=== PATIENT | male | born 1955 | race Caucasian/White ===

== ENCOUNTER 2019-05-07 07:48 | Outpatient (CLI) | payer MEDICARE, BC, SELFPAY ==
--- NOTE | 2019-05-07 | CT_ITS ---
WS: [id number] CT CHEST WITH INTRAVENOUS CONTRAST HISTORY: COPD TECHNIQUE: Contiguous 5 mm axial imaging performed on the thorax. Coronal and sagittal reformats are submitted. All CT scans at [facility] use at least one of these dose optimization techniq ues: automated exposure control; mA and/or kV adjustment per patient size (includes targeted exams wh ere dose is matched to clinical indication); or iterative reconstruction. CONTRAST: Omnipaque 300; 95 mL IV. DLP: 706.97 mGy-cm. COMPARISON: Chest radiograph 03/04/2019 Lungs and central airway: Severe pulmonary hyperinflation with advanced emphysema. Large bulla and bl eb formations and biapical pleural thickening and scarring. Mild interstitial thickening and fibrosis at the lung bases. No bronchiectasis at this time. No suspicious mass or nodule. Pleura: Normal. No pleural effusion. Heart and pericardium: Mild increased pericardial fat deposition. Normal-sized heart chamber. Mediastinum and harjit: No mediastinal or hilar adenopathy. Vessels: Mild atherosclerosis aorta with normal size. Pulmonary artery size remains normal also. Ther e is extensive coronary artery calcification. Chest wall and lower neck: No soft tissue masses. Upper abdomen: Atherosclerosis continues into the upper abdominal aorta. The visualized liver and gal lbladder and upper abdominal structures are negative. Osseous structures: Mild anterior wedging of L1 and L2. Mild anterior wedging of T5. Thoracic spondyl osis. CT/CT chest w con* [id number] IMPRESSION: 1. Severe emphysema with biapical pleural thickening and scarring. 2. Advanced coronary artery atherosclerosis. 3. No adenopathy or pulmonary mass.
--- NOTE | 2019-05-07 | CT_ITS ---
WS: [id number] CT HEAD WITH AND WITHOUT CONTRAST HISTORY: WEAKNESS, HYPO OSMOLALITY TECHNIQUE: Noncontrast 2.5 mm axial images obtained from the vertex to the skull base. Additional lauryn ging performed at 2.5 mm axial images status post IV contrast. Bone and soft tissue windows are revie wed. All CT scans at [facility] use at least one of these dose optimization techniques: a utomated exposure control; mA and/or kV adjustment per patient size (includes targeted exams where do se is matched to clinical indication); or iterative reconstruction. CONTRAST: Omnipaque 300; 95 mL IV. DLP: 2116.36 mGy-cm. COMPARISON: 03/04/2019 No acute intracranial hemorrhage, edema or midline shift. Prior infarct in the posterior RIGHT fronta l lobe is similar to the prior study. No mass effect or midline shift. Mild bilateral symmetric atrop hy. Mild chronic microvascular ischemic disease in the white matter. No edema noted within the chapito o r brainstem on this exam. No enhancing mass or vascular malformations identified. Dural venous sinuses are normally enhancing. Moderate calcification noted within the intracranial carotid arteries and also scattered throughout t he vertebral arteries. Paranasal sinuses as visualized: Small amount of mucoperiosteal thickening in the LEFT frontal ethmoi d recess. Air-fluid level in the LEFT sphenoid sinus. Mastoid air cells: Clear. Calvarium and scalp: Intact. CT/CT head wo/w con [id number] IMPRESSION: 1. Remote posterior RIGHT frontal lobe infarct. 2. No acute hemorrhage or edema. 3. Stable mild atrophy and chronic microvascular ischemic disease. 4. No mass.
[2019-05-07 09:37] LABS: Blood Urea Nitrogen 7 mg/dL (8-23)
[2019-05-07] MEDS: iohexol 300 mg/mL 100 mL Btl IV ×2 (09:40→09:41)
== END 2019-05-07 07:49 | disposition home or self-care (01) ==
LOC: RADWPI 07:56
PROVIDERS: Family Provider Family Medicine; PCP Family Medicine; Visit Provider Family Medicine
DX: J44.9 Chronic obstructive pulmonary disease, unspecified (principal); R53.1 Weakness; E87.1 Hypo-osmolality and hyponatremia; I25.10 Atherosclerotic heart disease of native coronary artery without angina pectoris
CPT/HCPCS: 70470; 71260; 82565; 84520; Q9967

== ENCOUNTER 2019-05-15 10:02 | Outpatient (CLI) | payer MEDICARE, BC, SELFPAY ==
--- NOTE | 2019-05-15 10:15 | USCV_ITS ---
Chris Madera Age: 64 Gender: M : 1955 Exam Date: 05/15/2019 10:30 Ordering Phys: Bri Fernandez MD Technologist: Denise Wood [place]am Location[place] [facility] [place]: Carotid Bruit Risk Factors: Previous Vascular Surgery: None Right Brachial BP: / Left Brachial BP: / Right Left Velocity (cm/s) Spectral Plaque Velocity (cm/s) Spectral Plaque Syst/Diast Broadening Syst/Diast Broadening 62.40/ 7.70 Prox CCA 76.10 / 16.40 44.40/ 6.00 Mid CCA 87.70 / 23.90 19.90/ 4.70 Distal CCA 50.70 / 17.60 / Homo Prox ICA 43.60 / 8.70 / Mid ICA 81.60 / 25.70 / Distal ICA 76.00 / 25.70 166.20 ECA 106.50 ICA/CCA 0.93 Antegrade Vertebral Antegrade 47.10/ 15.70 cm/s 59.30/ 22.40 cm/s Tri Subclavian Bi 110.3 97.90 0 FINDINGS Comparison: none available. Complete occlusion of the right ICA with soft , noncalcified plaque. Small amount of chronic calcified plaque at the bifurcation. Left common and ICA mixed plaque without stenosis. Near circumferential intimal thickening measuring 4 mm at the bifurcation. CONCLUSIONS COMPLETE OCCLUSION RIGHT ICA WITH SOFT PLAQUE. No left ICA stenosis but mixed plaque throughout the common and ICA. Report called at time of exam by deputy sheriff generalist. Dr. Nubia Aponte DO (Electronically Signed) Final Date: 15 May 2019 11:52 S
== END 2019-05-15 10:03 | disposition home or self-care (01) ==
PROVIDERS: Family Provider Family Medicine; PCP Family Medicine; Visit Provider Family Medicine
DX: I65.21 Occlusion and stenosis of right carotid artery (principal); R09.89 Other specified symptoms and signs involving the circulatory and respiratory systems
CPT/HCPCS: 93880

== ENCOUNTER 2019-06-04 09:06 | Outpatient (CLI) | payer MEDICARE, BC, SELFPAY ==
--- NOTE | 2019-06-04 09:00 | CT_ITS ---
WS: [id number] CTA NECK TECHNIQUE: Contrast enhanced CTA of the neck with coronal and sagittal reformatted images and maximum intensity projection (MIP) images. NASCET criteria utilized. CLINICAL INFORMATION: carotid stenosis COMPARISON: None. DLP: 929.[address] scans at [facility] use at least one of these dose optimization techniques: automat ed exposure control; mA and/or kV adjustment per patient size (includes targeted exams where dose is matched to clinical indication); or iterative reconstruction. FINDINGS: RIGHT: Right common carotid artery is patent. Right ICA is occluded at the origin and remains occlude d to the skull base. Right ECA is patent. LEFT: Left common carotid artery is patent. Mild calcified atheromatous disease left carotid bulb ext ending into the ICA. Left ICA stenosis measures approximately 40%. Moderate calcified atheromatous di sease at ECA origin. ECA origin is patent. Left ICA remains patent to the skull base. Both vertebral arteries are patent. Proximal basilar artery is patent. Left cavernous carotid calcification. Proximal [place] pears patent. Mastoid air cells are well aerated. Fluid within the sphenoid sinus. Advanced emphysematous changes i n the lung apices with fibrosis. CT/CT angio neck [id number] IMPRESSION: 1. Right ICA is occluded at the origin and remains occluded to the skull base. 2. Left proximal ICA stenosis measures approximately 40%. 3. Both vertebral arteries are patent. 4. Mild sphenoid sinusitis.
[2019-06-04] MEDS: iohexol 350 mg/mL 100 mL Btl IV (09:43)
== END 2019-06-04 09:07 | disposition home or self-care (01) ==
LOC: RADWPI 09:13
PROVIDERS: Family Provider Family Medicine; PCP Family Medicine; Visit Provider Thoracic Surgery (Cardiothoracic Vascular Surgery)
DX: I65.23 Occlusion and stenosis of bilateral carotid arteries (principal); J32.3 Chronic sphenoidal sinusitis
CPT/HCPCS: 70498; Q9967

== ENCOUNTER 2019-06-04 10:38 | Outpatient (CLI) | payer MEDICARE, BC, SELFPAY ==
--- NOTE | 2019-06-04 14:17 | PFTS_ITS ---
Date of Study:06/04/2019 Date of Dictation: MECHANICS: Forced vital capacity (FVC) is normal. Forced expiratory volume in one second (FEV1) is reduced. FEV1/FVC is . FLOW VOLUME LOOP: Reduced flow at all lung volumes with significant scooping. LUNG VOLUMES: Total lung capacity (TLC) is normal. Residual volume (RV) is normal. DIFFUSING CAPACITY FOR CARBON MONOXIDE: Moderately reduced. INTERPRETATION: The pulmonary function tests are consistent with moderate airflow obstruction. There is no significant postbronchodilator response. There is no hyperinflation or air trapping. Gas exchange (DLCO) is moderately reduced. MTDD
== END 2019-06-04 10:39 | disposition home or self-care (01) ==
LOC: RT 10:40
PROVIDERS: Family Provider Family Medicine; PCP Family Medicine; Visit Provider Family Medicine
DX: J44.9 Chronic obstructive pulmonary disease, unspecified (principal)
CPT/HCPCS: 94060; 94726; 94729; J7611

== ENCOUNTER 2019-10-31 08:52 | Outpatient (CLI) | payer MEDICARE, BC, SELFPAY ==
--- NOTE | 2019-10-31 08:56 | US_ITS ---
WS: [id number] ULTRASOUND ABDOMEN LIMITED CLINICAL INFORMATION: ABNORMAL LEVELS OF OTHER SERUM ENZYMES COMPARISON: None. FINDINGS: Liver Size: Enlarged Craniocaudal length: 16.3 cm. Echogenicity: Dense Surface nodularity: None. Mass (size and location): None. Bile ducts Intrahepatic ducts: Normal. Common bile duct diameter: 0.5 cm. Gallbladder Normal. Gallstones: None. Gallbladder sludge: None. Gallbladder wall thickening: None. Pericholecystic fluid: None. Sonographic Mercer sign: Absent. Pancreas Not well visualized Right kidney: Normal. Hydronephrosis: None. Size: 9.7 cm x 4.1 cm x 5.1 cm. Abdominal aorta and IVC Visualized portions are normal. Moderate aortic atheromatous disease Ascites: None. US/US abdomen limited [id number] IMPRESSION: 1. Hepatomegaly with diffuse fatty infiltration. 2. Gallbladder is normal. 3. No hydronephrosis in either kidney. 4. Moderate atheromatous of these abdominal aorta
== END 2019-10-31 08:53 | disposition home or self-care (01) ==
LOC: US 08:53
PROVIDERS: PCP Family Medicine; Visit Provider Family Medicine
DX: R94.5 Abnormal results of liver function studies (principal); R63.4 Abnormal weight loss; R16.0 Hepatomegaly, not elsewhere classified; K76.0 Fatty (change of) liver, not elsewhere classified; I70.0 Atherosclerosis of aorta
CPT/HCPCS: 76705

== ENCOUNTER → 2019-11-12 12:56 | Outpatient (BNVA) | payer MEDICARE, BC, SELFPAY | PROVIDERS: PCP Family Medicine; Referring Provider Family Medicine; Visit Provider Specialist | DX: G40.309 Generalized idiopathic epilepsy and epileptic syndromes, not intractable, without status epilepticus (principal) | CPT/HCPCS: 95816 ==

== ENCOUNTER → 2019-11-25 13:52 | Outpatient (BNVA) | payer MEDICARE, BC, SELFPAY | PROVIDERS: PCP Family Medicine; Referring Provider Family Medicine; Visit Provider Specialist | DX: G40.309 Generalized idiopathic epilepsy and epileptic syndromes, not intractable, without status epilepticus (principal); I95.1 Orthostatic hypotension; F17.210 Nicotine dependence, cigarettes, uncomplicated | CPT/HCPCS: 99204 ==

== ENCOUNTER 2020-01-09 14:03 | Outpatient (CLI) | payer MEDICARE, BC, SELFPAY ==
--- NOTE | 2020-01-09 14:15 | USCV_ITS ---
Chris Madera Age: 64 Gender: M : 1955 Exam Date: 01/09/2020 14:45 Ordering Phys: Gustavo Negro MD ([email or web address] [place] [facility] Technologist: Caitlin Gusman Exam Location: [facility] [place] Indication: RECHECK CCA STENOSIS Risk Factors: Unknown Previous Vascular Surgery: Unknown Right Brachial BP: / Left Brachial BP: / Right Left Velocity (cm/s) Spectral Plaque Velocity (cm/s) Spectral Plaque Syst/Diast Broadening Syst/Diast Broadening 129.00/16.50 Prox CCA 109.70/ 25.70 83.10/ 11.20 Mid CCA 90.70 / 23.00 100.60/6.70 Distal CCA 78.60 / 17.60 / Prox ICA 48.40 / 20.10 Homo / Mid ICA 50.70 / 23.10 / Distal ICA 57.40 / 28.30 164.20 ECA 94.80 Hetro ICA/CCA 0.63 Antegrade Vertebral Antegrade 48.10/ 11.20 cm/s 55.10/ 18.60 cm/s Tri Subclavian Tri 126.9 150.5 0 0 FINDINGS Moderate heterogeneous plaques at the left bifurcation and proximal renal carotid artery. No flow was detected in the right internal carotid artery. Echogenic material in the lumen of the artery suggestive of a soft plaque Mild diffuse plaques in the common carotid arteries bilaterally. Antegrade flow in the vertebral arteries bilaterally. CONCLUSIONS Features of total occlusion of the right internal carotid artery with soft plaque. Moderate heterogeneous plaques at the left bifurcation and proximal carotid artery Mild diffuse plaques in the common carotid arteries bilaterally. Compared to the study from 05/15/2019, there may not be a significant change Dr Narinder Sweeney MD [facility] (Electronically Signed) Final Date: 12 January 2020 09:01 S
== END 2020-01-09 14:04 | disposition home or self-care (01) ==
LOC: RAD 14:16
PROVIDERS: PCP Family Medicine; Visit Provider Thoracic Surgery (Cardiothoracic Vascular Surgery)
DX: I65.23 Occlusion and stenosis of bilateral carotid arteries (principal)
CPT/HCPCS: 93880

== ENCOUNTER 2020-05-24 15:55 | Outpatient (CLI) | payer MEDICARE, BC, SELFPAY | END 2020-05-24 15:56 | disposition home or self-care (01) | PROVIDERS: PCP Family Medicine; Visit Provider Nurse Practitioner Family | DX: K70.9 Alcoholic liver disease, unspecified (principal); A04.8 Other specified bacterial intestinal infections; R63.4 Abnormal weight loss; Z72.89 Other problems related to lifestyle; K74.00 Hepatic fibrosis, unspecified | CPT/HCPCS: 87338 ==

== ENCOUNTER 2020-08-03 23:50 | Inpatient (IN) | payer MEDICARE, BC, SELFPAY ==
--- NOTE | 2020-08-03 23:55 | CTR_ITS ---
PROCEDURE INFORMATION: Exam: CT Head Without Contrast Exam date and time: 08/03/2020 11:58 PM Age: 65 years old Clinical indication: Injury or trauma; Blunt trauma (contusions or hematomas); Patient HX: Fall out of wheelchair. Sustained blow to head. TECHNIQUE: Imaging protocol: Computed tomography of the head without contrast. Radiation optimization: All CT scans at this facility use at least one of these dose optimization techniques: automated exposure control; mA and/or kV adjustment per patient size (includes targeted exams where dose is matched to clinical indication); or iterative reconstruction. COMPARISON: CT head wo/w con [id number] 05/07/2019 9:24 AM RADIATION DOSE METRICS: Total DLP (mGy-cm): 942.9 FINDINGS: Brain: There is moderate cerebral atrophy. No intracranial hemorrhage.There is moderate diffuse heterogeneity of the white matter attenuation, consistent with chronic white matter ischemic changes. No midline shift of brain. Focal area of encephalomalacia and gliosis in the superior right frontal lobe which is stable from comparison imaging. No acute cerebral sulcal effacement. Cerebral ventricles: No ventriculomegaly. Bones/joints: Unremarkable. No acute fracture. Paranasal sinuses: Visualized sinuses are unremarkable. No fluid levels. Mastoid air cells: Visualized mastoid air cells are well aerated. Orbital cavity: Orbits are symmetric. Bilateral lens replacements. Vasculature: Scattered intracranial atherosclerosis. Soft tissues: Unremarkable. CT/CT head wo con* [id number] IMPRESSION: Negative for acute intracranial abnormality. Radiation Dose CTDIVOL = (mGy): DLP = 942.9 (mGy-cm)
--- NOTE | 2020-08-03 23:55 | CTR_ITS ---
PROCEDURE INFORMATION: Exam: CT Cervical Spine Without Contrast Exam date and time: 08/03/2020 11:58 PM Age: 65 years old Clinical indication: Injury or trauma; Blunt trauma; Patient HX: Fall out of wheelchair. Sustained blow to head. TECHNIQUE: Imaging protocol: Computed tomography images of the cervical spine without contrast. Radiation optimization: All CT scans at this facility use at least one of these dose optimization techniques: automated exposure control; mA and/or kV adjustment per patient size (includes targeted exams where dose is matched to clinical indication); or iterative reconstruction. COMPARISON: CT angio neck [id number] 06/04/2019 9:36 AM RADIATION DOSE METRICS: Total DLP (mGy-cm): 471.41 FINDINGS: Vertebrae: No acute fracture. Normal alignment. The cervical spine demonstrates moderate degenerative changes at multiple levels. Bones are diffusely demineralized. Soft tissues: Unremarkable. Vasculature: Large volume of atherosclerotic plaque bilateral carotid artery bulb regions. Lungs: Severe emphysema and apical lung scarring. CT/CT cervical spin wo con* [id number] IMPRESSION: Negative for cervical spine fracture. Radiation Dose CTDIVOL = (mGy): DLP = 471.41 (mGy-cm)
--- NOTE | 2020-08-03 23:55 | XRR_ITS ---
PROCEDURE INFORMATION: Exam: XR Chest Exam date and time: 08/03/2020 11:58 PM Age: 65 years old Clinical indication: Chest pressure; Patient HX: Chest pain; Additional info: Cp TECHNIQUE: Imaging protocol: XR of the chest. Views: 1 view. COMPARISON: CT chest w con* [id number] 05/07/2019 9:20 AM FINDINGS: Lungs: Stable pulmonary fibrosis. Pleural spaces: Unremarkable. No pleural effusion. No pneumothorax. Heart/Mediastinum: Unremarkable. No cardiomegaly. Bones/joints: Unremarkable. XR/XR chest 1V portable [id number] IMPRESSION: 1. Stable pulmonary fibrosis. 2. No acute disease.
[2020-08-03 23:56] VITALS: BP 88/54; PULSE 78; RESP 16; TEMP 36.4; O2SAT 98; BMI 25.8
--- NOTE | 2020-08-03 23:56 | ECG_ITS ---
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 Measurements Intervals [place] Rate: 72 P: 79 MI: 179 QRS: -64 QRSD: 112 T: 65 QT: 418 QTc: 458 Interpretive Statements SINUS RHYTHM LEFT ANTERIOR FASCICULAR BLOCK [QRS AXIS <= -45, QR IN I, RS IN II] NONSPECIFIC T-WAVE ABNORMALITY Compared to ECG 03/04/2019 13:44:43 Left anterior fascicular block now present T-wave abnormality now present Left-axis deviation no longer present Incomplete right bundle-branch block no longer present Electronically Signed On 08-05-2020 10:06:28 CDT by Narinder Sweeney M.D. [email or web address]
[2020-08-04] VITALS (22 sets, daily range): BP systolic 92–167; BP diastolic 66–110; PULSE 71–117; RESP 8–27; TEMP 36.1–37; O2SAT 91–100
--- NOTE | 2020-08-04 00:05 | W.ED.AMS ---
HPI - Altered Mental Status General: Chief Complaint: ER Hold Stated Complaint: FALL/CP Time Seen by Provider: 08/03/20 23:54 Source: patient and EMS Mode of arrival: EMS Limitations: no limitations History of Present Illness: HPI narrative: 65-year-old male is here by EMS for altered mental status and a fall out of his wheelchair. Spoke to his daughter and she states that he drinks nightly and had a couple drinks tonight. She states he started to become incoherent and complained of some chest pain and she gave him 2 nitroglycerin. Patient here is mumbling and unable to get any history. States he did hit his head when he fell. Patient has a history of anemia and is on iron at all times for his anemia. Patient here is hypotensive she states he gets like this sometimes and his blood pressure is low here currently. he has had no recent illness or fever Review of Systems General: Reports: ROS unobtainable due to mental status [facility] PFSH: Medical History (Updated 08/04/20 @ 01:22 by Dennise Contreras MD) Carotid artery disease COPD (chronic obstructive pulmonary disease) Depression Hypertension Surgical History H/O hernia repair Family History Denies family history of CAD (coronary artery disease) Cancer Social History Smoking and tobacco status: current every day smoker cigarettes Packs smoked per day: 0.5 Years cigarettes smoked: 40 Physical Exam Const: COMMON NORMALS: negative for patient oriented x3 GENERAL APPEARANCE: lethargic and ill appearing ORIENTATION/CONSCIOUSNESS: Yes lethargic HENMT: COMMON NORMALS: normocephalic and atraumatic HEAD & SCALP: normocephalic and atraumatic Eye: COMMON NORMALS: Equal, round and reactive pupils present and EOMs intact bilaterally PUPIL: Yes Equal, round and reactive pupils present Neck/C-Spine: COMMON NORMALS: full ROM and supple Chest: COMMONS NORMALS: normal inspection of the chest and normal palpation of entire chest wall Resp: COMMON NORMALS: normal respiratory effort, No retractions, No use of accessory muscles and clear to auscultation bilaterally AUSCULTATION: clear to auscultation bilaterally Cardio: COMMON NORMALS: regular rate, regular rhythm and No murmurs present (Cardio) RATE: regular rate RHYTHM: regular rhythm GI: COMMON NORMALS: Normal to inspection, nondistended, normoactive bowel sounds present, Soft to palpation, non-tender and no masses PALPATION: Yes Soft to palpation RECTAL EXAM: Yes heme negative stool Extremity: COMMON NORMALS: normal to inspection and full ROM Neuro: COMMON NORMALS: moves all extremities and no focal motor deficits; negative for patient oriented x3 SENSORIUM/ORIENTATION: Yes lethargic Psych: COMMON NORMALS: cooperative; negative for mental status grossly normal Skin: COMMON NORMALS: no rashes or lesions noted and no wounds NARRATIVE SKIN EXAM: pale GENERAL SKIN EXAM: no rashes or lesions noted Course Vital Signs: Vital signs: Vital Signs Temperature 97.6 F 08/03/20 23:56 Pulse Rate 71 08/04/20 01:06 Respiratory Rate 19 H 08/04/20 01:06 Blood Pressure 105/66 08/04/20 01:06 Pulse Oximetry 96 08/04/20 01:06 MDM - Altered Mental Status MDM Narrative: Medical decision making narrative: Patient presents here with altered mental status likely due to his alcohol use. Patient also appears dehydrated. He is initially hypotensive likely due to his dehydration along with taking two nitro pills. He does have an elevated lactate I also believe is due more to dehydration. His white count is minimally elevated and he has no signs of infection at this point. Did treat him with IV antibiotics to follow sepsis protocol and will get blood cultures. Patient's blood pressure here is improved greatly with IV fluids and is now 114/72. Spoke to hospitalist and will admit to the ICU at this time. His head CT here is normal. He has no signs of an acute stroke. Lab Data: Labs: Lab Results 08/04/20 08/04/20 08/04/20 Range/Units 00:06 00:06 00:06 WBC 11.8 H (4.0-10.0) 10^3/ uL RBC 3.00 L (4.1-5.3) 10^6/u L Hgb 10.2 L (11.7-16.6) g/dL Hct 29.7 L (42.0-52.0) % MCV 99.0 H (80-94) fL MCH 34.0 (28.0-34.0) pg MCHC 34.3 (30.0-36.0) g/dL RDW 13.1 (12.1-15.1) % Plt Count 349 (130-400) 10^3/c mm MPV 9.6 (7.4-10.4) fL Neut % (Auto) 61.3 % Lymph % (Auto) 29.1 % [place] % (Auto) 5.8 % Eos % (Auto) 2.5 % Baso % (Auto) 0.5 % Neut # (Auto) 7.21 (1.8-7.7) 10^3/u L Lymph # (Auto) 3.4 (0.8-4.8) 10^3/u L [place] # (Auto) 0.7 (0.2-0.9) 10^3/u L Eos # (Auto) 0.3 (0.0-0.8) 10^3/u L Baso # (Auto) 0.1 (0.0-0.1) 10^3/u L Nucleated RBC % (a uto) 0 % Nucleated RBCs # 0.0 /100WBC PT 13.20 (12.1-14.9) SECO NDS INR 0.97 (0.8-1.2) Sodium 128 L (136-145) mmol/L Potassium 3.2 L (3.5-5.1) mmol/L Chloride 95 L (98-107) mmol/L Carbon Dioxide 17 L (22-29) mmol/L Anion Gap 19.2 H (5-19) BUN 3 L (8-23) mg/dL Creatinine 0.5 L (0.7-1.2) mg/dL GFR Calculation 167.4 H (90-130) mL/min Glucose 78 (65-115) mg/dL Calculated Osmolal ity 261 L (285-295) mOsm/k g Lactate (0.5-2.2) mmol/L Calcium 7.5 L (8.5-10.5) mg/dL Total Bilirubin 0.2 (0.15-1.2) mg/dL AST 48 H (0-40) U/L ALT 27 (0-41) U/L Alkaline Phosphata se 314 H (40-130) IU/L Troponin T Baselin e (0-15) ng/L Total Protein 5.2 L (6.6-8.7) g/dL Albumin 2.3 L (3.5-5.2) g/dL Globulin 2.9 (1.3-4.6) g/dL Urine Color (Yellow) Urine Appearance (CLEAR) Urine pH (5-7) Ur Specific Gravit y (1.005-1.030) Urine Protein (Negative) Urine Glucose (UA) (Normal) Urine Ketones (Negative) Urine Blood (Negative) Urine Nitrate (Negative) Urine Bilirubin (Negative) Urine Urobilinogen (Negative) mg/dL Ur Leukocyte Patty ase (Negative) Urine RBC (0-2) /hpf Urine WBC (0-5) /hpf Ur Squamous Epith Cells (0-5) /hpf Amorphous Sediment Urine Bacteria (NONE) /hpf Ethyl Alcohol 146 H (0-10) mg/dL 08/04/20 08/04/20 08/04/20 Range/Units 00:06 00:06 01:15 WBC (4.0-10.0) 10^3/ uL RBC (4.1-5.3) 10^6/u L Hgb (11.7-16.6) g/dL Hct (42.0-52.0) % MCV (80-94) fL MCH (28.0-34.0) pg MCHC (30.0-36.0) g/dL RDW (12.1-15.1) % Plt Count (130-400) 10^3/c mm MPV (7.4-10.4) fL Neut % (Auto) % Lymph % (Auto) % [place] % (Auto) % Eos % (Auto) % Baso % (Auto) % Neut # (Auto) (1.8-7.7) 10^3/u L Lymph # (Auto) (0.8-4.8) 10^3/u L [place] # (Auto) (0.2-0.9) 10^3/u L Eos # (Auto) (0.0-0.8) 10^3/u L Baso # (Auto) (0.0-0.1) 10^3/u L Nucleated RBC % (a uto) % Nucleated RBCs # /100WBC PT (12.1-14.9) SECO NDS INR (0.8-1.2) Sodium (136-145) mmol/L Potassium (3.5-5.1) mmol/L Chloride (98-107) mmol/L Carbon Dioxide (22-29) mmol/L Anion Gap (5-19) BUN (8-23) mg/dL Creatinine (0.7-1.2) mg/dL GFR Calculation (90-130) mL/min Glucose (65-115) mg/dL Calculated Osmolal ity (285-295) mOsm/k g Lactate 6.1 H* (0.5-2.2) mmol/L Calcium (8.5-10.5) mg/dL Total Bilirubin (0.15-1.2) mg/dL AST (0-40) U/L ALT (0-41) U/L Alkaline Phosphata se (40-130) IU/L Troponin T Baselin e 11 (0-15) ng/L Total Protein (6.6-8.7) g/dL Albumin (3.5-5.2) g/dL Globulin (1.3-4.6) g/dL Urine Color Yellow (Yellow) Urine Appearance Clear (CLEAR) Urine pH 5 (5-7) Ur Specific Gravit y 1.010 (1.005-1.030) Urine Protein Neg (Negative) Urine Glucose (UA) Norm (Normal) Urine Ketones Negative (Negative) Urine Blood Neg (Negative) Urine Nitrate Negative (Negative) Urine Bilirubin Neg (Negative) Urine Urobilinogen Norm (Negative) mg/dL Ur Leukocyte Patty ase Negative (Negative) Urine RBC None (0-2) /hpf Urine WBC None (0-5) /hpf Ur Squamous Epith Cells 0-4 H (0-5) /hpf Amorphous Sediment Not Reportable Urine Bacteria None (NONE) /hpf Ethyl Alcohol (0-10) mg/dL Imaging Data^: Other Xray: Radiologist's impression: [facility] [address] XRay Report Signed Patient: Chris Madera Unit #: [id number] : 1955 Age/Sex: 65 / M ADM Date: 08/03/20 Loc: ER Room/Bed: Attending Dr: Ordering Provider/Ordering MD: Dennise Contreras MD Date of Service: 08/04/20 Procedure(s): XR pelvis 1-2V* [id number] Accession Number(s): [id number] Report Number: [id number] PROCEDURE INFORMATION: Exam: XR Pelvis Exam date and time: 08/04/2020 12:17 AM Age: 65 years old Clinical indication: Injury or trauma; Blunt trauma (contusions or hematomas); Bilateral; Pelvic region; Prior surgery; Surgery type: Hernia repair; Patient HX: Fall out of wheelchair TECHNIQUE: Imaging protocol: XR pelvis. Views: 1 or 2 view. COMPARISON: No relevant prior studies available. FINDINGS: Bones/joints: No acute fracture or dislocation. Soft tissues: Unremarkable. XR/XR pelvis 1-2V* [id number] IMPRESSION: No acute fracture or dislocation. CXR: Attestation: I personally reviewed and interpreted this imaging study as follows: Radiologist's impression: [facility] [address] XRay Report Signed Patient: Chris Madera Unit #: [id number] : 1955 Age/Sex: 65 / M ADM Date: 08/03/20 Loc: ER Room/Bed: Attending Dr: Ordering Provider/Ordering MD: Dennise Contreras MD Date of Service: 08/03/20 Procedure(s): XR chest 1V portable [id number] Accession Number(s): [id number] Report Number: [id number] PROCEDURE INFORMATION: Exam: XR Chest Exam date and time: 08/03/2020 11:58 PM Age: 65 years old Clinical indication: Chest pressure; Patient HX: Chest pain; Additional info: Cp TECHNIQUE: Imaging protocol: XR of the chest. Views: 1 view. COMPARISON: CT chest w con* [id number] 05/07/2019 9:20 AM FINDINGS: Lungs: Stable pulmonary fibrosis. Pleural spaces: Unremarkable. No pleural effusion. No pneumothorax. Heart/Mediastinum: Unremarkable. No cardiomegaly. Bones/joints: Unremarkable. XR/XR chest 1V portable [id number] IMPRESSION: 1. Stable pulmonary fibrosis. 2. No acute disease. CT Head: Radiologist's impression: [facility] [address] [place] [address] CT Scan Report Signed Patient: Chris Madera Unit #: [id number] : 1955 Age/Sex: 65 / M ADM Date: 08/03/20 Loc: ER Room/Bed: Attending Dr: Ordering Provider/Ordering MD: Dennise Contreras MD Date of Service: 08/03/20 Procedure(s): CT head wo con* [id number] Accession Number(s): [id number] Report Number: [id number] PROCEDURE INFORMATION: Exam: CT Head Without Contrast Exam date and time: 08/03/2020 11:58 PM Age: 65 years old Clinical indication: Injury or trauma; Blunt trauma (contusions or hematomas); Patient HX: Fall out of wheelchair. Sustained blow to head. TECHNIQUE: Imaging protocol: Computed tomography of the head without contrast. Radiation optimization: All CT scans at this facility use at least one of these dose optimization techniques: automated exposure control; mA and/or kV adjustment per patient size (includes targeted exams where dose is matched to clinical indication); or iterative reconstruction. COMPARISON: CT head wo/w con [id number] 05/07/2019 9:24 AM RADIATION DOSE METRICS: Total DLP (mGy-cm): 942.9 FINDINGS: Brain: There is moderate cerebral atrophy. No intracranial hemorrhage.There is moderate diffuse heterogeneity of the white matter attenuation, consistent with chronic white matter ischemic changes. No midline shift of brain. Focal area of encephalomalacia and gliosis in the superior right frontal lobe which is stable from comparison imaging. No acute cerebral sulcal effacement. Cerebral ventricles: No ventriculomegaly. Bones/joints: Unremarkable. No acute fracture. Paranasal sinuses: Visualized sinuses are unremarkable. No fluid levels. Mastoid air cells: Visualized mastoid air cells are well aerated. Orbital cavity: Orbits are symmetric. Bilateral lens replacements. Vasculature: Scattered intracranial atherosclerosis. Soft tissues: Unremarkable. CT/CT head wo con* [id number] IMPRESSION: Negative for acute intracranial abnormality. Radiation Dose CTDIVOL = (mGy): DLP = 942.9 ( Other CT: Attestation: I personally reviewed and interpreted this imaging study as follows: Radiologist's impression: [facility] [address] [place] [address] CT Scan Report Signed Patient: Chris Madera Unit #: [id number] : 1955 Age/Sex: 65 / M ADM Date: 08/03/20 Loc: ER Room/Bed: Attending Dr: Ordering Provider/Ordering MD: Dennise Contreras MD Date of Service: 08/03/20 Procedure(s): CT cervical spin wo con* [id number] Accession Number(s): [id number] Report Number: [id number] PROCEDURE INFORMATION: Exam: CT Cervical Spine Without Contrast Exam date and time: 08/03/2020 11:58 PM Age: 65 years old Clinical indication: Injury or trauma; Blunt trauma; Patient HX: Fall out of wheelchair. Sustained blow to head. TECHNIQUE: Imaging protocol: Computed tomography images of the cervical spine without contrast. Radiation optimization: All CT scans at this facility use at least one of these dose optimization techniques: automated exposure control; mA and/or kV adjustment per patient size (includes targeted exams where dose is matched to clinical indication); or iterative reconstruction. COMPARISON: CT angio neck [id number] 06/04/2019 9:36 AM RADIATION DOSE METRICS: Total DLP (mGy-cm): 471.41 FINDINGS: Vertebrae: No acute fracture. Normal alignment. The cervical spine demonstrates moderate degenerative changes at multiple levels. Bones are diffusely demineralized. Soft tissues: Unremarkable. Vasculature: Large volume of atherosclerotic plaque bilateral carotid artery bulb regions. Lungs: Severe emphysema and apical lung scarring. CT/CT cervical spin wo con* [id number] IMPRESSION: Negative for cervical spine fracture. EKG Data^: EKG 1: Attestation: I personally reviewed and interpreted this EKG as follows: EKG interpretation date: 08/04/20 EKG interpretation time: 00:55 Interpretation: nsr hr [address] or t wave abnormalities qrs 112 qtc 442 Discharge Plan Discharge Patient Disposition: Admitted As Inpatient Clinical Impression: Altered mental status, Acute hypotension, Fall, Acidosis, lactic Condition: Stable Coding Level of Care Code ED Associate Professor Of Education for Chg Fwd Exam Comprehensive
[2020-08-04 00:15] LABS: Basophils # 0.1 10^3/uL (0.0-0.1); Basophils % 0.5 %; Eosinophils # 0.3 10^3/uL (0.0-0.8); Eosinophils % 2.5 %; Hematocrit 29.7 % (42.0-52.0); Hemoglobin 10.2 g/dL (11.7-16.6); Lymphocytes # 3.4 10^3/uL (0.8-4.8); Lymphocytes % 29.1 %; Mean Corpuscular HGB Conc 34.3 g/dL (30.0-36.0); Mean Platelet Volume 9.6 fL (7.4-10.4); Monocytes # 0.7 10^3/uL (0.2-0.9); Monocytes % 5.8 %; Neutrophils # 7.21 10^3/uL (1.8-7.7); Neutrophils % 61.3 %; Nucleated Red Blood Cells % 0 %; Platelet Count 349 10^3/cmm (130-400); Red Cell Distribution Width 13.1 % (12.1-15.1); White Blood Count 11.8 10^3/uL (4.0-10.0)
--- NOTE | 2020-08-04 00:16 | XRR_ITS ---
PROCEDURE INFORMATION: Exam: XR Pelvis Exam date and time: 08/04/2020 12:17 AM Age: 65 years old Clinical indication: Injury or trauma; Blunt trauma (contusions or hematomas); Bilateral; Pelvic region; Prior surgery; Surgery type: Hernia repair; Patient HX: Fall out of wheelchair TECHNIQUE: Imaging protocol: XR pelvis. Views: 1 or 2 view. COMPARISON: No relevant prior studies available. FINDINGS: Bones/joints: No acute fracture or dislocation. Soft tissues: Unremarkable. XR/XR pelvis 1-2V* [id number] IMPRESSION: No acute fracture or dislocation.
[2020-08-04 00:27] LABS: INR 0.97 (0.8-1.2)
[2020-08-04 00:34] LABS: Alanine Aminotransferase 27 U/L (0-41); Albumin Level 2.3 g/dL (3.5-5.2); Alcohol Level 146 mg/dL (0-10); Alkaline Phosphatase 314 IU/L (40-130); Anion Gap 19.2 (5-19); Aspartate Amino Transferase 48 U/L (0-40); Blood Urea Nitrogen 3 mg/dL (8-23); Calcium 7.5 mg/dL (8.5-10.5); Carbon Dioxide 17 mmol/L (22-29); Chloride 95 mmol/L (98-107); Globulin 2.9 g/dL (1.3-4.6); Glomerular Filtration Rate 167.4 mL/min (90-130); Glucose 78 mg/dL (65-115); Osmolality Calculated 261 mOsm/kg (285-295); Potassium 3.2 mmol/L (3.5-5.1); Sodium 128 mmol/L (136-145); Total Bilirubin 0.2 mg/dL (0.15-1.2); Total Protein 5.2 g/dL (6.6-8.7)
[2020-08-04 00:37] LABS: Troponin(5th) Baseline 11 ng/L (0-15)
[2020-08-04 00:38] LABS: Lactate (Lactic Acid level) 6.1 mmol/L (0.5-2.2)
[2020-08-04] MEDS: sodium chloride 0.9% 1,000 ML 999 ML IV (00:47)
[2020-08-04] MEDS: piperacillin-tazobactam 3.375 GM in sodium chloride 0.9% (plus) 50 ML IV ×3 (00:48→17:38)
[2020-08-04] MEDS: vancomycin 1,000 MG in sodium chloride 0.9% 250 ML 250 MG IV (01:25)
[2020-08-04] MEDS: sodium chloride 0.9% 500 ML 999 ML IV (01:27)
[2020-08-04 01:33] LABS: Add Urine Culture? No; Bilirubin Urine Neg (Negative); Blood Urine Neg (Negative); Glucose Urine UA Norm (Normal); Ketones Urine Negative (Negative); Leukocyte Esterase Urine Negative (Negative); Nitrate Urine Negative (Negative); Protein Urine Neg (Negative); Squamous Epithelial Cell Urine 0-4 /hpf (0-5); Urine Appearance Clear (CLEAR); Urine Color Yellow (Yellow); Urobilinogen Urine Norm (Negative); pH Urine 5 (5-7)
--- NOTE | 2020-08-04 01:38 | PC.NURSE ---
Pt cosmetic manager Herminia asked this nurse to make a note that patient is hard of hearing and that staff will need to speak loudly to him
--- NOTE | 2020-08-04 02:46 | P.HP_ITS ---
Providers/Chief Complaint Admitting Physician: Johnson Friedman Primary Care Provider: Bri Fernandez MD Chief Complaint: FALL/CP History of Present Illness Chris Madera is a 65 year old male with past medical history of hypertension, COPD and pulmonary fibrosis, depression, hypertension, alcohol abuse and possible cirrhosis who was brought by his daughter to emergency room due to confusion and altered mental status. The patient had several drinks today. While intoxicated he reported chest pain. He was given 2 tablets of nitroglycerin after which he developed hypotension. In the emergency room his blood pressure was in 80s. He is still confused and unable to provide entire history. However he follows instructions appropriately. Denies any active complaints at this time. He reports that the chest pain has resolved. His daughter reports that this presentation is very common for him when he is intoxicated. He is EKG showed no acute ischemic changes and troponin was negative. He denies having any shortness of breath or palpitations. Reports some nausea but no vomiting. No diarrhea. No rectal blood. He drinks about a bottle of enzo in 1 week. He also occasionally falls from his wheelchair when he is intoxicated. Review of Systems General: Reports: 10 or more systems reviewed and unremarkable except in HPI and below Medications/Allergies Home Medications Medication Instructions Recorded Confirmed Last Taken Type aspirin 81 mg tablet,delayed 81 mg PO DAILY 05/21/19 01/15/20 Unknown History release escitalopram oxalate 10 mg tablet 10 mg PO DAILY 05/21/19 01/15/20 Unknown History lisinopril 20 mg tablet 20 mg PO DAILY 05/21/19 01/15/20 Unknown History nitroglycerin 0.4 mg sublingual 0.4 mg SUBLINGUAL Q5M PRN 05/21/19 01/15/20 Unknown History tablet famotidine 20 mg tablet 20 mg PO DAILY 11/25/19 01/15/20 Unknown History ferrous sulfate 325 mg (65 mg 325 mg PO DAILY 11/25/19 01/15/20 Unknown History iron) tablet levetiracetam 750 mg tablet 750 mg PO BID 11/25/19 01/15/20 Unknown History mirtazapine 15 mg tablet 15 mg PO DAILY 11/25/19 01/15/20 Unknown History multivitamin 1 tab PO DAILY 11/25/19 01/15/20 Unknown History Allergies Allergy/AdvReac Type Severity Reaction Status Date / Time No Known Allergies Allergy Verified 11/25/19 14:16 PFSH Acute PFSH: Medical History (Updated 08/04/20 @ 01:22 by Dennise Contreras MD) Carotid artery disease COPD (chronic obstructive pulmonary disease) Depression Hypertension Surgical History H/O hernia repair Family History Denies family history of CAD (coronary artery disease) Cancer Social History Smoking and tobacco status: current every day smoker cigarettes Packs smoked per day: 0.5 Years cigarettes smoked: 40 Vitals/I&O/Wt Last Vital Signs Temp 97.6 F 08/03/20 23:56 Pulse 87 08/04/20 02:25 Resp 20 H 08/04/20 02:25 BP 127/77 08/04/20 02:25 Pulse Ox 91 08/04/20 02:25 08/03/20 08/03/20 08/04/20 14:59 22:59 06:59 Intake Total 1550 / 1550 Balance 1550 / 1550 Weight last 48 hrs Weight 81.647 kg Physical Exam Narrative: EXAM NARRATIVE: The patient is sleepy and confused. Follows instructions but cannot stay awake for too long. No acute distress. Responses are adequate. Skin is warm and dry Moist mucous membrane Extraocular muscles are intact. Right pupil is dilated and nonreactive. According to his daughter this is the result of unsuccessful cataract surgery. Neck is supple nontender. No JVD Lungs clear bilaterally. No respiratory distress Heart S1, S2, regular Abdomen soft, nontender, bowel sounds are present Extremities trace edema, no cyanosis, no calf tenderness bilaterally Moves all extremities Urinary Catheter Management^: Jackson: Cath Placed During This Visit: yes Urinary Catheter Date of Insertion: 08/04/20 Urinary Catheter Time of Insertion: 01:10 Data : 08/04/20 00:06 08/04/20 00:06 Other Labs: Laboratory Results WBC 11.8 10^3/uL (4.0-10.0) H 08/04/20 00:06 RBC 3.00 10^6/uL (4.1-5.3) L 08/04/20 00:06 Hgb 10.2 g/dL (11.7-16.6) L 08/04/20 00:06 Hct 29.7 % (42.0-52.0) L 08/04/20 00:06 MCV 99.0 fL (80-94) H 08/04/20 00:06 MCH 34.0 pg (28.0-34.0) 08/04/20 00:06 MCHC 34.3 g/dL (30.0-36.0) 08/04/20 00:06 RDW 13.1 % (12.1-15.1) 08/04/20 00:06 Plt Count 349 10^3/cmm (130-400) 08/04/20 00:06 MPV 9.6 fL (7.4-10.4) 08/04/20 00:06 Neut % (Auto) 61.3 % 08/04/20 00:06 Lymph % (Auto) 29.1 % 08/04/20 00:06 [place] % (Auto) 5.8 % 08/04/20 00:06 Eos % (Auto) 2.5 % 08/04/20 00:06 Baso % (Auto) 0.5 % 08/04/20 00:06 Neut # (Auto) 7.21 10^3/uL (1.8-7.7) 08/04/20 00:06 Lymph # (Auto) 3.4 10^3/uL (0.8-4.8) 08/04/20 00:06 [place] # (Auto) 0.7 10^3/uL (0.2-0.9) 08/04/20 00:06 Eos # (Auto) 0.3 10^3/uL (0.0-0.8) 08/04/20 00:06 Baso # (Auto) 0.1 10^3/uL (0.0-0.1) 08/04/20 00:06 Nucleated RBC % (auto) 0 % 08/04/20 00:06 Nucleated RBCs # 0.0 /100WBC 08/04/20 00:06 PT 13.20 SECONDS (12.1-14.9) 08/04/20 00:06 INR 0.97 (0.8-1.2) 08/04/20 00:06 Sodium 128 mmol/L (136-145) L 08/04/20 00:06 Potassium 3.2 mmol/L (3.5-5.1) L 08/04/20 00:06 Chloride 95 mmol/L (98-107) L 08/04/20 00:06 Carbon Dioxide 17 mmol/L (22-29) L 08/04/20 00:06 Anion Gap 19.2 (5-19) H 08/04/20 00:06 BUN 3 mg/dL (8-23) L 08/04/20 00:06 Creatinine 0.5 mg/dL (0.7-1.2) L 08/04/20 00:06 GFR Calculation 167.4 mL/min (90-130) H 08/04/20 00:06 Glucose 78 mg/dL (65-115) 08/04/20 00:06 Calculated Osmolality 261 mOsm/kg (285-295) L 08/04/20 00:06 Lactate 6.1 mmol/L (0.5-2.2) H* 08/04/20 00:06 Calcium 7.5 mg/dL (8.5-10.5) L 08/04/20 00:06 Total Bilirubin 0.2 mg/dL (0.15-1.2) 08/04/20 00:06 AST 48 U/L (0-40) H 08/04/20 00:06 ALT 27 U/L (0-41) 08/04/20 00:06 Alkaline Phosphatase 314 IU/L (40-130) H 08/04/20 00:06 Troponin T Baseline 11 ng/L (0-15) 08/04/20 00:06 Total Protein 5.2 g/dL (6.6-8.7) L 08/04/20 00:06 Albumin 2.3 g/dL (3.5-5.2) L 08/04/20 00:06 Globulin 2.9 g/dL (1.3-4.6) 08/04/20 00:06 Urine Color Yellow (Yellow) 08/04/20 01:15 Urine Appearance Clear (CLEAR) 08/04/20 01:15 Urine pH 5 (5-7) 08/04/20 01:15 Ur Specific [place] 1.010 (1.005-1.030) 08/04/20 01:15 Urine Protein Neg (Negative) 08/04/20 01:15 Urine Glucose (UA) Norm (Normal) 08/04/20 01:15 Urine Ketones Negative (Negative) 08/04/20 01:15 Urine Blood Neg (Negative) 08/04/20 01:15 Urine Nitrate Negative (Negative) 08/04/20 01:15 Urine Bilirubin Neg (Negative) 08/04/20 01:15 Urine Urobilinogen Norm mg/dL (Negative) 08/04/20 01:15 Ur Leukocyte Esterase Negative (Negative) 08/04/20 01:15 Urine RBC None /hpf (0-2) 08/04/20 01:15 Urine WBC None /hpf (0-5) 08/04/20 01:15 Ur Squamous Epith Cells 0-4 /hpf (0-5) H 08/04/20 01:15 Amorphous Sediment Not Reportable 08/04/20 01:15 Urine Bacteria None /hpf (NONE) 08/04/20 01:15 Ethyl Alcohol 146 mg/dL (0-10) H 08/04/20 00:[address] 08/03/20 23:55 IMPRESSION: Negative for cervical spine fracture. Radiation Dose CTDIVOL = (mGy): DLP = 471.41 (mGy-cm) Chest X-Ray 08/03/20 23:55 IMPRESSION: 1. Stable pulmonary fibrosis. 2. No acute disease. Head CT 08/03/20 23:55 IMPRESSION: Negative for acute intracranial abnormality. Radiation Dose CTDIVOL = (mGy): DLP = 942.9 (mGy-cm) Pelvis X-Ray 08/04/20 00:16 IMPRESSION: No acute fracture or dislocation. A&P Additional A&P Information 65-year-old male with past medical history of daily alcohol use, hypertension, possible cirrhosis, peripheral vascular disease, depression, chronic hyponatremia, hypertension who is being admitted due to hypotension, dehydration, electrolyte abnormalities, metabolic acidosis and elevated lactic acid. No evidence of infection at this time. The patient received vancomycin and Zosyn in the emergency room. Acute metabolic encephalopathy secondary to alcohol intoxication. The patient will receive hydration. Will receive replacement of electrolytes. Will monitor for any signs of withdrawal. We will start him on CIWA protocol. Vitamin replacement. Severe dehydration with lactic acidosis. I do not see any evidence of infection at this time. I will not continue antibiotics. We will order procalcitonin level. Cultures are ordered by ER as well. We will hydrate and monitor. Hypokalemia and possible hypomagnesemia. We will replace and monitor. Hyponatremia which is chronic. Probably related to dehydration and possible baseline cirrhosis. We will hydrate and monitor. Chest pain. We will continue monitoring troponin and EKG. We will continue home aspirin. Anemia. Probably chronic. We will continue monitoring. Hypotension probably secondary to dehydration. Currently normalized. We will hold home medications. We will continue hydration and close monitoring. The plan of care was discussed with the family member. They verbalized understanding and agreement. Attestations Medical Necessity Statement*: Observation Coding Level of Care Code Acute Spinning And Winding Supervisor for Aylin Bañuelos
[2020-08-04] MEDS: potassium chloride premix 100 ML 50 MEQ IV (03:24)
[2020-08-04] MEDS: lactated ringers 1,000 ML 100 ML IV ×3 (03:25→23:59)
[2020-08-04 05:15] LABS: Lactic Sepsis W/Reflex 3.5 mmol/L (0.5-2.2)
[2020-08-04 05:16] LABS: Procalcitonin 0.09 ng/mL (0-0.5)
[2020-08-04 05:17] LABS: Troponin 5 2HR 7.88 ng/L (0-15)
[2020-08-04 05:20] LABS: Troponin 5 2HR Delta -3.12 ABS# (0-10)
[2020-08-04 05:23] LABS: Anion Gap 13.5 (5-19); Blood Urea Nitrogen 3 mg/dL (8-23); Calcium 6.8 mg/dL (8.5-10.5); Carbon Dioxide 20 mmol/L (22-29); Chloride 101 mmol/L (98-107); Glomerular Filtration Rate 216.6 mL/min (90-130); Glucose 106 mg/dL (65-115); Magnesium 1.8 mg/dL (1.7-2.3); Osmolality Calculated 269 mOsm/kg (285-295); Phosphorus 2.8 mg/dL (2.5-4.5); Potassium 3.5 mmol/L (3.5-5.1); Sodium 131 mmol/L (136-145); Thyroid Stimulating Hormone 1.98 uIU/mL (0.27-4.20)
--- NOTE | 2020-08-04 05:28 | PC.NURSE ---
Shift Summary Patient arrived from the ED at 0240, alert and oriented, having no signs of ETOH withdrawl at this time, he has been pleasant and cooperative, on IVF, having good urine output out of his julian, has no complaints. We are replacing his electrolytes and monitoring his labs and vitals signs.
[2020-08-04 06:31] LABS: Reflex Lactate Order REFLEX LACTIC ORDERD
[2020-08-04 06:50] LABS: Troponin 5 6HR 9.63 ng/L (0-15)
[2020-08-04 06:52] LABS: Troponin 5 6HR Delta -1.37 ng/L (0-12)
--- NOTE | 2020-08-04 07:51 | CT_ITS ---
WS: [id number] CT CHEST, ABDOMEN, AND PELVIS TECHNIQUE: Noncontrast CT of the chest, abdomen, and pelvis with coronal and sagittal reformatted lauryn ges. CLINICAL INFORMATION: lactic acidosis, sepsis, alcoholic, sbp? COMPARISON: None. DLP: 1120.[address] scans at [facility] use at least one of these dose optimization techniques: automat ed exposure control; mA and/or kV adjustment per patient size (includes targeted exams where dose is matched to clinical indication); or iterative reconstruction. CT CHEST: Advanced chronic emphysematous changes. Bullous formation in the lung apices. Scattered areas of fibr osis. Fibrosis in the lung apices. Vascular calcification including coronary. Trace bilateral pleural fluid with slight bibasilar atelectasis. No axillary lymphadenopathy. Aortic calcification. No media stinal or hilar lymphadenopathy. Tiny pericardial effusion. Chronic anterior wedging at the thoracolu mbar junction and upper lumbar spine. CT ABDOMEN AND PELVIS: Noncontrast liver is unremarkable. Normal gallbladder. Normal GE junction. Noncontrast spleen is norm al. Fatty atrophy of the pancreas. Adrenal glands are normal. No hydronephrosis in either kidney. Nor mal caliber abdominal aorta. Aortic calcification. Jackson catheter. No evidence of small or large bowel obstruction. Surgical clips right lower quadrant. CT/CT chest abd pel wo con IMPRESSION: 1. Advanced chronic emphysematous changes with bulla formation in the lung api casper. Scattered areas of fibrosis with pleural thickening. 2. Tiny bilateral pleural effusions with subsegmental atelectasis lung bases. 3. No mediastinal or hilar lymphadenopathy. 4. No acute findings in the abdomen or pelvis. 5. No free fluid or ascites in the abdomen or pelvis.
[2020-08-04 08:29] LABS: C Reactive Protein 10.2 mg/L (0.0-4.9); Gamma Glutamyl Transferase 329 U/L (8-61)
[2020-08-04 09:21] LABS: HIV 1 & 2 Antibody Non-Reactive (Non-Reactiv); HIV 1 & 2 Antigen Non-Reactive (Non-Reactiv)
[2020-08-04 09:29] LABS: Erythrocyte Sedimentation Rate 13 mm/hr (0-10)
[2020-08-04] MEDS: famotidine 20 mg Tablet PO (09:35)
[2020-08-04] MEDS: levETIRAcetam 500 mg Tablet 750 MG PO ×2 (09:35→17:37)
[2020-08-04] MEDS: aspirin 81 mg EC Tablet PO (09:35)
[2020-08-04] MEDS: thiamine 100 mg Tablet PO (09:35)
[2020-08-04] MEDS: multivitamin therapeutic Tablet 1 TAB PO (09:35)
[2020-08-04] MEDS: folic acid 1 mg Tablet PO (09:36)
--- NOTE | 2020-08-04 10:27 | PC.CHAP ---
Pastoral Care Encounter/Spiritual Assessment Type of Contact [] Declined tuna purse seiner visit [] Patient/Family/Request visit [] Outpatient visit [] Follow-up visit [] Physician referral [] Code/Alert [x] Routine visit [] Staff referral [] Actively dying [] Patient sleeping [] Family support [] [] Out of room [] Palliative care [] [] Receiving care in room [] Pre-surgical visit [] Trauma [] Long length of stay [x] ICU visit [] Other: Relational/Emotional Strength [] Patient feels connected with others/family/visitors/staff [] Distress [] Loneliness/isolation [] Abandonment Spirituality of Patient [] Person of Keke [] Attends Orthodoxy of their Keke [] Believes in Prayer [] Reads Bible or Moravian materials [] There are Spiritual issues to be addressed Quarry Plug And Feather Driller Interventions [x] Prayer [] Active listening [] Non-anxious presence [] Spiritual/emotional support [] Crisis/trauma care [] Spiritual counseling [] Bereavement support [] Provided bereavement packet [] Provided Bible/devotional materials [] Provided toy/stuffed animal, coloring book to patient or family member [] Provided Communion [] Anointing/[place] [] Salvation [x] Completed spiritual assessment [] Other: Impact on Illness or Injury [] Angry [] Fearful [] Anxious [] Often cries [] Exhaustion [] Unable to work [] Unable to attend rastafarian [] Unable to walk/stand [] Unable to read [] Unable to drive [] Unable to eat/drink [] Unable to sleep [] Unable to be with family [] Patient intubated [] Other: Summary Time spent with patient
--- NOTE | 2020-08-04 11:10 | US_ITS ---
WS: [id number] ULTRASOUND ABDOMEN LIMITED CLINICAL INFORMATION: liver and gallbladder COMPARISON: None. FINDINGS: Technically difficult study. Liver Size: Normal. Craniocaudal length: 15.5 cm. Echogenicity: Normal. Surface nodularity: None. Mass (size and location): None. Bile ducts Intrahepatic ducts: Normal. Common bile duct diameter: 0.5 cm. Gallbladder Not well seen Gallstones: None. Gallbladder sludge: None. Gallbladder wall thickening: None. Pericholecystic fluid: None. Sonographic Mecrer sign: Absent. Pancreas Not well visualized Right kidney: Normal. Hydronephrosis: None. Size: 10.4 cm x 3.9 cm x 5.0 cm. Abdominal aorta and IVC Visualized portions are normal. Ascites: None. US/US abdomen limited [id number] IMPRESSION: 1. Technically difficult examination. 2. Normal liver. 3. Gallbladder appears normal. Normal common bile duct. 4. No hydronephrosis in right kidney.
--- NOTE | 2020-08-04 11:11 | P.PN_ITS ---
Subjective Subjective: Interval history: Patient was examined this morning, he is alert to person, place, time, follows all commands, denies seeing or hearing things are not there, has minimal tremors, denies a history of alcohol withdrawal seizures, denies a history of delirium tremens, denies ever being intubated for alcohol intoxication withdrawal, he tells me that his last drink of alcohol was yesterday evening, he denies a history of SBP, he does tell me that he had pneumonia sometime ago, denies any choking, denies any vomiting, no abdominal pain, no diarrhea, but does have a cough, does report some subjective fevers, no lightheadedness, no dizziness, no chest pain, no palpitations, denies any new rashes, Vitals/I&O/Wt Last Vital Signs Temp 97.6 F 08/03/20 23:56 Pulse 97 08/04/20 06:21 Resp 21 H 08/04/20 04:15 BP 131/99 08/04/20 04:15 Pulse Ox 97 08/04/20 06:21 08/03/20 08/04/20 08/04/20 22:59 06:59 14:59 Intake Total 1951 Output Total 1300 / 1300 Balance 652 / 652 Weight last 48 hrs Weight 81.647 kg Physical Exam Const: COMMON NORMALS: no acute distress ORIENTATION/CONSCIOUSNESS: Yes awake, Yes oriented to person, Yes oriented to place and Yes oriented to time Neck/C-Spine: COMMON NORMALS: no JVD Resp: COMMON NORMALS: normal respiratory effort, No retractions, No use of accessory muscles and clear to auscultation bilaterally AUSCULTATION: clear to auscultation bilaterally Cardio: COMMON NORMALS: no JVD, regular rate, regular rhythm, S1 normal heart sound present and S2 normal heart sound present RATE: regular rate RHYTHM: regular rhythm HEART SOUNDS: S1 normal heart sound present and S2 normal heart sound present GI: COMMON NORMALS: Normal to inspection, nondistended, normoactive bowel sounds present, Soft to palpation, No hepatosplenomegaly present and no masses PALPATION: Yes Soft to palpation, Yes Tenderness to palpation present (GI) Details: RUQ and Yes No hepatosplenomegaly present Extremity: COMMON NORMALS: no calf tenderness and no pedal edema Neuro: SENSORIUM/ORIENTATION: Yes oriented to person, Yes oriented to place and Yes oriented to time Urinary Catheter Management^: Jackson: Cath Placed During This Visit: yes Reason for Continuing Indwelling Catheter: Accurate Measurement of Urinary Output in Critically Ill Patients Urinary Catheter Date of Insertion: 08/04/20 Urinary Catheter Time of Insertion: 01:10 Data : 08/04/20 00:06 08/04/20 03:55 Micro: Microbiology 08/04/20 08:54 Blood Culture - Preliminary Blood SPECIMEN COLLECTED A&P Assessment and plan (1) Aspiration pneumonia: -Patient likely had aspiration event, related to alcohol intoxication, complaining of a cough, subjective fevers, now requiring 3 L nasal cannula -With concern for sepsis, given elevated lactic acid -White blood cell count 11.8, pro-Martín unremarkable, CRP unremarkable, -CT of the chest does show advanced chronic emphysema, bulla formation, scattered areas of fibrosis with pleural thickening, tiny bilateral pleural effusions with subsegmental atelectasis lung bases Plan: -Continue oxygen therapy -Aspiration precautions -Zosyn for antibiotic coverage -Follow blood cultures, sputum cultures Status: Acute (2) Alcohol withdrawal: -Currently alert oriented x3, follows all commands, minimal tremors, denies seeing or hearing things are not there, does have tachycardia, no diaphoresis -ETOH level is 146 -Aspiration precautions, seizure precautions, CIWA protocol -Thiamine, folic acid, B12 -Currently on LR at 100 cc an hour Status: Acute (3) Lactic acidosis: -Likely secondary to dehydration, sepsis from aspiration pneumonia Status: Acute (4) Acute hypotension: Secondary to nitroglycerin, sepsis, dehydration Status: Acute (5) Sepsis: Secondary to aspiration pneumonia, aspiration event, right upper quadrant ultrasound pending Status: Acute (6) Hyponatremia: Secondary to chronic alcoholism Status: Acute Additional A&P Information 65-year-old male with past medical history of daily alcohol use, hypertension, possible cirrhosis, peripheral vascular disease, depression, chronic hyponatremia, hypertension who is being admitted due to hypotension, dehydration, electrolyte abnormalities, metabolic acidosis and elevated lactic acid. No evidence of infection at this time. The patient received vancomycin and Zosyn in the emergency room. Did have complaints of right upper quadrant pain, elevated GGT, elevated alk phos, elevated liver function, CT scan of the abdomen pelvis had no acute findings, will do a right upper quadrant ultrasound Severe dehydration with lactic acidosis. I do not see any evidence of infection at this time. I will not continue antibiotics. We will order procalcitonin level. Cultures are ordered by ER as well. We will hydrate and monitor. Hypokalemia and possible hypomagnesemia. We will replace and monitor. Hyponatremia which is chronic. Probably related to dehydration and possible baseline cirrhosis. We will hydrate and monitor. Chest pain. Monitor for chest pain Anemia. Probably chronic. We will continue monitoring. Hypotension probably secondary to dehydration. Currently normalized. We will hold home medications. We will continue hydration and close monitoring. The plan of care was discussed with the family member. They verbalized understanding and agreement. SCDs for DVT prophylaxis, Lovenox relatively contraindicated given chronic alcoholism, concerns for liver cirrhosis Full code Attestations Medical Necessity Statement*: Patient requires hospitalization, inpatient, ICU, for alcohol withdrawal, sepsis, lactic acidosis, aspiration pneumonia, critical care time spent over 45 minutes Coding Level of Care Code Acute Windows [employer] Deployment Lead for [facility] F[facility]caron Diagnoses Aspiration pneumonia J69.0 Alcohol withdrawal F10.239 Lactic acidosis E87.2 Acute hypotension I95.9 Sepsis A41.9 Hyponatremia E87.1
[2020-08-04] MEDS: cyanocobalamin 1,000 mcg Tablet 1000 MCG PO (13:10)
[2020-08-04 14:31] LABS: Hepatitis A Antibody IgM Non-Reactive (Nonreactive); Hepatitis B Core IgM Non-Reactive (Nonreactive); Hepatitis B Surface Antigen Non-Reactive (Nonreactive); Hepatitis C Virus Antibody Non-Reactive (Nonreactive)
--- NOTE | 2020-08-04 18:46 | PC.NURSE ---
Shift summary: Pt alert and oriented He is blind, barely can see light at times per pt. He is hard of hearing. Pt had CT of chest and abdomen for abdomen pain, no acute findings. yn started . No seizure activity this shift. Pt has score less than 5 throughout shift on CIWA. Pt has difficulty feeding self even using the clock arrangement for his plate, his aim for his mouth gets his left cheek. Pt has been OOB to hair twice today. PT worked with pt today, he ambulated a very short distance with walker. Urine output of 550ml note.
--- NOTE | 2020-08-04 19:30 | PC.NURSE ---
HOME MEDS Home meds were sent home with family member Herminia, with permission from the patient.
[2020-08-05] VITALS (18 sets, daily range): BP systolic 117–160; BP diastolic 75–110; PULSE 68–105; RESP 1–23; TEMP 36.2–37.4; O2SAT 77–100
[2020-08-05] MEDS: piperacillin-tazobactam 3.375 GM in sodium chloride 0.9% (plus) 50 ML IV ×3 (00:05→18:12)
[2020-08-05 05:07] LABS: Basophils # 0.1 10^3/uL (0.0-0.1); Basophils % 0.6 %; Eosinophils # 0.2 10^3/uL (0.0-0.8); Eosinophils % 1.9 %; Hematocrit 28.8 % (42.0-52.0); Hemoglobin 9.7 g/dL (11.7-16.6); Lymphocytes # 2.9 10^3/uL (0.8-4.8); Lymphocytes % 26.1 %; Mean Corpuscular HGB Conc 33.7 g/dL (30.0-36.0); Mean Corpuscular Hemoglobin 34.4 pg (28.0-34.0); Mean Corpuscular Volume 102.1 fL (80-94); Monocytes # 0.7 10^3/uL (0.2-0.9); Monocytes % 6.5 %; Neutrophils # 7.01 10^3/uL (1.8-7.7); Neutrophils % 64.3 %; Nucleated Red Blood Cells % 0 %; Platelet Count 341 10^3/cmm (130-400); Red Blood Count 2.82 10^6/uL (4.1-5.3); Red Cell Distribution Width 13.1 % (12.1-15.1); White Blood Count 10.9 10^3/uL (4.0-10.0)
[2020-08-05 05:19] LABS: Ammonia 20 umol/L (16-60)
[2020-08-05 05:20] LABS: Lactic Sepsis W/Reflex 2.2 mmol/L (0.5-2.2)
[2020-08-05 05:29] LABS: Procalcitonin 0.08 ng/mL (0-0.5)
[2020-08-05 05:31] LABS: Magnesium 1.6 mg/dL (1.7-2.3); Phosphorus 2.3 mg/dL (2.5-4.5); Thyroid Stimulating Hormone 2.68 uIU/mL (0.27-4.20)
[2020-08-05 05:32] LABS: Alanine Aminotransferase 27 U/L (0-41); Alkaline Phosphatase 301 IU/L (40-130); Aspartate Amino Transferase 49 U/L (0-40); Blood Urea Nitrogen 4 mg/dL (8-23); Calcium 7.2 mg/dL (8.5-10.5); Carbon Dioxide 22 mmol/L (22-29); Chloride 101 mmol/L (98-107); Glomerular Filtration Rate 216.6 mL/min (90-130); Glucose 84 mg/dL (65-115); Osmolality Calculated 270 mOsm/kg (285-295); Sodium 132 mmol/L (136-145); Total Bilirubin 0.4 mg/dL (0.15-1.2)
[2020-08-05 05:35] LABS: Anion Gap 12.6 (5-19); Potassium 3.6 mmol/L (3.5-5.1)
[2020-08-05 05:45] LABS: Creatine Phosphokinase 40 U/L (39-308)
--- NOTE | 2020-08-05 05:56 | PC.NURSE ---
SHIFT SUMMARY Patient had an uneventful night. Patient is alert and oriented and has a CIWA scale score of 2 this shift, no seizure activity noted. No complaints of pain and slept most of the night. Patient remained oriented and tranquil throughout the shift. Patient is hard of hearing and reports blindness. This nurse re-dressed both left and right IV sites with venaguard at the beginning of the shift.
[2020-08-05 06:44] LABS: Reflex Lactate Order REFLEX LACTIC ORDERD
--- NOTE | 2020-08-05 08:44 | PC.CHAP ---
Pastoral Care Encounter/Spiritual Assessment Type of Contact [] Declined complex commercial litigation paralegal visit [] Patient/Family/Request visit [] Outpatient visit [] Follow-up visit [] Physician referral [] Code/Alert [x] Routine visit [] Staff referral [] Actively dying [] Patient sleeping [] Family support [] [] Out of room [] Palliative care [] [] Receiving care in room [] Pre-surgical visit [] Trauma [] Long length of stay [x] ICU visit [] Other: Relational/Emotional Strength [] Patient feels connected with others/family/visitors/staff [] Distress [] Loneliness/isolation [] Abandonment Spirituality of Patient [] Person of Keke [] Attends Druze of their Keke [] Believes in Prayer [] Reads Bible or Hoahaoism materials [] There are Spiritual issues to be addressed Missile And Missile Checkout Technician Interventions [x] Prayer [x] Active listening [x] Non-anxious presence [x] Spiritual/emotional support [] Crisis/trauma care [] Spiritual counseling [] Bereavement support [] Provided bereavement packet [] Provided Bible/devotional materials [] Provided toy/stuffed animal, coloring book to patient or family member [] Provided Communion [] Anointing/[place] [] Salvation [x] Completed spiritual assessment [] Other: Impact on Illness or Injury [] Angry [] Fearful [] Anxious [] Often cries [] Exhaustion [] Unable to work [] Unable to attend anabaptism [] Unable to walk/stand [] Unable to read [] Unable to drive [] Unable to eat/drink [] Unable to sleep [] Unable to be with family [] Patient intubated [] Other: Summary patient setting up... having breakfast... issues with eye sight... feeling somewhat stronger Time spent with patient 10 min
[2020-08-05] MEDS: folic acid 1 mg Tablet PO (09:20)
[2020-08-05] MEDS: thiamine 100 mg Tablet PO (09:20)
[2020-08-05] MEDS: aspirin 81 mg EC Tablet PO (09:20)
[2020-08-05] MEDS: multivitamin therapeutic Tablet 1 TAB PO (09:20)
[2020-08-05] MEDS: magnesium oxide 400 mg tablet PO ×2 (09:20→18:09)
[2020-08-05] MEDS: famotidine 20 mg Tablet PO (09:20)
[2020-08-05] MEDS: cyanocobalamin 1,000 mcg Tablet 1000 MCG PO (09:20)
[2020-08-05] MEDS: levETIRAcetam 500 mg Tablet 750 MG PO ×2 (09:20→18:09)
--- NOTE | 2020-08-05 11:47 | PM.PN ---
Subjective Subjective: Interval history: Patient was seen this morning, he is alert oriented x3, sitting up in the chair, having breakfast, had minimal CIWA scores overnight, no chest pain, no palpitations, no diaphoresis, has a minimal tremor, denies seeing or hearing things are not there, Vitals/I&O/Wt Last Vital Signs Temp 98.2 F 08/05/20 07:00 Pulse 89 08/05/20 10:00 Resp 17 08/05/20 10:00 BP 142/103 08/05/20 10:00 Pulse Ox 95 08/05/20 10:00 08/04/20 08/05/20 08/05/20 22:59 06:59 14:59 Intake Total 50 / 1350 1150 / 2500 500 / 500 Output Total 550 / 550 700 / 1250 Balance -500 / 800 450 / 1250 500 / 500 Weight last 48 hrs Weight 81.647 kg Physical Exam Const: COMMON NORMALS: no acute distress, patient oriented x3 and alert ORIENTATION/CONSCIOUSNESS: Yes awake, Yes oriented to person, Yes oriented to place and Yes oriented to time OTHER: Minimal tremor bilateral upper extremity Resp: COMMON NORMALS: normal respiratory effort, No retractions, No use of accessory muscles and clear to auscultation bilaterally AUSCULTATION: clear to auscultation bilaterally Cardio: COMMON NORMALS: regular rate, regular rhythm, S1 normal heart sound present and S2 normal heart sound present RATE: regular rate RHYTHM: regular rhythm HEART SOUNDS: S1 normal heart sound present and S2 normal heart sound present GI: COMMON NORMALS: Normal to inspection, nondistended, normoactive bowel sounds present, Soft to palpation and non-tender PALPATION: Yes Soft to palpation Extremity: COMMON NORMALS: no pedal edema Neuro: COMMON NORMALS: patient oriented x3, CN's II-XII intact bilaterally and moves all extremities SENSORIUM/ORIENTATION: Yes alert, Yes oriented to person, Yes oriented to place and Yes oriented to time Urinary Catheter Management^: Jackson: Cath Placed During This Visit: yes Reason for Continuing Indwelling Catheter: Accurate Measurement of Urinary Output in Critically Ill Patients Urinary Catheter Date of Insertion: 08/04/20 Urinary Catheter Time of Insertion: 01:10 Data : 08/05/20 04:00 08/05/20 04:00 Micro: Microbiology 08/04/20 08:54 Blood Culture - Preliminary Blood NEGATIVE TO DATE 08/04/20 08:50 Blood Culture - Preliminary Blood SPECIMEN COLLECTED A&P Assessment and plan (1) Aspiration pneumonia: -Patient likely had aspiration event, related to alcohol intoxication, complaining of a cough, subjective fevers, now requiring 3 L nasal cannula -With concern for sepsis, given elevated lactic acid -White blood cell count 11.8, pro-Martín unremarkable, CRP unremarkable, -CT of the chest does show advanced chronic emphysema, bulla formation, scattered areas of fibrosis with pleural thickening, tiny bilateral pleural effusions with subsegmental atelectasis lung bases Plan: -Continue oxygen therapy as needed -Aspiration precautions -Zosyn for antibiotic coverage, de-escalate in the next 24 hours -Follow blood cultures, sputum cultures Plan continue CIWA scores, monitor mentation, stop fluids, continue antibiotics, moved to general medical floors Status: Acute (2) Alcohol withdrawal: -Currently alert oriented x3, follows all commands, minimal tremors, denies seeing or hearing things are not there, does have tachycardia, no diaphoresis -ETOH level is 146 -Aspiration precautions, seizure precautions, CIWA protocol -Thiamine, folic acid, B12 -Currently on LR at 100 cc an hour Status: Acute (3) Lactic acidosis: -Resolved, likely secondary to dehydration, sepsis from aspiration pneumonia Status: Acute (4) Acute hypotension: Resolved, secondary to nitroglycerin, sepsis, dehydration Status: Acute (5) Sepsis: Resolved, secondary to aspiration pneumonia, aspiration event, right upper quadrant ultrasound pending Status: Acute (6) Hyponatremia: Secondary to chronic alcoholism Status: Acute Additional A&P Information 65-year-old male with past medical history of daily alcohol use, hypertension, possible cirrhosis, peripheral vascular disease, depression, chronic hyponatremia, hypertension who is being admitted due to hypotension, dehydration, electrolyte abnormalities, metabolic acidosis and elevated lactic acid. No evidence of infection at this time. The patient received vancomycin and Zosyn in the emergency room. Did have complaints of right upper quadrant pain, elevated GGT, elevated alk phos, elevated liver function, CT scan of the abdomen pelvis had no acute findings, will do a right upper quadrant ultrasound Severe dehydration with lactic acidosis. I do not see any evidence of infection at this time. I will not continue antibiotics. We will order procalcitonin level. Cultures are ordered by ER as well. We will hydrate and monitor. Hypokalemia and possible hypomagnesemia. We will replace and monitor. Hyponatremia which is chronic. Probably related to dehydration and possible baseline cirrhosis. We will hydrate and monitor. Chest pain. Monitor for chest pain Anemia. Probably chronic. We will continue monitoring. Hypotension probably secondary to dehydration. Currently normalized. We will hold home medications. We will continue hydration and close monitoring. The plan of care was discussed with the family member. They verbalized understanding and agreement. SCDs for DVT prophylaxis, Lovenox relatively contraindicated given chronic alcoholism, concerns for liver cirrhosis Full code Attestations Medical Necessity Statement*: Patient requires hospitalization due to aspiration pneumonia, alcohol withdrawal, sepsis resolved, lactic acid resolved, hyponatremia, critical care time spent over 35 minutes Coding Level of Care Code Acute Real Estate Utilization Officer for [facility] Fwd Diagnoses Aspiration pneumonia J69.0 Alcohol withdrawal F10.239 Lactic acidosis E87.2 Acute hypotension I95.9 Sepsis A41.9 Hyponatremia E87.1
--- NOTE | 2020-08-05 12:46 | PC.NURSE ---
Report faxed to [facility] for room 631-5.
--- NOTE | 2020-08-05 12:56 | PC.NURSE ---
Niece, family member caretaker, May notified of impending move to [facility].
--- NOTE | 2020-08-05 13:37 | PC.NURSE ---
[facility] nurse, Petrona, called for report. Report harshal.
--- NOTE | 2020-08-05 14:17 | PC.NURSE ---
Pt transferred to room 259-1 with belongings. Further updates given to AARON Jay.
--- NOTE | 2020-08-05 16:38 | PC.RESP ---
SMOKING CESSATION AND PULMONARY REHAB INFORMATION SENT TO PATIENT.
--- NOTE | 2020-08-05 20:38 | PC.NURSE ---
PT COME UP TO THE FLOOR AROUND 1415 TODAY. PT DOES NOT HAVE ANY COMPLAINTS OF PAIN. PT IS SETTLED INTO BED, DOING WELL. PT IS BLIND AND HARD OF HEARING. THE CLOCK METHOD TO DESCRIBE WERE THINGS ARE WORK WELL FOR HIM. BOTH IV'S WERE REMOVED FROM PT AND A NEW ONE WAS STARTED IN HIS LEFT AC SPACE. PT TOLERATED THIS WELL. IT TOOK NURSE ONLY ONE STICK. PT ATE A FAIR AMOUNT OF DINNER. PT IS CURRENTLY RESTING IN BED. REPORT WAS GIVEN TO BULMARO JAUREGUI. PT DOES NOT HAVE ANY QUESTIONS OR WANTS/NEEDS AT HIS TIME. WILL CONTINUE TO MONITOR PT.
[2020-08-05] MEDS: mirtazapine 15 mg Tablet 30 MG PO (22:12)
[2020-08-06] MEDS: piperacillin-tazobactam 3.375 GM in sodium chloride 0.9% (plus) 50 ML IV ×2 (01:57→11:08)
[2020-08-06 04:00] VITALS: BP 155/95; PULSE 98; RESP 18; TEMP 37.1; O2SAT 91
[2020-08-06 05:22] LABS: Basophils # 0.1 10^3/uL (0.0-0.1); Basophils % 0.7 %; Eosinophils # 0.2 10^3/uL (0.0-0.8); Eosinophils % 2.2 %; Hematocrit 29.1 % (42.0-52.0); Hemoglobin 9.9 g/dL (11.7-16.6); Lymphocytes # 2.2 10^3/uL (0.8-4.8); Lymphocytes % 20.2 %; Mean Platelet Volume 9.7 fL (7.4-10.4); Monocytes # 0.6 10^3/uL (0.2-0.9); Monocytes % 5.4 %; Neutrophils # 7.65 10^3/uL (1.8-7.7); Nucleated Red Blood Cells % 0 %; Platelet Count 333 10^3/cmm (130-400); Red Blood Count 2.91 10^6/uL (4.1-5.3); Red Cell Distribution Width 12.9 % (12.1-15.1); White Blood Count 10.8 10^3/uL (4.0-10.0)
[2020-08-06 05:31] LABS: INR 0.93 (0.8-1.2)
[2020-08-06 05:42] LABS: Alanine Aminotransferase 29 U/L (0-41); Alkaline Phosphatase 297 IU/L (40-130); Blood Urea Nitrogen 4 mg/dL (8-23); Calcium 7.2 mg/dL (8.5-10.5); Carbon Dioxide 24 mmol/L (22-29); Chloride 100 mmol/L (98-107); Creatine Phosphokinase 46 U/L (39-308); Globulin 3.1 g/dL (1.3-4.6); Glomerular Filtration Rate 216.6 mL/min (90-130); Glucose 97 mg/dL (65-115); Magnesium 1.7 mg/dL (1.7-2.3); Osmolality Calculated 271 mOsm/kg (285-295); Phosphorus 2.5 mg/dL (2.5-4.5); Sodium 132 mmol/L (136-145); Total Bilirubin 0.4 mg/dL (0.15-1.2); Total Protein 5.1 g/dL (6.6-8.7)
[2020-08-06 05:44] LABS: Anion Gap 11.9 (5-19); Aspartate Amino Transferase 54 U/L (0-40); Potassium 3.9 mmol/L (3.5-5.1)
[2020-08-06 06:00] VITALS: PULSE 95
[2020-08-06 06:25] LABS: Ammonia 26 umol/L (16-60)
[2020-08-06 08:00] VITALS: BP 139/85; PULSE 89; RESP 14; TEMP 36.6; O2SAT 94
[2020-08-06] MEDS: cholecalciferol (vitamin D3) 1,000 unit Tablet 2000 UNIT PO (09:23)
[2020-08-06] MEDS: aspirin 81 mg EC Tablet PO (09:23)
[2020-08-06] MEDS: levETIRAcetam 500 mg Tablet 750 MG PO (09:23)
[2020-08-06] MEDS: ferrous sulfate EC 325 mg Tablet PO (09:23)
[2020-08-06] MEDS: cyanocobalamin 1,000 mcg Tablet 1000 MCG PO (09:23)
[2020-08-06] MEDS: famotidine 20 mg Tablet PO (09:23)
[2020-08-06] MEDS: folic acid 1 mg Tablet PO (09:23)
[2020-08-06] MEDS: multivitamin therapeutic Tablet 1 TAB PO (09:23)
[2020-08-06] MEDS: thiamine 100 mg Tablet PO (09:24)
[2020-08-06] MEDS: magnesium oxide 400 mg tablet PO (09:24)
[2020-08-06] MEDS: escitalopram 10 mg Tablet PO (09:24)
--- NOTE | 2020-08-06 10:51 | PM.DCS ---
Discharge Providers Date of Admission: 08/04/20 13:30 Date of Discharge: August 06, 2020 Attending Provider at Admission: Johnson Friedman Attending Provider at Discharge: Oziel Zavala MD Primary Care Provider: Bri Fernandez MD Diagnoses at Discharge Discharge Diagnosis (1) Aspiration pneumonia: Status: Acute (2) Alcohol withdrawal: Status: Acute (3) Lactic acidosis: Status: Acute (4) Acute hypotension: Status: Acute (5) Sepsis: Status: Acute (6) Hyponatremia: Status: Acute Reason for Visit Reason for Visit: FALL/CP Hospital Course Hospital Course This is a 65-year-old male with a past this is a 65-year-old male with a past medical history of hypertension, COPD, pulmonary fibrosis, depression, hypertension, alcohol abuse, who presents to [facility] due to concerns for confusion and altered mental status Patient was admitted to [facility] for altered mental status, confusion secondary to aspiration pneumonia, alcohol withdrawal Patient was monitored in the ICU, no acute withdrawal episodes, minimal CIWA scores, received IV fluids, moved to general medical floors, did well, minimal CIWA scores, alert oriented x3, following all commands, minimal tremor, no hallucinations, no suicidal or homicidal ideation, discharged home. Patient was advised to abstain from alcohol, discharged on thiamine, folic acid, B12, multivitamin For his aspiration pneumonia, likely related to alcohol intoxication, requiring up to 3 L, received antibiotic therapy, clinically improved, discharged on Augmentin, no home oxygen needs Patient did have severe dehydration with lactic acidosis, improved with IV hydration Patient did have acute on chronic hyponatremia, improved with IV hydration, likely secondary to alcoholism Physical Exam Const: COMMON NORMALS: no acute distress and patient oriented x3 HENMT: COMMON NORMALS: normocephalic HEAD & SCALP: normocephalic Eye: COMMON NORMALS: Equal, round and reactive pupils present GENERAL EYE: appearance normal, both eyes and all related structures PUPIL: Yes Equal, round and reactive pupils present Neck/C-Spine: COMMON NORMALS: full ROM and no JVD Lymph: LYMPHATIC: no lymphadenopathy noted Resp: COMMON NORMALS: normal respiratory effort, No retractions, No use of accessory muscles and clear to auscultation bilaterally AUSCULTATION: clear to auscultation bilaterally Cardio: COMMON NORMALS: no JVD, regular rate, regular rhythm, S1 normal heart sound present, S2 normal heart sound present, No gallops present (Cardio), No clicks present (Cardio) and No murmurs present (Cardio) RATE: regular rate RHYTHM: regular rhythm HEART SOUNDS: S1 normal heart sound present and S2 normal heart sound present GI: COMMON NORMALS: Normal to inspection, nondistended, normoactive bowel sounds present, Soft to palpation, non-tender and No hepatosplenomegaly present PALPATION: Yes Soft to palpation and Yes No hepatosplenomegaly present Extremity: COMMON NORMALS: normal to inspection and no pedal edema Neuro: COMMON NORMALS: patient oriented x3, CN's II-XII intact bilaterally, moves all extremities and no focal motor deficits Psych: COMMON NORMALS: mental status grossly normal Urinary Catheter Management^: Jackson: Cath Placed During This Visit: yes Reason for Continuing Indwelling Catheter: Other Urinary Catheter Date of Insertion: 08/04/20 Urinary Catheter Time of Insertion: 01:10 Discharge Data Data Completed and Pending: Completed Studies During Hospitalization Category Date Time Status CT cervical spin wo con* [id number] Urge nt Cat Scan 08/03/20 23:[address] chest abd pel wo con Stat Cat Scan 08/04/20 07:[address] head wo con* 7 0450 Urgent Cat Scan 08/03/20 23:55 Completed XR chest 1V nicola ble [id number] Urgent Exams 08/03/20 23:55 Completed XR pelvis 1-2V* 7 2170 Stat Exams 08/04/20 00:16 [place] d [id number] Routine Ultrasound 08/04/20 11:10 Completed Pending at discharge Category Date Time Status Ammonia AM LABS Lab 08/07/20 04:00 Ordered Blood Culture Sta t Lab 08/04/20 08:50 Results Complete Blood Co unt w/Auto AM LABS Lab 08/07/20 04:00 Ordered Comprehensive Met abolic Panel AM LA BS Lab 08/07/20 04:00 Ordered Creatine Phosphok inase AM LABS Lab 08/07/20 04:00 Ordered Magnesium AM LABS Lab 08/07/20 04:00 Ordered Magnesium AM LABS Lab 08/08/20 04:00 Ordered Phosphorus AM LAB S Lab 08/07/20 04:00 Ordered Phosphorus AM LAB S Lab 08/08/20 04:00 Ordered Prothrombin Time INR AM LABS Lab 08/07/20 04:00 Ordered Sputum Culture an d Gram Stain Stat Lab 08/04/20 07:54 Uncollected Urine Culture Sta t Lab 08/04/20 15:00 Results Labs from last 24 hours 08/06/20 08/06/20 08/06/20 05:09 05:09 05:09 WBC RBC Hgb Hct MCV MCH MCHC RDW Plt Count MPV Neut % (Auto) Lymph % (Auto) [place] % (Auto) Eos % (Auto) Baso % (Auto) Neut # (Auto) Lymph # (Auto) [place] # (Auto) Eos # (Auto) Baso # (Auto) Nucleated RBC % (a uto) Nucleated RBCs # PT 12.80 INR 0.93 Sodium 132 L Potassium 3.9 Chloride 100 Carbon Dioxide 24 Anion Gap 11.9 BUN 4 L Creatinine 0.4 L GFR Calculation 216.6 H Glucose 97 Calculated Osmolal ity 271 L Calcium 7.2 L Phosphorus 2.5 Magnesium 1.7 Total Bilirubin 0.4 AST 54 H ALT 29 Alkaline Phosphata se 297 H Ammonia 26 Creatine Kinase 46 Total Protein 5.1 L Albumin 2.0 L Globulin 3.1 08/06/20 05:09 WBC 10.8 H RBC 2.91 L Hgb 9.9 L Hct 29.1 L MCV 100.0 H MCH 34.0 MCHC 34.0 RDW 12.9 Plt Count 333 MPV 9.7 Neut % (Auto) 71.0 Lymph % (Auto) 20.2 [place] % (Auto) 5.4 Eos % (Auto) 2.2 Baso % (Auto) 0.7 Neut # (Auto) 7.65 Lymph # (Auto) 2.2 [place] # (Auto) 0.6 Eos # (Auto) 0.2 Baso # (Auto) 0.1 Nucleated RBC % (a uto) 0 Nucleated RBCs # 0.0 PT INR Sodium Potassium Chloride Carbon Dioxide Anion Gap BUN Creatinine GFR Calculation Glucose Calculated Osmolal ity Calcium Phosphorus Magnesium Total Bilirubin AST ALT Alkaline Phosphata se Ammonia Creatine Kinase Total Protein Albumin Globulin Vitals: Last Vital Signs Temp 97.9 F 08/06/20 08:00 Pulse 89 08/06/20 08:00 Resp 14 08/06/20 08:00 BP 139/85 08/06/20 08:00 Pulse Ox 94 08/06/20 08:00 Discharge Plan Discharge Patient Disposition: Home Condition: Stable Prescriptions: New multivitamin with folic acid [Thera] 400 mcg Tablet 1 tab PO DAILY 30 Days Qty: 30 RF: 0 cyanocobalamin (vitamin B-12) [Vitamin B-12] 1,000 mcg Tablet 1,000 mcg PO DAILY 30 Days Qty: 30 RF: 0 amoxicillin-pot clavulanate [Augmentin] 875-125 mg tablet 1 tab PO BID 7 Days Qty: 14 RF: 0 thiamine mononitrate (vit B1) [Vitamin B-1 (mononitrate)] 100 mg Tablet 100 mg PO DAILY 30 Days Qty: 30 RF: 0 Continued escitalopram oxalate [Lexapro] 10 mg tablet 10 mg PO DAILY RF: 0 aspirin 81 mg tablet,delayed release (DR/EC) 81 mg PO DAILY RF: 0 nitroglycerin 0.4 mg tablet, sublingual 0.4 mg SUBLINGUAL Q5M PRN (Reason: Chest Pain) RF: 0 famotidine [Acid Transport Engineer (famotidine)] 20 mg tablet 20 mg PO DAILY RF: 0 levetiracetam [Keppra] 750 mg tablet 750 mg PO BID RF: 0 multivitamin Tablet 1 tab PO DAILY RF: 0 ferrous sulfate [FeroSul] 325 mg (65 mg iron) tablet 325 mg PO DAILY RF: 0 mirtazapine 15 mg tablet 30 mg PO BEDTIME RF: 0 Benadryl 25 mg Capsule 25 mg PO DAILY PRN (Reason: Allergic Reaction) RF: 0 lisinopril 10 mg tablet 15 mg PO DAILY RF: 0 ibuprofen 200 mg Tablet 200 mg PO Q6H PRN (Reason: Pain) RF: 0 albuterol sulfate 90 mcg/actuation Hfa Aerosol Inhaler 1 inh INHALATION QID PRN (Reason: Shortness Of Breath) RF: 0 omeprazole 20 mg Tablet,Delayed Release (Dr/Ec) 20 mg PO BID RF: 0 melatonin 5 mg Tablet 5 mg PO BEDTIME RF: 0 Vitamin D3 50 mcg (2,000 unit) Tablet 50 mcg PO DAILY RF: 0 Discharge Orders: Discharge Order (Routine); Ordered 08/06/20 Ordered By: Oziel Zavala Referrals: Bri Fernandez MD [Primary Care Provider] - Elly Caputo MD [Physician] - 1 month (lung emphysema) Discharge Diet: Cardiac Discharge Activity: Resume usual activity Patient Instructions: Alcoholism, Alcohol Withdrawal, Abuse of Alcohol (DC), Alcohol Withdrawal (DC), Opioid Safety Activity Restrictions/Additional Instructions: -Please abstain from alcohol consumption Discharge Attestations Time Spent in Discharge Care*: other Quality Metrics Clinical Quality Measures During this hospital stay, did patient experience: None Coding Level of Care Code Acute Chg FW DC note Diagnoses Aspiration pneumonia J69.0 Alcohol withdrawal F10.239 Lactic acidosis E87.2 Acute hypotension I95.9 Sepsis A41.9 Hyponatremia E87.1
[2020-08-06 11:48] VITALS: BP 138/83; PULSE 97; RESP 16; TEMP 37.1; O2SAT 92
--- NOTE | 2020-08-06 11:48 | PC.NURSE ---
The patient had taken off his . room air 92%
[2020-08-06 13:45] VITALS: BP 138/83; PULSE 97; RESP 16; TEMP 37.1; O2SAT 92
== END 2020-08-06 13:30 | disposition home or self-care (01) | DRG 871 ==
LOC: ER 08-04 01:22 → ICU 08-04 05:29 → MEDSURG 08-05 15:04
PROVIDERS: Admitting Provider Internal Medicine; Emergency Provider Emergency Medicine; PCP Family Medicine; Visit Provider Family Medicine
DX: A41.9 Sepsis, unspecified organism (principal); G93.41 Metabolic encephalopathy; J69.0 Pneumonitis due to inhalation of food and vomit; F10.239 Alcohol dependence with withdrawal, unspecified; E87.1 Hypo-osmolality and hyponatremia; E87.2 Acidosis; I95.9 Hypotension, unspecified; I10 Essential (primary) hypertension; J44.9 Chronic obstructive pulmonary disease, unspecified; J84.10 Pulmonary fibrosis, unspecified; F32.9 Major depressive disorder, single episode, unspecified; F10.229 Alcohol dependence with intoxication, unspecified; Y90.6 Blood alcohol level of 120-199 mg/100 ml; K70.30 Alcoholic cirrhosis of liver without ascites; I25.10 Atherosclerotic heart disease of native coronary artery without angina pectoris; F17.210 Nicotine dependence, cigarettes, uncomplicated; I73.9 Peripheral vascular disease, unspecified; E86.0 Dehydration; E87.6 Hypokalemia; E83.42 Hypomagnesemia; D64.9 Anemia, unspecified
CPT/HCPCS: 36415; 51702; 70450; 71045; 71250; 72125; 72170; 74176; 76705; 80048; 80053; 80074; 80307; 81001; 82140; 82550; 82977; 83605; 83735; 84100; 84145; 84443; 84484; 85025; 85610; 85651; 86140; 86850; 86900; 87040; 87086; 87806; 90935; 93005; 96372; 97116; 97162; 97167; 97530; 99291; 99292; G0378; J2543; J3370; J3411; J3475; J3480; J7030; J7040; J7050; Q3014

== ENCOUNTER 2020-09-22 10:49 | Outpatient (CLI) | payer MEDICARE, BC, SELFPAY ==
--- NOTE | 2020-09-22 11:00 | USCV_ITS ---
Chris Madera Age: 65 Gender: M : 1955 Exam Date: 09/22/2020 11:10 Ordering Phys: Gustavo Negro MD (Andy) ([email or web address] [place]) Technologist: Cris Wood Exam Location: [facility] [place] Indication: BILATERAL CAROTID ARTERY STENOSIS Risk Factors: Previous Vascular Surgery: Right Brachial BP: / Left Brachial BP: / Right Left Velocity (cm/s) Spectral Plaque Velocity (cm/s) Spectral Plaque Syst/Diast Broadening Syst/Diast Broadening 77.20/ 8.80 Prox CCA 122.70/ 31.10 61.80/ 9.00 Mid CCA 125.80/ 32.60 49.80/ 8.80 Distal CCA 80.50 / 19.80 / Prox ICA 40.30 / 13.90 / Mid ICA 49.70 / 18.60 / Distal ICA 71.80 / 33.30 206.00 ECA 91.00 ICA/CCA 0.57 Antegrade Vertebral Antegrade 56.70/ 25.60 cm/s 53.60/ 20.90 cm/s Tri Subclavian Tri 88.60 121.7 0 FINDINGS Comparison:. 01/09/20. Known occlusion of the right ICA. Mild elevation of velocity right ECA. Antegrade vertebral arteries. No stenosis left carotid, mild diffuse mixed plaque. CONCLUSIONS No interval change in stenosis since prior exam. Known occluded right ICA. Left ICA stenosis < 50%. Diffuse mixed echogenic plaque left carotid artery. Dr. Nubia Aponte DO (Electronically Signed) Final Date: 22 September 2020 12:36 S
== END 2020-09-22 10:50 | disposition home or self-care (01) ==
LOC: RAD 10:55
PROVIDERS: PCP Family Medicine; Visit Provider Thoracic Surgery (Cardiothoracic Vascular Surgery)
DX: I65.23 Occlusion and stenosis of bilateral carotid arteries (principal)
CPT/HCPCS: 93880

== ENCOUNTER → 2020-09-23 10:30 | Outpatient (BNVA) | payer MEDICARE, BC, SELFPAY | PROVIDERS: PCP Family Medicine; Visit Provider Specialist | DX: R55 Syncope and collapse (principal); F17.210 Nicotine dependence, cigarettes, uncomplicated | CPT/HCPCS: 95816 ==

== ENCOUNTER → 2020-12-28 15:48 | Outpatient (BNVA) | payer MEDICARE, BC, SELFPAY | PROVIDERS: PCP Family Medicine; Visit Provider Specialist | DX: G40.309 Generalized idiopathic epilepsy and epileptic syndromes, not intractable, without status epilepticus (principal); Z71.85 Encounter for immunization safety counseling; Z72.89 Other problems related to lifestyle | CPT/HCPCS: 99214; 99215 ==

== ENCOUNTER → 2021-06-13 09:28 | Outpatient (BNVA) | payer MEDICARE, BC, SELFPAY | PROVIDERS: PCP Family Medicine; Visit Provider Internal Medicine Critical Care Medicine | DX: J44.9 Chronic obstructive pulmonary disease, unspecified (principal); I73.9 Peripheral vascular disease, unspecified; F17.200 Nicotine dependence, unspecified, uncomplicated; H54.7 Unspecified visual loss; I10 Essential (primary) hypertension; F32.A Depression, unspecified; I25.10 Atherosclerotic heart disease of native coronary artery without angina pectoris; R05.3 Chronic cough; G40.909 Epilepsy, unspecified, not intractable, without status epilepticus | CPT/HCPCS: 99214 ==

== ENCOUNTER 2021-06-20 20:26 | Inpatient (IN) | payer MEDICARE, BC, SELFPAY ==
[2021-06-20 20:28] VITALS: RESP 22; TEMP 36.4; BMI 18.6
[2021-06-20 20:35] VITALS: BP 88/59; PULSE 102; RESP 14; TEMP 36.7; O2SAT 91
--- NOTE | 2021-06-20 20:38 | XRR_ITS ---
PROCEDURE INFORMATION: Exam: XR Chest Exam date and time: 06/20/2021 8:47 PM Age: 66 years old Clinical indication: Pain; Angina pectoris; Additional info: Chest pain, dyspnea, smoker TECHNIQUE: Imaging protocol: XR of the chest. Views: 1 view. COMPARISON: CT chest abd pel wo con 08/04/2020 8:34 AM FINDINGS: Lungs: The lungs are emphysematous. Mild scarring is again seen in bilateral upper lobes. Left basilar opacity may be atelectasis or pneumonia. Pleural spaces: A small left pleural effusion is present. No pneumothorax is visualized. Heart/Mediastinum: Unremarkable. No cardiomegaly. Bones/joints: Unremarkable. Other findings: Mild gaseous distention of the colon is seen in the right subdiaphragmatic region XR/XR chest 1V portable [id number] IMPRESSION: Pulmonary emphysema. Left basilar opacity may be atelectasis or pneumonia. A small left pleural effusion is present.
--- NOTE | 2021-06-20 20:42 | W.ED.CHESTPA ---
HPI - Chest Pain General: Chief Complaint: Chest Pain Stated Complaint: CP/syncope Time Seen by Provider: 06/20/21 20:38 [facility] ED PFSH: Medical History Blind Carotid artery disease COPD (chronic obstructive pulmonary disease) Depression Hypertension Surgical History H/O hernia repair Family History Denies family history of CAD (coronary artery disease) Cancer Social History Smoking and tobacco status: current every day smoker (switched to vaping) cigarettes Years cigarettes smoked: 40 [ Other cigarette details: Hx of 1 PPD x 40 Years] Smoking risk assessment/counseling performed?: Yes Alcohol intake: current Alcohol intake frequency: 3 or more drinks per day Alcohol type: beer Counseling given: Yes Counseling given: No Caregiver/support person: Yes Lives independently: Yes Household members: family Marital status: / Current occupational status: disabled History of recent travel: No Current gender identity: Male Course Vital Signs: Vital signs: Vital Signs Temperature 98.0 F 06/20/21 20:35 Pulse Rate 102 H 06/20/21 20:35 Respiratory Rate 14 06/20/21 20:35 Blood Pressure 88/59 06/20/21 20:35 Pulse Oximetry 91 06/20/21 20:35 Discharge Plan Discharge Condition: Stable Prescriptions: No Action aspirin 81 mg tablet,delayed release (DR/EC) 81 mg PO DAILY 0RF nitroglycerin 0.4 mg tablet, sublingual 0.4 mg SUBLINGUAL Q5M PRN (Reason: Chest Pain) 0RF multivitamin Tablet 1 tab PO DAILY 0RF mirtazapine 15 mg tablet 30 mg PO BEDTIME 0RF epinephrine 0.3 mg/0.3 mL auto-injector 0.3 mg IM Q10M PRN0RF Rx Instructions: for 2 doses venlafaxine PO 0RF levetiracetam [Keppra] 1,000 mg tablet 1,000 mg PO BID Qty: 60 5RF Anoro Ellipta 62.5-25 mcg/actuation blister with device 1 inh inhalation DAILY 30 Days Qty: 60 4RF Benadryl 25 mg Capsule 25 mg PO DAILY PRN (Reason: Allergic Reaction) 0RF lisinopril 10 mg tablet 15 mg PO DAILY 0RF ibuprofen 200 mg Tablet 200 mg PO Q6H PRN (Reason: Pain) 0RF albuterol sulfate 90 mcg/actuation Hfa Aerosol Inhaler 1 inh INHALATION QID PRN (Reason: Shortness Of Breath) 0RF omeprazole 20 mg Tablet,Delayed Release (Dr/Ec) 20 mg PO BID 0RF melatonin 5 mg Tablet 5 mg PO BEDTIME 0RF Vitamin D3 50 mcg (2,000 unit) Tablet 50 mcg PO DAILY 0RF Referrals: Bri Fernandez MD [Primary Care Provider] - Coding Level of Care Code ED Pourer Crane Ladle for Aylin Bañuelos
[2021-06-20 20:49] LABS: Basophils # 0.1 10^3/uL (0.0-0.1); Basophils % 0.5 %; Eosinophils # 0.1 10^3/uL (0.0-0.8); Eosinophils % 1.3 %; Hematocrit 27.9 % (42.0-52.0); Hemoglobin 9.4 g/dL (11.7-16.6); Lymphocytes # 2.8 10^3/uL (0.8-4.8); Mean Corpuscular HGB Conc 33.7 g/dL (30.0-36.0); Mean Corpuscular Hemoglobin 31.4 pg (28.0-34.0); Mean Corpuscular Volume 93.3 fl (80-94); Mean Platelet Volume 9.9 fL (7.4-10.4); Monocytes # 0.7 10^3/uL (0.2-0.9); Monocytes % 6.7 %; Neutrophils # 7.05 10^3/uL (1.8-7.7); Nucleated Red Blood Cells % 0 %; Platelet Count 390 10^3/cmm (130-400); Red Blood Count 2.99 10^6/uL (4.1-5.3); Red Cell Distribution Width 14.6 % (12.1-15.1); White Blood Count 10.8 10^3/uL (4.0-10.0)
--- NOTE | 2021-06-20 20:54 | ED_ITS ---
Documented by User: Min Rossi MD 06/20/21 22:57 HPI - General Adult General: Chief complaint: Chest Pain Stated complaint: CP/syncope Time Seen by Provider: 06/20/21 20:38 History of Present Illness: Patient is 66-year-old male with history of smoking hypertension presents emergency room with substernal chest pain since 230 today. Patient describes intermittent chest pain is not relieved with nitroglycerin. Patient per patient's caregiver/ sister in law has had intermittent chest pain and when she gave him nitroglycerin, patient briefly became unresponsive. It is unclear whether patient passed out from receive any nitroglycerin however patient was not responsive. EMS was called patient was brought to the emergency room. On arrival, patient complains of moderate chest pain. Patient denies any shortness of breath, palpitation, abdominal com plaints, nausea/vomiting, diarrhea, back pain, pleuritic chest pain fever or chills. Patient has not had not had any prior cardiac work-up. Onset:2:30pm Duration:ongoing Location:home Severity:moderate Associated symptoms: Reports chest pain; Deny dyspnea, nausea, rash, palpitations or vomiting Review of Systems Const: Denies: fever(s) or chills Eyes: Denies: change in vision ENMT: Denies: mouth pain Card: Reports: chest pain; Denies: palpitations Resp: Denies: dyspnea or non-productive cough GI: Denies: abdominal pain, nausea, vomiting or diarrhea : Denies: dysuria Musc: Denies: extremity pain Skin/Breast: Denies: rash or new lesions Neuro: Denies: weakness in extremities Psych: Reports: other (Normal mood) Gt/Lymph: Denies: easy bruising PFSH ED PFSH: Medical History Blind Carotid artery disease COPD (chronic obstructive pulmonary disease) Depression Hypertension Surgical History H/O hernia repair Family History Denies family history of CAD (coronary artery disease) Cancer Social History Smoking and tobacco status: current every day smoker (switched to vaping) c igarettes Years cigarettes smoked: 40 [ Other cigarette details: Hx of 1 PPD x 40 Years] Smoking risk assessment/counseling performed?: Yes Alcohol intake: current Alcohol intake frequency: 3 or more drinks per day Alcohol type: beer Counseling given: Yes Counseling given: No Caregiver/support person: Yes Lives independently: Yes Household members: family Marital status: / Current occupational status: disabled History of recent travel: No Current gender identity: Male Physical Exam Const: COMMON NORMALS: alert HENMT: COMMON NORMALS: atraumatic HEAD & SCALP: atraumatic MOUTH: moist mucous membranes not abnormal Eye: COMMON NORMALS: EOMs intact bilaterally and conjunctivae normal CONJUNCTIVA: Yes conjunctivae normal Neck/C-Spine: COMMON NORMALS: full ROM and supple Resp: COMMON NORMALS: normal respiratory effort and clear to auscultation bilaterally AUSCULTATION: clear to auscultation bilaterally Cardio: RATE: tachycardic GI: COMMON NORMALS: Soft to palpation and non-tender PALPATION: Yes Soft to palpation Extremity: COMMON NORMALS: full ROM Neuro: SENSORIUM/ORIENTATION: Yes alert MOTOR EXAM: No Abnormal motor strength present and Other motor observations present (no focal motor deficits) Psych: COMMON NORMALS: speech normal SPEECH: Yes normal speech MOOD & AFFECT: Yes euthymic mood Course Vital Signs: Vital signs: Vital Signs Temperature 98.0 F 06/20/21 20:35 Pulse Rate 94 06/21/21 01:15 Respiratory Rate 14 06/21/21 01:15 Blood Pressure 123/94 06/21/21 01:15 Pulse Oximetry 96 06/21/21 01:15 MDM - General Adult Medical Decision Making 66-year-old male with history of smoking, hypertension presenting to the emergency room for evaluation of chest pain since 230 today. Currently 4 out of 10 chest pain. On exam, patient has 2+ radial pulses, rest of the exam within normal limit. EKG showed low voltage. Bedside ultrasound visualize moderate pericardial effusion without any tamponade physiology. Formal ultrasound has been ordered. I discussed case with Dr. Sweeney who will follow patient closely and review the ultrasound. Patient is noted to have elevated troponin of 39. Patient received aspirin in route. Patient received 4 mg of morphine with significant improvement in pain. D-dimer appears to be elevated, CTA ordered currently pending. Chest showed possible left basilar atelectasis versus pneumonia. Patient received ceftriaxone, and azithromycin. Disposition: admission Lab Data : 06/20/21 20:28 06/20/21 20:28 Radiology Impressions Chest X-Ray 06/20/21 20:38 IMPRESSION: Pulmonary emphysema. Left basilar opacity may be atelectasis or pneumonia. A small left pleural effusion is present. Head CT 06/20/21 20:59 IMPRESSION: 1. No acute intracranial abnormality. 2. Persistent left ocular hemorrhage Chest CTA 06/20/21 21:33 IMPRESSION: 1. Negative for pulmonary embolus. 2. Small to moderate bilateral pleural effusions. 3. Emphysematous changes. 4. Patchy bilateral dependent airspace infiltrates. 5. Several likely chronic vertebral body compression fractures in the lower thoracic/upper lumbar spine. 6. Left posterior 12th rib chronic appearing fracture. 7. Coronary artery atherosclerotic calcifications. 8. Small pericardial effusion measuring up to 16 mm in diameter. Laboratory Results WBC 10.8 10^3/uL (4.0-10.0) H 06/20/21 20: RBC 2.99 10^6/uL (4.1-5.3) L 06/20/21 20: Hgb 9.4 g/dL (11.7-16.6) L 06/20/21 20: Hct 27.9 % (42.0-52.0) L 06/20/21: MCV 93.3 fl (80-94) 06/20/21 20: MCH 31.4 pg (28.0-34.0) 06/20/21 20: MCHC 33.7 g/dL (30.0-36.0) 06/20/21: RDW 14.6 % (12.1-15.1) 06/20/21 20: Plt Count 390 10^3/cmm (130-400) 06/20/21 20: MPV 9.9 fL (7.4-10.4) 06/20/21: Neut % (Auto) 65.0 % 06/20/21 20: Lymph % (Auto) 26.0 % 06/20/21: [place] % (Auto) 6.7 % 06/20/21: Eos % (Auto) 1.3 % 06/20/21: Baso % (Auto) 0.5 % 06/20/21 20: Neut # (Auto) 7.05 10^3/uL (1.8-7.7) 06/20/21: Lymph # (Auto) 2.8 10^3/uL (0.8-4.8) 06/20/21: [place] # (Auto) 0.7 10^3/uL (0.2-0.9) 06/20/21: Eos # (Auto) 0.1 10^3/uL (0.0-0.8) 06/20/21: Baso # (Auto) 0.1 10^3/uL (0.0-0.1) 06/20/21: Nucleated RBC % (auto) 0 % 06/20/21: Nucleated RBCs # 0.0 /100WBC 06/20/21: D-Dimer 1.19 ug/mIFEU (0-0.59) H 06/20/21 20: Sodium 125 mmol/L (136-145) L 06/20/21: Potassium 3.7 mmol/L (3.5-5.1) 06/20/21 20: Chloride 95 mmol/L (98-107) L 06/20/21: Carbon Dioxide 22 mmol/L (22-29) 06/20/21: Anion Gap 11.7 (5-19) 06/20/21: BUN 5 mg/dL (8-23) L 06/20/21: Creatinine 0.4 mg/dL (0.7-1.2) L 06/20/21: GFR Calculation 215.9 mL/min (90-130) H 06/20/21: Glucose 78 mg/dL (65-115) 06/20/21: Calculated Osmolality 256 mOsm/kg (285-295) L 06/20/21: Calcium 7.5 mg/dL (8.5-10.5) L 06/20/21: Total Bilirubin 0.2 mg/dL (0.15-1.2) 06/20/21 20: AST 28 U/L (0-40) 06/20/21: ALT 17 U/L (0-41) 06/20/21 20:28 Alkaline Phosphatase 269 IU/L (40-130) H 06/20/21 20:28 Troponin T Baseline 38 ng/L (0-15) H 06/20/21 20:28 Troponin T 120 Minute 30.68 ng/L (0-15) H 06/20/21 22:28 Delta Troponin T -7.32 ABS# (0-10) L 06/20/21 22:28 NT-Pro-B Natriuret Pep 855 pg/mL (0-125) H 06/20/21 20:28 Total Protein 4.6 g/dL (6.6-8.7) L 06/20/21 20:28 Albumin 1.5 g/dL (3.5-5.2) L 06/20/21 20:28 Globulin 3.1 g/dL (1.3-4.6) 06/20/21 20:28 Lipase 22 U/L (13-60) 06/20/21 20:28 Imaging Data Other Imaging: Radiologist's impression: [address] [address] XRay Report Signed Patient: Chris Madera Unit #: [id number] : 1955 Age/Sex: 66 / M ADM Date: 06/20/21 Loc: ER Room/Bed: Attending Dr: Ordering Provider/Ordering MD: Min Rossi MD Date of Service: 06/20/21 Procedure(s): XR chest 1V portable [id number] Accession Number(s): [id number] Report Number: [id number] PROCEDURE INFORMATION: Exam: XR Chest Exam date and time: 06/20/2021 8:47 PM Age: 66 years old Clinical indication: Pain; Angina pectoris; Additional info: Chest pain, dyspnea, smoker TECHNIQUE: Imaging protocol: XR of the chest. Views: 1 view. COMPARISON: CT chest abd pel wo con 08/04/2020 8:34 AM FINDINGS: Lungs: The lungs are emphysematous. Mild scarring is again seen in bilateral upper lobes. Left basilar opacity may be atelectasis or pneumonia. Pleural spaces: A small left pleural effusion is present. No pneumothorax is visualized. Heart/Mediastinum: Unremarkable. No cardiomegaly. Bones/joints: Unremarkable. Other findings:? Mild gaseous distention of the colon is seen in the right subdiaphragmatic region XR/XR chest 1V portable [id number] IMPRESSION: Pulmonary emphysema. Left basilar opacity may be atelectasis or pneumonia. A small left pleural effusion is present. ? 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 Fwd Exam Comprehensive Documented by User: Dennise Contreras MD 06/21/21 01:33 HPI - General Adult General: Chief complaint: Chest Pain Stated complaint: CP/syncope Time Seen by Provider: 06/20/21 20:38 PFS ED PFSH: Medical History Blind Carotid artery disease COPD (chronic obstructive pulmonary disease) Depression Hypertension Surgical History H/O hernia repair Family History Denies family history of CAD (coronary artery disease) Cancer Social History Smoking and tobacco status: current every day smoker (switched to vaping) cigarettes Years cigarettes smoked: 40 [ Other cigarette details: Hx of 1 PPD x 40 Years] Smoking risk assessment/counseling performed?: Yes Alcohol intake: current Alcohol intake frequency: 3 or more drinks per day Alcohol type: beer Counseling given: Yes Counseling given: No Caregiver/support person: Yes Lives independently: Yes Household members: family Marital status: / Current occupational status: disabled History of recent travel: No Current gender identity: Male Course Vital Signs: Vital signs: Vital Signs Temperature 98.0 F 06/20/21 20:35 Pulse Rate 94 06/21/21 01:15 Respiratory Rate 14 06/21/21 01:15 Blood Pressure 123/94 06/21/21 01:15 Pulse Oximetry 96 06/21/21 01:15 [facility] - General Adult Medical Decision Making 66-year-old male with history of smoking, hypertension presenting to the emergency room for evaluation of chest pain since 230 today. Currently 4 out of 10 chest pain. On exam, patient has 2+ radial pulses, rest of the exam within normal limit. EKG showed low voltage. Bedside ultrasound visualize moderate pericardial effusion without any tamponade physiology. Formal ultrasound has been ordered. I discussed case with Dr. Sweeney who will follow patient closely and review the ultrasound. Patient is noted to have elevated troponin of 39. Patient received aspirin in route. Patient received 4 mg of morphine with significant improvement in pain. D-dimer appears to be elevated, CTA ordered currently pending. Chest showed possible left basilar atelectasis versus pneumonia. Patient received ceftriaxone, and azithromycin. Disposition: admission Lab Data : 06/20/21 20:28 06/20/21 20:28 Radiology Impressions Chest X-Ray 06/20/21 20:38 IMPRESSION: Pulmonary emphysema. Left basilar opacity may be atelectasis or pneumonia. A small left pleural effusion is present. Head CT 06/20/21 20:59 IMPRESSION: 1. No acute intracranial abnormality. 2. Persistent left ocular hemorrhage Chest CTA 06/20/21 21:33 IMPRESSION: 1. Negative for pulmonary embolus. 2. Small to moderate bilateral pleural effusions. 3. Emphysematous changes. 4. Patchy bilateral dependent airspace infiltrates. 5. Several likely chronic vertebral body compression fractures in the lower thoracic/upper lumbar spine. 6. Left posterior 12th rib chronic appearing fracture. 7. Coronary artery atherosclerotic calcifications. 8. Small pericardial effusion measuring up to 16 mm in diameter. Laboratory Results WBC 10.8 10^3/uL (4.0-10.0) H 06/20/21 20:28 RBC 2.99 10^6/uL (4.1-5.3) L 06/20/21 20:28 Hgb 9.4 g/dL (11.7-16.6) L 06/20/21: Hct 27.9 % (42.0-52.0) L 06/20/21: MCV 93.3 fl (80-94) 06/20/21: MCH 31.4 pg (28.0-34.0) 06/20/21 MCHC 33.7 g/dL (30.0-36.0) 06/20/21 RDW 14.6 % (12.1-15.1) 06/20/21 Plt Count 390 10^3/cmm (130-400) 06/20/21: MPV 9.9 fL (7.4-10.4) 06/20/21 Neut % (Auto) 65.0 % 06/20/21: Lymph % (Auto) 26.0 % 06/20/21 [place] % (Auto) 6.7 % 06/20/21 Eos % (Auto) 1.3 % 06/20/21 Baso % (Auto) 0.5 % 06/20/21 Neut # (Auto) 7.05 10^3/uL (1.8-7.7) 06/20/21 Lymph # (Auto) 2.8 10^3/uL (0.8-4.8) 06/20/21 [place] # (Auto) 0.7 10^3/uL (0.2-0.9) 06/20/21 Eos # (Auto) 0.1 10^3/uL (0.0-0.8) 06/20/21 Baso # (Auto) 0.1 10^3/uL (0.0-0.1) 06/20/21 Nucleated RBC % (auto) 0 % 06/20/21 Nucleated RBCs # 0.0 /100WBC 06/20/21 D-Dimer 1.19 ug/mIFEU (0-0.59) H 06/20/21: Sodium 125 mmol/L (136-145) L 06/20/21: Potassium 3.7 mmol/L (3.5-5.1) 06/20/21 Chloride 95 mmol/L (98-107) L 06/20/21 20: Carbon Dioxide 22 mmol/L (22-29) 06/20/21 20: Anion Gap 11.7 (5-19) 06/20/21 20: BUN 5 mg/dL (8-23) L 06/20/21 20: Creatinine 0.4 mg/dL (0.7-1.2) L 06/20/21 20: GFR Calculation 215.9 mL/min (90-130) H 06/20/21 20: Glucose 78 mg/dL (65-115) 06/20/21: Calculated Osmolality 256 mOsm/kg (285-295) L 06/20/21: Calcium 7.5 mg/dL (8.5-10.5) L 06/20/21 20: Total Bilirubin 0.2 mg/dL (0.15-1.2) 06/20/21: AST 28 U/L (0-40) 06/20/21: ALT 17 U/L (0-41) 06/20/21: Alkaline Phosphatase 269 IU/L (40-130) H 06/20/21 20: Troponin T Baseline 38 ng/L (0-15) H 06/20/21: Troponin T 120 Minute 30.68 ng/L (0-15) H 06/20/21:28 Delta Troponin T -7.32 ABS# (0-10) L 06/20/21 22:28 NT-Pro-B Natriuret Pep 855 pg/mL (0-125) H 06/20/21 20: Total Protein 4.6 g/dL (6.6-8.7) L 06/20/21 20: Albumin 1.5 g/dL (3.5-5.2) L 06/20/21 20: Globulin 3.1 g/dL (1.3-4.6) 06/20/21 20: Lipase 22 U/L (13-60) 06/20/21 20:28 Critical Care Time Critical Care Time: Critical Care Time: Yes Total Critical Care Time: 45 Attestation: The high probability of a clinically significant, sudden or life threatening deterioration of the patient's cv system(s) required my full and direct attention, intervention and personal management. The critical care time is as shown. 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
--- NOTE | 2021-06-20 20:59 | CTR_ITS ---
PROCEDURE INFORMATION: Exam: CT Head Without Contrast Exam date and time: 06/20/2021 11:08 PM Age: 66 years old Clinical indication: Syncope and collapse; Additional info: AMS TECHNIQUE: Imaging protocol: Computed tomography of the head without contrast. Radiation optimization: All CT scans at this facility use at least one of these dose optimization techniques: automated exposure control; mA and/or kV adjustment per patient size (includes targeted exams where dose is matched to clinical indication); or iterative reconstruction. 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 Mild atrophy and mild white matter chronic microvascular changes are noted. No hemorrhage or evidence of acute infarction. Cerebral ventricles: No ventriculomegaly. Paranasal sinuses: Mild left sphenoid sinusitis is appreciated. Mastoid air cells: Visualized mastoid air cells are well aerated. Orbits: Left ocular hemorrhage is again noted. The previously seen small right ocular hemorrhage has resolved. Bones/joints: Unremarkable. No acute fracture. Soft tissues: Unremarkable. CT/CT head wo con* [id number] IMPRESSION: 1. No acute intracranial abnormality. 2. Persistent left ocular hemorrhage
[2021-06-20 21:10] VITALS: BP 107/79; PULSE 120; RESP 15; RESP 16; O2SAT 91; O2SAT 94
[2021-06-20] MEDS: morphine 4 mg/mL SDV 1 mL IVP (21:10)
[2021-06-20] MEDS: sodium chloride 0.9% 500 ML IV (21:10)
[2021-06-20 21:14] LABS: Troponin(5th) Baseline 38 ng/L (0-15)
[2021-06-20 21:15] LABS: Alanine Aminotransferase 17 U/L (0-41); Albumin Level 1.5 g/dL (3.5-5.2); Alkaline Phosphatase 269 IU/L (40-130); Anion Gap 11.7 (5-19); Aspartate Amino Transferase 28 U/L (0-40); Blood Urea Nitrogen 5 mg/dL (8-23); Calcium 7.5 mg/dL (8.5-10.5); Carbon Dioxide 22 mmol/L (22-29); Chloride 95 mmol/L (98-107); Globulin 3.1 g/dL (1.3-4.6); Glomerular Filtration Rate 215.9 mL/min (90-130); Glucose 78 mg/dL (65-115); Lipase 22 U/L (13-60); Osmolality Calculated 256 mOsm/kg (285-295); Potassium 3.7 mmol/L (3.5-5.1); Sodium 125 mmol/L (136-145); Total Bilirubin 0.2 mg/dL (0.15-1.2); Total Protein 4.6 g/dL (6.6-8.7)
--- NOTE | 2021-06-20 21:17 | USCV_ITS ---
Transthoracic Echo Limited Chris Madera Age: 66 Gender: M : 1955 Exam Date: 06/20/2021 22:06 Ordering Phys: Min Rossi MD Technologist: COLLEEN [place] [facility] [place]: Suspected Pericardial Effusion BP: 107 / 79 HR: 89 Rhythm: Sinus Technical Quality: Adequate MEASUREMENTS (Male / Female) Normal Values 2D ECHO LV Diastolic Diameter PLAX 3.8 cm 4.2 - 5.9 / 3.9 - 5.3 cm LV Systolic Diameter PLAX 3.0 cm IVS Diastolic Thickness 1.2 cm 0.6 - 1.0 / 0.6 - 0.9 cm IVS Systolic Thickness 1.4 cm LVPW Diastolic Thickness 1.4 cm 0.6 - 1.0 / 0.6 - 0.9 cm LVPW Systolic Thickness 1.3 cm LVOT Diameter 2.0 cm LV Ejection Fraction 2D Teich 45.8 % LV Ejection Fraction MOD 2C 42.4 % LV Ejection Fraction 2C AL 42.1 % LA Diameter 3.7 cm LA Width 2.5 cm LA Height 4.2 cm RA Width 3.5 cm RA Height 3.6 cm Aorta at Sinotubular Diameter 2.0 cm M-MODE Aortic Annulus Diameter 2.8 cm LA Ao Ratio MM 1.8 MV E Point Septal Separation 1.7 cm FINDINGS Left Ventricle Normal LV size and ejection fraction of around 55%. Moderate to echo-free space anteriorly, suggestive of a loculated pericardial effusion. Minimal echo-free space posteriorly. Possible large pleural effusion. Right Ventricle Patient with a normal size ejection fraction. Right Atrium Possibly of normal size Left Atrium Possibly of normal size Mitral Valve No gross abnormalities noted Aortic Valve Aortic valve not well visualized. Tricuspid Valve Tricuspid valve not well visualized. Pulmonic Valve Pulmonic valve not well visualized. Pericardium Minimal echo-free space posteriorly. Moderate echo-free space anteriorly with some echogenic material in the visceral pericardium Aorta Normal aortic annulus size. CONCLUSIONS 1. Moderate loculated, possibly exudative pericardial effusion anteriorly. 2. Normal LV size ejection fraction of around 55%. 3. Possible large left-sided pleural effusion. Technically difficult study because of the poor apical window Dr Narinder Sweeney MD FAC (Electronically Signed) Final Date: 20 June 2021 23:06 S
[2021-06-20 21:18] LABS: D Dimer 1.19 ug/mIFEU (0-0.59)
[2021-06-20 21:31] LABS: NT Pro B Type Natriuretic Pept 855 pg/mL (0-125)
--- NOTE | 2021-06-20 21:33 | CTR_ITS ---
PROCEDURE INFORMATION: Exam: CTA Chest With Contrast Exam date and time: 06/20/2021 11:14 PM Age: 66 years old Clinical indication: Pain; Angina; Other: Unknown; Additional info: Eval for pe TECHNIQUE: Imaging protocol: Computed tomographic angiography of the chest with contrast. 3D rendering (Not supervised by radiologist): MIP and/or 3D reconstructed images were created by the technologist. Radiation optimization: All CT scans at this facility use at least one of these dose optimization techniques: automated exposure control; mA and/or kV adjustment per patient size (includes targeted exams where dose is matched to clinical indication); or iterative reconstruction. Contrast material: OMNI 350; Contrast volume: 95 ml; Contrast route: INTRAVENOUS (IV); COMPARISON: CT chest abd pel wo con 08/04/2020 8:34 AM RADIATION DOSE METRICS: Total DLP (mGy-cm): 520.77 FINDINGS: Pulmonary arteries: Normal. No pulmonary emboli. Aorta: Unremarkable. No aortic aneurysm. No aortic dissection. Lungs: Emphysematous changes. Patchy bilateral dependent airspace infiltrates. Pleural spaces: Small to moderate bilateral pleural effusions. Heart: Coronary artery atherosclerotic calcifications. Small pericardial effusion measuring up to 16 mm in diameter. Lymph nodes: Unremarkable. No enlarged lymph nodes. Bones/joints: Several likely chronic vertebral body compression fractures in the lower thoracic/upper lumbar spine. Left posterior 12th rib chronic appearing fracture. Soft tissues: Unremarkable. CT/CT angio chest PE protcl [id number] IMPRESSION: 1. Negative for pulmonary embolus. 2. Small to moderate bilateral pleural effusions. 3. Emphysematous changes. 4. Patchy bilateral dependent airspace infiltrates. 5. Several likely chronic vertebral body compression fractures in the lower thoracic/upper lumbar spine. 6. Left posterior 12th rib chronic appearing fracture. 7. Coronary artery atherosclerotic calcifications. 8. Small pericardial effusion measuring up to 16 mm in diameter.
[2021-06-20 22:00] VITALS: PULSE 109
--- NOTE | 2021-06-20 22:38 | ECG_ITS ---
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 Measurements Intervals [place] Rate: 91 P: 80 TN: 173 QRS: 269 QRSD: 100 T: 144 QT: 382 QTc: 470 Interpretive Statements SINUS RHYTHM RIGHT AXIS DEVIATION [QRS AXIS > 100] LOW QRS VOLTAGE [QRS DEFLECTION < 0.5/1.0 mV IN LIMB/CHEST LEADS] MODERATE ST DEPRESSION [0.05+ mV ST DEPRESSION] Compared to ECG 08/04/2020 00:55:31 Right-axis deviation now present Low QRS voltage now present ST (T wave) deviation now present Left anterior fascicular block no longer present T-wave abnormality no longer present Electronically Signed On 06-21-2021 9:25:48 CDT by Claude Santoyo M.D. [email or web address]
[2021-06-20 22:51] LABS: Troponin 5 2HR 30.68 ng/L (0-15)
[2021-06-20 22:55] LABS: Troponin 5 2HR Delta -7.32 ABS# (0-10)
[2021-06-20] MEDS: iohexol 350 mg/mL 100 mL Btl IV (23:29)
[2021-06-20] MEDS: cefTRIAXone 1,000 MG in sodium chloride 0.9% (plus) 50 ML 100 MG IV (23:50)
[2021-06-20 23:56] VITALS: BP 104/64; PULSE 100; RESP 12; O2SAT 92
--- NOTE | 2021-06-20 23:58 | PC.NURSE ---
Patient IV site redressed Skin tear noted upon removal of previous venaguard. Wound cleaned and guaze applied with new venagaurd and coban.
[2021-06-21] VITALS (15 sets, daily range): BP systolic 88–138; BP diastolic 58–94; PULSE 65–118; RESP 14–20; TEMP 36.5–36.7; O2SAT 91–100; BMI 17.9
[2021-06-21] MEDS: azithromycin 500 MG in sodium chloride 0.9% 250 ML 250 MG IV ×2 (00:32→23:33)
--- NOTE | 2021-06-21 02:19 | PM.HP ---
Providers/Chief Complaint Admitting Physician: Demario Hernandez DO Primary Care Provider: Bri Fernandez MD Chief Complaint: syncope History of Present Illness The patient is a 66-year-old male who presents chief [place] chest pain which started approximately 2 PM on June 20, 2021. If this recurred again at approximately 7 PM on June 20, 2021. At that time the patient's caregiver administering nitroglycerin which provide minor improvement. She administered a second dose and the patient became temporarily nonverbal and he was unable to open his eyes but he was batting away her hand. He states that the chest pain localized to the substernal area with radiation to his left chest described as pressure. The patient had a transient episode of dysphasia and dysphagia. He denies paresthesia/anesthesia/myasthenia of any part of his body. The patient is hard of hearing and difficult to obtain history of present illness from. He presents for further evaluation Review of Systems General: Reports: 10 or more systems reviewed and unremarkable except in HPI and below Medications/Allergies Home Medications Medication Instructions Recorded Confirmed Last Taken Type aspirin 81 mg tablet,delayed 81 mg PO DAILY 05/21/19 06/20/21 06/20/21 History release nitroglycerin 0.4 mg sublingual 0.4 mg SUBLINGUAL Q5M PRN 05/21/19 06/20/21 Unknown History tablet mirtazapine 15 mg tablet 30 mg PO BEDTIME 11/25/19 06/20/21 06/19/21 History multivitamin 1 tab PO DAILY 11/25/19 06/20/21 06/20/21 History albuterol sulfate 90 mcg/actuation 1 inh INHALATION QID PRN 08/04/20 06/20/21 Unknown History aerosol inhaler cholecalciferol (vitamin D3) 50 50 mcg PO DAILY 08/04/20 06/20/21 06/20/21 History mcg (2,000 unit) tablet (Vitamin D3) diphenhydramine HCl 25 mg capsule 25 mg PO DAILY PRN 08/04/20 06/20/21 Unknown History (Benadryl) ibuprofen 200 mg tablet 200 mg PO Q6H PRN 08/04/20 06/20/21 Unknown History lisinopril 10 mg tablet 15 mg PO DAILY 08/04/20 06/20/21 06/20/21 History melatonin 5 mg tablet 5 mg PO BEDTIME 08/04/20 06/20/21 06/19/21 History omeprazole 20 mg tablet,delayed 20 mg PO BID 08/04/20 06/20/21 06/20/21 History release epinephrine 0.3 mg/0.3 mL 0.3 mg IM Q10M PRN 11/17/20 06/20/21 Unknown History injection, auto-injector levetiracetam 1,000 mg tablet 1,000 mg PO BID #60 tab 12/28/20 06/20/21 06/20/21 Rx (Keppra) umeclidinium 62.5 mcg-vilanterol 1 inh INHALATION DAILY 30 Days #60 04/28/21 06/20/21 06/20/21 Rx 25 mcg/actuation powdr for ea inhalation (Anoro Ellipta) ferrous sulfate 27 mg iron tablet 27 mg PO DAILY 06/20/21 06/20/21 06/20/21 History tamsulosin 0.4 mg capsule 0.4 mg PO DAILY 06/20/21 06/20/21 06/20/21 History venlafaxine 37.5 mg 37.5 mg PO DAILY 06/20/21 06/20/21 06/20/21 History capsule,extended release 24 hr vitamin B complex 1 tab PO DAILY 06/20/21 06/20/21 06/20/21 History Allergies Allergy/AdvReac Type Severity Reaction Status Date / Time insect venom Allergy Severe ALGY-Anaphy Verified 06/13/21 09:38 laxis PFSH Acute PFSH: Medical History Blind Carotid artery disease COPD (chronic obstructive pulmonary disease) Depression Hypertension Surgical History H/O hernia repair Family History Denies family history of CAD (coronary artery disease) Cancer Social History Smoking and tobacco status: current every day smoker (switched to vaping) cigarettes Years cigarettes smoked: 40 [ Other cigarette details: Hx of 1 PPD x 40 Years] Smoking risk assessment/counseling performed?: Yes Alcohol intake: current Alcohol intake frequency: 3 or more drinks per day Alcohol type: beer Counseling given: Yes Counseling given: No Caregiver/support person: Yes Lives independently: Yes Household members: family Marital status: / Current occupational status: disabled History of recent travel: No Current gender identity: Male Vitals/I&O/Wt Last Vital Signs Temp 98.0 F 06/20/21 20:35 Pulse 94 06/21/21 01:15 Resp 14 06/21/21 01:15 BP 123/94 06/21/21 01:15 Pulse Ox 96 06/21/21 01:15 06/20/21 06/20/21 06/21/21 14:59 22:59 06:59 Intake Total 550 / 550 Balance 550 / 550 Weight last 48 hrs Weight 58.967 kg Physical Exam Const: COMMON NORMALS: no acute distress, average body habitus, patient oriented x3, no limitations, healthy appearing, alert and well nourished GENERAL APPEARANCE: cooperative NUTRITIONAL APPEARANCE: cachectic HENMT: COMMON NORMALS: normocephalic, atraumatic, hearing grossly normal bilaterally, external ears normal, EAC's normal, TM's normal bilaterally, Normal external nose present, Normal nasal mucous membranes and turbinates present, moist oral mucous membranes, oropharynx normal, dentition normal and gingiva normal HEAD & SCALP: normal to inspection FACE & SINUS: normal facial exam NOSE: Normal external nose present GENERAL EAR: hearing grossly impaired EXTERNAL EAR: Yes external ears normal EXTERNAL AUDITORY CANAL: EAC's normal TYMPANIC MEMBRANE: TM's normal bilaterally MOUTH: Normal oral and palatal mucosa present Eye: COMMON NORMALS: Equal, round and reactive pupils present, EOMs intact bilaterally, conjunctivae normal, no scleral icterus, no papilledema, normal visual wade by confrontation and fundi normal bilaterally GENERAL EYE: appearance normal, both eyes and all related structures ALIGNMENT: Yes alignment normal EYELID: eyelids normal CONJUNCTIVA: Yes conjunctivae normal SCLERA: sclerae normal CORNEA: Yes corneas normal PUPIL: Yes Equal, round and reactive pupils present Neck/C-Spine: COMMON NORMALS: full ROM, no lymphadenopathy, supple, no meningeal signs, no JVD, Thyroid normal and No carotid bruits THYROID: Thyroid normal CAROTIDS: Yes normal carotid upstroke CERVICAL SPINE: Yes cervical ROM normal Chest: COMMONS NORMALS: normal inspection of the chest, normal palpation of entire chest wall, normal inspection of the breasts and normal palpation of the breasts BREAST/AXILLA INSPECTION: Yes abnormal inspection of the axilla Resp: COMMON NORMALS: normal respiratory effort, No retractions, No use of accessory muscles, clear to auscultation bilaterally and percussion normal AUSCULTATION: clear to auscultation bilaterally Cardio: COMMON NORMALS: no JVD, regular rate, regular rhythm, S1 normal heart sound present, S2 normal heart sound present, No gallops present (Cardio), No clicks present (Cardio), No murmurs present (Cardio), No rub (Cardio) and Peripheral pulses 2+ throughout JUGULAR VENOUS DISTENTION: no JVD PALPATION: normal PMI RATE: regular rate RHYTHM: regular rhythm HEART SOUNDS: S1 normal heart sound present PERIPHERAL PULSES: Peripheral pulses 2+ throughout GI: COMMON NORMALS: Normal to inspection, nondistended, normoactive bowel sounds present, Soft to palpation, non-tender, No hepatosplenomegaly present, no masses and no bruits INSPECTION: Yes normal to inspection AUSCULTATION: Yes normoactive bowel sounds PALPATION: Yes Soft to palpation PERCUSSION: normal to percussion : COMMON NORMALS: Yes no CVA tenderness, Yes normal external exam, Yes Testes normal, Yes scrotum normal, Yes no scrotal swelling and Yes No hernias present Back/Pelvis: THORACIC SPINE/UPPER BACK: Yes normal to inspection LUMBAR SPINE/LOWER BACK: Yes normal to inspection Extremity: GENERAL: Yes normal exam except as noted Neuro: COMMON NORMALS: patient oriented x3, CN's II-XII intact bilaterally, moves all extremities, no focal motor deficits, no sensory deficits noted, deep tendon reflexes 2+ bilaterally and gait normal SENSORIUM/ORIENTATION: Yes alert CRANIAL NERVES: Yes CN normal except as noted SPEECH: speech normal MOTOR EXAM: 5/5 motor strength present throughout DEEP TENDON REFLEXES: Right triceps reflex intensity grade: 2+, Left triceps reflex intensity grade: 2+, Rt Biceps (C5, C6): 2+, Left biceps reflex intensity grade: 2+, Right brachioradialis reflex intensity grade: 2+, Left brachioradialis reflex intensity grade: 2+, Right patellar reflex intensity grade: 2+, Left patellar reflex intensity grade: 2+, Right ankle reflex intensity grade: 2+ and Left ankle reflex intensity grade: 2+ PUPIL EXAM: Normal pupillary reactivity/response: bilateral, Dilated: bilateral, Pinpoint: bilateral, Mid position: bilateral, Sluggish: bilateral and Fixed/non-reactive: bilateral Psych: COMMON NORMALS: mental status grossly normal, Normal thought process present, cooperative, normal affect, speech normal, activity/motor behavior normal, denies hallucinations, denies homicidal ideation and denies suicidal ideation ACTIVITY/MOTOR BEHAVIOR: Yes appropriate eye contact SPEECH: Yes normal speech THOUGHT PROCESS: Normal thought process present Skin: GENERAL SKIN EXAM: no rashes or lesions noted LESIONS: no lesions RASHES: no rashes TRAUMA: no lacerations or abrasions Data : 06/20/21 20:28 06/20/21 20:28 Micro: Microbiology 06/20/21 23:43 Blood Culture - Preliminary Blood SPECIMEN COLLECTED 06/20/21 23:39 Blood Culture - Preliminary Blood SPECIMEN COLLECTED A&P Assessment and plan (1) Chest pain: Status: Acute Plan Chest pain, rule out ACS. Patient has known history of coronary artery disease. Will monitor patient on telemetry and checks her cardiac enzymes. Check TSH, free T4, magnesium level. In the morning we will recheck EKG EKG and check fasting lipid panel. Aspirin 81 Mill grams by mouth daily plus Nitropaste 1/2 inch every 6 hours plus metoprolol 25 mg by mouth twice a day plus Lipitor 80 Mill grams by mouth daily at bedtime plus IV heparin drip per protocol. Echocardiogram pending. Lexiscan pending. Pneumonia. Blood culture ?2 drawn the emergency department pending. A cephamycin 500 Mill grams IV daily plus Rocephin 1 g IV daily plus DuoNeb every 6 hours TIA. Will monitor patient on telemetry and checks her cardiac enzymes. Check TSH, free T4, B12, folate, magnesium level. In the morning we will recheck EKG and check check fasting lipid panel. Neuro checks every 4 hours. Urinalysis pending. Physical therapy consult pending. MRI of the head without contrast pending. Echocardiogram pending. CTA of the head and neck pending. Aspirin 81 mg by mouth daily plus Lipitor 80 Mill grams by mouth daily at bedtime plus IV normal saline at 75 ML's per hour Left ocular hemorrhage, this appears chronic. Outpatient follow-up with ophthalmology upon discharge Peripheral vascular disease with right internal carotid artery occlusion, chronic. Aspirin 81 Mill grams by mouth daily plus Lipitor 80 mg by mouth daily at bedtime plus IV heparin drip per protocol. Vascular surgery consult pending Hyponatremia, chronic. We will monitor sodium level intermittently. IV normal saline 75 ML's per hour LMC. Seizure precautions. Keppra 1000 Mill grams by mouth twice a day Hepatic steatosis Depression. Effexor ER 37.5 Mill grams by mouth daily plus Remeron 15 mg by mouth daily at bedtime BPH Anemia, chronic. We will monitor her hemoglobin intermittently. Check serum ferritin, iron panel, fecal occult blood COPD/pulmonary fibrosis, not O2 dependent. Solu-Medrol 40 Mill grams IV every 8 hours plus DuoNeb every 6 hours GERD. Protonix 40 Mill grams by mouth daily Hypertension. Metoprolol 25 Mill grams by mouth twice a day plus Nitropaste 1/2 inch every 6 hours Tobacco abuse now via the pain with extensive history of smoking. The patient becomes regarding tobacco cessation History of CVA. Aspirin 81 mg by mouth daily plus Lipitor 80 mg by mouth daily at bedtime Alcohol abuse. Seizure precautions Cirrhosis. Will monitor LFTs periodically with CMP along with PT/INR DVT prophylaxis. 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
[2021-06-21 03:01] LABS: Troponin 5 6HR 24.43 ng/L (0-15)
--- NOTE | 2021-06-21 03:04 | MR_ITS ---
WS: [id number] MRI BRAIN WITHOUT CONTRAST HISTORY: cva COMPARISON: Prior head CT 08/04/2020 and 06/20/2021. TECHNIQUE: Diffusion imaging, multiplanar T1, T2 and FLAIR imaging obtained. Quality of this examination is significantly limited by motion. Patient was unable to remain still fo r this examination. No diffusion-weighted abnormality is identified. Small infarcts may not be visualized with this amoun t of motion. There is a remote posterior RIGHT frontal lobe infarct with encephalomalacia that has be en previously described. No large area of hemorrhage. No inferior displacement of cerebellar tonsils. Mild atrophy and numerous FLAIR and T2 signal abnormalities in the subcortical white matter from prio r small vessel ischemic disease. Mildly prominent ventricles and extra-axial spaces on the basis of atrophy. No inferior displacement of cerebellar tonsils. The sella turcica and pituitary gland are unremarkabl e. Flow voids are difficult to visualize with this amount of motion. This is a very limited evaluation o f the dural venous sinuses and arteries. Paranasal sinuses: Poorly visualized. Mastoid air cells: Poorly visualized. Calvarium and scalp: Poorly visualized. MR/MR head wo con* [id number] IMPRESSION: 1. Quality of this examination significantly degraded by motion artifact. 2. Remote RIGHT frontal lobe infarct with encephalomalacia. 3. No acute diffusion-weighted abnormalities identified. Small infarct would e asily be obscured. 4. Mild to moderate chronic small vessel ischemic disease and atrophy.
--- NOTE | 2021-06-21 03:04 | NMCV_ITS ---
NM margo perf SPECT r/s* [id number] Chris Madera Age: 66 Gender: M : 1955 Exam Date: 06/21/2021 07:10 Ordering Phys: Demario Hernandez DO Technologist: PROSPER Angulo Exam Location: [facility] Indications: CHEST PAIN STRESS TEST [facility] IMAGE PROTOCOL Rest/Stress 1 Lexiscan Day Radiopharmaceutical Dose (mCi) Administration Site Administered by Rest: Tc-99m 10.8 IV PROSPER Cuadra Sestamibi Stress:Tc-99m 32.5 IV PROSPER Pichardo Sestamibi Rest: 21-Jun-2021 60 Discovery 630 Stress: 21-Jun-2021 30 Discovery 630 0.4mg Lexiscan. Supine position only as patient was unable to lay prone. SPECT RESULTS Technical Quality: Excellent Raw Data Analysis: Normal Image Corrections: No attenuation or motion correction applied Summed Stress Score: 0 Summed Rest Score: 1 Summed Difference Score: 0 PERFUSION FINDINGS Small size perfusion abnormality of mild severity of basal and apical inferior wall on rest images with improved tracer uptake on stress images. This suggestive of attenuation artifact. FUNCTIONAL RESULTS (calculated via Gated SPECT) Stress Image LV EF (%): 89 Stress EDV (mL):44 TID: 0.75 Stress ESV (mL):5 FUNCTIONAL FINDINGS: The left ventricle is normal in size. Transient Ischemia Dilatation of 0.75. The left ventricular ejection fraction is normal with a value of 89%. There is hyperdynamic left ventricular wall thickening with no regional wall motion abnormality. IMPRESSIONS 1. Myocardial perfusion imaging is normal. Attenuation artifact noted in inferior wall. 2. Overall left ventricular systolic function is normal without regional wall motion abnormalities, LVEF=89%. 3. No EKG changes with Lexiscan infusion. Please refer to separate report for details. 4. Scan indicates low risk for cardiac events. Radha Farooq MD (Electronically Signed) Final Date: 21 June 2021 12:18 S
--- NOTE | 2021-06-21 03:04 | CTR_ITS ---
PROCEDURE INFORMATION: Exam: CT Angiography Head With Contrast, Arteriography Exam date and time: 06/21/2021 7:38 AM Age: 66 years old Clinical indication: Cognitive deficit; Altered mental status; Additional info: CVA TECHNIQUE: Imaging protocol: Computed tomography angiography of the head with contrast. Exam focused on the arteries. 3D rendering (Not supervised by radiologist): MIP and/or 3D reconstructed images were created by the technologist. Total images: 983 Radiation optimization: All CT scans at this facility use at least one of these dose optimization techniques: automated exposure control; mA and/or kV adjustment per patient size (includes targeted exams where dose is matched to clinical indication); or iterative reconstruction. Contrast material: OMNI 350; Contrast volume: 95 ml; Contrast route: INTRAVENOUS (IV); COMPARISON: 1. CT head wo con* [id number] 06/20/2021 11:[address] angio neck [id number] 06/04/2019 9:36 AM RADIATION DOSE METRICS: Total DLP (mGy-cm): 2613.52 FINDINGS: ANTERIOR CIRCULATION: Right internal carotid artery: Unremarkable. Intracranial segment is patent with no significant stenosis. No aneurysm. Right middle cerebral artery: Unremarkable. No occlusion or significant stenosis. No aneurysm. Right anterior cerebral artery: Unremarkable. No occlusion or significant stenosis. No aneurysm. Anterior communicating artery: Occluded right ICA with reconstitution of flow within the right AMINTA and MCA through patent anterior communicating artery and superficial cerebral arteries. Left internal carotid artery: Unremarkable. Intracranial segment is patent with no significant stenosis. No aneurysm. Left middle cerebral artery: Unremarkable. No occlusion or significant stenosis. No aneurysm. Left anterior cerebral artery: Unremarkable. No occlusion or significant stenosis. No aneurysm. POSTERIOR CIRCULATION: Right vertebral artery: Unremarkable. No occlusion or significant stenosis. No aneurysm. Left vertebral artery: Unremarkable. No occlusion or significant stenosis. No aneurysm. Basilar artery: Unremarkable. No occlusion or significant stenosis. No aneurysm. Right posterior cerebral artery: Unremarkable. No occlusion or significant stenosis. No aneurysm. Left posterior cerebral artery: Unremarkable. No occlusion or significant stenosis. No aneurysm. Brain: Global brain atrophy and chronic white matter ischemic changes are present. Senescent calcifications in the basal ganglia. Area of encephalomalacia in the right frontal lobe unchanged. Cerebral ventricles: Ventricles are appropriate in size for degree of atrophy. Orbital cavity: Prior bilateral lens replacements noted. Heterogeneous density posteriorly in the left globe felt to represent hemorrhage but unchanged from prior exam. Bones/joints: Unremarkable. No acute fracture. Soft tissues: Unremarkable. PROCEDURE INFORMATION: Exam: CT Angiography Neck With Contrast Exam date and time: 06/21/2021 7:38 AM Age: 66 years old Clinical indication: Cognitive deficit; Altered mental status; Additional info: CVA TECHNIQUE: Imaging protocol: Computed tomography angiography of the neck with contrast. 3D rendering (Not supervised by radiologist): MIP and/or 3D reconstructed images were created by the technologist. Radiation optimization: All CT scans at this facility use at least one of these dose optimization techniques: automated exposure control; mA and/or kV adjustment per patient size (includes targeted exams where dose is matched to clinical indication); or iterative reconstruction. Contrast material: OMNI 350; Contrast volume: 95 ml; Contrast route: INTRAVENOUS (IV); COMPARISON: 1. CT head wo con* [id number] 06/20/2021 11:[address] angio neck [id number] 06/04/2019 9:36 AM RADIATION DOSE METRICS: Total DLP (mGy-cm): 2613.52 FINDINGS: Right common carotid artery: Diffusely small caliber right CCA. Right internal carotid artery: Calcified atherosclerotic plaque is noted at the carotid bifurcations bilaterally. Occluded right ICA at its origin secondary to calcified atherosclerotic plaque. Right external carotid artery: Mild stenosis at origin of right ECA secondary to calcified atherosclerotic plaque. Left common carotid artery: Diffusely small caliber left CCA. Left internal carotid artery: Mild stenosis at proximal left ICA secondary to calcified atherosclerotic plaque. Left external carotid artery: Mild stenosis at origin of left ECA secondary to calcified atherosclerotic plaque. Right vertebral artery: No stenosis. No dissection or occlusion. Left vertebral artery: No stenosis. No dissection or occlusion. Aorta: Atherosclerosis is evident. Soft tissues: Normal. No significant soft tissue swelling. Bones/joints: No acute fracture. Lungs: Severe centrilobular emphysematous changes are present. There is biapical pleural thickening with calcifications, likely related to chronic pleural-parenchymal scarring. Compressive atelectasis of the lungs. Pleural spaces: Small bilateral pleural effusions are present. CT/CT angio headneck* [id number] IMPRESSION: 1. Occluded right ICA with reconstitution of flow within the right AMINTA and MCA through patent anterior communicating artery and superficial cerebral arteries. 2. Global brain atrophy and chronic white matter ischemic changes are present. Area of encephalomalacia in the right frontal lobe unchanged. IMPRESSION: 1. Diffusely small caliber bilateral CCA. 2. Occluded right ICA at its origin secondary to calcified atherosclerotic plaque. 3. Mild stenosis at proximal left ICA secondary to calcified atherosclerotic plaque. 4. Severe centrilobular emphysematous changes are present. 5. Small bilateral pleural effusions with compressive atelectasis. REFERENCES: NASCET CRITERIA. The degree of internal carotid artery stenosis is based on NASCET criteria. Normal is no stenosis. Mild is less than 50% stenosis. Moderate is 50-69% stenosis. Severe is 70% to 99% stenosis. Total occlusion is no detectable patent lumen.
[2021-06-21] MEDS: ipratropium-albuterol 3 mL Neb INHALATION ×2 (03:49→15:16)
[2021-06-21] MEDS: nitroglycerin 1 gm/inch oint Pkt 0.5 INCH TOPICAL (04:56)
[2021-06-21] MEDS: sodium chloride 0.9% 1,000 ML 75 ML IV ×2 (04:57→18:38)
[2021-06-21 05:05] LABS: Basophils % 0.4 %; Eosinophils # 0.1 10^3/uL (0.0-0.8); Eosinophils % 0.7 %; Hematocrit 34.4 % (42.0-52.0); Hemoglobin 11.3 g/dL (11.7-16.6); Lymphocytes # 1.6 10^3/uL (0.8-4.8); Lymphocytes % 18.6 %; Mean Corpuscular HGB Conc 32.8 g/dL (30.0-36.0); Mean Corpuscular Hemoglobin 31.4 pg (28.0-34.0); Mean Corpuscular Volume 95.6 fl (80-94); Mean Platelet Volume 9.6 fL (7.4-10.4); Monocytes # 0.4 10^3/uL (0.2-0.9); Monocytes % 4.4 %; Neutrophils # 6.26 10^3/uL (1.8-7.7); Neutrophils % 75.3 %; Nucleated Red Blood Cells % 0 %; Platelet Count 441 10^3/cmm (130-400); Red Cell Distribution Width 14.6 % (12.1-15.1); White Blood Count 8.3 10^3/uL (4.0-10.0)
[2021-06-21 05:19] LABS: INR 0.94 (0.8-1.2); Partial Thromboplastin Time 33.5 SECONDS (23.9-36.7)
[2021-06-21 05:35] LABS: Alanine Aminotransferase 22 U/L (0-41); Alkaline Phosphatase 366 IU/L (40-130); Anion Gap 13.6 (5-19); Aspartate Amino Transferase 30 U/L (0-40); Blood Urea Nitrogen 5 mg/dL (8-23); Calcium 7.9 mg/dL (8.5-10.5); Carbon Dioxide 22 mmol/L (22-29); Chloride 99 mmol/L (98-107); Chol HDL Ratio 2.41 mg/dL (1.0-5.00); Cholesterol 118 mg/dL (0-200); Free T4 Free Thyroxine 0.76 ng/dL (0.82-1.77); Globulin 3.8 g/dL (1.3-4.6); Glomerular Filtration Rate 215.9 mL/min (90-130); Glucose 136 mg/dL (65-115); HDL Cholesterol 49 mg/dL (60-100); LDL Cholesterol Calculated 51 mg/dL (50-129); LDL HDL Ratio 1.04 RATIO (0.00-3.22); Magnesium 1.7 mg/dL (1.7-2.3); Osmolality Calculated 271 mOsm/kg (285-295); Potassium 3.6 mmol/L (3.5-5.1); Sodium 131 mmol/L (136-145); Thyroid Stimulating Hormone 5.32 uIU/mL (0.27-4.20); Total Bilirubin 0.3 mg/dL (0.15-1.2); Total Protein 5.8 g/dL (6.6-8.7); Triglycerides 88 mg/dL (0-150)
[2021-06-21 05:55] LABS: Iron 47 ug/dL (59-158)
--- NOTE | 2021-06-21 06:00 | ECG_ITS ---
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 Measurements Intervals [place] Rate: 92 P: 88 MI: 185 QRS: -80 QRSD: 94 T: 88 QT: 374 QTc: 465 Interpretive Statements SINUS RHYTHM WITH SINUS ARRHYTHMIA LEFT AXIS DEVIATION [QRS AXIS < -30] LOW QRS VOLTAGE IN PRECORDIAL LEADS [QRS DEFLECTION < 1.0 mV IN CHEST LEADS] Compared to ECG 06/20/2021 22:49:05 Left-axis deviation now present Right-axis deviation no longer present ST (T wave) deviation no longer present Electronically Signed On 06-21-2021 9:26:09 CDT by Claude Santoyo M.D. [email or web address]
[2021-06-21 06:08] LABS: Ferritin 1248 ng/mL (30-400); Unsaturated Iron Binding < 17 ug/dL (112-347)
[2021-06-21 06:22] LABS: Vitamin B12 > 2000 pg/mL (232-1245)
[2021-06-21] MEDS: heparin 5,000 unit/mL INJ 1 mL IV (06:40)
[2021-06-21] MEDS: heparin drip 25,000 UNIT/500 ML PREMIX 16 UNIT IV (06:41)
[2021-06-21] MEDS: iohexol 350 mg/mL 100 mL Btl IV (07:45)
[2021-06-21] MEDS: regadenoson 0.4 Mg/5 ml Syringe IVP (08:20)
--- NOTE | 2021-06-21 09:14 | PM.CONSULT ---
Providers/Reason For Consult Consulting Physician/Specialty*: Dr PRESTON Sweeney/ Cardiology Reason for Consult*: Chest pain/elevated troponin /pericardial effusion Requesting Physician: Dr. Pretty Attending Physician: Rashad Pretty MD Primary Care Provider: Bri Fernanedz MD History of Present Illness History of Present Illness Chris Madera Sr is a 66 year old male, with multiple medical problems, is admitted to the hospital through the emergency room, where he presented with complaints of chest pain. He was found to have some pericardial effusion. Cardiology consult is requested for further cardiac evaluation recommendations. This patient extremely poor historian. He has hearing impairment and he is legally blind. Most of the information is from the caregiver, his [id number]. Apparently the patient's brother and family lives in the same house. Yesterday the patient was complaining of pain in the mid substernal area. He was given 1 sublingual nitro. Following this, he was not able to express himself. The [id number] called the ambulance. He was advised to give 1 more sublingual nitro. After this, he fell all better. Centimeter lasted for 10 to 15 minutes. For this reason, he was brought to the hospital. Patient currently has no chest pain. He did not have any associated nausea vomiting or sweating. No other specific complaints. Denies any other pain was mild to moderate. This patient has a history of chest pain off and on for last few years. He been taking sublingual nitro off and on. Apparently never had any cardiac work-up prior to this hospital admission. As per the patient, he takes the nitro soon after he gets the pain before he gets worse. Cervical pain, most of the times lasts only for few seconds. He mainly gets the pain once or twice a month. He has no document history for coronary artery disease, myocardial infarction or congestive heart failure. According to caregiver, he may have had multiple mini strokes. He is legally blind for the last 2 years. He has been feeling weak and has been falling frequently over the last 1 year. So he mostly ambulate around with a wheelchair or with some help. He also has been losing weight at least more than 50 pounds within the last 1 year. He has a very poor appetite. He had some GI work-up in [place] and was told everything is okay. Last a few weeks, he was found to be more confused. No seizure activity or syncopal episodes. Review of Systems Narrative: CONSTITUTIONAL: No fever or chills. Patient has been losing weight over the last 1 year, more than 50 pounds EYES: Legally blind for 2 years, happened after cataract surgery ENT: No hoarseness of voice, auditory disturbances or sore throat. CARDIOVASCULAR: As mentioned above. RESPIRATORY: History of COPD GASTROINTESTINAL:? No appetite GENITOURINARY: No dysuria or hematuria. INTEGUMENTARY: No skin rashes or history of skin cancer. NEURO: Seizure disorder? PSYCHIATRIC: No history of psychosis or major depression. HEMATOLOGIC: No bleeding disorders or significant anemia. ENDOCRINE: No history of polyuria or polydipsia. MUSCULOSKELETAL: Frequent falls/unstable gait ALLERGY/IMMUNOLOGY: As mentioned above. Medications/Allergies Home Medications Medication Instructions Recorded Confirmed Last Taken Type aspirin 81 mg tablet,delayed 81 mg PO DAILY 05/21/19 06/20/21 06/20/21 History release nitroglycerin 0.4 mg sublingual 0.4 mg SUBLINGUAL Q5M PRN 05/21/19 06/20/21 Unknown History tablet mirtazapine 15 mg tablet 30 mg PO BEDTIME 11/25/19 06/20/21 06/19/21 History multivitamin 1 tab PO DAILY 11/25/19 06/20/21 06/20/21 History albuterol sulfate 90 mcg/actuation 1 inh INHALATION QID PRN 08/04/20 06/20/21 Unknown History aerosol inhaler cholecalciferol (vitamin D3) 50 50 mcg PO DAILY 08/04/20 06/20/21 06/20/21 History mcg (2,000 unit) tablet (Vitamin D3) diphenhydramine HCl 25 mg capsule 25 mg PO DAILY PRN 08/04/20 06/20/21 Unknown History (Benadryl) ibuprofen 200 mg tablet 200 mg PO Q6H PRN 08/04/20 06/20/21 Unknown History lisinopril 10 mg tablet 15 mg PO DAILY 08/04/20 06/20/21 06/20/21 History melatonin 5 mg tablet 5 mg PO BEDTIME 08/04/20 06/20/21 06/19/21 History omeprazole 20 mg tablet,delayed 20 mg PO BID 08/04/20 06/20/21 06/20/21 History release epinephrine 0.3 mg/0.3 mL 0.3 mg IM Q10M PRN 11/17/20 06/20/21 Unknown History injection, auto-injector levetiracetam 1,000 mg tablet 1,000 mg PO BID #60 tab 12/28/20 06/20/21 06/20/21 Rx (Keppra) umeclidinium 62.5 mcg-vilanterol 1 inh INHALATION DAILY 30 Days #60 04/28/21 06/20/21 06/20/21 Rx 25 mcg/actuation powdr for ea inhalation (Anoro Ellipta) ferrous sulfate 27 mg iron tablet 27 mg PO DAILY 06/20/21 06/20/21 06/20/21 History tamsulosin 0.4 mg capsule 0.4 mg PO DAILY 06/20/21 06/20/21 06/20/21 History venlafaxine 37.5 mg 37.5 mg PO DAILY 06/20/21 06/20/21 06/20/21 History capsule,extended release 24 hr vitamin B complex 1 tab PO DAILY 06/20/21 06/20/21 06/20/21 History Allergies Allergy/AdvReac Type Severity Reaction Status Date / Time insect venom Allergy Severe ALGY-Anaphy Verified 06/13/21 09:38 laxis Current Medications Generic Name Dose Route Start Last Admin Trade Name Freq PRN Reason Stop Dose Admin Albuterol/Ipratropium 3 ml 06/21/21 03:04 06/21/21 08:17 Ipratropium-Albuterol 3 Ml Neb INHALATION Not Given Q6H.RESPIRATORY JANNIE Heparin Sodium (Porcine) 0 unit 06/21/21 03:04 06/21/21 06:40 Heparin 5,000 Unit/Ml Inj 1 Ml IV 2,900 unit PRN PRN Administration Heparin weight-base protocol Protocol Sodium Chloride 1,000 mls @ 75 mls/hr 06/21/21 03:04 06/21/21 04:57 Sodium Chloride 0.9% IV 75 mls/hr .[id number] JANNIE Administration Heparin Sodium/Sodium Chloride 25,000 unit in 500 mls @ 0 mls/hr 06/21/21 03:04 06/21/21 06:41 Heparin Drip IV 13.57 unit/kg/hr .Q0M JANNIE 16 mls/hr Administration Protocol Per Protocol Methylprednisolone Sodium Succinate 40 mg 04/05/22 03:30 06/21/21 04:56 Methylprednisolone Sod Succ 40 Mg/Ml Inj IVP 40 mg Q8H JANNIE Administration Nitroglycerin 0.5 inch 06/21/21 03:04 06/21/21 04:56 Nitroglycerin 1 Gm/Inch Oint Pkt TOPICAL 0.5 inch Q6H JANNIE Administration PFSH Acute PFSH: Medical History Blind Carotid artery disease COPD (chronic obstructive pulmonary disease) Depression Hypertension Surgical History H/O hernia repair Family History Denies family history of CAD (coronary artery disease) Cancer Social History Smoking and tobacco status: current every day smoker (switched to vaping) cigarettes Years cigarettes smoked: 40 [ Other cigarette details: Hx of 1 PPD x 40 Years] Smoking risk assessment/counseling performed?: Yes Alcohol intake: current Alcohol intake frequency: 3 or more drinks per day Alcohol type: beer Counseling given: Yes Counseling given: No Caregiver/support person: Yes Lives independently: Yes Household members: family Marital status: / Current occupational status: disabled History of recent travel: No Current gender identity: Male Vitals/I&O/Wt Last Vital Signs Temp 98.0 F 06/21/21 07:54 Pulse 118 H 06/21/21 08:29 Resp 18 06/21/21 07:54 BP 107/58 06/21/21 08:29 Pulse Ox 94 06/21/21 07:54 06/20/21 06/21/21 06/21/21 22:59 06:59 14:59 Intake Total 800 / 800 480 / 480 Balance 800 / 800 480 / 480 Weight last 48 hrs Weight 124 lb 9 oz Weight 130 lb Physical Exam Narrative: GENERAL: The patient is alert, hard of hearing; oriented to place and person. Has episodes of confusion. Patient is lying in a position in the bed HEENT: Minimal pallor. No icterus or lymphadenopathy . Fundus: Not visualized NECK: Trachea appears to be central. No masses noted. No JVD or thyromegaly appreciated. No carotid bruit. RESPIRATORY: Chest is symmetrical. Emphysematous chest no intercostals muscle retraction or any accessory muscle activation. There is no chest wall tenderness. Breath sounds are heard bilaterally. No rales or rhonchi heard. No evidence of any consolidation. BREASTS: Deferred. HEART: The PMI is in the 5th left intercostals space just inside the midclavicular line. No palpable precordial events. S1 and S2 are normal. No S3 or S4 heard. No pericardial rub or any click heard. ABDOMEN: No vessel pulsations or distention. No tenderness. No organomegaly appreciated. No abdominal bruit. Bowel sounds are normally heard. : Deferred. RECTAL: Deferred. LYMPHATIC: No lymphadenopathy noted in the neck . EXTREMITIES: No significant edema or cyanosis. Peripheral pulses are palpable but weak bilaterally. MUSCULOSKELETAL: No acute joint deformities or swelling SKIN: There are no significant scars or skin rash noted. NEUROPSYCHIATRIC: The patient is alert, oriented to place and person. Hard of hearing and legally blind. Data : 06/21/21 04:53 06/21/21 04:53 Other Labs: Laboratory Last Values WBC 8.3 10^3/uL (4.0-10.0) 06/21/21 04:53 RBC 3.60 10^6/uL (4.1-5.3) L 06/21/21 04:53 Hgb 11.3 g/dL (11.7-16.6) L 06/21/21 04:53 Hct 34.4 % (42.0-52.0) L 06/21/21 04:53 MCV 95.6 fl (80-94) H 06/21/21 04:53 MCH 31.4 pg (28.0-34.0) 06/21/21 04:53 MCHC 32.8 g/dL (30.0-36.0) 06/21/21 04:53 RDW 14.6 % (12.1-15.1) 06/21/21 04:53 Plt Count 441 10^3/cmm (130-400) H 06/21/21 04:53 MPV 9.6 fL (7.4-10.4) 06/21/21 04:53 Neut % (Auto) 75.3 % 06/21/21 04:53 Lymph % (Auto) 18.6 % 06/21/21 04:53 [place] % (Auto) 4.4 % 06/21/21 04:53 Eos % (Auto) 0.7 % 06/21/21 04:53 Baso % (Auto) 0.4 % 06/21/21 04:53 Neut # (Auto) 6.26 10^3/uL (1.8-7.7) 06/21/21 04:53 Lymph # (Auto) 1.6 10^3/uL (0.8-4.8) 06/21/21 04:53 [place] # (Auto) 0.4 10^3/uL (0.2-0.9) 06/21/21 04:53 Eos # (Auto) 0.1 10^3/uL (0.0-0.8) 06/21/21 04:53 Baso # (Auto) 0.0 10^3/uL (0.0-0.1) 06/21/21 04:53 Nucleated RBC % (auto) 0 % 06/21/21 04:53 Nucleated RBCs # 0.0 /100WBC 06/21/21 04:53 PT 12.90 SECONDS (12.1-14.9) 06/21/21 04:53 INR 0.94 (0.8-1.2) 06/21/21 04:53 APTT 33.5 SECONDS (23.9-36.7) 06/21/21 04:53 D-Dimer 1.19 ug/mIFEU (0-0.59) H 06/20/21 20:28 Sodium 131 mmol/L (136-145) L 06/21/21 04:53 Potassium 3.6 mmol/L (3.5-5.1) 06/21/21 04:53 Chloride 99 mmol/L (98-107) 06/21/21 04:53 Carbon Dioxide 22 mmol/L (22-29) 06/21/21 04:53 Anion Gap 13.6 (5-19) 06/21/21 04:53 BUN 5 mg/dL (8-23) L 06/21/21 04:53 Creatinine 0.4 mg/dL (0.7-1.2) L 06/21/21 04:53 GFR Calculation 215.9 mL/min (90-130) H 06/21/21 04:53 Glucose 136 mg/dL (65-115) H 06/21/21 04:53 Calculated Osmolality 271 mOsm/kg (285-295) L 06/21/21 04:53 Calcium 7.9 mg/dL (8.5-10.5) L 06/21/21 04:53 Magnesium 1.7 mg/dL (1.7-2.3) 06/21/21 04:53 Iron 47 ug/dL (59-158) L 06/21/21 04:53 TIBC 63.48991 mcg/dl 06/21/21 04:53 % Saturation 73.0 % (20-50) H 06/21/21 04:53 Unsat Iron Binding < 17 ug/dL (112-347) L 06/21/21 04:53 Ferritin 1248 ng/mL (30-400) H 06/21/21 04:53 Total Bilirubin 0.3 mg/dL (0.15-1.2) 06/21/21 04:53 AST 30 U/L (0-40) 06/21/21 04:53 ALT 22 U/L (0-41) 06/21/21 04:53 Alkaline Phosphatase 366 IU/L (40-130) H 06/21/21 04:53 Troponin T Baseline 38 ng/L (0-15) H 06/20/21 20:28 Troponin T 120 Minute 30.68 ng/L (0-15) H 06/20/21 22:28 Delta Troponin T -7.32 ABS# (0-10) L 06/20/21 22:28 Troponin T Hi Sens 6Hr 24.43 ng/L (0-15) H 06/21/21 02:33 Troponin T Hi Sens 6Hr Delta -13.57 ng/L (0-12) L 06/21/21 02:33 NT-Pro-B Natriuret Pep 855 pg/mL (0-125) H 06/20/21 20:28 Total Protein 5.8 g/dL (6.6-8.7) L D 06/21/21 04:53 Albumin 2.0 g/dL (3.5-5.2) L 06/21/21 04:53 Globulin 3.8 g/dL (1.3-4.6) 04/05/22 04:53 Triglycerides 88 mg/dL (0-150) 06/21/21 04:53 Cholesterol 118 mg/dL (0-200) 06/21/21 04:53 LDL Cholesterol, Calc 51 mg/dL (50-129) 06/21/21 04:53 HDL Cholesterol 49 mg/dL (60-100) L 06/21/21 04:53 LDL/HDL Ratio 1.04 RATIO (0.00-3.22) 06/21/21 04:53 Cholesterol/HDL Ratio 2.41 mg/dL (1.0-5.00) 06/21/21 04:53 Lipase 22 U/L (13-60) 06/20/21 20:28 Vitamin B12 > 2000 pg/mL (232-1245) H 06/21/21 04:53 Folate 19.0 ng/mL (4.5-32.2) 06/21/21 04:53 TSH 5.32 uIU/mL (0.27-4.20) H 06/21/21 04:53 Free T4 0.76 ng/dL (0.82-1.77) L 06/21/21 04:53 Micro: Microbiology 06/20/21 23:43 Blood Culture - Preliminary Blood SPECIMEN COLLECTED 06/20/21 23:39 Blood Culture - Preliminary Blood SPECIMEN COLLECTED EKG 1: My Interpretation: Normal sinus rhythm with a poor R wave progression. Diffuse nonspecific T wave changes. Left axis deviation. Low voltage complexes in the precordial leads. EKG computer-generated impression: Myocardial perfusion imaging from 06/20/2021 1. Myocardial perfusion imaging is normal.? Attenuation artifact noted in ?inferior wall. ?2. Overall left ventricular systolic function is normal without regional wall ?motion abnormalities, LVEF=89%. ?3. No EKG changes with Lexiscan infusion.? Please refer to separate report for ?details. ?4. Scan indicates low risk for cardiac events. Chest X-Ray 06/20/21 20:38 IMPRESSION: Pulmonary emphysema. Left basilar opacity may be atelectasis or pneumonia. A small left pleural effusion is present. Head CT 06/20/21 20:59 IMPRESSION: 1. No acute intracranial abnormality. 2. Persistent left ocular hemorrhage Chest CTA 06/20/21 21:33 IMPRESSION: 1. Negative for pulmonary embolus. 2. Small to moderate bilateral pleural effusions. 3. Emphysematous changes. 4. Patchy bilateral dependent airspace infiltrates. 5. Several likely chronic vertebral body compression fractures in the lower thoracic/upper lumbar spine. 6. Left posterior 12th rib chronic appearing fracture. 7. Coronary artery atherosclerotic calcifications. 8. Small pericardial effusion measuring up to 16 mm in diameter. Head MRI 06/21/21 03:04 IMPRESSION: 1. Quality of this examination significantly degraded by motion artifact. 2. Remote RIGHT frontal lobe infarct with encephalomalacia. 3. No acute diffusion-weighted abnormalities identified. Small infarct would easily be obscured. 4. Mild to moderate chronic small vessel ischemic disease and atrophy. Head/Neck CTA 06/21/21 03:04 IMPRESSION: 1. Occluded right ICA with reconstitution of flow within the right AMINTA and MCA through patent anterior communicating artery and superficial cerebral arteries. 2. Global brain atrophy and chronic white matter ischemic changes are present. Area of encephalomalacia in the right frontal lobe unchanged. IMPRESSION: 1. Diffusely small caliber bilateral CCA. 2. Occluded right ICA at its origin secondary to calcified atherosclerotic plaque. 3. Mild stenosis at proximal left ICA secondary to calcified atherosclerotic plaque. 4. Severe centrilobular emphysematous changes are present. 5. Small bilateral pleural effusions with compressive atelectasis. REFERENCES: NASCET CRITERIA. The degree of internal carotid artery stenosis is based on NASCET criteria. Normal is no stenosis. Mild is less than 50% stenosis. Moderate is 50-69% stenosis. Severe is 70% to 99% stenosis. Total occlusion is no detectable patent lumen. A&P Assessment and plan (1) Chest pain: Chest pain is very atypical. There is no acute ST-T changes. Troponin T is negative for myocardial injury. He had a myocardial perfusion imaging today which is essentially unremarkable with no evidence of ischemia. Most likely symptoms are nonischemic. Patient appears to have coronary artery disease since the patient have coronary calcification based on the CTA. Since he has no recurrence of chest pain, it may be appropriate to hold off for any further evaluation at this point. Status: Acute (2) Pericardial effusion: The pericardial effusion appears to be small. He may have a small area of loculated effusion anteriorly. Etiology is not clear. Most likely he may have underlying pneumonia causing pleural effusion. He also has some evidence of diastolic heart failure. Status: Acute (3) COPD (chronic obstructive pulmonary disease): Clinically seems to be stable. Status: Acute (4) Carotid artery occlusion without infarction: This appears to be chronic. May continue on the current treatment measures. Status: Acute (5) Pneumonia: Status: Acute (6) Acute on chronic diastolic (congestive) heart failure: Patient may be carefully treated with IV diuretics. May be started on IV Lasix 20 mg every 12 hours with a potassium 80 mg p.o. twice daily Status: Acute Consult Attestations Medical Necessity Statement: Other problems are 1. Hypothyroidism-May restart on thyroid supplement 2. Anemia 3. Hyponatremia 4.? Seizure disorder Based on the clinical progress, further recommendations will be made. Coding Level of Care Code Acute Physician Primary Care Sports Medicine for Chg Fwd History Detailed Exam Detailed Medical Decision Making High Complexity Diagnoses Chest pain R07.9 Pericardial effusion I31.3 COPD (chronic obstructive pulmonary disease) J44.9 Carotid artery occlusion without infarction I65.29 Pneumonia J18.9 Acute on chronic diastolic (congestive) heart failure I50.33
[2021-06-21] MEDS: levETIRAcetam 500 mg Tablet 1000 MG PO ×2 (09:42→18:37)
[2021-06-21] MEDS: pantoprazole DR 40 mg Tablet PO (09:43)
[2021-06-21] MEDS: venlafaxine ER (24HR) 37.5 mg Capsule PO (09:43)
[2021-06-21] MEDS: metoprolol tartrate 25 mg Tablet PO ×2 (09:43→20:53)
[2021-06-21] MEDS: aspirin 81 mg EC Tablet PO (09:43)
--- NOTE | 2021-06-21 10:31 | PC.NURSE ---
Patient not currently having chest pain and blood pressure is on the lower side, I made the nursing decision to hold nitro for now.
--- NOTE | 2021-06-21 19:33 | PC.NURSE ---
Patient went for head CT, stress test, and MRI today (see test results). Patient has been oriented throughout the day but pulling at lines and would say things that did not make sense. Patient had othrostatics done today, they were positive, MD made aware (see under order). Fluids going. Patient childcare teacher came to bedside for a little bit today. Patient did not have much of an appetite which is patients baseline according to childcare teacher. Report give to night nurse Marayna.
[2021-06-21 20:07] LABS: Add Urine Culture? No; Bilirubin Urine Neg (Negative); Blood Urine Neg (Negative); Calcium Oxalate Crystals Urine >100 /hpf; Glucose Urine UA Norm (Normal); Ketones Urine Negative (Negative); Leukocyte Esterase Urine Negative (Negative); Nitrate Urine Negative (Negative); Protein Urine Trace (Negative); Urine Appearance Clear (CLEAR); Urine Color Yellow (Yellow); Urobilinogen Urine Neg (Negative); pH Urine 5 (5-7)
[2021-06-21] MEDS: atorvastatin 40 mg Tablet 80 MG PO (20:52)
[2021-06-21] MEDS: mirtazapine 15 mg Tablet 30 MG PO (20:53)
[2021-06-21] MEDS: potassium chloride ER 10 mEq Tablet PO (23:33)
[2021-06-21] MEDS: FUROsemide 10 mg/mL SDV 2mL 20 MG IVP (23:33)
[2021-06-22] VITALS (17 sets, daily range): BP systolic 85–191; BP diastolic 58–86; PULSE 47–115; RESP 8–20; TEMP 36.4–36.7; O2SAT 89–98
[2021-06-22] MEDS: cefTRIAXone 1,000 MG in sodium chloride 0.9% (plus) 50 ML 100 MG IV (00:48)
[2021-06-22] MEDS: ipratropium-albuterol 3 mL Neb INHALATION ×4 (03:27→21:36)
--- NOTE | 2021-06-22 04:03 | XRR_ITS ---
PROCEDURE INFORMATION: Exam: XR Chest Exam date and time: 06/22/2021 4:12 AM Age: 66 years old Clinical indication: Shortness of breath; Patient HX: SOB. Decline in saturation. ; Additional info: Desaturation TECHNIQUE: Imaging protocol: XR of the chest. Views: 1 view. COMPARISON: CR (CHEST, ) 06/20/2021 8:47 PM FINDINGS: Lungs: Bilateral pulmonary opacities which may be seen with pulmonary edema or pneumonia. There are changes of COPD/emphysema. Pleural spaces: There are bilateral pleural effusions. Heart/Mediastinum: No cardiomegaly. Bones/joints: No acute fracture. XR/XR chest 1V portable [id number] IMPRESSION: Bilateral pulmonary opacities which may be seen with pulmonary edema or pneumonia. There are bilateral pleural effusions.
[2021-06-22 04:27] LABS: ABG PCO2 33.6 mmHg (35-45); ABG PH Result 7.43 (7.35-7.45); Alveolar-Arterial Oxygen Gradi 5.8 mmHg (5-10); Arterial Blood Gas Hematocrit 35.5 % (42-52); Base Excess ABG -1.3 mmol/L (-2.0-2.0); Blood Gas Allen Test Pos; Blood Gas Sample Site Radial, right; Blood Gas Sample Type Arterial; Carboxyhemoglobin 1.1 %THgb (0.4-20.1); HCO3 ABG 22.5 mmol/L (22-26); HGB O2 Sat 88.9 % (95-100); Ionized Calcium Level - ABG 1.2 mmol/L (1.1-1.4); Methemoglobin 0.8 % (0.4-1.5); Oxygen Device OXY MASK; Oxygen Saturation ABG 90.7; PO2 ABG 61.2 mmHg (80.0-100.0); Potassium Level - ABG 3.7 mmol/L (3.5-5.0); Total Hemoglobin 11.6 g/dL (14-18)
--- NOTE | 2021-06-22 04:55 | ECG_ITS ---
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 Measurements Intervals Mora Rate: 94 P: 85 WV: 179 QRS: -81 QRSD: 79 T: 32 QT: 357 QTc: 448 Interpretive Statements SINUS RHYTHM WITH OCCASIONAL SUPRAVENTRICULAR PREMATURE COMPLEXES LOW QRS VOLTAGE [QRS DEFLECTION < 0.5/1.0 mV IN LIMB/CHEST LEADS] POSSIBLE ANTERIOR MYOCARDIAL INFARCTION , PROBABLY OLD [30 ms Q WAVE IN V3/V4, OR R < 0.2 mV IN V4] INFERIOR MYOCARDIAL INFARCTION , PROBABLY OLD [40+ ms Q WAVE AND/OR ST/T ABNORMALITY IN II/aVF] Compared to ECG 06/21/2021 02:32:10 Myocardial infarct finding now present Sinus arrhythmia no longer present Left-axis deviation no longer present Electronically Signed On 06-23-2021 7:12:20 CDT by Radha Farooq M.D. [id number]
--- NOTE | 2021-06-22 06:00 | ECG_ITS ---
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 Interpretive Statements NAME OF STUDY: LEXISCAN SESTAMIBI STRESS TEST INDICATION: Chest Pain PROCEDURE: At the baseline, the blood pressure was 121/78 mmHg, oxygen saturation 96% with a heart rate of 114 beats per minute. The electrocardiogram showed sinus tachycardia, right axis deviation. Low QRS voltage. Nonspecific ST depression. Poor anterior R wave progression. The Lexiscan was infused over a period of 20 seconds. A total of 0.4 milligrams of Lexiscan was infused. The stress phase was continued for a total of 5 minutes. Heart rate at the end of the stress phase was 117 bpm with a blood pressure of 92/55 mmHg and oxygen saturation 96%. The EKG at the peak infusion revealed sinus tachycardia with no significant ST-T wave changes. The study was terminated due to protocol completion. Sestamibi was injected 20 seconds after the Lexiscan infusion. Blood pressure at the end of the recovery phase was 97/56 mmHg, oxygen saturation 96% with a heart rate of 117 beats per minute. CONCLUSION: 1. No significant EKG changes with the LexiScan infusion. 2. No LexiScan induced chest pain or cardiac arrhythmia. 3. Normal blood pressure and heart rate response. 4. Sestamibi/sestamibi perfusion scan pending; see separate report. RESULTS TO MYRNA HUERTAS Electronically Signed On 06-21-2021 12:13:34 CDT by Radha Farooq M.D. [id number]
[2021-06-22] MEDS: FUROsemide 10 mg/mL SDV 4mL 40 MG IVP (06:04)
[2021-06-22 07:45] LABS: ABG PCO2 31.9 mmHg (35-45); ABG PH Result 7.45 (7.35-7.45); Alveolar-Arterial Oxygen Gradi 63.3 mmHg (5-10); Arterial Blood Gas Hematocrit 32.4 % (42-52); Blood Gas Allen Test Pos; Blood Gas Operator Identificat MONRO; Blood Gas Sample Site Radial, right; Blood Gas Sample Type Arterial; Carboxyhemoglobin 0.6 %THgb (0.4-20.1); HCO3 ABG 22.4 mmol/L (22-26); HGB O2 Sat 99.3 % (95-100); Ionized Calcium Level - ABG 1.2 mmol/L (1.1-1.4); Methemoglobin 0.3 % (0.4-1.5); Oxygen Device BIPAP; Oxygen Saturation ABG > 100.0; Potassium Level - ABG 3.7 mmol/L (3.5-5.0); Total Hemoglobin 10.6 g/dL (14-18)
[2021-06-22] MEDS: aspirin 81 mg EC Tablet PO (09:25)
[2021-06-22] MEDS: pantoprazole DR 40 mg Tablet PO (09:25)
[2021-06-22] MEDS: potassium chloride ER 10 mEq Tablet PO ×2 (09:25→18:18)
[2021-06-22] MEDS: venlafaxine ER (24HR) 37.5 mg Capsule PO (09:25)
[2021-06-22] MEDS: levETIRAcetam 500 mg Tablet 1000 MG PO ×2 (09:25→18:18)
[2021-06-22] MEDS: FUROsemide 10 mg/mL SDV 2mL 20 MG IVP ×2 (09:25→22:21)
[2021-06-22 09:41] LABS: Basophils % 0.1 %; Hematocrit 31.8 % (42.0-52.0); Hemoglobin 10.9 g/dL (11.7-16.6); Lymphocytes # 1.7 10^3/uL (0.8-4.8); Mean Corpuscular HGB Conc 34.3 g/dL (30.0-36.0); Mean Corpuscular Hemoglobin 31.4 pg (28.0-34.0); Mean Corpuscular Volume 91.6 fl (80-94); Mean Platelet Volume 9.9 fL (7.4-10.4); Monocytes # 0.6 10^3/uL (0.2-0.9); Monocytes % 4.1 %; Neutrophils % 82.9 %; Nucleated Red Blood Cells % 0 %; Platelet Count 433 10^3/cmm (130-400); Red Blood Count 3.47 10^6/uL (4.1-5.3); Red Cell Distribution Width 14.8 % (12.1-15.1); White Blood Count 14.2 10^3/uL (4.0-10.0)
--- NOTE | 2021-06-22 10:08 | PC.CHAP ---
Pastoral Care Encounter/Spiritual Assessment Type of Contact [] Declined tax compliance officer visit [] Patient/Family/Request visit [] Outpatient visit [] Follow-up visit [] Physician referral [] Code/Alert [x] Routine visit [] Staff referral [] Actively dying [x] Patient sleeping [] Family support [] [] Out of room [] Palliative care [] [] Receiving care in room [] Pre-surgical visit [] Trauma [] Long length of stay [] ICU visit [] Other: Relational/Emotional Strength [] Patient feels connected with others/family/visitors/staff [] Distress [] Loneliness/isolation [] Abandonment Spirituality of Patient [] Person of Keke [] Attends Jehovah'S Witness of their Keke [] Believes in Prayer [] Reads Bible or Cheondoism materials [] There are Spiritual issues to be addressed Parking Assistant Interventions [] Prayer [] Active listening [] Non-anxious presence [] Spiritual/emotional support [] Crisis/trauma care [] Spiritual counseling [] Bereavement support [] Provided bereavement packet [] Provided Bible/devotional materials [] Provided toy/stuffed animal, coloring book to patient or family member [] Provided Communion [] Anointing/[place] [] Salvation [] Completed spiritual assessment [] Other: Impact on Illness or Injury [] Angry [] Fearful [] Anxious [] Often cries [] Exhaustion [] Unable to work [] Unable to attend buddhism [] Unable to walk/stand [] Unable to read [] Unable to drive [] Unable to eat/drink [] Unable to sleep [] Unable to be with family [] Patient intubated [] Other: Summary Time spent with patient
[2021-06-22] MEDS: midodrine 5 mg TABLET 10 MG PO ×3 (10:12→20:06)
[2021-06-22 10:17] LABS: Blood Urea Nitrogen 8 mg/dL (8-23); Calcium 8.1 mg/dL (8.5-10.5); Carbon Dioxide 19 mmol/L (22-29); Chloride 101 mmol/L (98-107); Glomerular Filtration Rate 166.9 mL/min (90-130); Glucose 130 mg/dL (65-115); Osmolality Calculated 276 mOsm/kg (285-295); Sodium 133 mmol/L (136-145)
[2021-06-22 10:18] LABS: Anion Gap 17.2 (5-19); Potassium 4.2 mmol/L (3.5-5.1)
--- NOTE | 2021-06-22 12:45 | P.PN_ITS ---
Subjective Subjective: Patient was seen and examined this morning, patient was hypotensive, orthostatic vital signs have been positive, Last night patient had to be placed on BiPAP, IV fluids were stopped, ABG done this morning: Shows pH of 7.45 PCO2 31 PO2 174. X-ray chest : Has bilateral pulmonary opacities: Likely pneumonia, possible pulmonary edema. Currently patient is saturating well on 5 to 6 L oxygen through nasal cannula. Metoprolol and Nitropaste has been discontinued. Medications: Medication Review Details: Generic Name Dose Route Start Last Admin Trade Name Yovannyq PRN Reason Stop Dose Admin Albuterol/Ipratrop ium 3 ml 06/21/21 03:04 06/22/21 08:28 Ipratropium-Albu terol 3 Ml Neb INHALATION 3 ml Q6H.RESPIRATORY S CH Administration Aspirin 81 mg 06/21/21 09:00 06/22/21 09:25 Aspirin 81 Mg Ec Tablet PO 81 mg DAILY JANNIE Administration Atorvastatin Calci um 80 mg 06/21/21 21:00 06/21/21 20:52 Atorvastatin 40 Mg Tablet PO 80 mg BEDTIME JANNIE Administration Furosemide 20 mg 06/21/21 22:00 06/22/21 09:25 Furosemide 10 Mg /Ml Sdv 2ml IVP 20 mg Q12H JANNIE Administration Azithromycin 500 m g/ Sodium 250 mls @ 250 mls /hr 06/22/21 00:00 06/22/21 00:42 Chloride IV Infused Q24H JANNIE Infusion Protocol Ceftriaxone Sodium 1,000 mg/ 50 mls @ 100 mls/ hr 06/22/21 00:30 06/22/21 01:43 Sodium Chloride IV Infused Q24H JANNIE Infusion Protocol Levetiracetam 1,000 mg 06/21/21 09:00 06/22/21 09:25 Levetiracetam 50 0 Mg Tablet PO 1,000 mg BID JANNIE Administration Methylprednisolone Sodium Succinate 40 mg 06/21/21 03:30 06/22/21 12:15 Methylprednisolo ne Sod Succ 40 Mg/ Ml Inj IVP 40 mg Q8H JANNIE Administration Metoprolol Tartrat e 25 mg 06/21/21 09:00 06/22/21 09:26 Metoprolol Tartr ate 25 Mg Tablet PO Not Given BID@0900,2100 JANNIE Midodrine 10 mg 06/22/21 09:23 06/22/21 10:12 Midodrine 5 Mg T ablet PO 10 mg TID JANNIE Administration Mirtazapine 30 mg 06/21/21 21:00 06/21/21 20:53 Mirtazapine 15 M g Tablet PO 30 mg BEDTIME JANNIE Administration Pantoprazole Sodiu m 40 mg 06/21/21 09:00 06/22/21 09:[address] 40 Mg Tablet PO 40 mg DAILY JANNIE Administration Potassium Chloride 10 meq 06/21/21 23:00 06/22/21 09:25 Potassium Chlori de Er 10 Meq Table t PO 10 meq BID JANNIE Administration Venlafaxine HCl 37.5 mg 06/21/21 09:00 06/22/21 09:25 Venlafaxine Er ( 24hr) 37.5 Mg Caps ule PO 37.5 mg DAILY JANNIE Administration Vitals/I&O/Wt Last Vital Signs Temp 98.0 F 06/22/21 11:26 Pulse 98 06/22/21 11:26 Resp 18 06/22/21 11:26 BP 118/73 06/22/21 11:26 Pulse Ox 92 06/22/21 11:26 06/21/21 06/22/21 06/22/21 22:59 06:59 14:59 Intake Total 999 300 / 2280 1240 / 1240 Output Total 250 / 250 Balance 999 50 / 2029 1240 / 1240 Weight last 48 hrs Weight 56.501 kg Weight 58.967 kg Physical Exam Const: COMMON NORMALS: patient oriented x3 HENMT: COMMON NORMALS: normocephalic and atraumatic HEAD & SCALP: n ormocephalic and atraumatic Eye: GENERAL EYE: appearance normal, both eyes and all related structures Chest: CHEST: Yes Symmetrical chest wall rise Resp: EFFORT & INSPECTION: Yes symmetric chest movement OTHER: Diminished air entry bilaterally Cardio: COMMON NORMALS: regular rate, regular rhythm, S1 normal heart sound present, S2 normal heart sound present, No gallops present (Cardio), No murmurs present (Cardio), No rub (Cardio) and Peripheral pulses 2+ throughout RATE: regular rate RHYTHM: regular rhythm HEART SOUNDS: S1 normal heart sound present and S2 normal heart sound present PERIPHERAL PULSES: Peripheral pulses 2+ throughout GI: COMMON NORMALS: Normal to inspection, nondistended, normoactive bowel sounds present, Soft to palpation, non-tender, No hepatosplenomegaly present and no masses AUSCULTATION: Yes normoactive bowel sounds PALPATION: Yes Soft to palpation and Yes No hepatosplenomegaly present RECTAL EXAM: Yes deferred Extremity: COMMON NORMALS: no clubbing, cyanosis or edema and no pedal edema Neuro: COMMON NORMALS: patient oriented x3 Data : 06/22/21 09:25 06/22/21 09:25 Micro: Microbiology 06/20/21 23:43 Blood Culture - Preliminary Blood NEGATIVE TO DATE 06/20/21 23:39 Blood Culture - Preliminary Blood NEGATIVE TO DATE A&P Assessment and plan (1) Chest pain: Status: Acute Plan 66-year-old male with past medical history of COPD , hypertension , depression, seizure disorder, TIA, legally blind, initially admitted for management of chest pain. Assessment: Chest pain: Noncardiac: Nuclear stress test: Normal Troponin trend without significant delta EKG no acute ST-T wave change 2D echo: Moderate loculated, possibly exudative pericardial effusion anteriorly. Normal LV size ejection fraction of around 55%. Patient was initially started on ACS protocol, which has been discontinued. Appreciate cardiology input #Pneumonia: Patient has bilateral pleural effusion , shortness of breath, CTA chest: Negative for pulmonary embolism, small to moderate bilateral pleural effusions, extensive emphysematous changes Patchy bilateral dependent airspace infiltrate. Small pericardial effusion measuring up to 16 mm in diameter. Blood cultures negative till date: Follow urine Legionella antigen Follow bacterial antigen panel Procalcitonin: Normal Currently continue ceftriaxone and azithromycin Monitor ABG Monitor x-ray chest Supplemental oxygen as needed #History CVA// TIA in the past: CT head without contrast: No acute intracranial pathology, CTA head and neck:Occluded right ICA at its origin secondary to calcified athe rosclerotic. No change from prior studies. Mild stenosis at proximal left ICA secondary to calcified atherosclerotic plaque. MR head wo con: Remote RIGHT frontal lobe infarct with encephalomalacia. At baseline patient has significant generalized weakness, mostly uses wheelchair at home. Currently no new focal deficit. Continue aspirin and statin Continue with PT #Orthostatic hypotension: Continue gentle IV hydration Follow a.m. cortisol: For possible adrenal insufficiency work-up, random cortisol can be also done, currently patient do not have hyperkalemia, hypoglycemia. TSH: 5.32, free T4 0.76 Fall precaution Discontinue metoprolol Midodrine 10 mg p.o. 3 times daily #Chronic hyponatremia: Admission serum sodium: 125 Current serum sodium is 133 Continue to monitor serum sodium Continue gentle IV hydration #Mildly decompensated heart failure with preserved ejection fraction: Continue Lasix 20 mg IV daily Monitor intake output charting Monitor daily weight K>4, MG >2 #Bilateral pleural effusion: Likely secondary to pneumonia as well as decompensated heart failure, hypoalbuminemia Plan as above. #Small/ Moderate loculated pericardial effusion: No acute intervention, will avoid volume depletion, aggressive diuresis Monitor echo Monitor EKG: Low-voltage EKG, did not show typical feature of electrical alternans. Appreciate cardiology input #History of seizure: Continue Keppra #Legal blindness # Left ocular hemorrhage, this appears chronic. Outpatient follow-up with ophthalmology upon discharge #History of COPD with significant emphysematous changes: Solu-Medrol 60 IV daily DuoNebs Supplemental oxygen as needed #Hypertension: Currently hypotensive, metoprolol on hold Continue to monitor blood pressure # Depression. Effexor ER 37.5 Mill grams by mouth daily plus Remeron 15 mg by mouth daily at bedtime BPH Anemia, chronic. We will monitor her hemoglobin intermittently. Check serum ferritin, iron panel, fecal occult blood COPD/pulmonary fibrosis, not O2 dependent. Solu-Medrol 40 Mill grams IV every 8 hours plus DuoNeb every 6 hours GERD. Protonix 40 Mill grams by mouth daily Tobacco abuse now via the pain with extensive history of smoking. The patient becomes regarding tobacco cessation Alcohol abuse. Cirrhosis. Will monitor LFTs periodically with CMP along with PT/INR DVT prophylaxis. On Lovenox Attestations Medical Necessity Statement*: Patient needs to be in hospital for management of, pneumonia, heart failure, orthostatic hypotension. Time Spent in Patient Care: Greater than 35 minutes (>than 50% of time spent in counselling and/or direct pt care on unit) . 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
[2021-06-22] MEDS: sodium chloride 0.9% 1,000 ML 50 ML IV (18:18)
[2021-06-22] MEDS: enoxaparin 40 mg/0.4 mL Syringe SUBCUT (18:20)
[2021-06-22] MEDS: atorvastatin 40 mg Tablet 20 MG PO (20:06)
[2021-06-22] MEDS: mirtazapine 15 mg Tablet 30 MG PO (20:06)
--- NOTE | 2021-06-22 21:40 | P.PN_ITS ---
Subjective Subjective: Patient still has intermittent confusion. Oxygenation is improving. Remains afebrile. Medications: Medication Review Details: Current Medications Acetaminophen (Acetaminophen 325 Mg Tablet) 650 mg PO Q6H PRN PRN Reason: Mild/Mod Pain Or Temp >/= 101 Albuterol/Ipratropium (Ipratropium-Albuterol 3 Ml Neb) 3 ml INHALATION Q6H.RESPIRATORY JANNIE Last Admin: 06/22/21 21:36 Dose: 3 ml Documented by: Aspirin (Aspirin 81 Mg Ec Tablet) 81 mg PO DAILY JANNIE Last Admin: 06/22/21 09:25 Dose: 81 mg Documented by: Atorvastatin Calcium (Atorvastatin 40 Mg Tablet) 20 mg PO BEDTIME JANNIE Last Admin: 06/22/21 20:06 Dose: 20 mg Documented by: Enoxaparin Sodium (Enoxaparin 40 Mg/0.4 Ml Syringe) 40 mg SUBCUT Q24H JANNIE Last Admin: 06/22/21 18:20 Dose: 40 mg Documented by: Furosemide (Furosemide 10 Mg/Ml Sdv 2ml) 20 mg IVP Q12H JANNIE Last Admin: 06/22/21 09:25 Dose: 20 mg Documented by: Azithromycin 500 mg/ Sodium (Chloride) 250 mls @ 250 mls/hr IV Q24H [facility]; Protocol Last Infusion: 06/22/21 00:42 Dose: Infused Documented by: Ceftriaxone Sodium 1,000 mg/ (Sodium Chloride) 50 mls @ 100 mls/hr IV Q24H JANNIE; Protocol Last Infusion: 06/22/21 01:43 Dose: Infused Documented by: Sodium Chloride (Sodium Chloride 0.9%) 1,000 mls @ 50 mls/hr IV .Q20H [facility] Last Admin: 06/22/21 18:18 Dose: 50 mls/hr Documented by: Albumin Human (Albumin) 25 gm in 100 mls @ 60 mls/hr IV Q8H [facility] Stop: 06/23/21 17:59 Last Infusion: 06/22/21 21:19 Dose: Infused Documented by: Levetiracetam (Levetiracetam 500 Mg Tablet) 1,000 mg PO BID [facility] Last Admin: 06/22/21 18:18 Dose: 1,000 mg Documented by: Methylprednisolone Sodium Succinate (Methylprednisolone Sod Succ 125 Mg/2 Ml Inj) 60 mg IVP DAILY [facility] Midodrine (Midodrine 5 Mg Tablet) 10 mg PO TID [facility] Last Admin: 06/22/21 20:06 Dose: 10 mg Documented by: Mirtazapine (Mirtazapine 15 Mg Tablet) 30 mg PO BEDTIME [facility] Last Admin: 06/22/21 20:06 Dose: 30 mg Documented by: Ondansetron HCl (Ondansetron 2 Mg/Ml Sdv 2 Ml) 4 mg IVP Q8H PRN PRN Reason: vomiting, or N/V if npo Ondansetron HCl (Ondansetron 2 Mg/Ml Sdv 2 Ml) 4 mg IVP Q2M PRN PRN Reason: NAUSEA Pantoprazole Sodium (Pantoprazole Dr 40 Mg Tablet) 40 mg PO DAILY [facility] Last Admin: 06/22/21 09:25 Dose: 40 mg Documented by: Potassium Chloride (Potassium Chloride Er 10 Meq Tablet) 10 meq PO BID [facility] Last Admin: 06/22/21 18:18 Dose: 10 meq Documented by: Venlafaxine HCl (Venlafaxine Er (24hr) 37.5 Mg Capsule) 37.5 mg PO DAILY [facility] Last Admin: 06/22/21 09:25 Dose: 37.5 mg Documented by: Vitals/I&O/Wt Last Vital Signs Temp 97.6 F 06/22/21 20:00 Pulse 100 06/22/21 20:00 Resp 20 H 06/22/21 20:00 BP 191/76 06/22/21 20:00 Pulse Ox 93 06/22/21 20:00 06/22/21 06/22/21 06/22/21 06:59 14:59 22:59 Intake Total 300 / 2280 1240 / 1240 600 / 1840 Output Total 250 / 250 1050 / 1050 Balance 2029 1240 / 1240 -450 / 790 Weight last 48 hrs Weight 124 lb 9 oz Physical Exam Narrative: GENERAL: The patient is alert, hard of hearing; oriented to place and person.? Has episodes of confusion.? Patient is lying in a position in the bed HEENT: Minimal pallor.? No icterus or lymphadenopathy NECK: Trachea appears to be central. No masses noted. No JVD or thyromegaly appreciated. No carotid bruit. RESPIRATORY: Chest is symmetrical.? Emphysematous chest no intercostals muscle retraction or any accessory muscle activation. There is no chest wall tenderness. Breath sounds are heard bilaterally. No rales or rhonchi heard. No evidence of any consolidation. BREASTS: Deferred. HEART: The heart sounds are normal. No S3 or S4. Short systolic murmur in the left sternal border. ABDOMEN: No vessel pulsations or distention. No tenderness. No organomegaly appreciated. No abdominal bruit. Bowel sounds are normally heard. : Deferred. RECTAL: Deferred. LYMPHATIC: No lymphadenopathy noted in the neck . EXTREMITIES: No significant edema or cyanosis.? Peripheral pulses are palpable but weak bilaterally. MUSCULOSKELETAL: No acute joint deformities or swelling SKIN: There are no significant scars or skin rash noted. NEUROPSYCHIATRIC: The patient is alert, oriented to place and person.? Hard of hearing and legally blind. Urinary Catheter Management: Jackson: Cath Placed During This Visit: yes Reason for Continuing Indwelling Catheter: Acute Urinary Retention or Obstruction Urinary Catheter Date of Insertion: 06/22/21 Urinary Catheter Time of Insertion: 14:50 Data : 06/22/21 09:25 06/22/21 09:25 Other Labs: Laboratory Last Values WBC 14.2 10^3/uL (4.0-10.0) H 06/22/21 09:25 RBC 3.47 10^6/uL (4.1-5.3) L 06/22/21 09:25 Hgb 10.9 g/dL (11.7-16.6) L 06/22/21 09:25 Hct 31.8 % (42.0-52.0) L 06/22/21 09:25 MCV 91.6 fl (80-94) 06/22/21 09:25 MCH 31.4 pg (28.0-34.0) 06/22/21 09:25 MCHC 34.3 g/dL (30.0-36.0) 06/22/21 09:25 RDW 14.8 % (12.1-15.1) 06/22/21 09:25 Plt Count 433 10^3/cmm (130-400) H 06/22/21 09:25 MPV 9.9 fL (7.4-10.4) 06/22/21 09:25 Neut % (Auto) 82.9 % 06/22/21 09:25 Lymph % (Auto) 12.0 % 06/22/21 09:25 [place] % (Auto) 4.1 % 06/22/21 09:25 Eos % (Auto) 0.0 % 06/22/21 09:25 Baso % (Auto) 0.1 % 06/22/21 09:25 Neut # (Auto) 11.80 10^3/uL (1.8-7.7) H 06/22/21 09:25 Lymph # (Auto) 1.7 10^3/uL (0.8-4.8) 06/22/21 09:25 [place] # (Auto) 0.6 10^3/uL (0.2-0.9) 06/22/21 09:25 Eos # (Auto) 0.0 10^3/uL (0.0-0.8) 06/22/21 09:25 Baso # (Auto) 0.0 10^3/uL (0.0-0.1) 06/22/21 09:25 Nucleated RBC % (auto) 0 % 06/22/21 09:25 Nucleated RBCs # 0.0 /100WBC 06/22/21 09:25 PT 12.90 SECONDS (12.1-14.9) 06/21/21 04:53 INR 0.94 (0.8-1.2) 06/21/21 04:53 APTT 33.5 SECONDS (23.9-36.7) 06/21/21 04:53 D-Dimer 1.19 ug/mIFEU (0-0.59) H 06/20/21 20:28 Specimen Type Arterial 06/22/21 07:00 Sample Site Radial, right 06/22/21 07:00 ABG pH 7.45 (7.35-7.45) 06/22/21 07:00 ABG pCO2 31.9 mmHg (35-45) L 06/22/21 07:00 ABG pO2 174.0 mmHg (80.0-100.0) H 06/22/21 07:00 ABG HCO3 22.4 mmol/L (22-26) 06/22/21 07:00 ABG O2 Saturation > 100.0 06/22/21 07:00 ABG Base Excess -1.0 mmol/L (-2.0-2.0) 06/22/21 07:00 Guy Test Pos 06/22/21 07:00 A-a O2 Gradient 63.3 mmHg (5-10) H 06/22/21 07:00 Hematocrit 32.4 % (42-52) L 06/22/21 07:00 Hgb O2 Saturation 99.3 % (95-100) 06/22/21 07:00 Carboxyhemoglobin 0.6 %THgb (0.4-20.1) 06/22/21 07:00 Methemoglobin 0.3 % (0.4-1.5) L 06/22/21 07:00 Total Hemoglobin 10.6 g/dL (14-18) L 06/22/21 07:00 Sodium 132.0 mmol/L (131-143) 06/22/21 07:00 Potassium 3.7 mmol/L (3.5-5.0) 06/22/21 07:00 Glucose 146.0 mg/dL (70-115) H 06/22/21 07:00 Ionized Calcium 1.2 mmol/L (1.1-1.4) 06/22/21 07:00 O2 Delivery Device Bipap 06/22/21 07:00 O2 Liters/Min 8.0 % 06/22/21 04:05 FiO2 100.0 % 06/22/21 07:00 Child Life Specialist ID [place] 06/22/21 07:00 Sodium 133 mmol/L (136-145) L 06/22/21 09:25 Potassium 4.2 mmol/L (3.5-5.1) 06/22/21 09:25 Chloride 101 mmol/L (98-107) 06/22/21 09:25 Carbon Dioxide 19 mmol/L (22-29) L 06/22/21 09:25 Anion Gap 17.2 (5-19) 06/22/21 09:25 BUN 8 mg/dL (8-23) 06/22/21 09:25 Creatinine 0.5 mg/dL (0.7-1.2) L 06/22/21 09:25 GFR Calculation 166.9 mL/min (90-130) H 06/22/21 09:25 Glucose 130 mg/dL (65-115) H 06/22/21 09:25 Calculated Osmolality 276 mOsm/kg (285-295) L 06/22/21 09:25 Calcium 8.1 mg/dL (8.5-10.5) L 06/22/21 09:25 Magnesium 1.7 mg/dL (1.7-2.3) 06/21/21 04:53 Iron 47 ug/dL (59-158) L 06/21/21 04:53 TIBC 63.54773 mcg/dl 06/21/21 04:53 % Saturation 73.0 % (20-50) H 06/21/21 04:53 Unsat Iron Binding < 17 ug/dL (112-347) L 06/21/21 04:53 Ferritin 1248 ng/mL (30-400) H 06/21/21 04:53 Total Bilirubin 0.3 mg/dL (0.15-1.2) 06/21/21 04:53 AST 30 U/L (0-40) 06/21/21 04:53 ALT 22 U/L (0-41) 06/21/21 04:53 Alkaline Phosphatase 366 IU/L (40-130) H 06/21/21 04:53 Troponin T Baseline 38 ng/L (0-15) H 06/20/21 20:28 Troponin T 120 Minute 30.68 ng/L (0-15) H 06/20/21 22:28 Delta Troponin T -7.32 ABS# (0-10) L 06/20/21 22:28 Troponin T Hi Sens 6Hr 24.43 ng/L (0-15) H 06/21/21 02:33 Troponin T Hi Sens 6Hr Delta -13.57 ng/L (0-12) L 06/21/21 02:33 NT-Pro-B Natriuret Pep 855 pg/mL (0-125) H 06/20/21 20:28 Total Protein 5.8 g/dL (6.6-8.7) L D 06/21/21 04:53 Albumin 2.0 g/dL (3.5-5.2) L 06/21/21 04:53 Globulin 3.8 g/dL (1.3-4.6) 06/21/21 04:53 Triglycerides 88 mg/dL (0-150) 06/21/21 04:53 Cholesterol 118 mg/dL (0-200) 06/21/21 04:53 LDL Cholesterol, Calc 51 mg/dL (50-129) 06/21/21 04:53 HDL Cholesterol 49 mg/dL (60-100) L 06/21/21 04:53 LDL/HDL Ratio 1.04 RATIO (0.00-3.22) 06/21/21 04:53 Cholesterol/HDL Ratio 2.41 mg/dL (1.0-5.00) 06/21/21 04:53 Lipase 22 U/L (13-60) 06/20/21 20:28 Vitamin B12 > 2000 pg/mL (232-1245) H 06/21/21 04:53 Folate 19.0 ng/mL (4.5-32.2) 06/21/21 04:53 TSH 5.32 uIU/mL (0.27-4.20) H 06/21/21 04:53 Free T4 0.76 ng/dL (0.82-1.77) L 06/21/21 04:53 Urine Color Yellow (Yellow) 06/21/21 19:36 Urine Appearance Clear (CLEAR) 06/21/21 19:36 Urine pH 5 (5-7) 06/21/21 19:36 Ur Specific [place] 1.010 (1.005-1.030) 06/21/21 19:36 Urine Protein Trace (Negative) 06/21/21 19:36 Urine Glucose (UA) Norm (Normal) 06/21/21 19:36 Urine Ketones Negative (Negative) 06/21/21 19:36 Urine Blood Neg (Negative) 06/21/21 19:36 Urine Nitrate Negative (Negative) 06/21/21 19:36 Urine Bilirubin Neg (Negative) 06/21/21 19:36 Urine Urobilinogen Neg mg/dL (Negative) 06/21/21 19:36 Ur Leukocyte Esterase Negative (Negative) 06/21/21 19:36 Urine RBC None /hpf (0-2) 06/21/21 19:36 Urine WBC None /hpf (0-5) 06/21/21 19:36 Ur Squamous Epith Cells None /hpf (0-5) 06/21/21 19:36 Calcium Oxalate Crystal >100 /hpf H 06/21/21 19:36 Amorphous Sediment Not Reportable 06/21/21 19:36 Urine Bacteria None /hpf (NONE) 06/21/21 19:36 Micro: Microbiology 06/20/21 23:43 Blood Culture - Preliminary Blood NEGATIVE TO DATE 06/20/21 23:39 Blood Culture - Preliminary Blood NEGATIVE TO DATE A&P Assessment and plan (1) Chest pain: Patient has no recurrence of chest pain. At this point, he may not require any further investigations. Status: Acute (2) Pericardial effusion: The pericardial effusion appears to be small. He may have a small area of loculated effusion anteriorly. Etiology is not clear. Most likely he may have underlying pneumonia causing pleural effusion. He also has some evidence of diastolic heart failure. Status: Acute (3) COPD (chronic obstructive pulmonary disease): On bronchodilator treatment. Seems to be responding appropriately. Status: Acute (4) Carotid artery occlusion without infarction: This appears to be chronic. May continue on the current treatment measures. Status: Acute (5) Pneumonia: On IV antibiotics. Status: Acute (6) Acute on chronic diastolic (congestive) heart failure: Patient may be carefully treated with IV diuretics. May be started on IV Lasix 20 mg every 12 hours with a potassium 8 mg p.o. 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
[2021-06-22] MEDS: azithromycin 500 MG in sodium chloride 0.9% 250 ML 250 MG IV (23:20)
[2021-06-23] VITALS (16 sets, daily range): BP systolic 96–169; BP diastolic 68–99; PULSE 80–197; RESP 15–22; TEMP 36.6–36.9; O2SAT 83–96
[2021-06-23] MEDS: cefTRIAXone 1,000 MG in sodium chloride 0.9% (plus) 50 ML 100 MG IV (00:28)
--- NOTE | 2021-06-23 02:14 | US_ITS ---
WS: [id number] INDICATION: Pleural effusion TECHNIQUE: Ultrasound chest FINDINGS: Moderate LEFT and small RIGHT pleural effusions. Bibasilar atelectasis with subsegmental at electasis in lung bases. US/US chest 46540 IMPRESSION: Moderate LEFT and small RIGHT pleural effusions
[2021-06-23] MEDS: ipratropium-albuterol 3 mL Neb INHALATION ×3 (04:11→20:51)
--- NOTE | 2021-06-23 06:30 | PC.NURSE ---
Patient slept well overnight, AAOx4, frequently turned self over night. No new events, VSS with exception of elevated HR which has been consistent, no new events, no needs at this time.
[2021-06-23] MEDS: aspirin 81 mg EC Tablet PO (08:41)
[2021-06-23] MEDS: potassium chloride ER 10 mEq Tablet PO ×2 (08:41→17:48)
[2021-06-23] MEDS: pantoprazole DR 40 mg Tablet PO (08:41)
[2021-06-23] MEDS: midodrine 5 mg TABLET 10 MG PO ×2 (08:42→15:16)
[2021-06-23] MEDS: venlafaxine ER (24HR) 37.5 mg Capsule PO (08:42)
[2021-06-23] MEDS: levETIRAcetam 500 mg Tablet 1000 MG PO ×2 (08:42→17:48)
[2021-06-23 09:50] LABS: Hematocrit 26.1 % (42.0-52.0); Hemoglobin 8.3 g/dL (11.7-16.6); Lymphocytes # 1.7 10^3/uL (0.8-4.8); Lymphocytes % 12.9 %; Mean Corpuscular HGB Conc 31.8 g/dL (30.0-36.0); Mean Corpuscular Volume 100.8 fl (80-94); Mean Platelet Volume 9.7 fL (7.4-10.4); Monocytes # 0.8 10^3/uL (0.2-0.9); Monocytes % 5.8 %; Neutrophils # 10.49 10^3/uL (1.8-7.7); Neutrophils % 80.5 %; Nucleated Red Blood Cells % 0 %; Platelet Count 353 10^3/cmm (130-400); Red Blood Count 2.59 10^6/uL (4.1-5.3); Red Cell Distribution Width 15.2 % (12.1-15.1)
[2021-06-23 10:04] LABS: Anion Gap 13.1 (5-19); Blood Urea Nitrogen 10 mg/dL (8-23); Carbon Dioxide 21 mmol/L (22-29); Chloride 105 mmol/L (98-107); Glomerular Filtration Rate 135.2 mL/min (90-130); Glucose 120 mg/dL (65-115); Osmolality Calculated 280 mOsm/kg (285-295); Potassium 4.1 mmol/L (3.5-5.1); Sodium 135 mmol/L (136-145)
[2021-06-23] MEDS: FUROsemide 10 mg/mL SDV 2mL 20 MG IVP ×2 (10:10→22:04)
[2021-06-23 10:29] LABS: Cortisol Random 26.18 ug/dL (2.47-19.5)
--- NOTE | 2021-06-23 10:58 | PC.CHAP ---
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 [] Patient/Family/Request visit [] Outpatient visit [] Follow-up visit [] Physician referral [] Code/Alert [] Routine visit [] Staff referral [] Actively dying [] Patient sleeping [] Family support [] [] Out of room [] Palliative care [] [] Receiving care in room [] Pre-surgical visit [] Trauma [] Long length of stay [] ICU visit [x] Other: Isolation Relational/Emotional Strength [] Patient feels connected with others/family/visitors/staff [] Distress [] Loneliness/isolation [] Abandonment Spirituality of Patient [] Person of Keke [] Attends Religious of their Keke [] Believes in Prayer [] Reads Bible or Cheondoism materials [] There are Spiritual issues 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 addressed 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 [] Prayer [] Active listening [] Non-anxious presence [] Spiritual/emotional support [] Crisis/trauma care [] Spiritual counseling [] Bereavement support [] Provided bereavement packet [] Provided Bible/devotional materials [] Provided toy/stuffed animal, coloring book to patient or family member [] Provided Communion [] Anointing/[place] [] Salvation [] Completed spiritual assessment [] Other: Impact on Illness or Injury [] Angry [] Fearful [] Anxious [] Often cries [] Exhaustion [] Unable to work [] Unable to attend druze [] Unable to walk/stand [] Unable to read [] Unable to drive [] Unable to eat/drink [] Unable to sleep [] Unable to be with family [] Patient intubated [] Other: Summary Isolation Time spent with patient 5 mins
[2021-06-23] MEDS: sodium chloride 0.9% 1,000 ML 50 ML IV (15:15)
--- NOTE | 2021-06-23 16:58 | P.PN_ITS ---
Subjective Subjective: Patient is feeling better. Denies any shortness of breath or chest pain. No fever or chills. No cough. Medications: Medication Review Details: Current Medications Acetaminophen (Acetaminophen 325 Mg Tablet) 650 mg PO Q6H PRN PRN Reason: Mild/Mod Pain Or Temp >/= 101 Albuterol/Ipratropium (Ipratropium-Albuterol 3 Ml Neb) 3 ml INHALATION Q6H.RESPIRATORY JANNIE Last Admin: 06/23/21 15:28 Dose: Not Given Documented by: Aspirin (Aspirin 81 Mg Ec Tablet) 81 mg PO DAILY JANNIE Last Admin: 06/23/21 08:41 Dose: 81 mg Documented by: Atorvastatin Calcium (Atorvastatin 40 Mg Tablet) 20 mg PO BEDTIME JANNIE Last Admin: 06/22/21 20:06 Dose: 20 mg Documented by: Enoxaparin Sodium (Enoxaparin 40 Mg/0.4 Ml Syringe) 40 mg SUBCUT Q24H JANNIE Last Admin: 06/22/21 18:20 Dose: 40 mg Documented by: Furosemide (Furosemide 10 Mg/Ml Sdv 2ml) 20 mg IVP Q12H JANNIE Last Admin: 06/23/21 10:10 Dose: 20 mg Documented by: Azithromycin 500 mg/ Sodium (Chloride) 250 mls @ 250 mls/hr IV Q24H JANNIE; Protocol Last Infusion: 06/23/21 00:29 Dose: Infused Documented by: Ceftriaxone Sodium 1,000 mg/ (Sodium Chloride) 50 mls @ 100 mls/hr IV Q24H JANNIE; Protocol Last Infusion: 06/23/21 01:06 Dose: Infused Documented by: Sodium Chloride (Sodium Chloride 0.9%) 1,000 mls @ 50 mls/hr IV .Q20H [facility] Last Admin: 06/23/21 15:15 Dose: 50 mls/hr Documented by: Albumin Human (Albumin) 25 gm in 100 mls @ 60 mls/hr IV Q8H JANNIE Stop: 06/23/21 17:59 Last Infusion: 06/23/21 15:25 Dose: Infused Documented by: Levetiracetam (Levetiracetam 500 Mg Tablet) 1,000 mg PO BID [facility] Last Admin: 06/23/21 08:42 Dose: 1,000 mg Documented by: Methylprednisolone Sodium Succinate (Methylprednisolone Sod Succ 125 Mg/2 Ml Inj) 60 mg IVP DAILY [facility] Last Admin: 06/23/21 08:41 Dose: 60 mg Documented by: Midodrine (Midodrine 5 Mg Tablet) 10 mg PO TID [facility] Last Admin: 06/23/21 15:16 Dose: 10 mg Documented by: Mirtazapine (Mirtazapine 15 Mg Tablet) 30 mg PO BEDTIME [facility] Last Admin: 06/22/21 20:06 Dose: 30 mg Documented by: Ondansetron HCl (Ondansetron 2 Mg/Ml Sdv 2 Ml) 4 mg IVP Q8H PRN PRN Reason: vomiting, or N/V if npo Ondansetron HCl (Ondansetron 2 Mg/Ml Sdv 2 Ml) 4 mg IVP Q2M PRN PRN Reason: NAUSEA Pantoprazole Sodium (Pantoprazole Dr 40 Mg Tablet) 40 mg PO DAILY [facility] Last Admin: 06/23/21 08:41 Dose: 40 mg Documented by: Potassium Chloride (Potassium Chloride Er 10 Meq Tablet) 10 meq PO BID [facility] Last Admin: 06/23/21 08:41 Dose: 10 meq Documented by: Venlafaxine HCl (Venlafaxine Er (24hr) 37.5 Mg Capsule) 37.5 mg PO DAILY [facility] Last Admin: 06/23/21 08:42 Dose: 37.5 mg Documented by: Vitals/I&O/Wt Last Vital Signs Temp 98.2 F 06/23/21 15:35 Pulse 80 06/23/21 15:35 Resp 16 06/23/21 15:35 BP 169/99 06/23/21 15:35 Pulse Ox 93 06/23/21 15:35 06/23/21 06/23/21 06/23/21 06:59 14:59 22:59 Intake Total 400 / 2240 1240 / 1240 100 / 1340 Output Total 800 / 1850 Balance -400 / 390 1240 / 1240 100 / 1340 Physical Exam Narrative: GENERAL: The patient is alert, hard of hearing; oriented to place and person.? Has episodes of confusion.? HEENT: Minimal pallor.? No icterus or lymphadenopathy NECK: Trachea appears to be central. No masses noted. No JVD or thyromegaly appreciated. No carotid bruit. RESPIRATORY: Chest is symmetrical.? Emphysematous chest no intercostals muscle retraction or any accessory muscle activation. There is no chest wall tend erness. Breath sounds are heard bilaterally. No rales or rhonchi heard. No evidence of any consolidation. BREASTS: Deferred. HEART: The heart sounds are normal.? No S3 or S4.? Short systolic murmur in the left sternal border. ABDOMEN: No vessel pulsations or distention. No tenderness. No organomegaly appreciated. No abdominal bruit. Bowel sounds are normally heard. : Deferred. RECTAL: Deferred. LYMPHATIC: No lymphadenopathy noted in the neck . EXTREMITIES: No significant edema or cyanosis.? Peripheral pulses are palpable but weak bilaterally. MUSCULOSKELETAL: No acute joint deformities or swelling SKIN: There are no significant scars or skin rash noted. NEUROPSYCHIATRIC: The patient is alert, oriented to place and person.? Hard of hearing and legally blind. Urinary Catheter Management: Jackson: Cath Placed During This Visit: yes Reason for Continuing Indwelling Catheter: Acute Urinary Retention or Obstruction Urinary Catheter Date of Insertion: 06/22/21 Urinary Catheter Time of Insertion: 14:50 Data : 06/23/21 09:35 06/23/21 09:35 A&P Assessment and plan (1) Acute on chronic diastolic (congestive) heart failure: Since her heart failure seems to be fairly compensated, I may start him on Lasix 20 mg p.o. daily along with potassium 10 mg p.o. daily . May discontinue the IV Lasix and the current dose of potassium Status: Acute (2) Chest pain: Patient has no recurrence of chest pain. At this point, he may not require any further investigations. The perfusion scan was unremarkable. This was d iscussed with the patient. Status: Acute (3) Pericardial effusion: The pericardial effusion appears to be small. He may have a small area of loculated effusion anteriorly. Etiology is not clear. Most likely he may have underlying pneumonia causing pleural effusion. He also has some evidence of diastolic heart failure. Status: Acute (4) COPD (chronic obstructive pulmonary disease): On bronchodilator treatment. Seems to be responding appropriately. Status: Acute (5) Carotid artery occlusion without infarction: This appears to be chronic. May continue on the current treatment measures. Status: Acute (6) Pneumonia: On IV antibiotics. Status: Acute Plan Other problems are Altered mental status Mild anemia Leukocytosis possibly from pneumonia Attestations Medical Necessity Statement*: Disposition as per the primary. Coding Level of Care Code Acute Hearing And Speech Assistant for [facility] Fwd Diagnoses Chest pain R07.9 Pericardial effusion I31.3 COPD (chronic obstructive pulmonary disease) J44.9 Carotid artery occlusion without infarction I65.29 Pneumonia J18.9 Acute on chronic diastolic (congestive) heart failure I50.33
[2021-06-23] MEDS: enoxaparin 40 mg/0.4 mL Syringe SUBCUT (17:48)
--- NOTE | 2021-06-23 18:51 | P.PN_ITS ---
Subjective Subjective: Patient was seen and examined this morning, shortness of breath is improved, denies any chest pain, MAP is better today. More active today, will decrease the dose of midodrine to 5 mg p.o. 3 times daily, Continue to have good urine output Medications: Medication Review Details: Generic Name Dose Route Start Last Admin Trade Name Bethany PRN Reason Stop Dose Admin Albuterol/Ipratrop ium 3 ml 06/21/21 03:04 06/23/21 15:28 Ipratropium-Albu terol 3 Ml Neb INHALATION Not Given Q6H.RESPIRATORY S [facility] Aspirin 81 mg 06/21/21 09:00 06/23/21 08:41 Aspirin 81 Mg Ec Tablet PO 81 mg DAILY JANNIE Administration Atorvastatin Calci um 20 mg 06/22/21 21:00 06/22/21 20:06 Atorvastatin 40 Mg Tablet PO 20 mg BEDTIME JANNIE Administration Enoxaparin Sodium 40 mg 06/22/21 18:00 06/23/21 17:48 Enoxaparin 40 Mg /0.4 Ml Syringe SUBCUT 40 mg Q24H JANNIE Administration Furosemide 20 mg 06/21/21 22:00 06/23/21 10:10 Furosemide 10 Mg /Ml Sdv 2ml IVP 20 mg Q12H JANNIE Administration Azithromycin 500 m g/ Sodium 250 mls @ 250 mls /hr 06/22/21 00:00 06/23/21 00:29 Chloride IV Infused Q24H JANNIE Infusion Protocol Ceftriaxone Sodium 1,000 mg/ 50 mls @ 100 mls/ hr 06/22/21 00:30 06/23/21 01:06 Sodium Chloride IV Infused Q24H JANNIE Infusion Protocol Sodium Chloride 1,000 mls @ 50 ml s/hr 06/22/21 16:45 06/23/21 15:15 Sodium Chloride 0.9% IV 50 mls/hr .Q20H JANNIE Administration Levetiracetam 1,000 mg 06/21/21 09:00 06/23/21 17:48 Levetiracetam 50 0 Mg Tablet PO 1,000 mg BID JANNIE Administration Methylprednisolone Sodium Succinate 60 mg 06/23/21 09:00 06/23/21 08:41 Methylprednisolo ne Sod Succ 125 Mg /2 Ml Inj IVP 60 mg DAILY JANNIE Administration Mirtazapine 30 mg 06/21/21 21:00 06/22/21 20:06 Mirtazapine 15 M g Tablet PO 30 mg BEDTIME JANNIE Administration Pantoprazole Sodiu m 40 mg 06/21/21 09:00 06/23/21 08:[address] 40 Mg Tablet PO 40 mg DAILY JANNIE Administration Potassium Chloride 10 meq 06/21/21 23:00 06/23/21 17:48 Potassium Chlori de Er 10 Meq Table t PO 10 meq BID JANNIE Administration Venlafaxine HCl 37.5 mg 06/21/21 09:00 06/23/21 08:42 Venlafaxine Er ( 24hr) 37.5 Mg Caps ule PO 37.5 mg DAILY JANNIE Administration Vitals/I&O/Wt Last Vital Signs Temp 98.2 F 06/23/21 15:35 Pulse 80 06/23/21 15:35 Resp 16 06/23/21 15:35 BP 169/99 06/23/21 15:35 Pulse Ox 93 06/23/21 15:35 06/23/21 06/23/21 06/23/21 06:59 14:59 22:59 Intake Total 400 / 2240 1480 / 1480 100 / 1580 Output Total 800 / 1850 1300 / 1300 Balance -400 / 390 1480 / 1480 -1200 / 280 Physical Exam Const: COMMON NORMALS: patient oriented x3 HENMT: COMMON NORMALS: normocephalic and atraumatic HEAD & SCALP: norm ocephalic and atraumatic Eye: GENERAL EYE: appearance normal, both eyes and all related structures Chest: CHEST: Yes Symmetrical chest wall rise Resp: EFFORT & INSPECTION: Yes symmetric chest movement OTHER: Diminished air entry bilaterally Cardio: COMMON NORMALS: regular rate, regular rhythm, S1 normal heart sound present, S2 normal heart sound present, No gallops present (Cardio), No murmurs present (Cardio), No rub (Cardio) and Peripheral pulses 2+ throughout RATE: regular rate RHYTHM: regular rhythm HEART SOUNDS: S1 normal heart sound present and S2 normal heart sound present PERIPHERAL PULSES: Peripheral pulses 2+ throughout GI: COMMON NORMALS: Normal to inspection, nondistended, normoactive bowel sounds present, Soft to palpation, non-tender, No hepatosplenomegaly present and no masses AUSCULTATION: Yes normoactive bowel sounds PALPATION: Yes Soft to palpation and Yes No hepatosplenomegaly present RECTAL EXAM: Yes deferred Extremity: COMMON NORMALS: no clubbing, cyanosis or edema and no pedal edema Neuro: COMMON NORMALS: patient oriented x3 Urinary Catheter Management: Jackson: Cath Placed During This Visit: yes Reason for Continuing Indwelling Catheter: Accurate Measurement of Urinary Output in Critically Ill Patients Urinary Catheter Date of Insertion: 06/22/21 Urinary Catheter Time of Insertion: 14:50 Data : 06/23/21 09:35 06/23/21 09:35 A&P Assessment and plan (1) Chest pain: Status: Acute Plan 66-year-old male with past medical history of COPD , hypertension , depression, seizure disorder, TIA, legally blind, initially admitted for management of chest pain. Assessment: Chest pain: Noncardiac: Nuclear stress test: Normal Troponin trend without significant delta EKG no acute ST-T wave change 2D echo: Moderate loculated, possibly exudative pericardial effusion anteriorly. Normal LV size ejection fraction of around 55%. Patient was initially started on ACS protocol, which has been discontinued. Appreciate cardiology input #Pneumonia: Patient has bilateral pleural effusion , shortness of breath, CTA chest: Negative for pulmonary embolism, small to moderate bilateral pleural effusions, extensive emphysematous changes Patchy bilateral dependent airspace infiltrate. Small pericardial effusion measuring up to 16 mm in diameter. 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 No change from prior studies. Mild stenosis at proximal left ICA secondary to calcified atherosclerotic plaque. MR head wo con: Remote RIGHT frontal lobe infarct with encephalomalacia. At baseline patient has significant generalized weakness, mostly uses wheelchair at home. Currently no new focal deficit. Continue aspirin and statin Continue with PT #Orthostatic hypotension: Continue gentle IV hydration A.m. cortisol:26 TSH: 5.32, free T4 0.76 Fall precaution Discontinue metoprolol Midodrine 10 mg p.o. 3 times daily #Chronic hyponatremia: Admission serum sodium: 125 Current serum sodium is 133 Continue to monitor serum sodium Continue gentle IV hydration #Mildly decompensated heart failure with preserved ejection fraction: Continue Lasix 20 mg IV daily Monitor intake output charting Monitor daily weight K>4, MG >2 #Bilateral pleural effusion: Likely secondary to pneumonia as well as decompen sated heart failure, hypoalbuminemia Ultrasound chest: ?Moderate LEFT and small RIGHT pleural effusions. Scheduled for ultrasound-guided thoracentesis tomorrow. Plan as above. #Small/ Moderate loculated pericardial effusion: No acute intervention, will avoid volume depletion, aggressive diuresis Monitor echo Monitor EKG: Low-voltage EKG, did not show typical feature of electrical alternans. Appreciate cardiology input #History of seizure: Continue Keppra #Legal blindness # Left ocular hemorrhage, this appears chronic. Outpatient follow-up with ophthalmology upon discharge #History of COPD with significant emphysematous changes: Solu-Medrol 60 IV daily DuoNebs Supplemental oxygen as needed #Hypertension: Currently hypotensive, metoprolol on hold Continue to monitor blood pressure # Depression. Effexor ER 37.5 Mill grams by mouth daily plus Remeron 15 mg by mouth daily at bedtime BPH Anemia, chronic. We will monitor her hemoglobin intermittently. Check serum ferritin, iron panel, fecal occult blood COPD/pulmonary fibrosis, not O2 dependent. Solu-Medrol 40 Mill grams IV every 8 hours plus DuoNeb every 6 hours GERD. Protonix 40 Mill grams by mouth daily Tobacco abuse now via the pain with extensive history of smoking. The patient becomes regarding tobacco cessation Alcohol abuse. Cirrhosis. Will monitor LFTs periodically with CMP along with PT/INR #Disposition: Patient wants to return home, is not agreeable to [facility] placement has good social support. # DVT prophylaxis. On Lovenox Attestations Medical Necessity Statement*: Patient needs to be in hospital for management of pneumonia , heart failure , pleural effusion. Coding Level of Care Code Acute Canning Machine Operator for Aylin Bañuelos Diagnoses Chest pain R07.9
[2021-06-23 21:46] LABS: Glucose Point of Care 145 mg/dL (70-110)
[2021-06-23] MEDS: atorvastatin 40 mg Tablet 20 MG PO (22:00)
[2021-06-23] MEDS: mirtazapine 15 mg Tablet 30 MG PO (22:00)
[2021-06-23] MEDS: midodrine 5 mg TABLET PO (22:01)
[2021-06-24] VITALS (22 sets, daily range): BP systolic 88–153; BP diastolic 60–94; PULSE 61–105; RESP 17–24; TEMP 36.3–37; O2SAT 92–100
[2021-06-24] MEDS: azithromycin 500 MG in sodium chloride 0.9% 250 ML 250 MG IV ×2 (01:27→23:18)
[2021-06-24] MEDS: ipratropium-albuterol 3 mL Neb INHALATION ×4 (02:28→20:26)
[2021-06-24] MEDS: cefTRIAXone 1,000 MG in sodium chloride 0.9% (plus) 50 ML 100 MG IV (04:20)
[2021-06-24 07:55] LABS: Basophils % 0.1 %; Hematocrit 29.9 % (42.0-52.0); Lymphocytes # 1.6 10^3/uL (0.8-4.8); Lymphocytes % 13.5 %; Mean Corpuscular HGB Conc 33.4 g/dL (30.0-36.0); Mean Corpuscular Hemoglobin 31.5 pg (28.0-34.0); Mean Corpuscular Volume 94.3 fl (80-94); Mean Platelet Volume 10.6 fL (7.4-10.4); Monocytes # 0.5 10^3/uL (0.2-0.9); Monocytes % 4.4 %; Neutrophils # 9.39 10^3/uL (1.8-7.7); Neutrophils % 81.3 %; Nucleated Red Blood Cells % 0 %; Platelet Count 317 10^3/cmm (130-400); Red Blood Count 3.17 10^6/uL (4.1-5.3); Red Cell Distribution Width 14.6 % (12.1-15.1); White Blood Count 11.6 10^3/uL (4.0-10.0)
[2021-06-24 08:25] LABS: Blood Urea Nitrogen 9 mg/dL (8-23); Calcium 8.2 mg/dL (8.5-10.5); Carbon Dioxide 25 mmol/L (22-29); Chloride 102 mmol/L (98-107); Glomerular Filtration Rate 166.9 mL/min (90-130); Glucose 93 mg/dL (65-115); Osmolality Calculated 280 mOsm/kg (285-295); Sodium 136 mmol/L (136-145)
[2021-06-24 08:26] LABS: Anion Gap 12.8 (5-19); Potassium 3.8 mmol/L (3.5-5.1)
--- NOTE | 2021-06-24 09:05 | PC.SOCIAL ---
Pg 2 IMM Explained to pt Pg 2 IMM. No questions voiced. Provided pt a copy. Initialed, dated, & timed a copy & placed in chart.
[2021-06-24 10:03] LABS: INR 1.08 (0.8-1.2)
[2021-06-24] MEDS: venlafaxine ER (24HR) 37.5 mg Capsule PO (10:19)
[2021-06-24] MEDS: pantoprazole DR 40 mg Tablet PO (10:20)
[2021-06-24] MEDS: levETIRAcetam 500 mg Tablet 1000 MG PO ×2 (10:20→17:38)
[2021-06-24] MEDS: midodrine 5 mg TABLET PO ×3 (10:20→20:05)
[2021-06-24] MEDS: FUROsemide 10 mg/mL SDV 2mL 20 MG IVP ×2 (10:20→21:27)
[2021-06-24] MEDS: aspirin 81 mg EC Tablet PO (10:20)
[2021-06-24] MEDS: potassium chloride ER 10 mEq Tablet PO ×2 (10:22→17:37)
--- NOTE | 2021-06-24 10:40 | P.PN_ITS ---
Subjective Subjective: Patient does seems to be getting more short of breath. Denies any chest pain. He is on BiPAP. Remains afebrile. Found to have moderate effusion in the left chest cavity by ultrasound. Medications: Medication Review Details: Current Medications Acetaminophen (Acetaminophen 325 Mg Tablet) 650 mg PO Q6H PRN PRN Reason: Mild/Mod Pain Or Temp >/= 101 Albuterol/Ipratropium (Ipratropium-Albuterol 3 Ml Neb) 3 ml INHALATION Q6H.RESPIRATORY JANNIE Last Admin: 06/24/21 08:03 Dose: 3 ml Documented by: Aspirin (Aspirin 81 Mg Ec Tablet) 81 mg PO DAILY JANNIE Last Admin: 06/24/21 10:20 Dose: 81 mg Documented by: Atorvastatin Calcium (Atorvastatin 40 Mg Tablet) 20 mg PO BEDTIME JANNIE Last Admin: 06/23/21 22:00 Dose: 20 mg Documented by: Enoxaparin Sodium (Enoxaparin 40 Mg/0.4 Ml Syringe) 40 mg SUBCUT Q24H JANNIE Last Admin: 06/23/21 17:48 Dose: 40 mg Documented by: Furosemide (Furosemide 10 Mg/Ml Sdv 2ml) 20 mg IVP Q12H JANNIE Last Admin: 06/24/21 10:20 Dose: 20 mg Documented by: Azithromycin 500 mg/ Sodium (Chloride) 250 mls @ 250 mls/hr IV Q24H JANNIE; Protocol Last Admin: 06/24/21 01:27 Dose: 250 mls/hr Documented by: Ceftriaxone Sodium 1,000 mg/ (Sodium Chloride) 50 mls @ 100 mls/hr IV Q24H JANNIE; Protocol Last Admin: 06/24/21 04:20 Dose: 100 mls/hr Documented by: Levetiracetam (Levetiracetam 500 Mg Tablet) 1,000 mg PO BID JANNIE Last Admin: 06/24/21 10:20 Dose: 1,000 mg Documented by: Methylprednisolone Sodium Succinate (Methylprednisolone Sod Succ 125 Mg/2 Ml Inj) 40 mg IVP DAILY JANNIE Last Admin: 06/24/21 10:20 Dose: 40 mg Documented by: Midodrine (Midodrine 5 Mg Tablet) 5 mg PO TID JANNIE Last Admin: 06/24/21 10:20 Dose: 5 mg Documented by: Mirtazapine (Mirtazapine 15 Mg Tablet) 30 mg PO BEDTIME JANNIE Last Admin: 06/23/21 22:00 Dose: 30 mg Documented by: Ondansetron HCl (Ondansetron 2 Mg/Ml Sdv 2 Ml) 4 mg IVP Q8H PRN PRN Reason: vomiting, or N/V if npo Ondansetron HCl (Ondansetron 2 Mg/Ml Sdv 2 Ml) 4 mg IVP Q2M PRN PRN Reason: NAUSEA Pantoprazole Sodium (Pantoprazole Dr 40 Mg Tablet) 40 mg PO DAILY COUNTS INCLUDE 234 BEDS AT [facility] Last Admin: 06/24/21 10:20 Dose: 40 mg Documented by: Potassium Chloride (Potassium Chloride Er 10 Meq Tablet) 10 meq PO BID COUNTS INCLUDE 234 BEDS AT THE [facility] Last Admin: 06/24/21 10:22 Dose: 10 meq Documented by: Venlafaxine HCl (Venlafaxine Er (24hr) 37.5 Mg Capsule) 37.5 mg PO DAILY COUNTS INCLUDE 234 BEDS AT THE [facility] Last Admin: 06/24/21 10:19 Dose: 37.5 mg Documented by: Vitals/I&O/Wt Last Vital Signs Temp 97.5 F L 06/24/21 08:00 Pulse 87 06/24/21 08:07 Resp 17 06/24/21 08:07 BP 151/92 06/24/21 08:00 Pulse Ox 99 06/24/21 08:07 06/23/21 06/24/21 06/24/21 22:59 06:59 14:59 Intake Total 100 / 1580 Output Total 1400 / 1400 900 / 2300 Balance -1300 / 180 -900 / -720 Physical Exam Narrative: GENERAL: The patient is alert, hard of hearing; oriented to place and person.? Has episodes of confusion.? Slightly tachypneic HEENT: Minimal pallor.? No icterus or lymphadenopathy NECK: Trachea appears to be central. No masses noted. No JVD or thyromegaly appreciated. No carotid bruit. RESPIRATORY: Chest is symmetrical.? Emphysematous chest no intercostals muscle retraction or any accessory muscle activation. There is no chest wall tenderness. Breath sounds are heard bilaterally. Diminished intensity of breath sounds bilaterally in the bases. No rales or rhonchi heard. No evidence of any consolidation. BREASTS: Deferred. HEART: The heart sounds are normal.? No S3 or S4.? Short systolic murmur in the left sternal border. ABDOMEN: No vessel pulsations or distention. No tenderness. No organomegaly appreciated. No abdominal bruit. Bowel sounds are normally heard. : Deferred. RECTAL: Deferred. LYMPHATIC: No lymphadenopathy noted in the neck . EXTREMITIES: No significant edema or cyanosis.? MUSCULOSKELETAL: No acute joint deformities or swelling SKIN: There are no significant scars or skin rash noted. NEUROPSYCHIATRIC: The patient is alert, oriented to place and person.? Hard of hearing and legally blind. Urinary Catheter Management: Jackson: Cath Placed During This Visit: yes Reason for Continuing Indwelling Catheter: Hospice/Comfort/Palliative Care Urinary Catheter Date of Insertion: 06/22/21 Urinary Catheter Time of Insertion: 14:50 Data : 06/25/21 03:57 06/25/21 03:57 A&P Assessment and plan (1) Acute on chronic diastolic (congestive) heart failure: May continue on the current dose of the Lasix. Intravenous Lasix on a as needed basis. May give 40 mg of Lasix IV today with a potassium 20 mEq. Status: Acute (2) Chest pain: Patient has no recurrence of chest pain. At this point, he may not require any further investigations. The perfusion scan was unremarkable. This was discussed with the patient. Status: Acute (3) Pericardial effusion: The pericardial effusion appears to be small. He may have a small area of loculated effusion anteriorly. Etiology is not clear. Most likely he may have underlying pneumonia causing pleural effusion. He also has some evidence of diastolic heart failure. Status: Acute (4) COPD (chronic obstructive pulmonary disease): On bronchodilator treatment. Seems to be responding appropriately. Status: Acute (5) Carotid artery occlusion without infarction: This appears to be chronic. May continue on the current treatment measures. Status: Acute (6) Pneumonia: On IV antibiotics. Management as per the primary service. Status: Acute (7) Pleural effusion: Patient is a moderate to large pleural effusion on the left side and small to moderate on the right side. Thoracentesis both for diagnostic and therapeutic purposes would be appropriate Status: Acute Plan Other problems are Altered mental status, clinically seems to be improving Mild anemia Leukocytosis possibly from pneumonia Possible thoracentesis today Attestations Medical Necessity Statement*: Patient requires continued hospital stay for close monitoring and further management Coding Level of Care Code Acute Kitchen Help Handyman for [facility] Fwd History Detailed Exam Detailed Medical Decision Making Moderate Complexity Diagnoses Acute on chronic diastolic (congestive) heart failure I50.33 Chest pain R07.9 Pericardial effusion I31.3 COPD (chronic obstructive pulmonary disease) J44.9 Carotid artery occlusion without infarction I65.29 Pneumonia J18.9 Pleural effusion J90
--- NOTE | 2021-06-24 11:00 | US_ITS ---
WS: [id number] ULTRASOUND-GUIDED THORACENTESIS CLINICAL INFORMATION: lt pleural effusion COMPARISON: None. PROCEDURE: Informed consent: The risks, benefits, and alternatives of the procedure were discussed with the jessica ent. Verbal and written consent was obtained. Timeout: A timeout was performed to confirm the correct patient, procedure, and site. Site: LEFT Preparation: A suitable skin site was identified. The patient was prepped and draped in usual sterile fashion. Lidocaine 1% was used for local anesthesia. Catheter: 4 Greek One-Step catheter. Fluid Volume: 950 cc Color: Clear yellow 50 cc sent to the laboratory for further analysis Complications: Postthoracentesis radiograph demonstrates no pneumothorax. / thoracentesis [id number] IMPRESSION: 1. Uncomplicated ultrasound-guided LEFT thoracentesis. 2. No pneumothorax on the postthoracentesis radiograph
--- NOTE | 2021-06-24 11:14 | XR_ITS ---
WS: [id number] CHEST XRAY TECHNIQUE: Portable chest. CLINICAL INFORMATION: THORA COMPARISON: None. FINDINGS: Heart: Cardiomegaly. Aortic calcification. Lungs: Chronic emphysematous changes. Interstitial edema RIGHT lung. Improved RIGHT pleural effusion compared to previous. Small amount of residual RIGHT pleural fluid. Volume loss RIGHT lung. Elevation RIGHT hemidiaphragm. Bilateral interstitial infiltrates/edema have improved Bones: Osteopenia. Kyphosis. XR/XR chest 1V portable [id number] IMPRESSION: 1. Post RIGHT thoracentesis. Improved RIGHT pleural effusion. No pneumothorax. 2. Volume loss RIGHT lung with elevation RIGHT hemidiaphragm. 3. Diffuse bilateral interstitial infiltrates/edema have improved compared to June 22, 2021. 4. Stable cardiomegaly.
[2021-06-24 12:54] LABS: Mononuclear %, Pleural Fluid 76 %; Polynuclear Cells, Pleural % 24 %
[2021-06-24] MEDS: potassium chloride ER 20 mEq Tablet PO (13:10)
[2021-06-24 13:15] LABS: Color, Pleural Fluid Pale Yellow (Pale Yellow)
[2021-06-24 13:16] LABS: Appearance, Pleural Fluid CLEAR (CLEAR)
[2021-06-24 13:47] LABS: Lactate Dehydrogenase 242 U/L (135-225)
[2021-06-24 13:48] LABS: LDH Pleural Fluid 84 U/L; Total Protein Pleural Fluid 1.2 g/dL
[2021-06-24 14:08] LABS: PATH Referal NO
[2021-06-24] MEDS: acetaminophen 325 mg Tablet 650 MG PO (17:37)
[2021-06-24] MEDS: enoxaparin 40 mg/0.4 mL Syringe SUBCUT (17:38)
--- NOTE | 2021-06-24 19:43 | P.PN_ITS ---
Subjective Subjective: Patient was seen and examined this morning, he was more short of breath this morning, Received Lasix 20 IV, underwent left-sided thoracentesis, with removal of 800 cc transudative pleural fluid. Patient was evaluated multiple times during the day, has been stable, shortness of breath improved later towards the day. Medications: Medication Review Details: Generic Name Dose Route Start Last Admin Trade Name Yovannyq PRN Reason Stop Dose Admin Albuterol/Ipratrop ium 3 ml 06/21/21 03:04 06/23/21 15:28 Ipratropium-Albu terol 3 Ml Neb INHALATION Not Given Q6H.RESPIRATORY S CH Aspirin 81 mg 06/21/21 09:00 06/23/21 08:41 Aspirin 81 Mg Ec Tablet PO 81 mg DAILY JANNIE Administration Atorvastatin Calci um 20 mg 06/22/21 21:00 06/22/21 20:06 Atorvastatin 40 Mg Tablet PO 20 mg BEDTIME JANNIE Administration Enoxaparin Sodium 40 mg 06/22/21 18:00 06/23/21 17:48 Enoxaparin 40 Mg /0.4 Ml Syringe SUBCUT 40 mg Q24H JANNIE Administration Furosemide 20 mg 06/21/21 22:00 06/23/21 10:10 Furosemide 10 Mg /Ml Sdv 2ml IVP 20 mg Q12H JANNIE Administration Azithromycin 500 m g/ Sodium 250 mls @ 250 mls /hr 06/22/21 00:00 06/23/21 00:29 Chloride IV Infused Q24H JANNIE Infusion Protocol Ceftriaxone Sodium 1,000 mg/ 50 mls @ 100 mls/ hr 06/22/21 00:30 06/23/21 01:06 Sodium Chloride IV Infused Q24H JANNIE Infusion Protocol Sodium Chloride 1,000 mls @ 50 ml s/hr 06/22/21 16:45 06/23/21 15:15 Sodium Chloride 0.9% IV 50 mls/hr .Q20H JANNIE Administration Levetiracetam 1,000 mg 06/21/21 09:00 06/23/21 17:48 Levetiracetam 50 0 Mg Tablet PO 1,000 mg BID JANNIE Administration Methylprednisolone Sodium Succinate 60 mg 06/23/21 09:00 06/23/21 08:41 Methylprednisolo ne Sod Succ 125 Mg /2 Ml Inj IVP 60 mg DAILY JANNIE Administration Mirtazapine 30 mg 06/21/21 21:00 06/22/21 20:06 Mirtazapine 15 M g Tablet PO 30 mg BEDTIME JANNIE Administration Pantoprazole Sodiu m 40 mg 06/21/21 09:00 06/23/21 08:[address] 40 Mg Tablet PO 40 mg DAILY JANNIE Administration Potassium Chloride 10 meq 06/21/21 23:00 06/23/21 17:48 Potassium Chlori de Er 10 Meq Table t PO 10 meq BID JANNIE Administration Venlafaxine HCl 37.5 mg 06/21/21 09:00 06/23/21 08:42 Venlafaxine Er ( 24hr) 37.5 Mg Caps ule PO 37.5 mg DAILY JANNIE Administration Vitals/I&O/Wt Last Vital Signs Temp 98.4 F 06/24/21 19:17 Pulse 87 06/24/21 19:17 Resp 18 06/24/21 19:17 BP 146/94 06/24/21 19:17 Pulse Ox 100 06/24/21 19:17 06/24/21 06/24/21 06/24/21 06:59 14:59 22:59 Intake Total 300 / 1880 1000 / 1000 Output Total 900 / 2300 900 / 900 1000 / 1900 Balance -600 / -420 100 / 100 -1000 / -900 Physical Exam Const: COMMON NORMALS: patient oriented x3 HENMT: COMMON NORMALS: normocephalic and atraumatic HEAD & SCALP: normocephalic and atraumatic Eye: GENERAL EYE: appearance normal, both eyes and all related structures Chest: CHEST: Yes Symmetrical chest wall rise Resp: EFFORT & INSPECTION: Yes symmetric chest movement OTHER: Diminished air entry bilaterally Cardio: COMMON NORMALS: regular rate, regular rhythm, S1 normal heart sound present, S2 normal heart sound present, No gallops present (Cardio), No murmurs present (Cardio), No rub (Cardio) and Peripheral pulses 2+ throughout RATE: regular rate RHYTHM: regular rhythm HEART SOUNDS: S1 normal heart sound present and S2 normal heart sound present PERIPHERAL PULSES: Peripheral pulses 2+ throughout GI: COMMON NORMALS: Normal to inspection, nondistended, normoactive bowel sounds present, Soft to palpation, non-tender, No hepatosplenomegaly present and no masses AUSCULTATION: Yes normoactive bowel sounds PALPATION: Yes Soft to palpation and Yes No hepatosplenomegaly present RECTAL EXAM: Yes deferred Extremity: COMMON NORMALS: no clubbing, cyanosis or edema and no pedal edema Neuro: COMMON NORMALS: patient oriented x3 Urinary Catheter Management: Jackson: Cath Placed During This Visit: yes Reason for Continuing Indwelling Catheter: Acute Urinary Retention or Obstruction Urinary Catheter Date of Insertion: 06/22/21 Urinary Catheter Time of Insertion: 14:50 Data : 06/24/21 07:09 06/24/21 07:09 Micro: Microbiology 06/24/21 11:30 Gram Stain - Final Pleural Fluid A&P Assessment and plan (1) Chest pain: Status: Acute Plan 66-year-old male with past medical history of COPD , hypertension , depression, seizure disorder, TIA, legally blind, initially admitted for management of chest pain. Assessment: Chest pain: Noncardiac: Nuclear stress test: Normal Troponin trend without significant delta EKG no acute ST-T wave change 2D echo: Moderate loculated, possibly exudative pericardial effusion anteriorly. Normal LV size ejection fraction of around 55%. Patient was initially started on ACS protocol, which has been discontinued. Appreciate cardiology input #Pneumonia: Patient has bilateral pleural effusion , shortness of breath, CTA chest: Negative for pulmonary embolism, small to moderate bilateral pleural effusions, extensive emphysematous changes Patchy bilateral dependent airspace infiltrate. Small pericardial effusion m easuring up to 16 mm in diameter. 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 No change from prior studies. Mild stenosis at proximal left ICA secondary to calcified atherosclerotic plaque. MR head wo con: Remote RIGHT frontal lobe infarct with encephalomalacia. At baseline patient has significant generalized weakness, mostly uses wheelchair at home. Currently no new focal deficit. Continue aspirin and statin Continue with PT #Orthostatic hypotension: Continue gentle IV hydration A.m. cortisol:26 TSH: 5.32, free T4 0.76 Fall precaution Discontinue metoprolol Midodrine 10 mg p.o. 3 times daily #Chronic hyponatremia: Admission serum sodium: 125 Current serum sodium is 133 Continue to monitor serum sodium Continue gentle IV hydration #Mildly decompensated heart failure with preserved ejection fraction: Continue Lasix 20 mg IV daily Monitor intake output charting Monitor daily weight K>4, MG >2 #Bilateral pleural effusion: Decompensated heart failure, hypoalbuminemia Ultrasound chest: ?Moderate LEFT and small RIGHT pleural effusions. S/p left-sided thoracentesis, with removal of 800 cc transudative pleural fluid. Postthoracentesis chest x-ray has shown: No pneumothorax. Plan as above. #Small/ Moderate loculated pericardial effusion: No acute intervention, will avoid volume depletion, aggressive diuresis Monitor echo Monitor EKG: Low-voltage EKG, did not show typical feature of electrical alternans. Appreciate cardiology input #History of seizure: Continue Keppra #Legal blindness # Left ocular hemorrhage, this appears chronic. Outpatient follow-up with ophthalmology upon discharge #History of COPD with significant emphysematous changes: Solu-Medrol 60 IV daily DuoNebs Supplemental oxygen as needed #Hypertension: Currently hypotensive, metoprolol on hold Continue to monitor blood pressure # Depression. Effexor ER 37.5 Mill grams by mouth daily plus Remeron 15 mg by mouth daily at bedtime BPH Anemia, chronic. We will monitor her hemoglobin intermittently. Check serum ferritin, iron panel, fecal occult blood COPD/pulmonary fibrosis, not O2 dependent. Solu-Medrol 40 Mill grams IV every 8 hours plus DuoNeb every 6 hours GERD. Protonix 40 Mill grams by mouth daily Tobacco abuse now via the pain with extensive history of smoking. The patient becomes regarding tobacco cessation Alcohol abuse. Cirrhosis. Will monitor LFTs periodically with CMP along with PT/INR #Disposition: Patient wants to return home, is not agreeable to half-way placement has good social support. # DVT prophylaxis. On Lovenox Attestations Medical Necessity Statement*: Patient is to be in hospital for management of heart failure , pneumonia, severe physical deconditioning. Time Spent in Patient Care: Greater than 35 minutes (>than 50% of time spent in counselling and/or direct pt care on unit) . Coding Level of Care Code Acute General Machine Operator for Aylin Bañuelos Diagnoses Chest pain R07.9
[2021-06-24] MEDS: mirtazapine 15 mg Tablet 30 MG PO (20:05)
[2021-06-24] MEDS: atorvastatin 40 mg Tablet 20 MG PO (20:05)
[2021-06-25] VITALS (16 sets, daily range): BP systolic 128–150; BP diastolic 72–88; PULSE 68–98; RESP 16–18; TEMP 36.6–36.9; O2SAT 90–99
[2021-06-25] MEDS: cefTRIAXone 1,000 MG in sodium chloride 0.9% (plus) 50 ML 100 MG IV ×2 (00:48→23:56)
[2021-06-25] MEDS: ipratropium-albuterol 3 mL Neb INHALATION ×4 (02:59→20:21)
[2021-06-25] MEDS: acetaminophen 325 mg Tablet 650 MG PO (04:27)
[2021-06-25 04:32] LABS: Basophils % 0.1 %; Hematocrit 26.1 % (42.0-52.0); Hemoglobin 8.8 g/dL (11.7-16.6); Lymphocytes # 1.9 10^3/uL (0.8-4.8); Lymphocytes % 18.6 %; Mean Corpuscular HGB Conc 33.7 g/dL (30.0-36.0); Mean Corpuscular Hemoglobin 31.8 pg (28.0-34.0); Mean Corpuscular Volume 94.2 fl (80-94); Mean Platelet Volume 11.1 fL (7.4-10.4); Monocytes # 0.6 10^3/uL (0.2-0.9); Neutrophils # 7.66 10^3/uL (1.8-7.7); Neutrophils % 74.7 %; Nucleated Red Blood Cells % 0 %; Platelet Count 345 10^3/cmm (130-400); Red Blood Count 2.77 10^6/uL (4.1-5.3); Red Cell Distribution Width 14.9 % (12.1-15.1); White Blood Count 10.3 10^3/uL (4.0-10.0)
[2021-06-25 04:53] LABS: Blood Urea Nitrogen 9 mg/dL (8-23); Calcium 8.1 mg/dL (8.5-10.5); Carbon Dioxide 28 mmol/L (22-29); Chloride 100 mmol/L (98-107); Glomerular Filtration Rate 166.9 mL/min (90-130); Glucose 94 mg/dL (65-115); Osmolality Calculated 280 mOsm/kg (285-295); Sodium 136 mmol/L (136-145)
[2021-06-25 04:56] LABS: Anion Gap 11.4 (5-19); Potassium 3.4 mmol/L (3.5-5.1)
--- NOTE | 2021-06-25 05:23 | PC.NURSE ---
Patient resting in bed, did not sleep well during night, was fidgeting and kept accidentally removing tele pads and lines. AAOX3 being confused on date and time. No new events over night, overall oxygen saturation good, julian in place and patent with good UOP. Frequent self turns, some pain during night relieved by pain meds per MAR. Not ready to get up out of bed at this time wants to try and get some sleep in.
[2021-06-25] MEDS: pantoprazole DR 40 mg Tablet PO (08:06)
[2021-06-25] MEDS: aspirin 81 mg EC Tablet PO (08:06)
[2021-06-25] MEDS: FUROsemide 10 mg/mL SDV 2mL 20 MG IVP ×2 (08:06→21:00)
[2021-06-25] MEDS: venlafaxine ER (24HR) 37.5 mg Capsule PO (08:06)
[2021-06-25] MEDS: midodrine 5 mg TABLET PO (08:06)
[2021-06-25] MEDS: levETIRAcetam 500 mg Tablet 1000 MG PO ×2 (08:06→17:55)
[2021-06-25] MEDS: potassium chloride ER 10 mEq Tablet PO ×2 (08:06→17:55)
[2021-06-25] MEDS: lidocaine 1% 5 ML in potassium chloride premix 100 ML 25 ML IV (10:11)
--- NOTE | 2021-06-25 14:16 | P.PN_ITS ---
Subjective Subjective: Patient was seen and examined this morning, he was up in the chair, saturating well on 5 to 6 L oxygen Through nasal cannula. Serum potassium this morning was:3.4, will supplement with IV potassium. Continue to have good urine output. Patient is maintaining fairly good map we will switch midodrine to as needed. Medications: Medication Review Details: Generic Name Dose Route Start Last Admin Trade Name Bethany PRN Reason Stop Dose Admin Albuterol/Ipratrop ium 3 ml 06/21/21 03:04 06/23/21 15:28 Ipratropium-Albu terol 3 Ml Neb INHALATION Not Given Q6H.RESPIRATORY S CH Aspirin 81 mg 06/21/21 09:00 06/23/21 08:41 Aspirin 81 Mg Ec Tablet PO 81 mg DAILY JANNIE Administration Atorvastatin Calci um 20 mg 06/22/21 21:00 06/22/21 20:06 Atorvastatin 40 Mg Tablet PO 20 mg BEDTIME JANNIE Administration Enoxaparin Sodium 40 mg 06/22/21 18:00 06/23/21 17:48 Enoxaparin 40 Mg /0.4 Ml Syringe SUBCUT 40 mg Q24H JANNIE Administration Furosemide 20 mg 06/21/21 22:00 06/23/21 10:10 Furosemide 10 Mg /Ml Sdv 2ml IVP 20 mg Q12H JANNIE Administration Azithromycin 500 m g/ Sodium 250 mls @ 250 mls /hr 06/22/21 00:00 06/23/21 00:29 Chloride IV Infused Q24H JANNIE Infusion Protocol Ceftriaxone Sodium 1,000 mg/ 50 mls @ 100 mls/ hr 06/22/21 00:30 06/23/21 01:06 Sodium Chloride IV Infused Q24H JANNIE Infusion Protocol Sodium Chloride 1,000 mls @ 50 ml s/hr 06/22/21 16:45 06/23/21 15:15 Sodium Chloride 0.9% IV 50 mls/hr .Q20H JANNIE Administration Levetiracetam 1,000 mg 06/21/21 09:00 06/23/21 17:48 Levetiracetam 50 0 Mg Tablet PO 1,000 mg BID JANNIE Administration Methylprednisolone Sodium Succinate 60 mg 06/23/21 09:00 06/23/21 08:41 Methylprednisolo ne Sod Succ 125 Mg /2 Ml Inj IVP 60 mg DAILY JANNIE Administration Mirtazapine 30 mg 06/21/21 21:00 06/22/21 20:06 Mirtazapine 15 M g Tablet PO 30 mg BEDTIME JANNIE Administration Pantoprazole Sodiu m 40 mg 06/21/21 09:00 06/23/21 08:[address] 40 Mg Tablet PO 40 mg DAILY JANNIE Administration Potassium Chloride 10 meq 06/21/21 23:00 06/23/21 17:48 Potassium Chlori de Er 10 Meq Table t PO 10 meq BID JANNIE Administration Venlafaxine HCl 37.5 mg 06/21/21 09:00 06/23/21 08:42 Venlafaxine Er ( 24hr) 37.5 Mg Caps ule PO 37.5 mg DAILY JANNIE Administration Vitals/I&O/Wt Last Vital Signs Temp 98.1 F 06/25/21 11:37 Pulse 83 06/25/21 11:37 Resp 16 06/25/21 11:37 BP 131/81 06/25/21 11:37 Pulse Ox 99 06/25/21 11:37 06/24/21 06/25/21 06/25/21 22:59 06:59 14:59 Intake Total 100 / 1100 360 / 1460 Output Total 1000 / 1900 800 / 2700 Balance -900 / -800 -440 / -1240 Physical Exam Const: COMMON NORMALS: patient oriented x3 HENMT: COMMON NORMALS: normocephalic and atraumatic HEAD & SCALP: normocephalic and atraumatic Eye: GENERAL EYE: appearance normal, both eyes and all related structures Chest: CHEST: Yes Symmetrical chest wall rise Resp: EFFORT & INSPECTION: Yes symmetric chest movement OTHER: Diminished air entry bilaterally, left basal crackles present. Cardio: COMMON NORMALS: regular rate, regular rhythm, S1 normal heart sound present, S2 normal heart sound present, No gallops present (Cardio), No murmurs present (Cardio), No rub (Cardio) and Peripheral pulses 2+ throughout RATE: regular rate RHYTHM: regular rhythm HEART SOUNDS: S1 normal heart sound present and S2 normal heart sound present PERIPHERAL PULSES: Peripheral pulses 2+ throughout GI: COMMON NORMALS: Normal to inspection, nondistended, normoactive bowel sounds present, Soft to palpation, non-tender, No hepatosplenomegaly present and no masses AUSCULTATION: Yes normoactive bowel sounds PALPATION: Yes Soft to palpation and Yes No hepatosplenomegaly present RECTAL EXAM: Yes deferred Extremity: COMMON NORMALS: no clubbing, cyanosis or edema and no pedal edema Neuro: COMMON NORMALS: patient oriented x3 Urinary Catheter Management: Jackson: Cath Placed During This Visit: yes Reason for Continuing Indwelling Catheter: Other Urinary Catheter Date of Insertion: 06/22/21 Urinary Catheter Time of Insertion: 14:50 Data : 06/25/21 03:57 06/25/21 03:57 Micro: Microbiology 06/24/21 11:30 Gram Stain - Final Pleural Fluid Body Fluid Culture - Preliminary A&P Assessment and plan (1) Chest pain: Status: Acute Plan 66-year-old male with past medical history of COPD , hypertension , depression, seizure disorder, TIA, legally blind, initially admitted for management of chest pain. Assessment: Chest pain: Noncardiac: Nuclear stress test: Normal Troponin trend without significant delta EKG no acute ST-T wave change 2D echo: Moderate loculated, possibly exudative pericardial effusion anteriorly. Normal LV size ejection fraction of around 55%. Patient was initially started on ACS protocol, which has been discontinued. Appreciate cardiology input #Pneumonia: Patient has bilateral pleural effusion , shortness of breath, CTA chest: Negative for pulmonary embolism, small to moderate bilateral pleural effusions, extensive emphysematous changes Patchy bilateral dependent airspace infiltrate. Small pericardial effusion measuring up to 16 mm in diameter. 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 No change from prior studies. Mild stenosis at proximal left ICA secondary to calcified atherosclerotic plaque. MR head wo con: Remote RIGHT frontal lobe infarct with encephalomalacia. At baseline patient has significant generalized weakness, mostly uses wheelchair at home. Currently no new focal deficit. Continue aspirin and statin Continue with PT #Orthostatic hypotension: Continue gentle IV hydration A.m. cortisol:26 TSH: 5.32, free T4 0.76 Fall precaution Discontinue metoprolol Midodrine 10 mg p.o. 3 times daily #Chronic hyponatremia: Admission serum sodium: 125 Current serum sodium is 133 Continue to monitor serum sodium Continue gentle IV hydration #Mildly decompensated heart failure with preserved ejection fraction: Continue Lasix 20 mg IV daily Monitor intake output charting Monitor daily weight K>4, MG >2 #Bilateral pleural effusion: Decompensated heart failure, hypoalbuminemia Ultrasound chest: ?Moderate LEFT and small RIGHT pleural effusions. S/p left-sided thoracentesis, with removal of 800 cc transudative pleural fluid. Pleural fluid Gram stain and culture: Few white blood cells Postthoracentesis chest x-ray has shown: No pneumothorax. Plan as above. #Small/ Moderate loculated pericardial effusion: No acute intervention, will avoid volume depletion, aggressive diuresis Monitor echo Monitor EKG: Low-voltage EKG, did not show typical feature of electrical alternans. Appreciate cardiology input #History of seizure: Continue Keppra #Legal blindness # Left ocular hemorrhage, this appears chronic. Outpatient follow-up with ophthalmology upon discharge #History of COPD with significant emphysematous changes: Solu-Medrol 60 IV daily DuoNebs Supplemental oxygen as needed #Hypertension: Currently hypotensive, metoprolol on hold Midodrine as needed Continue to monitor blood pressure # Depression. Effexor ER 37.5 Mill grams by mouth daily plus Remeron 15 mg by mouth daily at bedtime BPH Anemia, chronic. We will monitor her hemoglobin intermittently. Check serum ferritin, iron panel, fecal occult blood COPD/pulmonary fibrosis, not O2 dependent. Solu-Medrol 40 Mill grams IV every 8 hours plus DuoNeb every 6 hours GERD. Protonix 40 Mill grams by mouth daily Tobacco abuse now via the pain with extensive history of smoking. The patient becomes regarding tobacco cessation Alcohol abuse. Cirrhosis. Will monitor LFTs periodically with CMP along with PT/INR #Disposition: Patient wants to return home, is not agreeable to detention placement has good social support. # DVT prophylaxis. On Lovenox Attestations Medical Necessity Statement*: Patient needs to be in hospital for continued IV Lasix, antibiotics, anticipated length of stay greater than 2 midnights. Coding Level of Care Code Acute Paperback Machine Operator for Aylin Bañuelos Diagnoses Chest pain R07.9
[2021-06-25] MEDS: enoxaparin 40 mg/0.4 mL Syringe SUBCUT ×2 (17:55)
--- NOTE | 2021-06-25 18:34 | P.PN_ITS ---
Subjective Subjective: Patient had thoracentesis yesterday. He is feeling much better today. No fever or chills. No cough. Shortness of breath is minimally improved. Medications: Medication Review Details: Current Medications Acetaminophen (Acetaminophen 325 Mg Tablet) 650 mg PO Q6H PRN PRN Reason: Mild/Mod Pain Or Temp >/= 101 Last Admin: 06/25/21 04:27 Dose: 650 mg Documented by: Albuterol/Ipratropium (Ipratropium-Albuterol 3 Ml Neb) 3 ml INHALATION Q6H.RESPIRATORY JANNIE Last Admin: 06/25/21 14:48 Dose: 3 ml Documented by: Aspirin (Aspirin 81 Mg Ec Tablet) 81 mg PO DAILY JANNIE Last Admin: 06/25/21 08:06 Dose: 81 mg Documented by: Atorvastatin Calcium (Atorvastatin 40 Mg Tablet) 20 mg PO BEDTIME JANNIE Last Admin: 06/24/21 20:05 Dose: 20 mg Documented by: Enoxaparin Sodium (Enoxaparin 40 Mg/0.4 Ml Syringe) 40 mg SUBCUT Q24H JANNIE Last Admin: 06/25/21 17:55 Dose: 40 mg Documented by: Furosemide (Furosemide 10 Mg/Ml Sdv 2ml) 20 mg IVP Q12H JANNIE Last Admin: 06/25/21 08:06 Dose: 20 mg Documented by: Ceftriaxone Sodium 1,000 mg/ (Sodium Chloride) 50 mls @ 100 mls/hr IV Q24H COUNTS INCLUDE 234 BEDS AT THE [facility]; Protocol Last Infusion: 06/25/21 01:35 Dose: Infused Documented by: Levetiracetam (Levetiracetam 500 Mg Tablet) 1,000 mg PO BID COUNTS INCLUDE 234 BEDS AT THE [facility] Last Admin: 06/25/21 17:55 Dose: 1,000 mg Documented by: Methylprednisolone Sodium Succinate (Methylprednisolone Sod Succ 125 Mg/2 Ml Inj) 40 mg IVP DAILY COUNTS INCLUDE 234 BEDS AT THE [facility] Last Admin: 06/25/21 08:06 Dose: 40 mg Documented by: Midodrine (Midodrine 5 Mg Tablet) 5 mg PO TID PRN PRN Reason: hypotension Mirtazapine (Mirtazapine 15 Mg Tablet) 30 mg PO BEDTIME JANNIE Last Admin: 06/24/21 20:05 Dose: 30 mg Documented by: Ondansetron HCl (Ondansetron 2 Mg/Ml Sdv 2 Ml) 4 mg IVP Q8H PRN PRN Reason: vomiting, or N/V if npo Ondansetron HCl (Ondansetron 2 Mg/Ml Sdv 2 Ml) 4 mg IVP Q2M PRN PRN Reason: NAUSEA Pantoprazole Sodium (Pantoprazole Dr 40 Mg Tablet) 40 mg PO DAILY COUNTS INCLUDE 234 BEDS AT THE [facility] Last Admin: 06/25/21 08:06 Dose: 40 mg Documented by: Potassium Chloride (Potassium Chloride Er 10 Meq Tablet) 10 meq PO BID COUNTS INCLUDE 234 BEDS AT THE [facility] Last Admin: 06/25/21 17:55 Dose: 10 meq Documented by: Venlafaxine HCl (Venlafaxine Er (24hr) 37.5 Mg Capsule) 37.5 mg PO DAILY COUNTS INCLUDE 234 BEDS AT THE [facility] Last Admin: 06/25/21 08:06 Dose: 37.5 mg Documented by: Vitals/I&O/Wt Last Vital Signs Temp 98.1 F 06/25/21 15:41 Pulse 86 06/25/21 15:41 Resp 16 06/25/21 15:41 BP 128/81 06/25/21 15:41 Pulse Ox 95 06/25/21 15:41 06/25/21 06/25/21 06/25/21 06:59 14:59 22:59 Intake Total 360 / 1460 Output Total 800 / 2700 800 / 800 Balance -440 / -1240 -800 / -800 Physical Exam Narrative: GENERAL: The patient is alert, hard of hearing; oriented to place and person. Chronically ill looking with generalized wasting. HEENT: Minimal pallor.? No icterus or lymphadenopathy NECK: Trachea appears to be central. No masses noted. No JVD or thyromegaly appreciated. No carotid bruit. RESPIRATORY: Chest is symmetrical.? Emphysematous chest no intercostals muscle retraction or any accessory muscle activation. There is no chest wall tenderness. Breath sounds are heard bilaterally.? No rales or rhonchi BREASTS: Deferred. HEART: The heart sounds are normal.? No S3 or S4.? Short systolic murmur in the left sternal border. ABDOMEN: No vessel pulsations or distention. No tenderness. No organomegaly appreciated. No abdominal bruit. Bowel sounds are normally heard. : Deferred. RECTAL: Deferred. LYMPHATIC: No lymphadenopathy noted in the neck . EXTREMITIES: No significant edema or cyanosis.? MUSCULOSKELETAL: No acute joint deformities or swelling SKIN: There are no significant scars or skin rash noted. NEUROPSYCHIATRIC: The patient is alert, oriented to place and person.? Hard of hearing and legally blind. Urinary Catheter Management: Jackson: Cath Placed During This Visit: yes Reason for Continuing Indwelling Catheter: Acute Urinary Retention or Obstruction Urinary Catheter Date of Insertion: 06/22/21 Urinary Catheter Time of Insertion: 14:50 Data : 06/25/21 03:57 06/25/21 03:57 Other Labs: Laboratory Last Values WBC 10.3 10^3/uL (4.0-10.0) H 06/25/21 03:57 RBC 2.77 10^6/uL (4.1-5.3) L 06/25/21 03:57 Hgb 8.8 g/dL (11.7-16.6) L 06/25/21 03:57 Hct 26.1 % (42.0-52.0) L 06/25/21 03:57 MCV 94.2 fl (80-94) H 06/25/21 03:57 MCH 31.8 pg (28.0-34.0) 06/25/21 03:57 MCHC 33.7 g/dL (30.0-36.0) 06/25/21 03:57 RDW 14.9 % (12.1-15.1) 06/25/21 03:57 Plt Count 345 10^3/cmm (130-400) 06/25/21 03:57 MPV 11.1 fL (7.4-10.4) H 06/25/21 03:57 Neut % (Auto) 74.7 % 06/25/21 03:57 Lymph % (Auto) 18.6 % 06/25/21 03:57 [place] % (Auto) 6.0 % 06/25/21 03:57 Eos % (Auto) 0.0 % 06/25/21 03:57 Baso % (Auto) 0.1 % 06/25/21 03:57 Neut # (Auto) 7.66 10^3/uL (1.8-7.7) 06/25/21 03:57 Lymph # (Auto) 1.9 10^3/uL (0.8-4.8) 06/25/21 03:57 [place] # (Auto) 0.6 10^3/uL (0.2-0.9) 06/25/21 03:57 Eos # (Auto) 0.0 10^3/uL (0.0-0.8) 06/25/21 03:57 Baso # (Auto) 0.0 10^3/uL (0.0-0.1) 06/25/21 03:57 Nucleated RBC % (auto) 0 % 06/25/21 03:57 Total Counted Not Reportable 06/24/21 11:30 Nucleated RBCs # 0.0 /100WBC 06/25/21 03:57 PT 14.40 SECONDS (12.1-14.9) 06/24/21 09:40 INR 1.08 (0.8-1.2) 06/24/21 09:40 APTT 33.5 SECONDS (23.9-36.7) 06/21/21 04:53 D-Dimer 1.19 ug/mIFEU (0-0.59) H 06/20/21 20:28 Specimen Type Arterial 06/22/21 07:00 Sample Site Radial, right 06/22/21 07:00 ABG pH 7.45 (7.35-7.45) 06/22/21 07:00 ABG pCO2 31.9 mmHg (35-45) L 06/22/21 07:00 ABG pO2 174.0 mmHg (80.0-100.0) H 06/22/21 07:00 ABG HCO3 22.4 mmol/L (22-26) 06/22/21 07:00 ABG O2 Saturation > 100.0 06/22/21 07:00 ABG Base Excess -1.0 mmol/L (-2.0-2.0) 06/22/21 07:00 Guy Test Pos 06/22/21 07:00 A-a O2 Gradient 63.3 mmHg (5-10) H 06/22/21 07:00 Hematocrit 32.4 % (42-52) L 06/22/21 07:00 Hgb O2 Saturation 99.3 % (95-100) 06/22/21 07:00 Carboxyhemoglobin 0.6 %THgb (0.4-20.1) 06/22/21 07:00 Methemoglobin 0.3 % (0.4-1.5) L 06/22/21 07:00 Total Hemoglobin 10.6 g/dL (14-18) L 06/22/21 07:00 Sodium 132.0 mmol/L (131-143) 06/22/21 07:00 Potassium 3.7 mmol/L (3.5-5.0) 06/22/21 07:00 Glucose 146.0 mg/dL (70-115) H 06/22/21 07:00 Ionized Calcium 1.2 mmol/L (1.1-1.4) 06/22/21 07:00 O2 Delivery Device Bipap 06/22/21 07:00 O2 Liters/Min 8.0 % 06/22/21 04:05 FiO2 100.0 % 06/22/21 07:00 Time Broker ID [place] 06/22/21 07:00 Sodium 136 mmol/L (136-145) 06/25/21 03:57 Potassium 3.4 mmol/L (3.5-5.1) L 06/25/21 03:57 Chloride 100 mmol/L (98-107) 06/25/21 03:57 Carbon Dioxide 28 mmol/L (22-29) 06/25/21 03:57 Anion Gap 11.4 (5-19) 06/25/21 03:57 BUN 9 mg/dL (8-23) 06/25/21 03:57 Creatinine 0.5 mg/dL (0.7-1.2) L 06/25/21 03:57 GFR Calculation 166.9 mL/min (90-130) H 06/25/21 03:57 Glucose 94 mg/dL (65-115) 06/25/21 03:57 POC Glucose 145 mg/dL (70-110) H 06/23/21 20:34 Calculated Osmolality 280 mOsm/kg (285-295) L 06/25/21 03:57 Calcium 8.1 mg/dL (8.5-10.5) L 06/25/21 03:57 Magnesium 1.7 mg/dL (1.7-2.3) 06/21/21 04:53 Iron 47 ug/dL (59-158) L 06/21/21 04:53 TIBC 63.46320 mcg/dl 06/21/21 04:53 % Saturation 73.0 % (20-50) H 06/21/21 04:53 Unsat Iron Binding < 17 ug/dL (112-347) L 06/21/21 04:53 Ferritin 1248 ng/mL (30-400) H 06/21/21 04:53 Total Bilirubin 0.3 mg/dL (0.15-1.2) 06/21/21 04:53 AST 30 U/L (0-40) 06/21/21 04:53 ALT 22 U/L (0-41) 06/21/21 04:53 Alkaline Phosphatase 366 IU/L (40-130) H 06/21/21 04:53 Lactate Dehydrogenase 242 U/L (135-225) H 06/24/21 09:40 Troponin T Baseline 38 ng/L (0-15) H 06/20/21 20:28 Troponin T 120 Minute 30.68 ng/L (0-15) H 06/20/21 22:28 Delta Troponin T -7.32 ABS# (0-10) L 06/20/21 22:28 Troponin T Hi Sens 6Hr 24.43 ng/L (0-15) H 06/21/21 02:33 Troponin T Hi Sens 6Hr Delta -13.57 ng/L (0-12) L 06/21/21 02:33 NT-Pro-B Natriuret Pep 855 pg/mL (0-125) H 06/20/21 20:28 Total Protein 5.8 g/dL (6.6-8.7) L D 06/21/21 04:53 Albumin 2.0 g/dL (3.5-5.2) L 06/21/21 04:53 Globulin 3.8 g/dL (1.3-4.6) 06/21/21 04:53 Triglycerides 88 mg/dL (0-150) 06/21/21 04:53 Cholesterol 118 mg/dL (0-200) 06/21/21 04:53 LDL Cholesterol, Calc 51 mg/dL (50-129) 06/21/21 04:53 HDL Cholesterol 49 mg/dL (60-100) L 06/21/21 04:53 LDL/HDL Ratio 1.04 RATIO (0.00-3.22) 06/21/21 04:53 Cholesterol/HDL Ratio 2.41 mg/dL (1.0-5.00) 06/21/21 04:53 Lipase 22 U/L (13-60) 06/20/21 20:28 Vitamin B12 > 2000 pg/mL (232-1245) H 06/21/21 04:53 Folate 19.0 ng/mL (4.5-32.2) 06/21/21 04:53 TSH 5.32 uIU/mL (0.27-4.20) H 06/21/21 04:53 Free T4 0.76 ng/dL (0.82-1.77) L 06/21/21 04:53 Random Cortisol 26.18 ug/dL (2.47-19.5) H 06/23/21 09:35 Urine Color Yellow (Yellow) 06/21/21 19:36 Urine Appearance Clear (CLEAR) 06/21/21 19:36 Urine pH 5 (5-7) 06/21/21 19:36 Ur Specific [place] 1.010 (1.005-1.030) 06/21/21 19:36 Urine Protein Trace (Negative) 06/21/21 19:36 Urine Glucose (UA) Norm (Normal) 06/21/21 19:36 Urine Ketones Negative (Negative) 06/21/21 19:36 Urine Blood Neg (Negative) 06/21/21 19:36 Urine Nitrate Negative (Negative) 06/21/21 19:36 Urine Bilirubin Neg (Negative) 06/21/21 19:36 Urine Urobilinogen Neg mg/dL (Negative) 06/21/21 19:36 Ur Leukocyte Esterase Negative (Negative) 06/21/21 19:36 Urine RBC None /hpf (0-2) 06/21/21 19:36 Urine WBC None /hpf (0-5) 06/21/21 19:36 Ur Squamous Epith Cells None /hpf (0-5) 06/21/21 19:36 Calcium Oxalate Crystal >100 /hpf H 06/21/21 19:36 Amorphous Sediment Not Reportable 06/21/21 19:36 Urine Bacteria None /hpf (NONE) 06/21/21 19:36 Pleural Color Pale yellow (Pale Yellow) 06/24/21 11:30 Pleural Appearance Clear (CLEAR) 06/24/21 11:30 Pleural pH 8.00 (6.5-7.5) H 06/24/21 11:30 Pleural WBC 181.000 /uL (0-1000) 06/24/21 11:30 Pleural RBC 1.000 10^3/uL 06/24/21 11:30 Pleural Other Cells Not Reportable 06/24/21 11:30 Pleural Polynuclear % 24 % 06/24/21 11:30 Pleural Mononuclear % 76 % 06/24/21 11:30 Pleural Total Protein 1.2 g/dL 06/24/21 11:30 Pleural LDH 84 U/L 06/24/21 11:30 Pleural Glucose 100.0 mg/dL 06/24/21 11:30 Path Cons w/Slide No 06/24/21 11:30 Micro: Microbiology 06/24/21 11:30 Gram Stain - Final Pleural Fluid Body Fluid Culture - Preliminary A&P Assessment and plan (1) Acute on chronic diastolic (congestive) heart failure: The dose of the lisinopril changed to Lasix 40 mg p.o. daily with potassium 20 mg p.o. daily. Status: Acute (2) Chest pain: Patient has no recurrence of chest pain. At this point, he may not require any further investigations. The perfusion scan was unremarkable. This was discussed with the patient. Status: Acute (3) Pericardial effusion: The pericardial effusion appears to be small. He may have a small area of loculated effusion anteriorly. Etiology is not clear. Most likely he may have underlying pneumonia causing pleural effusion. He also has some evidence of diastolic heart failure. Status: Acute (4) COPD (chronic obstructive pulmonary disease): On bronchodilator treatment. Seems to be responding appropriately. Status: Acute (5) Carotid artery occlusion without infarction: This appears to be chronic. May continue on the current treatment measures. Status: Acute (6) Pneumonia: On IV antibiotics. Management as per the primary service. Status: Acute (7) Pleural effusion: Status post thoracentesis. May continue on the current management Status: Acute Plan Other problems are Altered mental status, clinically seems to be improving Anemia Weight loss-etiology? Anorexia Leukocytosis possibly from pneumonia Possible thoracentesis today Attestations Medical Necessity Statement*: Disposition as per the primary Coding Level of Care Code Acute Closing Coordinator for g Fwd History Detailed Exam Detailed Medical Decision Making Moderate Complexity Diagnoses Acute on chronic diastolic (congestive) heart failure I50.33 Chest pain R07.9 Pericardial effusion I31.3 COPD (chronic obstructive pulmonary disease) J44.9 Carotid artery occlusion without infarction I65.29 Pneumonia J18.9 Pleural effusion J90
[2021-06-25] MEDS: mirtazapine 15 mg Tablet 30 MG PO (20:59)
[2021-06-25] MEDS: atorvastatin 40 mg Tablet 20 MG PO (20:59)
[2021-06-26] VITALS (15 sets, daily range): BP systolic 104–147; BP diastolic 69–85; PULSE 72–104; RESP 14–18; TEMP 36.6–37; O2SAT 90–100
[2021-06-26] MEDS: ipratropium-albuterol 3 mL Neb INHALATION ×4 (02:57→20:23)
[2021-06-26] MEDS: levETIRAcetam 500 mg Tablet 1000 MG PO ×2 (08:38→17:49)
[2021-06-26] MEDS: pantoprazole DR 40 mg Tablet PO (08:38)
[2021-06-26] MEDS: potassium chloride ER 10 mEq Tablet PO ×2 (08:38→17:46)
[2021-06-26] MEDS: aspirin 81 mg EC Tablet PO (08:38)
[2021-06-26] MEDS: venlafaxine ER (24HR) 37.5 mg Capsule PO (08:38)
[2021-06-26] MEDS: FUROsemide 10 mg/mL SDV 2mL 20 MG IVP (10:43)
--- NOTE | 2021-06-26 11:40 | PC.SOCIAL ---
IMM Update pg 2 of IMM updated and reviewed w/ patient. Copy provided and Copy in chart updated.
--- NOTE | 2021-06-26 17:08 | PM.PN ---
Subjective Subjective: Over all patient is doing better supplemental oxygen requirement is going down,continue to have good urine output. will encourage him to spend more time in chair,wbc count is also going down.MAP is decent.Has been afebrile. Medications: Medication Review Details: Generic Name Dose Route Start Last Admin Trade Name Freq PRN Reason Stop Dose Admin Acetaminophen 650 mg 06/21/21 03:04 06/25/21 04:27 Acetaminophen 32 5 Mg Tablet PO 650 mg Q6H PRN Administration Mild/Mod Pain Or Temp >/= 101 Albuterol/Ipratrop ium 3 ml 06/21/21 03:04 06/26/21 14:15 Ipratropium-Albu terol 3 Ml Neb INHALATION 3 ml Q6H.RESPIRATORY S CH Administration Aspirin 81 mg 06/21/21 09:00 06/26/21 08:38 Aspirin 81 Mg Ec Tablet PO 81 mg DAILY JANNIE Administration Atorvastatin Calci um 20 mg 06/22/21 21:00 06/25/21 20:59 Atorvastatin 40 Mg Tablet PO 20 mg BEDTIME JANNIE Administration Enoxaparin Sodium 40 mg 06/22/21 18:00 06/25/21 17:55 Enoxaparin 40 Mg /0.4 Ml Syringe SUBCUT 40 mg Q24H JANNIE Administration Furosemide 20 mg 06/21/21 22:00 06/26/21 10:43 Furosemide 10 Mg /Ml Sdv 2ml IVP 20 mg Q12H JANNIE Administration Ceftriaxone Sodium 1,000 mg/ 50 mls @ 100 mls/ hr 06/22/21 00:30 06/26/21 00:28 Sodium Chloride IV Infused Q24H JANNIE Infusion Protocol Levetiracetam 1,000 mg 06/21/21 09:00 06/26/21 08:38 Levetiracetam 50 0 Mg Tablet PO 1,000 mg BID JANNIE Administration Methylprednisolone Sodium Succinate 40 mg 06/24/21 09:00 06/26/21 08:38 Methylprednisolo ne Sod Succ 125 Mg /2 Ml Inj IVP 40 mg DAILY JANNIE Administration Mirtazapine 30 mg 06/21/21 21:00 06/25/21 20:59 Mirtazapine 15 M g Tablet PO 30 mg BEDTIME JANNIE Administration Pantoprazole Sod[place] m 40 mg 06/21/21 09:00 06/26/21 08:[address] 40 Mg Tablet PO 40 mg DAILY JANNIE Administration Potassium Chloride 10 meq 06/21/21 23:00 06/26/21 08:38 Potassium Chlori de Er 10 Meq Table t PO 10 meq BID JANNIE Administration Venlafaxine HCl 37.5 mg 06/21/21 09:00 06/26/21 08:38 Venlafaxine Er ( 24hr) 37.5 Mg Caps ule PO 37.5 mg DAILY JANNIE Administration Vitals/I&O/Wt Last Vital Signs Temp 98.6 F 06/26/21 16:00 Pulse 99 06/26/21 16:00 Resp 16 06/26/21 16:00 BP 104/69 06/26/21 16:00 Pulse Ox 90 06/26/21 16:00 06/26/21 06/26/21 06/26/21 06:59 14:59 22:59 Intake Total 50 / 150 Output Total 1600 / 2650 Balance -1550 / -2500 Physical Exam Const: COMMON NORMALS: patient oriented x3 HENMT: COMMON NORMALS: normocephalic and atraumatic HEAD & SCALP: normocephalic and atraumatic Eye: GENERAL EYE: appearance normal, both eyes and all related structures Chest: CHEST: Yes Symmetrical chest wall rise Resp: EFFORT & INSPECTION: Yes symmetric chest movement OTHER: Diminished air entry bilaterally, left basal crackles present. Cardio: COMMON NORMALS: regular rate, regular rhythm, S1 normal heart sound present, S2 normal heart sound present, No gallops present (Cardio), No murmurs present (Cardio), No rub (Cardio) and Peripheral pulses 2+ throughout RATE: regular rate RHYTHM: regular rhythm HEART SOUNDS: S1 normal heart sound present and S2 normal heart sound present PERIPHERAL PULSES: Peripheral pulses 2+ throughout GI: COMMON NORMALS: Normal to inspection, nondistended, normoactive bowel sounds present, Soft to palpation, non-tender, No hepatosplenomegaly present and no masses AUSCULTATION: Yes normoactive bowel sounds PALPATION: Yes Soft to palpation and Yes No hepatosplenomegaly present RECTAL EXAM: Yes deferred Extremity: COMMON NORMALS: no clubbing, cyanosis or edema and no pedal edema Neuro: COMMON NORMALS: patient oriented x3 Urinary Catheter Management: Jackson: Cath Placed During This Visit: yes Reason for Continuing Indwelling Catheter: Other Urinary Catheter Date of Insertion: 06/22/21 Urinary Catheter Time of Insertion: 14:50 Data : 06/25/21 03:57 06/25/21 03:57 Micro: Microbiology 06/24/21 11:30 Gram Stain - Final Pleural Fluid Body Fluid Culture - Preliminary 06/20/21 23:43 Blood Culture - Final Blood NO GROWTH AFTER 5 DAYS 06/20/21 23:39 Blood Culture - Final Blood NO GROWTH AFTER 5 DAYS A&P Assessment and plan (1) Chest pain: Status: Acute Plan 66-year-old male with past medical history of COPD , hypertension , depression, seizure disorder, TIA, legally blind, initially admitted for management of chest pain. Assessment: Chest pain: Noncardiac: Nuclear stress test: Normal Troponin trend without significant delta EKG no acute ST-T wave change 2D echo: Moderate loculated, possibly exudative pericardial effusion anteriorly. Normal LV size ejection fraction of around 55%. Patient was initially started on ACS protocol, which has been discontinued. Appreciate cardiology input #Pneumonia: Patient has bilateral pleural effusion , shortness of breath, CTA chest: Negative for pulmonary embolism, small to moderate bilateral pleural effusions, extensive emphysematous changes Patchy bilateral dependent airspace infiltrate. Small pericardial effusion measuring up to 16 mm in diameter. 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 No change from prior studies. Mild stenosis at proximal left ICA secondary to calcified atherosclerotic plaque. MR head wo con: Remote RIGHT frontal lobe infarct with encephalomalacia. At baseline patient has significant generalized weakness, mostly uses wheelchair at home. Currently no new focal deficit. Continue aspirin and statin Continue with PT #Orthostatic hypotension: Continue gentle IV hydration A.m. cortisol:26 TSH: 5.32, free T4 0.76 Fall precaution Discontinue metoprolol Midodrine 10 mg p.o. 3 times daily #Chronic hyponatremia: Admission serum sodium: 125 Current serum sodium is 133 Continue to monitor serum sodium Continue gentle IV hydration #Mildly decompensated heart failure with preserved ejection fraction: Continue Lasix 20 mg IV daily Monitor intake output charting Monitor daily weight K>4, MG >2 #Bilateral pleural effusion: Decompensated heart failure, hypoalbuminemia Ultrasound chest: ?Moderate LEFT and small RIGHT pleural effusions. S/p left-sided thoracentesis, with removal of 800 cc transudative pleural fluid. Pleural fluid Gram stain and culture: Few white blood cells Postthoracentesis chest x-ray has shown: No pneumothorax. Plan as above. #Small/ Moderate loculated pericardial effusion: No acute intervention, will avoid volume depletion, aggressive diuresis Monitor echo Monitor EKG: Low-voltage EKG, did not show typical feature of electrical alternans. Appreciate cardiology input #History of seizure: Continue Keppra #Legal blindness # Left ocular hemorrhage, this appears chronic. Outpatient follow-up with ophthalmology upon discharge #History of COPD with significant emphysematous changes: Solu-Medrol 40 IV daily DuoNebs Supplemental oxygen as needed #Hypertension: Currently hypotensive, metoprolol on hold Midodrine as needed Continue to monitor blood pressure # Depression. Effexor ER 37.5 Mill grams by mouth daily plus Remeron 15 mg by mouth daily at bedtime BPH Anemia, chronic. We will monitor her hemoglobin intermittently. Check serum ferritin, iron panel, fecal occult blood COPD/pulmonary fibrosis, not O2 dependent. Solu-Medrol 40 Mill grams IV every 8 hours plus DuoNeb every 6 hours GERD. Protonix 40 Mill grams by mouth daily Tobacco abuse now via the pain with extensive history of smoking. The patient becomes regarding tobacco cessation Alcohol abuse. Cirrhosis. Will monitor LFTs periodically with CMP along with PT/INR #Disposition: Patient wants to return home, is not agreeable to halfway placement has good social support. # DVT prophylaxis. On Lovenox Attestations Medical Necessity Statement*: Patient needs to be in hospital for management of H/F , PNA, PLEURAL EFFUSION,NEED FOR i.v diuresis and abxs. Coding Level of Care Code Acute Family Dinner Service Specialist for Aylin Bañuelos Diagnoses Chest pain R07.9
[2021-06-26] MEDS: enoxaparin 40 mg/0.4 mL Syringe SUBCUT (17:46)
--- NOTE | 2021-06-26 20:49 | PM.PN ---
Subjective Subjective: Patient is doing better. Denies any chest pain or chest tightness. No fever or chills. Shortness of breath has improved. Medications: Medication Review Details: Current Medications Acetaminophen (Acetaminophen 325 Mg Tablet) 650 mg PO Q6H PRN PRN Reason: Mild/Mod Pain Or Temp >/= 101 Last Admin: 06/25/21 04:27 Dose: 650 mg Documented by: Albuterol/Ipratropium (Ipratropium-Albuterol 3 Ml Neb) 3 ml INHALATION Q6H.RESPIRATORY JANNIE Last Admin: 06/26/21 20:23 Dose: 3 ml Documented by: Aspirin (Aspirin 81 Mg Ec Tablet) 81 mg PO DAILY JANNIE Last Admin: 06/26/21 08:38 Dose: 81 mg Documented by: Atorvastatin Calcium (Atorvastatin 40 Mg Tablet) 20 mg PO BEDTIME JANNIE Last Admin: 06/25/21 20:59 Dose: 20 mg Documented by: Enoxaparin Sodium (Enoxaparin 40 Mg/0.4 Ml Syringe) 40 mg SUBCUT Q24H JANNIE Last Admin: 06/26/21 17:46 Dose: 40 mg Documented by: Furosemide (Furosemide 10 Mg/Ml Sdv 2ml) 20 mg IVP Q12H JANNIE Last Admin: 06/26/21 10:43 Dose: 20 mg Documented by: Ceftriaxone Sodium 1,000 mg/ (Sodium Chloride) 50 mls @ 100 mls/hr IV Q24H JANNIE; Protocol Last Infusion: 06/26/21 00:28 Dose: Infused Documented by: Levetiracetam (Levetiracetam 500 Mg Tablet) 1,000 mg PO BID JANNIE Last Admin: 06/26/21 17:49 Dose: 1,000 mg Documented by: Methylprednisolone Sodium Succinate (Methylprednisolone Sod Succ 125 Mg/2 Ml Inj) 40 mg IVP DAILY JANNIE Last Admin: 06/26/21 08:38 Dose: 40 mg Documented by: Midodrine (Midodrine 5 Mg Tablet) 5 mg PO TID PRN PRN Reason: hypotension Mirtazapine (Mirtazapine 15 Mg Tablet) 30 mg PO BEDTIME JANNIE Last Admin: 06/25/21 20:59 Dose: 30 mg Documented by: Ondansetron HCl (Ondansetron 2 Mg/Ml Sdv 2 Ml) 4 mg IVP Q8H PRN PRN Reason: vomiting, or N/V if npo Ondansetron HCl (Ondansetron 2 Mg/Ml Sdv 2 Ml) 4 mg IVP Q2M PRN PRN Reason: NAUSEA Pantoprazole Sodium (Pantoprazole Dr 40 Mg Tablet) 40 mg PO DAILY [facility] Last Admin: 06/26/21 08:38 Dose: 40 mg Documented by: Potassium Chloride (Potassium Chloride Er 10 Meq Tablet) 10 meq PO BID [facility] Last Admin: 06/26/21 17:46 Dose: 10 meq Documented by: Venlafaxine HCl (Venlafaxine Er (24hr) 37.5 Mg Capsule) 37.5 mg PO DAILY [facility] Last Admin: 06/26/21 08:38 Dose: 37.5 mg Documented by: Vitals/I&O/Wt Last Vital Signs Temp 98.6 F 06/26/21 16:00 Pulse 87 06/26/21 20:35 Resp 16 06/26/21 20:25 BP 104/69 06/26/21 16:00 Pulse Ox 98 06/26/21 20:25 06/26/21 06/26/21 06/26/21 06:59 14:59 22:59 Intake Total 50 / 150 100 / 100 Output Total 1600 / 2650 Balance -1550 / -2500 100 / 100 Physical Exam Narrative: GENERAL: The patient is alert, hard of hearing; oriented to place and person.? Chronically ill looking? with generalized wasting. HEENT: Minimal pallor.? No icterus or lymphadenopathy NECK: Trachea appears to be central. No masses noted. No JVD or thyromegaly appreciated. No carotid bruit. RESPIRATORY: Chest is symmetrical.? Emphysematous chest no intercostals muscle retraction or any accessory muscle activation. There is no chest wall tenderness. Breath sounds are heard bilaterally.? No rales or rhonchi BREASTS: Deferred. HEART: The heart sounds are normal.? No S3 or S4.? Short systolic murmur in the left sternal border. ABDOMEN: No vessel pulsations or distention. No tenderness. No organomegaly appreciated. No abdominal bruit. Bowel sounds are normally heard. : Deferred. RECTAL: Deferred. LYMPHATIC: No lymphadenopathy noted in the neck . EXTREMITIES: No significant edema or cyanosis.? MUSCULOSKELETAL: No acute joint deformities or swelling SKIN: There are no significant scars or skin rash noted. NEUROPSYCHIATRIC: The patient is alert, oriented to place and person.? Hard of hearing and legally blind. Urinary Catheter Management: Jackson: Cath Placed During This Visit: yes Reason for Continuing Indwelling Catheter: Other Urinary Catheter Date of Insertion: 06/22/21 Urinary Catheter Time of Insertion: 14:50 Data : 06/25/21 03:57 06/25/21 03:57 Other Labs: Laboratory Last Values WBC 10.3 10^3/uL (4.0-10.0) H 06/25/21 03:57 RBC 2.77 10^6/uL (4.1-5.3) L 06/25/21 03:57 Hgb 8.8 g/dL (11.7-16.6) L 06/25/21 03:57 Hct 26.1 % (42.0-52.0) L 06/25/21 03:57 MCV 94.2 fl (80-94) H 06/25/21 03:57 MCH 31.8 pg (28.0-34.0) 06/25/21 03:57 MCHC 33.7 g/dL (30.0-36.0) 06/25/21 03:57 RDW 14.9 % (12.1-15.1) 06/25/21 03:57 Plt Count 345 10^3/cmm (130-400) 06/25/21 03:57 MPV 11.1 fL (7.4-10.4) H 06/25/21 03:57 Neut % (Auto) 74.7 % 06/25/21 03:57 Lymph % (Auto) 18.6 % 06/25/21 03:57 [place] % (Auto) 6.0 % 06/25/21 03:57 Eos % (Auto) 0.0 % 06/25/21 03:57 Baso % (Auto) 0.1 % 06/25/21 03:57 Neut # (Auto) 7.66 10^3/uL (1.8-7.7) 06/25/21 03:57 Lymph # (Auto) 1.9 10^3/uL (0.8-4.8) 06/25/21 03:57 [place] # (Auto) 0.6 10^3/uL (0.2-0.9) 06/25/21 03:57 Eos # (Auto) 0.0 10^3/uL (0.0-0.8) 06/25/21 03:57 Baso # (Auto) 0.0 10^3/uL (0.0-0.1) 06/25/21 03:57 Nucleated RBC % (auto) 0 % 06/25/21 03:57 Total Counted Not Reportable 06/24/21 11:30 Nucleated RBCs # 0.0 /100WBC 06/25/21 03:57 PT 14.40 SECONDS (12.1-14.9) 06/24/21 09:40 INR 1.08 (0.8-1.2) 06/24/21 09:40 APTT 33.5 SECONDS (23.9-36.7) 06/21/21 04:53 D-Dimer 1.19 ug/mIFEU (0-0.59) H 06/20/21 20:28 Specimen Type Arterial 06/22/21 07:00 Sample Site Radial, right 06/22/21 07:00 ABG pH 7.45 (7.35-7.45) 06/22/21 07:00 ABG pCO2 31.9 mmHg (35-45) L 06/22/21 07:00 ABG pO2 174.0 mmHg (80.0-100.0) H 06/22/21 07:00 ABG HCO3 22.4 mmol/L (22-26) 06/22/21 07:00 ABG O2 Saturation > 100.0 06/22/21 07:00 ABG Base Excess -1.0 mmol/L (-2.0-2.0) 06/22/21 07:00 Guy Test Pos 06/22/21 07:00 A-a O2 Gradient 63.3 mmHg (5-10) H 06/22/21 07:00 Hematocrit 32.4 % (42-52) L 06/22/21 07:00 Hgb O2 Saturation 99.3 % (95-100) 06/22/21 07:00 Carboxyhemoglobin 0.6 %THgb (0.4-20.1) 06/22/21 07:00 Methemoglobin 0.3 % (0.4-1.5) L 06/22/21 07:00 Total Hemoglobin 10.6 g/dL (14-18) L 06/22/21 07:00 Sodium 132.0 mmol/L (131-143) 06/22/21 07:00 Potassium 3.7 mmol/L (3.5-5.0) 06/22/21 07:00 Glucose 146.0 mg/dL (70-115) H 06/22/21 07:00 Ionized Calcium 1.2 mmol/L (1.1-1.4) 06/22/21 07:00 O2 Delivery Device Bipap 06/22/21 07:00 O2 Liters/Min 8.0 % 06/22/21 04:05 FiO2 100.0 % 06/22/21 07:00 Child Life Specialist ID [place] 06/22/21 07:00 Sodium 136 mmol/L (136-145) 06/25/21 03:57 Potassium 3.4 mmol/L (3.5-5.1) L 06/25/21 03:57 Chloride 100 mmol/L (98-107) 06/25/21 03:57 Carbon Dioxide 28 mmol/L (22-29) 06/25/21 03:57 Anion Gap 11.4 (5-19) 06/25/21 03:57 BUN 9 mg/dL (8-23) 06/25/21 03:57 Creatinine 0.5 mg/dL (0.7-1.2) L 06/25/21 03:57 GFR Calculation 166.9 mL/min (90-130) H 06/25/21 03:57 Glucose 94 mg/dL (65-115) 06/25/21 03:57 POC Glucose 145 mg/dL (70-110) H 06/23/21 20:34 Calculated Osmolality 280 mOsm/kg (285-295) L 06/25/21 03:57 Calcium 8.1 mg/dL (8.5-10.5) L 06/25/21 03:57 Magnesium 1.7 mg/dL (1.7-2.3) 06/21/21 04:53 Iron 47 ug/dL (59-158) L 06/21/21 04:53 TIBC 63.64863 mcg/dl 06/21/21 04:53 % Saturation 73.0 % (20-50) H 06/21/21 04:53 Unsat Iron Binding < 17 ug/dL (112-347) L 06/21/21 04:53 Ferritin 1248 ng/mL (30-400) H 06/21/21 04:53 Total Bilirubin 0.3 mg/dL (0.15-1.2) 06/21/21 04:53 AST 30 U/L (0-40) 06/21/21 04:53 ALT 22 U/L (0-41) 06/21/21 04:53 Alkaline Phosphatase 366 IU/L (40-130) H 06/21/21 04:53 Lactate Dehydrogenase 242 U/L (135-225) H 06/24/21 09:40 Troponin T Baseline 38 ng/L (0-15) H 06/20/21 20:28 Troponin T 120 Minute 30.68 ng/L (0-15) H 06/20/21 22:28 Delta Troponin T -7.32 ABS# (0-10) L 06/20/21 22:28 Troponin T Hi Sens 6Hr 24.43 ng/L (0-15) H 06/21/21 02:33 Troponin T Hi Sens 6Hr Delta -13.57 ng/L (0-12) L 06/21/21 02:33 NT-Pro-B Natriuret Pep 855 pg/mL (0-125) H 06/20/21 20:28 Total Protein 5.8 g/dL (6.6-8.7) L D 06/21/21 04:53 Albumin 2.0 g/dL (3.5-5.2) L 06/21/21 04:53 Globulin 3.8 g/dL (1.3-4.6) 06/21/21 04:53 Triglycerides 88 mg/dL (0-150) 06/21/21 04:53 Cholesterol 118 mg/dL (0-200) 06/21/21 04:53 LDL Cholesterol, Calc 51 mg/dL (50-129) 06/21/21 04:53 HDL Cholesterol 49 mg/dL (60-100) L 06/21/21 04:53 LDL/HDL Ratio 1.04 RATIO (0.00-3.22) 06/21/21 04:53 Cholesterol/HDL Ratio 2.41 mg/dL (1.0-5.00) 06/21/21 04:53 Lipase 22 U/L (13-60) 06/20/21 20:28 Vitamin B12 > 2000 pg/mL (232-1245) H 06/21/21 04:53 Folate 19.0 ng/mL (4.5-32.2) 06/21/21 04:53 TSH 5.32 uIU/mL (0.27-4.20) H 06/21/21 04:53 Free T4 0.76 ng/dL (0.82-1.77) L 06/21/21 04:53 Random Cortisol 26.18 ug/dL (2.47-19.5) H 06/23/21 09:35 Urine Color Yellow (Yellow) 06/21/21 19:36 Urine Appearance Clear (CLEAR) 06/21/21 19:36 Urine pH 5 (5-7) 06/21/21 19:36 Ur Specific [place] 1.010 (1.005-1.030) 06/21/21 19:36 Urine Protein Trace (Negative) 06/21/21 19:36 Urine Glucose (UA) Norm (Normal) 06/21/21 19:36 Urine Ketones Negative (Negative) 06/21/21 19:36 Urine Blood Neg (Negative) 06/21/21 19:36 Urine Nitrate Negative (Negative) 06/21/21 19:36 Urine Bilirubin Neg (Negative) 06/21/21 19:36 Urine Urobilinogen Neg mg/dL (Negative) 06/21/21 19:36 Ur Leukocyte Esterase Negative (Negative) 06/21/21 19:36 Urine RBC None /hpf (0-2) 06/21/21 19:36 Urine WBC None /hpf (0-5) 06/21/21 19:36 Ur Squamous Epith Cells None /hpf (0-5) 06/21/21 19:36 Calcium Oxalate Crystal >100 /hpf H 06/21/21 19:36 Amorphous Sediment Not Reportable 06/21/21 19:36 Urine Bacteria None /hpf (NONE) 06/21/21 19:36 Pleural Color Pale yellow (Pale Yellow) 06/24/21 11:30 Pleural Appearance Clear (CLEAR) 06/24/21 11:30 Pleural pH 8.00 (6.5-7.5) H 06/24/21 11:30 Pleural WBC 181.000 /uL (0-1000) 06/24/21 11:30 Pleural RBC 1.000 10^3/uL 06/24/21 11:30 Pleural Other Cells Not Reportable 06/24/21 11:30 Pleural Polynuclear % 24 % 06/24/21 11:30 Pleural Mononuclear % 76 % 06/24/21 11:30 Pleural Total Protein 1.2 g/dL 06/24/21 11:30 Pleural LDH 84 U/L 06/24/21 11:30 Pleural Glucose 100.0 mg/dL 06/24/21 11:30 Path Cons w/Slide No 06/24/21 11:30 Micro: Microbiology 06/24/21 11:30 Gram Stain - Final Pleural Fluid Body Fluid Culture - Preliminary 06/20/21 23:43 Blood Culture - Final Blood NO GROWTH AFTER 5 DAYS 06/20/21 23:39 Blood Culture - Final Blood NO GROWTH AFTER 5 DAYS CXR: Radiologist's impression: Chest x-ray from 06/24/2021 1.? Post RIGHT thoracentesis. Improved RIGHT pleural effusion. No pneumothorax. 2.? Volume loss RIGHT lung with elevation RIGHT hemidiaphragm. 3.? Diffuse bilateral interstitial infiltrates/edema have improved compared to June 22, 2021. 4.? Stable cardiomegaly. ? A&P Assessment and plan (1) Acute on chronic diastolic (congestive) heart failure: The dose of the lisinopril changed to Lasix 40 mg p.o. daily with potassium 20 mg p.o. daily. Status: Acute (2) Chest pain: Patient has no recurrence of chest pain. At this point, he may not require any further investigations. The perfusion scan was unremarkable. This was discussed with the patient. Status: Acute (3) Pericardial effusion: The pericardial effusion appears to be small. He may have a small area of loculated effusion anteriorly. Etiology is not clear. Most likely he may have underlying pneumonia causing sympathetic effusion. He also has e evidence of diastolic heart failure. Status: Acute (4) COPD (chronic obstructive pulmonary disease): On bronchodilator treatment. Seems to be responding appropriately. Status: Acute (5) Carotid artery occlusion without infarction: This appears to be chronic. May continue on the current treatment measures. Status: Acute (6) Pneumonia: On IV antibiotics. Management as per the primary service. Status: Acute (7) Pleural effusion: Status post thoracentesis. May continue on the current management. Chest x-ray report as mentioned above Status: Acute Plan Other problems are Mild hypokalemia Altered mental status, clinically seems to be improving Anemia Weight loss-etiology? Anorexia Leukocytosis possibly from pneumonia I may increase the potassium to 30 mg p.o. daily. May continue on the other current medications. Attestations Medical Necessity Statement*: Disposition as per the primary Coding Level of Care Code Acute [employer] for Chg Fwd History Detailed Exam Detailed Medical Decision Making Moderate Complexity Diagnoses Acute on chronic diastolic (congestive) heart failure I50.33 Chest pain R07.9 Pericardial effusion I31.3 COPD (chronic obstructive pulmonary disease) J44.9 Carotid artery occlusion without infarction I65.29 Pneumonia J18.9 Pleural effusion J90
[2021-06-26] MEDS: mirtazapine 15 mg Tablet 30 MG PO (21:17)
[2021-06-26] MEDS: atorvastatin 40 mg Tablet 20 MG PO (21:17)
[2021-06-26] MEDS: cefTRIAXone 1,000 MG in sodium chloride 0.9% (plus) 50 ML 100 MG IV (23:58)
[2021-06-27] VITALS (7 sets, daily range): BP systolic 104–159; BP diastolic 64–97; PULSE 69–95; RESP 16–20; TEMP 36.5–37.1; O2SAT 88–100
--- NOTE | 2021-06-27 05:00 | XRR_ITS ---
PROCEDURE INFORMATION: Exam: XR Chest Exam date and time: 06/27/2021 5:25 AM Age: 66 years old Clinical indication: Condition or disease; Lung condition and disease; Pleural effusion; Other: Not specified; Shortness of breath; Additional info: B/l diffusion TECHNIQUE: Imaging protocol: XR of the chest. Views: 1 view. COMPARISON: CR XR chest 1V portable [id number] 06/24/2021 11:27 AM FINDINGS: Lungs: Moderate right basilar airspace opacity (atelectasis and/or consolidation), similar to prior study. Moderate interstitial opacities throughout both lungs, similar prior study. These may represent any combination of chronic scarring and pulmonary vascular congestion. Pleural spaces: No visible pneumothorax. Moderate right pleural effusion, similar to prior study. Heart/Mediastinum: Heart size within normal limits. Bones/joints: No emergent findings identified. XR/XR chest 1V portable [id number] IMPRESSION: 1. Moderate right basilar airspace opacity (atelectasis and/or consolidation), similar to prior study. 2. Moderate interstitial opacities throughout both lungs, similar prior study. These may represent any combination of chronic scarring and pulmonary vascular congestion. 3. Moderate right pleural effusion, similar to prior study.
--- NOTE | 2021-06-27 06:05 | PC.NURSE ---
PATIENT ENCOURAGED TO GET OUT OF BED THIS MORNING FOR BREAKFAST. PATIENT STATED HE WANTED TO STAY IN BED. EDUCATED ON IMPORTANCE OF POSITION CHANGES. VERBALIZED UNDERSTANDING BUT STILL WANTED TO STAY IN BED FOR A BIT.
[2021-06-27] MEDS: ipratropium-albuterol 3 mL Neb INHALATION (08:01)
--- NOTE | 2021-06-27 10:12 | PM.DCS ---
Discharge Providers Date of Admission: 06/21/21 01:11 Date of Discharge: June 27, 2021 Attending Provider at Admission: Demario Hernandez DO Attending Provider at Discharge: Rashad Pretty MD Primary Care Provider: Bri Fernandez MD Diagnoses at Discharge Discharge Diagnosis (1) Acute on chronic diastolic (congestive) heart failure: Status: Acute (2) Chest pain: Status: Acute (3) Pericardial effusion: Status: Acute (4) COPD (chronic obstructive pulmonary disease): Status: Acute (5) Carotid artery occlusion without infarction: Status: Acute (6) Pneumonia: Status: Acute (7) Pleural effusion: Status: Acute Reason for Visit Reason for Visit: syncope Hospital Course Hospital Course 66-year-old male with past medical history of COPD , hypertension , depression, seizure disorder, TIA, legally blind, initially admitted for management work-up of chest pain , TIA , pneumonia. During this hospital stay he was managed for: Noncardiac chest pain: Nuclear stress test: Normal Troponin trend without significant delta EKG no acute ST-T wave change 2D echo:?Moderate loculated, possibly exudative pericardial effusion anteriorly. Normal LV size ejection fraction of around 55%. Patient was initially started on ACS protocol, which has been discontinued. He was also managed for possible TIA less likely as when he became temporarily nonverbal and he was unable to open his eyes , he had just received second dose of nitro which likely made him hypotensive. Transient hypoperfusion to central nervous system.CT head without contrast: No acute intracranial pathology, CTA head and neck:Occluded right ICA at its origin secondary to calcified atherosclerotic.? No change from prior studies. Mild stenosis at proximal left ICA secondary to calcified atherosclerotic plaque. MR head wo con: Remote RIGHT frontal lobe infarct with encephalomalacia. PT was on board, patient continued to work with physical therapy, he has significant generalized weakness at baseline mostly uses wheelchair at home. Patient was also managed for decompensated heart failure with preserved ejection fraction: He was continued on Lasix 20 mg IV twice daily, to which he responded well, he was euvolemic at the time of discharge, he was discharged on 20 mg p.o. Lasix as well as oral potassium, he was also managed for pneumonia for which he was on antibiotics, blood culture was negative, for his bilateral pleural effusion, left greater than right secondary to Decompensated heart failure, hypoalbuminemia he underwent left-sided thoracentesis, with removal of 800 cc transudative pleural fluid.Pleural fluid culture was negative.Small/ Moderate loculated pericardial effusion:No acute intervention, will avoid Repeat echo as an outpatient.Hyponatremia responded well to IV diuresis as well as Gentle IV hydration. He was managed for orthostatic hypotension initially he had to be kept on: Midodrine, orthostatic vital signs were monitored, IV hydration was continued, likely orthostatic vital signs were negative. He was continued to be managed for his other comorbid condition. Patient was offered to go to senior living given his significant physical deconditioning, but he as well as his caregiver denied going to senior living, he was discharged home in stable condition. Physical Exam Const: COMMON NORMALS: patient oriented x3 HENMT: COMMON NORMALS: normocephalic and atraumatic HEAD & SCALP: normocephalic and atraumatic Eye: GENERAL EYE: appearance normal, both eyes and all related structures Chest: CHEST: Yes Symmetrical chest wall rise Resp: EFFORT & INSPECTION: Yes symmetric chest movement OTHER: Diminished air entry at bases Cardio: COMMON NORMALS: regular rate, regular rhythm, S1 normal heart sound present, S2 normal heart sound present, No gallops present (Cardio), No murmurs present (Cardio), No rub (Cardio) and Peripheral pulses 2+ throughout RATE: regular rate RHYTHM: regular rhythm HEART SOUNDS: S1 normal heart sound present and S2 normal heart sound present PERIPHERAL PULSES: Peripheral pulses 2+ throughout GI: COMMON NORMALS: Normal to inspection, nondistended, normoactive bowel sounds present, Soft to palpation, non-tender, No hepatosplenomegaly present and no masses AUSCULTATION: Yes normoactive bowel sounds PALPATION: Yes Soft to palpation and Yes No hepatosplenomegaly present RECTAL EXAM: Yes deferred Extremity: COMMON NORMALS: no clubbing, cyanosis or edema and no pedal edema Neuro: COMMON NORMALS: patient oriented x3 Urinary Catheter Management: Jackson: Cath Placed During This Visit: yes Reason for Continuing Indwelling Catheter: Other Urinary Catheter Date of Insertion: 06/22/21 Urinary Catheter Time of Insertion: 14:50 Discharge Data Studies Completed and Pending Completed Studies During Hospitalization Category Date Time Status CT head wo con* [id number] Urgent Cat Scan 06/20/21 20:59 Completed CTA chest [CT angio chest PE protcl [id number]] Urgent Cat Scan 06/20/21 21:33 Completed CTA head neck [CT angio headneck* [id number]] Routine Cat Scan 06/21/21 03:04 Completed CXRP [XR chest 1V portable [id number]] Routine Exams 06/24/21 11:14 Completed CXRP [XR chest 1V portable [id number]] Stat Exams 06/22/21 04:03 Completed XR chest 1V portable [id number] Routine Exams 06/27/21 05:00 Completed XR chest 1V portable [id number] Urgent Exams 06/20/21 20:38 Completed MR head wo con* [id number] Routine MRI 06/21/21 03:04 Completed NM margo perf SPECT r/s* [id number] Routine Nuc Med 06/21/21 03:04 Completed CV. echo limited [id number] Urgent Ultrasound 06/20/21 21:17 Completed US chest [id number] Routine Ultrasound 06/23/21 02:14 Completed US thoracentesis [id number] Routine Ultrasound 06/24/21 11:00 Completed Pending at discharge Category Date Time Status Sestamibi Stress Test Request Routine Exams 06/22/21 06:00 Ordered ABG FULL [Arterial Blood Gas Full] Stat Lab 06/22/21 04:17 Stop Req Fecal Occult Blood [Immunochemical Fecal OCB] Routine Lab 06/21/21 03:04 Uncollected UA w/Reflex to Microscope [Urinalysis] Stat Lab 06/20/21 20:59 Uncollected Radiology Impressions Head CT 06/20/21 20:59 IMPRESSION: 1. No acute intracranial abnormality. 2. Persistent left ocular hemorrhage Chest CTA 06/20/21 21:33 IMPRESSION: 1. Negative for pulmonary embolus. 2. Small to moderate bilateral pleural effusions. 3. Emphysematous changes. 4. Patchy bilateral dependent airspace infiltrates. 5. Several likely chronic vertebral body compression fractures in the lower thoracic/upper lumbar spine. 6. Left posterior 12th rib chronic appearing fracture. 7. Coronary artery atherosclerotic calcifications. 8. Small pericardial effusion measuring up to 16 mm in diameter. Head MRI 06/21/21 03:04 IMPRESSION: 1. Quality of this examination significantly degraded by motion artifact. 2. Remote RIGHT frontal lobe infarct with encephalomalacia. 3. No acute diffusion-weighted abnormalities identified. Small infarct would easily be obscured. 4. Mild to moderate chronic small vessel ischemic disease and atrophy. Head/Neck CTA 06/21/21 03:04 IMPRESSION: 1. Occluded right ICA with reconstitution of flow within the right AMINTA and MCA through patent anterior communicating artery and superficial cerebral arteries. 2. Global brain atrophy and chronic white matter ischemic changes are present. Area of encephalomalacia in the right frontal lobe unchanged. IMPRESSION: 1. Diffusely small caliber bilateral CCA. 2. Occluded right ICA at its origin secondary to calcified atherosclerotic plaque. 3. Mild stenosis at proximal left ICA secondary to calcified atherosclerotic plaque. 4. Severe centrilobular emphysematous changes are present. 5. Small bilateral pleural effusions with compressive atelectasis. REFERENCES: NASCET CRITERIA. The degree of internal carotid artery stenosis is based on NASCET criteria. Normal is no stenosis. Mild is less than 50% stenosis. Moderate is 50-69% stenosis. Severe is 70% to 99% stenosis. Total occlusion is no detectable patent lumen. Chest Ultrasound 06/23/21 02:14 IMPRESSION: Moderate LEFT and small RIGHT pleural effusions Thoracentesis Ultrasound 06/24/21 11:00 IMPRESSION: 1. Uncomplicated ultrasound-guided LEFT thoracentesis. 2. No pneumothorax on the postthoracentesis radiograph Chest X-Ray 06/27/21 05:00 IMPRESSION: 1. Moderate right basilar airspace opacity (atelectasis and/or consolidation), similar to prior study. 2. Moderate interstitial opacities throughout both lungs, similar prior study. These may represent any combination of chronic scarring and pulmonary vascular congestion. 3. Moderate right pleural effusion, similar to prior study. Laboratory Results WBC 10.3 10^3/uL (4.0-10.0) H 06/25/21 03:57 RBC 2.77 10^6/uL (4.1-5.3) L 06/25/21 03:57 Hgb 8.8 g/dL (11.7-16.6) L 06/25/21 03:57 Hct 26.1 % (42.0-52.0) L 06/25/21 03:57 MCV 94.2 fl (80-94) H 06/25/21 03:57 MCH 31.8 pg (28.0-34.0) 06/25/21 03:57 MCHC 33.7 g/dL (30.0-36.0) 06/25/21 03:57 RDW 14.9 % (12.1-15.1) 06/25/21 03:57 Plt Count 345 10^3/cmm (130-400) 06/25/21 03:57 MPV 11.1 fL (7.4-10.4) H 06/25/21 03:57 Neut % (Auto) 74.7 % 06/25/21 03:57 Lymph % (Auto) 18.6 % 06/25/21 03:57 Cecil % (Auto) 6.0 % 06/25/21 03:57 Eos % (Auto) 0.0 % 06/25/21 03:57 Baso % (Auto) 0.1 % 06/25/21 03:57 Neut # (Auto) 7.66 10^3/uL (1.8-7.7) 06/25/21 03:57 Lymph # (Auto) 1.9 10^3/uL (0.8-4.8) 06/25/21 03:57 Cecil # (Auto) 0.6 10^3/uL (0.2-0.9) 06/25/21 03:57 Eos # (Auto) 0.0 10^3/uL (0.0-0.8) 06/25/21 03:57 Baso # (Auto) 0.0 10^3/uL (0.0-0.1) 06/25/21 03:57 Nucleated RBC % (auto) 0 % 06/25/21 03:57 Total Counted Not Reportable 06/24/21 11:30 Nucleated RBCs # 0.0 /100WBC 06/25/21 03:57 PT 14.40 SECONDS (12.1-14.9) 06/24/21 09:40 INR 1.08 (0.8-1.2) 06/24/21 09:40 APTT 33.5 SECONDS (23.9-36.7) 06/21/21 04:53 D-Dimer 1.19 ug/mIFEU (0-0.59) H 06/20/21 20:28 Specimen Type Arterial 06/22/21 07:00 Sample Site Radial, right 06/22/21 07:00 ABG pH 7.45 (7.35-7.45) 06/22/21 07:00 ABG pCO2 31.9 mmHg (35-45) L 06/22/21 07:00 ABG pO2 174.0 mmHg (80.0-100.0) H 06/22/21 07:00 ABG HCO3 22.4 mmol/L (22-26) 06/22/21 07:00 ABG O2 Saturation > 100.0 06/22/21 07:00 ABG Base Excess -1.0 mmol/L (-2.0-2.0) 06/22/21 07:00 Guy Test Pos 06/22/21 07:00 A-a O2 Gradient 63.3 mmHg (5-10) H 06/22/21 07:00 Hematocrit 32.4 % (42-52) L 06/22/21 07:00 Hgb O2 Saturation 99.3 % (95-100) 06/22/21 07:00 Carboxyhemoglobin 0.6 %THgb (0.4-20.1) 06/22/21 07:00 Methemoglobin 0.3 % (0.4-1.5) L 06/22/21 07:00 Total Hemoglobin 10.6 g/dL (14-18) L 06/22/21 07:00 Sodium 132.0 mmol/L (131-143) 06/22/21 07:00 Potassium 3.7 mmol/L (3.5-5.0) 06/22/21 07:00 Glucose 146.0 mg/dL (70-115) H 06/22/21 07:00 Ionized Calcium 1.2 mmol/L (1.1-1.4) 06/22/21 07:00 O2 Delivery Device Bipap 06/22/21 07:00 O2 Liters/Min 8.0 % 06/22/21 04:05 FiO2 100.0 % 06/22/21 07:00 Construction Representative ID Monro 06/22/21 07:00 Sodium 136 mmol/L (136-145) 06/25/21 03:57 Potassium 3.4 mmol/L (3.5-5.1) L 06/25/21 03:57 Chloride 100 mmol/L (98-107) 06/25/21 03:57 Carbon Dioxide 28 mmol/L (22-29) 06/25/21 03:57 Anion Gap 11.4 (5-19) 06/25/21 03:57 BUN 9 mg/dL (8-23) 06/25/21 03:57 Creatinine 0.5 mg/dL (0.7-1.2) L 06/25/21 03:57 GFR Calculation 166.9 mL/min (90-130) H 06/25/21 03:57 Glucose 94 mg/dL (65-115) 06/25/21 03:57 POC Glucose 145 mg/dL (70-110) H 06/23/21 20:34 Calculated Osmolality 280 mOsm/kg (285-295) L 06/25/21 03:57 Calcium 8.1 mg/dL (8.5-10.5) L 06/25/21 03:57 Magnesium 1.7 mg/dL (1.7-2.3) 06/21/21 04:53 Iron 47 ug/dL (59-158) L 06/21/21 04:53 TIBC 63.99822 mcg/dl 06/21/21 04:53 % Saturation 73.0 % (20-50) H 06/21/21 04:53 Unsat Iron Binding < 17 ug/dL (112-347) L 06/21/21 04:53 Ferritin 1248 ng/mL (30-400) H 06/21/21 04:53 Total Bilirubin 0.3 mg/dL (0.15-1.2) 06/21/21 04:53 AST 30 U/L (0-40) 06/21/21 04:53 ALT 22 U/L (0-41) 06/21/21 04:53 Alkaline Phosphatase 366 IU/L (40-130) H 06/21/21 04:53 Lactate Dehydrogenase 242 U/L (135-225) H 06/24/21 09:40 Troponin T Baseline 38 ng/L (0-15) H 06/20/21 20:28 Troponin T 120 Minute 30.68 ng/L (0-15) H 06/20/21 22:28 Delta Troponin T -7.32 ABS# (0-10) L 06/20/21 22:28 Troponin T Hi Sens 6Hr 24.43 ng/L (0-15) H 06/21/21 02:33 Troponin T Hi Sens 6Hr Delta -13.57 ng/L (0-12) L 06/21/21 02:33 NT-Pro-B Natriuret Pep 855 pg/mL (0-125) H 06/20/21 20:28 Total Protein 5.8 g/dL (6.6-8.7) L D 06/21/21 04:53 Albumin 2.0 g/dL (3.5-5.2) L 06/21/21 04:53 Globulin 3.8 g/dL (1.3-4.6) 06/21/21 04:53 Triglycerides 88 mg/dL (0-150) 06/21/21 04:53 Cholesterol 118 mg/dL (0-200) 06/21/21 04:53 LDL Cholesterol, Calc 51 mg/dL (50-129) 06/21/21 04:53 HDL Cholesterol 49 mg/dL (60-100) L 06/21/21 04:53 LDL/HDL Ratio 1.04 RATIO (0.00-3.22) 06/21/21 04:53 Cholesterol/HDL Ratio 2.41 mg/dL (1.0-5.00) 06/21/21 04:53 Lipase 22 U/L (13-60) 06/20/21 20:28 Vitamin B12 > 2000 pg/mL (232-1245) H 06/21/21 04:53 Folate 19.0 ng/mL (4.5-32.2) 06/21/21 04:53 TSH 5.32 uIU/mL (0.27-4.20) H 06/21/21 04:53 Free T4 0.76 ng/dL (0.82-1.77) L 06/21/21 04:53 Random Cortisol 26.18 ug/dL (2.47-19.5) H 06/23/21 09:35 Urine Color Yellow (Yellow) 06/21/21 19:36 Urine Appearance Clear (CLEAR) 06/21/21 19:36 Urine pH 5 (5-7) 06/21/21 19:36 Ur Specific Roosevelt 1.010 (1.005-1.030) 06/21/21 19:36 Urine Protein Trace (Negative) 06/21/21 19:36 Urine Glucose (UA) Norm (Normal) 06/21/21 19:36 Urine Ketones Negative (Negative) 06/21/21 19:36 Urine Blood Neg (Negative) 06/21/21 19:36 Urine Nitrate Negative (Negative) 06/21/21 19:36 Urine Bilirubin Neg (Negative) 06/21/21 19:36 Urine Urobilinogen Neg mg/dL (Negative) 06/21/21 19:36 Ur Leukocyte Esterase Negative (Negative) 06/21/21 19:36 Urine RBC None /hpf (0-2) 06/21/21 19:36 Urine WBC None /hpf (0-5) 06/21/21 19:36 Ur Squamous Epith Cells None /hpf (0-5) 06/21/21 19:36 Calcium Oxalate Crystal >100 /hpf H 06/21/21 19:36 Amorphous Sediment Not Reportable 06/21/21 19:36 Urine Bacteria None /hpf (NONE) 06/21/21 19:36 Pleural Color Pale yellow (Pale Yellow) 06/24/21 11:30 Pleural Appearance Clear (CLEAR) 06/24/21 11:30 Pleural pH 8.00 (6.5-7.5) H 06/24/21 11:30 Pleural WBC 181.000 /uL (0-1000) 06/24/21 11:30 Pleural RBC 1.000 10^3/uL 06/24/21 11:30 Pleural Other Cells Not Reportable 06/24/21 11:30 Pleural Polynuclear % 24 % 06/24/21 11:30 Pleural Mononuclear % 76 % 06/24/21 11:30 Pleural Total Protein 1.2 g/dL 06/24/21 11:30 Pleural LDH 84 U/L 06/24/21 11:30 Pleural Glucose 100.0 mg/dL 06/24/21 11:30 Path Cons w/Slide No 06/24/21 11:30 Vitals Last Vital Signs Temp 97.7 F 06/27/21 07:52 Pulse 78 06/27/21 08:01 Resp 16 06/27/21 08:01 BP 159/97 06/27/21 07:52 Pulse Ox 100 06/27/21 08:01 Discharge Plan Discharge Patient Disposition: Home Condition: Stable Prescriptions: New Lasix 20 mg tablet 20 mg PO DAILY Qty: 30 2RF Klor-Con 10 10 mEq tablet extended release 10 meq PO BID Qty: 60 0RF Continued aspirin 81 mg tablet,delayed release (DR/EC) 81 mg PO DAILY 0RF nitroglycerin 0.4 mg tablet, sublingual 0.4 mg SUBLINGUAL Q5M PRN (Reason: Chest Pain) 0RF multivitamin Tablet 1 tab PO DAILY 0RF mirtazapine 15 mg tablet 30 mg PO BEDTIME 0RF epinephrine 0.3 mg/0.3 mL auto-injector 0.3 mg IM Q10M PRN (Reason: Allergic Reaction) 0RF Rx Instructions: for 2 doses levetiracetam [Keppra] 1,000 mg tablet 1,000 mg PO BID Qty: 60 5RF Anoro Ellipta 62.5-25 mcg/actuation blister with device 1 inh inhalation DAILY 30 Days Qty: 60 4RF diphenhydramine HCl [Benadryl] 25 mg Capsule 25 mg PO DAILY PRN (Reason: Allergic Reaction) 0RF lisinopril 10 mg tablet 15 mg PO DAILY 0RF ibuprofen 200 mg Tablet 200 mg PO Q6H PRN (Reason: Pain) 0RF albuterol sulfate 90 mcg/actuation Hfa Aerosol Inhaler 1 inh INHALATION QID PRN (Reason: Shortness Of Breath) 0RF omeprazole 20 mg Tablet,Delayed Release (Dr/Ec) 20 mg PO BID 0RF melatonin 5 mg Tablet 5 mg PO BEDTIME 0RF cholecalciferol (vitamin D3) [Vitamin D3] 50 mcg (2,000 unit) Tablet 50 mcg PO DAILY 0RF venlafaxine 37.5 mg capsule,extended release 24hr 37.5 mg PO DAILY 0RF tamsulosin 0.4 mg capsule 0.4 mg PO DAILY 0RF vitamin B complex Tablet 1 tab PO DAILY 0RF ferrous sulfate 27 mg iron Tablet 27 mg PO DAILY 0RF Discharge Orders: Discharge Order (Routine); Ordered 06/27/21 Ordered By: Rashad Pretty Referrals: [facility] ([facility]) [Outside] Bri Fernandez MD [Primary Care Provider] - 06/28/21 10:15 am Narinder Sweeney MD [Physician] - 08/11/21 9:45 am () Georgiana Conteh FNP [Nurse Practitioner] - 07/11/21 10:45 am () Patient Instructions: Furosemide (By mouth) (Lasix), Potassium Chloride (By mouth) (K-Dur, K-Adri, K-Tab, Joe Mur), CHF Stoplight, Chest Pain Stoplight, Opioid Safety, Pneumonia Stoplight Discharge Attestations Time Spent in Discharge Care*: greater than 30 min Specific Discharge Activities: educating patient, educating and/or supporting family/caregiver, discussing with pcp/other providers, discussing with case fitter/social workers/dc planners, documenting/other paperwork and evaluating patient/reviewing data Quality Metrics Clinical Quality Measures [ No reported AMI, CVA or VTE this stay] Coding Level of Care Code Acute Chg FW DC note Exam Comprehensive Diagnoses Acute on chronic diastolic (congestive) heart failure I50.33 Chest pain R07.9 Pericardial effusion I31.3 COPD (chronic obstructive pulmonary disease) J44.9 Carotid artery occlusion without infarction I65.29 Pneumonia J18.9 Pleural effusion J90
[2021-06-27] MEDS: levETIRAcetam 500 mg Tablet 1000 MG PO (10:14)
[2021-06-27] MEDS: FUROsemide 20 mg Tablet PO (10:15)
[2021-06-27] MEDS: potassium chloride ER 10 mEq Tablet PO (10:15)
[2021-06-27] MEDS: pantoprazole DR 40 mg Tablet PO (10:15)
[2021-06-27] MEDS: aspirin 81 mg EC Tablet PO (10:16)
[2021-06-27] MEDS: venlafaxine ER (24HR) 37.5 mg Capsule PO (10:16)
--- NOTE | 2021-06-27 14:39 | PC.NURSE ---
NUrse discharged patient. Removed IVs, removed Ward catheter. Reviewed new medications and appointments with wire lather Bunny Perez. Patient did have difficulties form the bed to the wheelchair. Nurse questioned wire lather about this and bunny said that he normally is weak and has difficulties transferring, but not this much, however, she is comfortable with the level of support he needs and can take care of him. WHen out to the car, patient was again having difficulties transferring and nurse asked again if Bunny was comfortable caring for him and she said yes. Nurse encouraged Bunny to call back in for assistance if she feels the need to. Bunny also said that even if he is requiring more work then anticipated, he does not want to stay at the hospital and wants to go home.
== END 2021-06-27 14:45 | disposition home health service (06) | DRG 193 ==
LOC: ER 06-21 02:00 → MEDSURG 06-21 02:09
PROVIDERS: Emergency Medicine; Admitting Provider Internal Medicine; Emergency Provider Emergency Medicine; PCP Family Medicine; Visit Provider Internal Medicine
DX: J18.9 Pneumonia, unspecified organism (principal); I50.33 Acute on chronic diastolic (congestive) heart failure; I31.3 Pericardial effusion (noninflammatory); E87.1 Hypo-osmolality and hyponatremia; J90 Pleural effusion, not elsewhere classified; R07.89 Other chest pain; I11.0 Hypertensive heart disease with heart failure; F17.290 Nicotine dependence, other tobacco product, uncomplicated; J43.9 Emphysema, unspecified; F32.A Depression, unspecified; K70.30 Alcoholic cirrhosis of liver without ascites; F10.10 Alcohol abuse, uncomplicated; I25.10 Atherosclerotic heart disease of native coronary artery without angina pectoris; H05.232 Hemorrhage of left orbit; I73.9 Peripheral vascular disease, unspecified; I65.21 Occlusion and stenosis of right carotid artery; K76.0 Fatty (change of) liver, not elsewhere classified; N40.0 Benign prostatic hyperplasia without lower urinary tract symptoms; Z79.82 Long term (current) use of aspirin; G40.909 Epilepsy, unspecified, not intractable, without status epilepticus; E03.9 Hypothyroidism, unspecified; R29.6 Repeated falls; H91.90 Unspecified hearing loss, unspecified ear; H54.8 Legal blindness, as defined in USA; Z86.73 Personal history of transient ischemic attack (TIA), and cerebral infarction without residual deficits; K21.9 Gastro-esophageal reflux disease without esophagitis; D64.9 Anemia, unspecified
CPT/HCPCS: 32555; 36415; 36416; 36600; 51702; 70450; 70496; 70498; 70551; 71045; 71275; 76604; 78452; 80048; 80051; 80053; 80061; 80503; 81001; 82330; 82533; 82607; 82728; 82746; 82805; 82945; 82962; 83540; 83550; 83615; 83690; 83735; 83880; 83986; 84157; 84439; 84443; 84484; 85025; 85378; 85610; 85730; 87040; 87070; 87075; 87205; 89050; 93005; 93017; 93308; 94640; 94660; 96365; 96367; 96372; 96375; 97161; 97530; 99285; A9500; J0456; J0696; J1644; J1650; J1940; J2270; J2785; J2920; J2930; J3480; J7030; J7040; J7050; P9047; Q9967

== ENCOUNTER 2021-07-03 18:42 | Emergency (ER) | payer MEDICARE, BC, SELFPAY ==
[2021-07-03] VITALS (15 sets, daily range): BP systolic 90–125; BP diastolic 54–85; PULSE 80–98; RESP 12–25; TEMP 37.2; O2SAT 93–100; BMI 16.6
--- NOTE | 2021-07-03 18:43 | W.ED.SOB ---
HPI - SOB/Dyspnea General: Chief Complaint: Shortness of Breath/Dyspnea Stated Complaint: DIFF BREATHING; AMS Time Seen by Provider: 07/03/21 18:43 History of Present Illness: HPI Narrative: Mr. Madera is a 66-year-old gentleman with complex past medical history including COPD with 2 L dependent chronic hypoxic respiratory failure, hypertension, hyperlipidemia, seizures, history of TIA presenting to the emergency department due to increased work of breathing. He was hospitalized and discharged on 06/27 and reports being improved after discharge however over the past day or so has had worsening symptoms. Yesterday he had increased congestion and may be a mild increase shortness of breath. Today he had more secretions and noted to have an event where he seemed to cough and be unable to get up the secretions. His caregiver gave him back slaps and push once on his abdomen in order to freeze of the secretions. He had slow dwindling of consciousness before improving. EMS found the patient with no focal new neurologic deficits and he is alert and oriented at time of arrival. Due to wheezes and decreased breath sounds he was given an inhaler with mild improvement. Overall intensity symptoms is moderate. Worse with exertion. Course has been worsening. No other specific changes in health, exacerbating, or alleviating factors identified. Onset (ago): hour(s) Timing: intermittent and progressively worsening Severity: moderate Exacerbating factors: exertion and coughing Relieving factors: oxygen Treatment prior to arrival: oxygen and bronchodilator Review of Systems General: Reports: 10 or more systems reviewed and unremarkable except in HPI and below PFSH ED PFSH: Medical History Acute on chronic diastolic (congestive) heart failure Blind Carotid artery disease Carotid artery occlusion without infarction Chest pain COPD (chronic obstructive pulmonary disease) Depression Elevated troponin Hypertension Hyponatremia Pericardial effusion Pleural effusion Pneumonia Surgical History H/O hernia repair Family History Denies family history of CAD (coronary artery disease) Cancer Social History Smoking and tobacco status: current every day smoker (switched to vaping) cigarettes Years cigarettes smoked: 40 [ Other cigarette details: Hx of 1 PPD x 40 Years] Smoking risk assessment/counseling performed?: Yes Alcohol intake: current Alcohol intake frequency: 3 or more drinks per day Alcohol type: beer Counseling given: Yes Counseling given: No Caregiver/support person: Yes Lives independently: Yes Household members: family Marital status: / Current occupational status: disabled History of recent travel: No Current gender identity: Male Physical Exam Const: COMMON NORMALS: alert GENERAL APPEARANCE: cooperative, well developed, ill appearing and frail appearing HENMT: COMMON NORMALS: normocephalic and atraumatic HEAD & SCALP: normocephalic and atraumatic Eye: COMMON NORMALS: conjunctivae normal CONJUNCTIVA: Yes conjunctivae normal SCLERA: sclerae normal Neck/C-Spine: COMMON NORMALS: supple GENERAL: Yes trachea midline Resp: EFFORT & INSPECTION: Yes able to speak in complete sentences, Yes tachypneic and Yes uses accessory muscles Cardio: COMMON NORMALS: regular rate and regular rhythm RATE: regular rate RHYTHM: regular rhythm GI: COMMON NORMALS: Soft to palpation PALPATION: Yes Soft to palpation and No Tenderness to palpation present (GI) PERCUSSION: normal to percussion Extremity: GENERAL: Yes normal exam except as noted and No edema Neuro: COMMON NORMALS: moves all extremities SENSORIUM/ORIENTATION: Yes alert and No Orientation impaired Psych: COMMON NORMALS: mental status grossly normal and Normal thought process present THOUGHT PROCESS: Normal thought process present Course ED course: - Patient was seen and evaluated by me at bedside - Patient placed on cardiac monitors, IV access obtained - Initial evaluation notable for exam as above - Labs and xrays personally interpreted by me. EKG from 1945 personally reviewed and notable for sinus rhythm. No STEMI. -Fluids, steroids, albuterol treatments ordered - Labs notable for no leukocytosis, near baseline macrocytic anemia. Metabolic panel with mild evidence of intravascular dehydration. Lactate is mildly elevated however I do believe that this is more related to volume status as opposed to other finding and did improve with repeat after fluids. Delta troponin is negative. Procalcitonin negative. Free T4 mildly low with elevated TSH though not in a range that would likely explain patient's symptoms. ABG with respiratory alkalosis. D-dimer elevated. - Imaging notable for bibasilar atelectasis versus infiltrate. CTA negative for PE and again noting questionable infiltrate. Additional findings discussed with patient. - Upon serial reexamination after treatment the patient was improved - Based on patient history, evaluation, and testing as interpreted the most likely cause of the patient's condition is exacerbation of COPD - The results of ED evaluation were discussed with the patient including possible disposition options. I offered admission though overall I believe that patient may not benefit from admission. Patient was comfortable with discharge. I discussed prescriptions and/or symptomatic cares (if applicable) including appropriate and responsible use, followup plan, and return precautions. The patient verbalized understanding and felt safe for discharge. - Patient discharged in satisfactory condition. Note: Click bubbles or prepopulated wade in note writing are used for assistance with data collection and billing and are inherently more limited than narrative and other text portions of this note. Please use narrative for additional clinical history and defer to narrative/free test for any case of contradictory information. If information appears in only free text or click bubble it should be considered present or absent as reported. Please contact note commercial underwriter for clarifications of clinical information or contradictory information. MDM is a brief summary, contradictory or erroneous seeming information should be clarified and full note should be reviewed. Vital Signs: Vital signs: Vital Signs Temperature 98.9 F 07/03/21 18:48 Pulse Rate 81 07/04/21 00:32 Respiratory Rate 17 07/04/21 00:32 Blood Pressure 111/68 07/04/21 00:32 Pulse Oximetry 93 07/04/21 00:32 MDM - SOB/Dyspnea Medical Decision Making 66-year-old gentleman presenting with shortness of breath. He is at baseline oxygen. Labs notable for likely mild intravascular depletion in the context of recent Lasix use which contributes to symptoms as well as exacerbation of underlying lung disease. Offered admission versus outpatient management. Patient comfortable with outpatient management with strict return cautions. Discharged in satisfactory condition. Medical Records I reviewed the patient's medical records. Lab Data I reviewed the patient's lab results. : 07/03/21 19:27 07/03/21 19:27 Labs/Radiology: Radiology Impressions Chest X-Ray 07/03/21 18:54 IMPRESSION: 1. Bibasilar atelectasis versus infiltrate. 2. Emphysematous changes. 3. Biapical pleuroparenchymal scarring suspected. Chest CTA 07/03/21 21:10 IMPRESSION: 1. Negative for pulmonary embolus. 2. Coronary artery atherosclerotic calcifications. 3. Emphysematous changes. 4. Bilateral dependent atelectasis versus infiltrate. 5. Small bilateral pleural effusions. 6. Scattered prominent subcentimeter mediastinal lymph nodes, nonspecific. 7. Pericardial effusion measuring up to 14 mm in thickness. 8. T12 and L1 vertebral body compression fractures with mild retropulsion of bony fragments resulting in mild spinal canal narrowing, likely chronic. Laboratory Results WBC 9.4 10^3/uL (4.0-10.0) 07/03/21 19: RBC 3.01 10^6/uL (4.1-5.3) L 07/03/21: Hgb 9.6 g/dL (11.7-16.6) L 07/03/21: Hct 29.1 % (42.0-52.0) L 07/03/21: MCV 96.7 fl (80-94) H 07/03/21: MCH 31.9 pg (28.0-34.0) 07/03/21: MCHC 33.0 g/dL (30.0-36.0) 07/03/21: RDW 15.4 % (12.1-15.1) H 07/03/21: Plt Count 353 10^3/cmm (130-400) 07/03/21: MPV 9.4 fL (7.4-10.4) 07/03/21: Neut % (Auto) 80.3 % 07/03/21: Lymph % (Auto) 12.6 % 07/03/21: [place] % (Auto) 5.3 % 07/03/21: Eos % (Auto) 0.6 % 07/03/21: Baso % (Auto) 0.5 % 07/03/21: Neut # (Auto) 7.52 10^3/uL (1.8-7.7) 07/03/21: Lymph # (Auto) 1.2 10^3/uL (0.8-4.8) 07/03/21: [place] # (Auto) 0.5 10^3/uL (0.2-0.9) 07/03/21: Eos # (Auto) 0.1 10^3/uL (0.0-0.8) 07/03/21 19:27 Baso # (Auto) 0.1 10^3/uL (0.0-0.1) 07/03/21 19:27 Nucleated RBC % (auto) 0 % 07/03/21 19: Nucleated RBCs # 0.0 /100WBC 07/03/21 19:27 D-Dimer 1.71 ug/mIFEU (0-0.59) H 07/03/21 19:27 Specimen Type Arterial 07/03/21 18:54 Sample Site Radial, right 07/03/21 18:54 ABG pH 7.49 (7.35-7.45) H 07/03/21 18:54 ABG pCO2 33.0 mmHg (35-45) L 07/03/21 18:54 ABG pO2 113.0 mmHg (80.0-100.0) H 07/03/21 18:54 ABG HCO3 25.4 mmol/L (22-26) 07/03/21 18:54 ABG Base Excess 2.2 mmol/L (-2.0-2.0) H 07/03/21 18:54 Guy Test Pos 07/03/21 18:54 Hematocrit 28.3 % (42-52) L 07/03/21 18:54 O2 Delivery Device Nc 07/03/21 18:54 O2 Liters/Min 2.0 % 07/03/21 18:54 Senior Instructor ID carmen 07/03/21 18:54 Sodium 132 mmol/L (136-145) L 07/03/21 19:27 Potassium 3.9 mmol/L (3.5-5.1) 07/03/21 19:27 Chloride 98 mmol/L (98-107) 07/03/21 19:27 Carbon Dioxide 25 mmol/L (22-29) 07/03/21 19:27 Anion Gap 12.9 (5-19) 07/03/21 19:27 BUN 5 mg/dL (8-23) L 07/03/21 19:27 Creatinine 0.4 mg/dL (0.7-1.2) L 07/03/21 19:27 GFR Calculation 215.9 mL/min (90-130) H 07/03/21 19:27 Glucose 131 mg/dL (65-115) H 07/03/21 19:27 Calculated Osmolality 273 mOsm/kg (285-295) L 07/03/21 19:27 Lactic Acid 2.1 mmol/L (0.5-2.2) 07/03/21 19:27 Lactic Acid (Sepsis) 2.9 mmol/L (0.5-2.2) H 07/03/21 21:10 Calcium 7.5 mg/dL (8.5-10.5) L 07/03/21 19: Magnesium 1.9 mg/dL (1.7-2.3) 07/03/21 19: Total Bilirubin 0.3 mg/dL (0.15-1.2) 07/03/21 19: AST 26 U/L (0-40) 07/03/21 19: ALT 21 U/L (0-41) 07/03/21 19: Alkaline Phosphatase 192 IU/L (40-130) H 07/03/21 19:27 Troponin T Baseline 40 ng/L (0-15) H 07/03/21 19: Troponin T 120 Minute 36.08 ng/L (0-15) H 07/03/21 21:10 Delta Troponin T -3.92 ABS# (0-10) L 07/03/21 21:10 C-Reactive Protein 24.8 mg/L (0.0-4.9) H 07/03/21 19: NT-Pro-B Natriuret Pep 858 pg/mL (0-125) H 07/03/21 19:27 Total Protein 5.0 g/dL (6.6-8.7) L 07/03/21 19: Albumin 2.5 g/dL (3.5-5.2) L 07/03/21 19: Globulin 2.5 g/dL (1.3-4.6) 07/03/21 19:27 Procalcitonin 0.10 ng/mL (0-0.5) 07/03/21 19: TSH 9.88 uIU/mL (0.27-4.20) H 07/03/21 19: Free T4 0.75 ng/dL (0.82-1.77) L 07/03/21 19:27 Urine Color Yellow (Yellow) 07/03/21 22:50 Urine Appearance Clear (CLEAR) 07/03/21 22:50 Urine pH 8 (5-7) H 07/03/21 22:50 Ur Specific [place] 1.005 (1.005-1.030) 07/03/21 22:50 Urine Protein Neg (Negative) 07/03/21 22:50 Urine Glucose (UA) Norm (Normal) 07/03/21 22:50 Urine Ketones Negative (Negative) 07/03/21 22:50 Urine Blood Neg (Negative) 07/03/21 22:50 Urine Nitrate Negative (Negative) 07/03/21 22:50 Urine Bilirubin Neg (Negative) 07/03/21 22:50 Prot Sulfosalicylic Acd Negative (Negative) 07/03/21 22:50 Urine Urobilinogen Norm mg/dL (Negative) 07/03/21 22:50 Ur Leukocyte Esterase Negative (Negative) 07/03/21 22:50 Discharge Plan Discharge Patient Disposition: Home Clinical Impression: Acute exacerbation of chronic obstructive airways disease, Orthostatic hypotension Condition: Stable Prescriptions: New doxycycline hyclate 100 mg capsule 100 mg PO BID 10 Days Qty: 20 0RF No Action aspirin 81 mg tablet,delayed release (DR/EC) 81 mg PO DAILY 0RF nitroglycerin 0.4 mg tablet, sublingual 0.4 mg SUBLINGUAL Q5M PRN (Reason: Chest Pain) 0RF multivitamin Tablet 1 tab PO DAILY 0RF mirtazapine 15 mg tablet 30 mg PO BEDTIME 0RF epinephrine 0.3 mg/0.3 mL auto-injector 0.3 mg IM Q10M PRN (Reason: Allergic Reaction) 0RF Rx Instructions: for 2 doses levetiracetam [Keppra] 1,000 mg tablet 1,000 mg PO BID Qty: 60 5RF Anoro Ellipta 62.5-25 mcg/actuation blister with device 1 inh inhalation DAILY 30 Days Qty: 60 4RF diphenhydramine HCl [Benadryl] 25 mg Capsule 25 mg PO DAILY PRN (Reason: Allergic Reaction) 0RF ibuprofen 200 mg Tablet 200 mg PO Q6H PRN (Reason: Pain) 0RF albuterol sulfate 90 mcg/actuation Hfa Aerosol Inhaler 1 inh INHALATION QID PRN (Reason: Shortness Of Breath) 0RF omeprazole 20 mg Tablet,Delayed Release (Dr/Ec) 20 mg PO BID 0RF melatonin 5 mg Tablet 5 mg PO BEDTIME 0RF cholecalciferol (vitamin D3) [Vitamin D3] 50 mcg (2,000 unit) Tablet 50 mcg PO DAILY 0RF lisinopril 10 mg tablet 10 mg PO DAILY Qty: 30 0RF venlafaxine 37.5 mg capsule,extended release 24hr 37.5 mg PO DAILY 0RF tamsulosin 0.4 mg capsule 0.4 mg PO DAILY 0RF vitamin B complex Tablet 1 tab PO DAILY 0RF ferrous sulfate 27 mg iron Tablet 27 mg PO DAILY 0RF Lasix 20 mg tablet 20 mg PO DAILY Qty: 30 2RF Klor-Con 10 10 mEq tablet extended release 10 meq PO BID Qty: 60 0RF Discharge Orders: Discharge ED (Routine); Ordered 07/03/21 Ordered By: Rosalino Linda Referrals: Bri Fernandez MD [Primary Care Provider] - Discharge Diet: Usual diet Discharge Activity: Increase activity as tolerated Patient Instructions: Syncope (ED), COPD (Chronic Obstructive Pulmonary Disease) (ED), Hypotension (ED) Activity Restrictions/Additional Instructions: Thank you for visiting the emergency department. You were seen and evaluated for low blood pressure and an episode of decreased oxygen saturation. The exact cause of the symptoms is unclear though likely related to exacerbation of COPD and intravascular dehydration. You will be given a prescription for steroids and antibiotics. Additionally please use your albuterol metered-dose inhaler every 4 hours for the next 24 hours with 2 puffs followed by every 6 hours 2 puffs for 24 hours followed by every 8 hours 2 puffs for 24 hours and then resuming normal schedule. I would recommend contacting cardiology tomorrow regarding possible change in dose of Lasix. Please return to the emergency department for recurrence of symptoms, chest pain, shortness of breath, falls, confusion, or anything else that you are concerned about a feel needs emergency department evaluation. Coding Level of Care Code ED [employer] for Aylin Fwcaron Exam Comprehensive
--- NOTE | 2021-07-03 18:54 | XRR_ITS ---
PROCEDURE INFORMATION: Exam: XR Chest Exam date and time: 07/03/2021 7:12 PM Age: 66 years old Clinical indication: Dyspnea; Additional info: SOB TECHNIQUE: Imaging protocol: XR of the chest. Views: 1 view. COMPARISON: CR XR chest 1V portable [id number] 06/27/2021 5:25 AM FINDINGS: Lungs: Bibasilar atelectasis versus infiltrate. Emphysematous changes. Biapical pleuroparenchymal scarring suspected. Pleural spaces: Unremarkable. No pleural effusion. No pneumothorax. Heart/Mediastinum: Unremarkable. No cardiomegaly. Bones/joints: Unremarkable. XR/XR chest 1V portable [id number] IMPRESSION: 1. Bibasilar atelectasis versus infiltrate. 2. Emphysematous changes. 3. Biapical pleuroparenchymal scarring suspected.
--- NOTE | 2021-07-03 18:54 | ECG_ITS ---
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 Measurements Intervals [place] Rate: 89 P: 86 [place]: 128 QRS: -67 QRSD: 90 T: 66 QT: 374 QTc: 456 Interpretive Statements SINUS RHYTHM LEFT AXIS DEVIATION [QRS AXIS < -30] LOW QRS VOLTAGE [QRS DEFLECTION < 0.5/1.0 mV IN LIMB/CHEST LEADS] Compared to ECG 06/22/2021 05:25:30 Left-axis deviation now present Myocardial infarct finding no longer present Electronically Signed On 07-05-2021 7:30:05 CDT by Radha Farooq M.D. [id number]
[2021-07-03] MEDS: ipratropium-albuterol 3 mL Neb INHALATION (19:24)
[2021-07-03 19:32] LABS: ABG PH Result 7.49 (7.35-7.45); Arterial Blood Gas Hematocrit 28.3 % (42-52); Base Excess ABG 2.2 mmol/L (-2.0-2.0); Blood Gas Allen Test Pos; Blood Gas Sample Site Radial, right; Blood Gas Sample Type Arterial; HCO3 ABG 25.4 mmol/L (22-26); Oxygen Device NC
[2021-07-03 19:35] LABS: Basophils # 0.1 10^3/uL (0.0-0.1); Basophils % 0.5 %; Eosinophils # 0.1 10^3/uL (0.0-0.8); Eosinophils % 0.6 %; Hematocrit 29.1 % (42.0-52.0); Hemoglobin 9.6 g/dL (11.7-16.6); Lymphocytes # 1.2 10^3/uL (0.8-4.8); Lymphocytes % 12.6 %; Mean Corpuscular Hemoglobin 31.9 pg (28.0-34.0); Mean Corpuscular Volume 96.7 fl (80-94); Mean Platelet Volume 9.4 fL (7.4-10.4); Monocytes # 0.5 10^3/uL (0.2-0.9); Monocytes % 5.3 %; Neutrophils # 7.52 10^3/uL (1.8-7.7); Neutrophils % 80.3 %; Nucleated Red Blood Cells % 0 %; Platelet Count 353 10^3/cmm (130-400); Red Blood Count 3.01 10^6/uL (4.1-5.3); Red Cell Distribution Width 15.4 % (12.1-15.1); White Blood Count 9.4 10^3/uL (4.0-10.0)
[2021-07-03 19:52] LABS: Troponin(5th) Baseline 40 ng/L (0-15)
[2021-07-03 19:53] LABS: Lactic Sepsis W/Reflex 2.1 mmol/L (0.5-2.2)
[2021-07-03 20:03] LABS: Reflex Lactate Order REFLEX LACTIC ORDERD
[2021-07-03] MEDS: lactated ringers 500 ML 999 ML IV (20:04)
[2021-07-03 20:07] LABS: NT Pro B Type Natriuretic Pept 858 pg/mL (0-125); Thyroid Stimulating Hormone 9.88 uIU/mL (0.27-4.20)
[2021-07-03 20:18] LABS: Alanine Aminotransferase 21 U/L (0-41); Albumin Level 2.5 g/dL (3.5-5.2); Alkaline Phosphatase 192 IU/L (40-130); Anion Gap 12.9 (5-19); Aspartate Amino Transferase 26 U/L (0-40); Blood Urea Nitrogen 5 mg/dL (8-23); C Reactive Protein 24.8 mg/L (0.0-4.9); Calcium 7.5 mg/dL (8.5-10.5); Carbon Dioxide 25 mmol/L (22-29); Chloride 98 mmol/L (98-107); Globulin 2.5 g/dL (1.3-4.6); Glomerular Filtration Rate 215.9 mL/min (90-130); Glucose 131 mg/dL (65-115); Magnesium 1.9 mg/dL (1.7-2.3); Osmolality Calculated 273 mOsm/kg (285-295); Potassium 3.9 mmol/L (3.5-5.1); Sodium 132 mmol/L (136-145); Total Bilirubin 0.3 mg/dL (0.15-1.2)
[2021-07-03 20:19] LABS: Creatinine Clr Calc Pharmacy 68.5117
[2021-07-03 20:42] LABS: Free T4 Free Thyroxine 0.75 ng/dL (0.82-1.77)
[2021-07-03 21:09] LABS: D Dimer 1.71 ug/mIFEU (0-0.59)
--- NOTE | 2021-07-03 21:10 | CTR_ITS ---
PROCEDURE INFORMATION: Exam: CTA Chest With Contrast Exam date and time: 07/03/2021 9:37 PM Age: 66 years old Clinical indication: Shortness of breath; Patient HX: Resp distress w elev d-dimer; Additional info: Resp distress, elevated ddimer TECHNIQUE: Imaging protocol: Computed tomographic angiography of the chest with contrast. 3D rendering (Not supervised by radiologist): MIP and/or 3D reconstructed images were created by the technologist. Radiation optimization: All CT scans at this facility use at least one of these dose optimization techniques: automated exposure control; mA and/or kV adjustment per patient size (includes targeted exams where dose is matched to clinical indication); or iterative reconstruction. Contrast material: OMNI 350; Contrast volume: 75 ml; Contrast route: INTRAVENOUS (IV); COMPARISON: CT angio chest PE protcl [id number] 06/20/2021 11:14 PM RADIATION DOSE METRICS: Total DLP (mGy-cm): 555.09 FINDINGS: Pulmonary arteries: Normal. No pulmonary emboli. Aorta: Unremarkable. No aortic aneurysm. No aortic dissection. Lungs: Emphysematous changes. Bilateral dependent atelectasis versus infiltrate. Pleural spaces: Small bilateral pleural effusions. Heart: Coronary artery atherosclerotic calcifications. Pericardial effusion measuring up to 14 mm in thickness. Lymph nodes: Scattered prominent subcentimeter mediastinal lymph nodes, nonspecific. Bones/joints: T12 and L1 vertebral body compression fractures with mild retropulsion of bony fragments resulting in mild spinal canal narrowing, likely chronic. Soft tissues: Unremarkable. CT/CT angio chest PE protcl [id number] IMPRESSION: 1. Negative for pulmonary embolus. 2. Coronary artery atherosclerotic calcifications. 3. Emphysematous changes. 4. Bilateral dependent atelectasis versus infiltrate. 5. Small bilateral pleural effusions. 6. Scattered prominent subcentimeter mediastinal lymph nodes, nonspecific. 7. Pericardial effusion measuring up to 14 mm in thickness. 8. T12 and L1 vertebral body compression fractures with mild retropulsion of bony fragments resulting in mild spinal canal narrowing, likely chronic.
[2021-07-03 21:33] LABS: Troponin 5 2HR 36.08 ng/L (0-15)
[2021-07-03 21:35] LABS: Lactic Acid level (Lactate) 2.9 mmol/L (0.5-2.2)
[2021-07-03 21:43] LABS: Troponin 5 2HR Delta -3.92 ABS# (0-10)
[2021-07-03] MEDS: iohexol 350 mg/mL 100 mL Btl IV (21:45)
[2021-07-03 22:59] LABS: Add Urine Microscopic? NO; Charge for UA Resulting for Rev
[2021-07-03 23:06] LABS: Urine Appearance Clear (CLEAR); Urine Color Yellow (Yellow)
[2021-07-03 23:07] LABS: Bilirubin Urine Neg (Negative); Blood Urine Neg (Negative); Glucose Urine UA Norm (Normal); Ketones Urine Negative (Negative); Leukocyte Esterase Urine Negative (Negative); Nitrate Urine Negative (Negative); Protein Urine Neg (Negative); Specific Gravity, Urine 1.005 (1.005-1.030); Sulfosalicylic Acid Urine Negative (Negative); Urobilinogen Urine Norm (Negative); pH Urine 8 (5-7)
[2021-07-04] VITALS: BP 112/72; PULSE 84; RESP 14; O2SAT 100
[2021-07-04 00:32] VITALS: BP 111/68; PULSE 81; RESP 17; O2SAT 93
== END 2021-07-04 00:32 | disposition home or self-care (01) ==
PROVIDERS: Emergency Provider Emergency Medicine; PCP Family Medicine
DX: J44.1 Chronic obstructive pulmonary disease with (acute) exacerbation (principal); I95.1 Orthostatic hypotension; F17.290 Nicotine dependence, other tobacco product, uncomplicated; Z79.899 Other long term (current) drug therapy
CPT/HCPCS: 36415; 36600; 71045; 71275; 80053; 81003; 82803; 83605; 83735; 83880; 84145; 84439; 84443; 84484; 85025; 85378; 86140; 87040; 93005; 94640; 96361; 96374; 99284; J2930; J7611; Q9967

== ENCOUNTER → 2021-07-07 10:40 | Outpatient (BNVA) | payer MEDICARE, BC, SELFPAY | PROVIDERS: PCP Family Medicine; Visit Provider Nurse Practitioner Family | DX: I31.3 Pericardial effusion (noninflammatory) (principal); I95.1 Orthostatic hypotension; F17.290 Nicotine dependence, other tobacco product, uncomplicated; Z79.82 Long term (current) use of aspirin | CPT/HCPCS: 99214 ==

== ENCOUNTER 2021-07-10 14:52 | Emergency (ER) | payer MEDICARE, BC, SELFPAY ==
--- NOTE | 2021-07-10 15:17 | ED_ITS ---
HPI - Syncope General: Chief Complaint: Altered Mental Status Stated Complaint: AMS Time Seen by Provider: 07/10/21 15:16 Source: patient and EMS Mode of arrival: EMS Limitations: no limitations History of Present Illness: This patient was transported to the emergency department by EMS. They were notified by the patient's caregiver. Apparently the patient patient allegedly was given a nitroglycerin because his blood pressure was noted to be low subsequently he had an episode of near syncope where he collapsed to the floor. There is no history of striking his head or head injury. He did not have a complete loss of consciousness nor did he suffer seizure activity. He did sustain a minor skin tear to his left wrist. EMS arrived on scene and found him to be hypotensive but alert. He was not complaining of chest pain or shortness of breath and he was noted to have a normal pulse oximetry. He was transported for further care. He does have a history of COPD as well as has a heart failure he is on daily diuretics as well as an DUGLAS inhibitor. He had a similar episode a few weeks ago there was no changes in his medication regimen at that time. He apparently admits to eating and drinking today. He states he has had no fevers chills cough etc. No other change in his usual constitutional symptoms. MD complaint: felt faint and collapsed Prodromal symptoms: lightheaded Context: standing up Associated symptoms: Reports lightheadedness; Deny abdominal pain, chest pain, fever(s), headache(s), nausea or vertigo History: previous syncopal episode Review of Systems Const: Denies: fever(s) or chills Eyes: Denies: change in vision or blurry vision ENMT: Denies: throat pain, odynophagia or disequilibrium Card: Reports: lightheadedness and pre-syncope; Denies: chest pain, palpitations or irregular heart rhythm Resp: Reports: dyspnea (Chronic in nature no change); Denies: productive cough or non-productive cough GI: Denies: abdominal pain, nausea, vomiting, hematochezia or melena : Denies: flank pain, difficulty urinating, dysuria or urinary urgency Musc: Denies: neck pain, back pain, extremity pain or extremity swelling Skin/Breast: Reports: lesions (Pressure sore sacrum) Neuro: Denies: headache(s), numbness in extremities, weakness in extremities, vertigo or Slurred speech present Psych: Denies: anxiety or depression Endo: Denies: polyuria or polydipsia Gt/Lymph: Reports: easy bruising PFSH ED PFSH: Medical History Acute on chronic diastolic (congestive) heart failure Blind Carotid artery disease Carotid artery occlusion without infarction Chest pain COPD (chronic obstructive pulmonary disease) Depression Elevated troponin Hypertension Hyponatremia Pericardial effusion Pleural effusion Pneumonia Surgical History H/O hernia repair Family History Denies family history of CAD (coronary artery disease) Cancer Social History Smoking and tobacco status: current every day smoker (switched to vaping) cigarettes Years cigarettes smoked: 40 [ Other cigarette details: Hx of 1 PPD x 40 Years] Smoking risk assessment/counseling performed?: Yes Alcohol intake: current Alcohol intake frequency: 3 or more drinks per day [place] type: beer Counseling given: Yes Counseling given: No Caregiver/support person: Yes Lives independently: Yes Household members: family Marital status: / Current occupational status: disabled History of recent travel: No Current gender identity: Male Physical Exam Narrative: EXAM NARRATIVE: Patient is cooperative. He appears to be in no acute distress. He does answer questions appropriately. Const: COMMON NORMALS: no acute distress and patient oriented x3 HENMT: COMMON NORMALS: normocephalic, atraumatic and moist oral mucous membranes HEAD & SCALP: normocephalic and atraumatic Eye: COMMON NORMALS: conjunctivae normal and no scleral icterus CONJUNCTIVA: Yes conjunctivae normal Neck/C-Spine: COMMON NORMALS: full ROM CERVICAL SPINE: Yes cervical ROM normal, No pain with cervical ROM, No step off deformity and No Paracervical spasm OTHER: No midline tenderness or step-off. He is able to range his neck and normal 45 degrees left and right and forward bend 15 degrees without any difficulty. Lymph: LYMPHATIC: no lymphadenopathy noted Chest: COMMONS NORMALS: normal inspection of the chest and normal palpation of entire chest wall Resp: COMMON NORMALS: normal respiratory effort, No retractions and No use of accessory muscles EFFORT & INSPECTION: Yes able to speak in complete sentences AUSCULTATION: diminished lung sounds bilateral Cardio: COMMON NORMALS: regular rhythm, S1 normal heart sound present, No mu rmurs present (Cardio) and Peripheral pulses 2+ throughout RHYTHM: regular rhythm HEART SOUNDS: S1 normal heart sound present PERIPHERAL PULSES: Peripheral pulses 2+ throughout GI: COMMON NORMALS: Normal to inspection, nondistended, normoactive bowel sounds present, Soft to palpation, non-tender, no masses and no bruits PALPATION: Yes Soft to palpation : COMMON NORMALS: Yes no CVA tenderness BLADDER/KIDNEY EXAM: Yes no CVA tenderness Back/Pelvis: COMMON NORMALS: no CVA tenderness, thoracic and lumbar spine normal to inspection, no thoracic nor lumbar tenderness and thoraco-lumbar ROM normal Extremity: COMMON NORMALS: normal to inspection, full ROM, capillary refill normal and no calf tenderness NARRATIVE EXTREMITY EXAM: Decreased muscle bulk in all extremities no deformity. Neuro: COMMON NORMALS: patient oriented x3, moves all extremities, no focal motor deficits and no sensory deficits noted Psych: COMMON NORMALS: mental status grossly normal Skin: NARRATIVE SKIN EXAM: Skin examination is remarkable for erythema of the sacral region. There is a very minute skin breakdown in the center of this erythema just through the epidermis. There is also a small skin skin tear measuring 1 cm in area over the anterior chest wall. There is also a skin tear on the left wrist. Course Reevaluation(s): Reevaluation #1: Patient's blood pressure is much improved. His popped corn oven attendant is now here and I discussed medication manipulation and avoidance of such things as nitroglycerin etc. when he already has a borderline blood pressure. 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 His current vital signs are reassuring he has normal mentation, he has no change in his baseline laboratories. I think his presentation is likely due to near syncope related to giving nitroglycerin superimposed on an already low blood pressure. I have also discussed in reducing his lisinopril from his current 50 mg daily to 10 mg daily to help prevent postural hypotension. He is currently clinically stable to be discharged from the emergency department and has no evidence of an ongoing emergency medical condition. This was reviewed with both he and his popped corn oven attendant and they were very agreeable to the plan. Vital Signs: Vital signs: Vital Signs Temperature 97.8 F 07/10/21 15:19 Pulse Rate 92 04/24/22 16:58 Respiratory Rate 19 H 07/10/21 16:58 Blood Pressure 105/70 07/10/21 16:58 Pulse Oximetry 100 07/10/21 16:58 MDM - Syncope Medical Decision Making Patient with a near syncopal episode related to likely effects of vasodilator i.e. nitroglycerin superimposed on already low blood pressure. No evidence of other worrisome condition at this time and he has recovered to baseline has received IV fluids to augment his blood pressure. Medications were reviewed and we will reduce his DUGLAS inhibitor to help reduce the likelihood of recurrence. Stable at this time. Lab Data I reviewed the patient's lab results. : 07/10/21 15:15 07/10/21 15:15 Laboratory Results WBC 11.0 10^3/uL (4.0-10.0) H 07/10/21 15:15 RBC 2.95 10^6/uL (4.1-5.3) L 07/10/21 15:15 Hgb 9.6 g/dL (11.7-16.6) L 07/10/21 15:15 Hct 29.1 % (42.0-52.0) L 07/10/21 15:15 MCV 98.6 fl (80-94) H 07/10/21 15:15 MCH 32.5 pg (28.0-34.0) 07/10/21 15:15 MCHC 33.0 g/dL (30.0-36.0) 07/10/21 15:15 RDW 15.9 % (12.1-15.1) H 07/10/21 15:15 Plt Count 454 10^3/cmm (130-400) H 07/10/21 15:15 MPV 9.7 fL (7.4-10.4) 07/10/21 15:15 Neut % (Auto) 78.5 % 07/10/21 15:15 Lymph % (Auto) 13.9 % 07/10/21 15:15 [place] % (Auto) 5.8 % 07/10/21 15:15 Eos % (Auto) 0.6 % 07/10/21 15:15 Baso % (Auto) 0.5 % 07/10/21 15:15 Neut # (Auto) 8.64 10^3/uL (1.8-7.7) H 07/10/21 15:15 Lymph # (Auto) 1.5 10^3/uL (0.8-4.8) 07/10/21 15:15 [place] # (Auto) 0.6 10^3/uL (0.2-0.9) 07/10/21 15:15 Eos # (Auto) 0.1 10^3/uL (0.0-0.8) 07/10/21 15:15 Baso # (Auto) 0.1 10^3/uL (0.0-0.1) 07/10/21 15:15 Nucleated RBC % (auto) 0 % 07/10/21 15:15 Nucleated RBCs # 0.0 /100WBC 07/10/21 15:15 Sodium 136 mmol/L (136-145) 07/10/21 15:15 Potassium 4.0 mmol/L (3.5-5.1) 07/10/21 15:15 Chloride 102 mmol/L (98-107) 07/10/21 15:15 Carbon Dioxide 24 mmol/L (22-29) 07/10/21 15:15 Anion Gap 14.0 (5-19) 07/10/21 15:15 BUN 12 mg/dL (8-23) 07/10/21 15:15 Creatinine 0.5 mg/dL (0.7-1.2) L 07/10/21 15:15 GFR Calculation 166.9 mL/min (90-130) H 07/10/21 15:15 Glucose 121 mg/dL (65-115) H 07/10/21 15:15 Calculated Osmolality 283 mOsm/kg (285-295) L 07/10/21 15:15 Calcium 7.8 mg/dL (8.5-10.5) L 07/10/21 15:15 EKG Data EKG 1: I personally reviewed and interpreted this EKG as follows: EKG interpretation time: 15:41 Interpretation: Patient's EKG is notable for baseline irritability. He does have a ventricular rate of 93 bpm. Appears to be in sinus. He has a [place] interval 150 ms a QRS duration of 89 ms. Normal QTc interval. He has a extreme leftward axis co nsistent with left anterior hemiblock. No acute ST-T wave changes noted. Compared with prior tracings EKG complexes appear to be unchanged. Discharge Plan Discharge Patient Disposition: Home Clinical Impression: Orthostatic hypotension, Near syncope Condition: Stable Prescriptions: New lisinopril 10 mg tablet 10 mg PO DAILY Qty: 30 0RF Discontinued lisinopril 10 mg tablet 15 mg PO DAILY 0RF No Action aspirin 81 mg tablet,delayed release (DR/EC) 81 mg PO DAILY 0RF nitroglycerin 0.4 mg tablet, sublingual 0.4 mg SUBLINGUAL Q5M PRN (Reason: Chest Pain) 0RF multivitamin Tablet 1 tab PO DAILY 0RF mirtazapine 15 mg tablet 30 mg PO BEDTIME 0RF epinephrine 0.3 mg/0.3 mL auto-injector 0.3 mg IM Q10M PRN (Reason: Allergic Reaction) 0RF Rx Instructions: for 2 doses levetiracetam [Keppra] 1,000 mg tablet 1,000 mg PO BID Qty: 60 5RF Anoro Ellipta 62.5-25 mcg/actuation blister with device 1 inh inhalation DAILY 30 Days Qty: 60 4RF diphenhydramine HCl [Benadryl] 25 mg Capsule 25 mg PO DAILY PRN (Reason: Allergic Reaction) 0RF ibuprofen 200 mg Tablet 200 mg PO Q6H PRN (Reason: Pain) 0RF albuterol sulfate 90 mcg/actuation Hfa Aerosol Inhaler 1 inh INHALATION QID PRN (Reason: Shortness Of Breath) 0RF omeprazole 20 mg Tablet,Delayed Release (Dr/Ec) 20 mg PO BID 0RF melatonin 5 mg Tablet 5 mg PO BEDTIME 0RF cholecalciferol (vitamin D3) [Vitamin D3] 50 mcg (2,000 unit) Tablet 50 mcg PO DAILY 0RF doxycycline hyclate 100 mg capsule 100 mg PO BID 10 Days Qty: 20 0RF venlafaxine 37.5 mg capsule,extended release 24hr 37.5 mg PO DAILY 0RF tamsulosin 0.4 mg capsule 0.4 mg PO DAILY 0RF vitamin B complex Tablet 1 tab PO DAILY 0RF ferrous sulfate 27 mg iron Tablet 27 mg PO DAILY 0RF Lasix 20 mg tablet 20 mg PO DAILY Qty: 30 2RF Klor-Con 10 10 mEq tablet extended release 10 meq PO BID Qty: 60 0RF Discharge Orders: Discharge ED (Routine); Ordered 07/10/21 Ordered By: Rodrigo Staples Referrals: Bri Fernandez MD [Primary Care Provider] - Discharge Diet: Usual diet Discharge Activity: Resume usual activity Patient Instructions: Opioid Safety Activity Restrictions/Additional Instructions: Monitor blood pressure twice daily and record to review with his regular physician. Decrease his lisinopril from 15 mg daily to 10 mg daily. Avoid using nitroglycerin with and his blood pressure is less than 100 systolic. 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
--- NOTE | 2021-07-10 15:18 | ECG_ITS ---
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 Measurements Intervals [place] Rate: 93 P: 96 VA: 150 QRS: -82 QRSD: 89 T: 76 QT: 285 QTc: 356 Interpretive Statements SINUS RHYTHM WITH OCCASIONAL SUPRAVENTRICULAR PREMATURE COMPLEXES LOW QRS VOLTAGE [QRS DEFLECTION < 0.5/1.0 mV IN LIMB/CHEST LEADS] PATTERN CONSISTENT WITH PULMONARY DISEASE LEFT ANTERIOR FASCICULAR BLOCK [QRS AXIS <= -45, QR IN I, RS IN II] Compared to ECG 07/03/2021 19:45:51 Left anterior fascicular block now present Left-axis deviation no longer present Electronically Signed On 07-10-2021 19:32:03 CDT by Juan Carlos Freitas M.D. [email or web address] [facility].[employer]/store/[id number]
[2021-07-10 15:19] VITALS: BP 73/51; PULSE 98; RESP 20; TEMP 36.6; O2SAT 96; BMI 17.9
[2021-07-10] MEDS: sodium chloride 0.9% 500 ML IV (15:20)
[2021-07-10 15:24] VITALS: BP 96/64; PULSE 99; RESP 22; O2SAT 94
[2021-07-10 15:28] LABS: Basophils # 0.1 10^3/uL (0.0-0.1); Basophils % 0.5 %; Eosinophils # 0.1 10^3/uL (0.0-0.8); Eosinophils % 0.6 %; Hematocrit 29.1 % (42.0-52.0); Hemoglobin 9.6 g/dL (11.7-16.6); Lymphocytes # 1.5 10^3/uL (0.8-4.8); Lymphocytes % 13.9 %; Mean Corpuscular Hemoglobin 32.5 pg (28.0-34.0); Mean Corpuscular Volume 98.6 fl (80-94); Mean Platelet Volume 9.7 fL (7.4-10.4); Monocytes # 0.6 10^3/uL (0.2-0.9); Monocytes % 5.8 %; Neutrophils # 8.64 10^3/uL (1.8-7.7); Neutrophils % 78.5 %; Nucleated Red Blood Cells % 0 %; Platelet Count 454 10^3/cmm (130-400); Red Blood Count 2.95 10^6/uL (4.1-5.3); Red Cell Distribution Width 15.9 % (12.1-15.1)
[2021-07-10 15:57] LABS: Blood Urea Nitrogen 12 mg/dL (8-23); Calcium 7.8 mg/dL (8.5-10.5); Carbon Dioxide 24 mmol/L (22-29); Chloride 102 mmol/L (98-107); Creatinine Clr Calc Pharmacy 73.8268; Glomerular Filtration Rate 166.9 mL/min (90-130); Glucose 121 mg/dL (65-115); Osmolality Calculated 283 mOsm/kg (285-295); Sodium 136 mmol/L (136-145)
[2021-07-10 15:58] VITALS: BP 96/64; PULSE 95; RESP 15; O2SAT 96
[2021-07-10 16:58] VITALS: BP 105/70; PULSE 92; RESP 19; O2SAT 100
[2021-07-10 18:07] VITALS: BP 105/70; PULSE 86; RESP 18; O2SAT 100
== END 2021-07-10 18:09 | disposition home or self-care (01) ==
PROVIDERS: Emergency Provider Emergency Medicine; PCP Family Medicine
DX: I95.1 Orthostatic hypotension (principal); F17.290 Nicotine dependence, other tobacco product, uncomplicated; I11.0 Hypertensive heart disease with heart failure; I50.32 Chronic diastolic (congestive) heart failure; J44.9 Chronic obstructive pulmonary disease, unspecified; Z79.899 Other long term (current) drug therapy; Z79.82 Long term (current) use of aspirin
CPT/HCPCS: 80048; 85025; 93005; 99283; J7040

== ENCOUNTER → 2021-08-11 09:51 | Outpatient (BNVA) | payer MEDICARE, BC, SELFPAY | PROVIDERS: PCP Family Medicine; Visit Provider Internal Medicine Cardiovascular Disease | DX: I95.1 Orthostatic hypotension (principal); I31.3 Pericardial effusion (noninflammatory); F17.290 Nicotine dependence, other tobacco product, uncomplicated; G40.309 Generalized idiopathic epilepsy and epileptic syndromes, not intractable, without status epilepticus; I73.9 Peripheral vascular disease, unspecified | CPT/HCPCS: 99214 ==

== ENCOUNTER 2021-09-30 13:10 | Outpatient (CLI) | payer MEDICARE, BC, SELFPAY ==
--- NOTE | 2021-09-30 13:59 | XR_ITS ---
WS: [id number] PA and lateral chest, 09/30/2021 Clinical Data: CHRONIC OBSTRUCTIVE PULMONARY DZ/WEAKNESS Comparison: Double chest, 07/03/2021. Findings: There is patchy opacity throughout the left lung and probably in the right upper lobe which may represent diffuse pneumonia. There is a small left pleural effusion with no shift of the heart a nd mediastinum. The heart size is normal. No nodules or masses are seen. There is no subcutaneous emp hysema or pneumothorax. The aortic arch shows calcification and tortuosity. XR/XR chest 2V* [id number] Impression: 1. Diffuse patchy opacity mainly in the left lung but possibly in the right upp er lobe which may represent diffuse pneumonia. 2. Small left pleural effusion. 3. Atherosclerosis.
== END 2021-09-30 13:11 | disposition home or self-care (01) ==
PROVIDERS: PCP Family Medicine; Visit Provider Family Medicine
DX: J44.9 Chronic obstructive pulmonary disease, unspecified (principal); R53.1 Weakness; J90 Pleural effusion, not elsewhere classified; I70.0 Atherosclerosis of aorta
CPT/HCPCS: 71046

== ENCOUNTER 2021-10-04 10:53 | Inpatient (IN) | payer MEDICARE, BC, SELFPAY ==
[2021-10-04] VITALS (8 sets, daily range): BP systolic 105–140; BP diastolic 76–94; PULSE 76–113; RESP 16–22; TEMP 36–36.5; O2SAT 83–99
--- NOTE | 2021-10-04 10:56 | ECG_ITS ---
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 Measurements Intervals [place] Rate: 91 P: 85 CO: 150 QRS: -87 QRSD: 97 T: 120 QT: 346 QTc: 428 Interpretive Statements SINUS RHYTHM LOW QRS VOLTAGE IN EXTREMITY LEADS [QRS DEFLECTION < 0.5 mV IN LIMB LEADS] Heavy baseline artifact. Need to repeat the study LEFT ANTERIOR FASCICULAR BLOCK [QRS AXIS <= -45, QR IN I, RS IN II] ABNORMAL QRS-T ANGLE [QRS-T AXIS DIFFERENCE > 60] Compared to ECG 07/10/2021 15:35:14 No significant changes Electronically Signed On 10-04-2021 20:52:13 CDT by Narinder Sweeney M.D. [email or web address] [email or web address].[id number]
--- NOTE | 2021-10-04 10:56 | CT_ITS ---
WS: [id number] CT HEAD TECHNIQUE: Noncontrast CT of the head obtained from the skullbase to the vertex. CLINICAL INFORMATION: ams COMPARISON: CT June 20, 2021 and MRI June 21, 2021 DLP: 1157.[address] scans at [facility] use at least one of these dose optimization techniques: automated e xposure control; mA and/or kV adjustment per patient size (includes targeted exams where dose is matc hed to clinical indication); or iterative reconstruction. FINDINGS: No evidence of intracranial hemorrhage or mass effect. Ventricular system and basal cisterns are nur nt. Mild small vessel changes with moderate parenchymal volume loss. No extra-axial fluid collections . No evidence of mass or mass effect. Intracranial vascular calcification. Mastoid air cells well aerated. Paranasal sinuses are well aerated. Small amount of fluid in the sphe noid sinus. IMPRESSION: 1. No evidence of intracranial hemorrhage or mass effect. 2. Mild small vessel changes. Moderate parenchymal volume loss. 3. Area of chronic ischemia in the RIGHT frontoparietal white matter unchanged since the prior MRI. 4. Sphenoid sinusitis 5. Intracranial vascular calcification. 6. No acute intracranial findings.
--- NOTE | 2021-10-04 10:56 | XR_ITS ---
WS: [id number] XR chest 1V portable [id number] REASON FOR EXAM: dyspnea FINDINGS: Moderately tortuous thoracic aorta. The heart may be mildly enlarged. Coarse reticular interstitial densities are seen in both lungs predominating in the left lower lung. Extensive bullous disease in the upper lobes. The lung findings appear relatively stable compared to 09/30/2021. Elevation and tenting of the left hemidiaphragm with colon interposition under the right hemidiaphrag m. Left pleural effusion. The left effusion appears to be somewhat smaller however this may be the diffe rence in patient positioning. XR/XR chest 1V portable [id number] IMPRESSION: Probably relatively stable abnormal chest with significant chronic abnormalitie s. No definite acute abnormality compared to the previous examination.
--- NOTE | 2021-10-04 11:15 | W.ED.GENADLT ---
HPI - General Adult General: Chief complaint: Altered Mental Status Stated complaint: SOB, AMS Time Seen by Provider: 10/04/21 10:56 History of Present Illness: Patient is a 66-year-old male with a history of CHF, COPD on 2 L oxygen, CAD, prior pneumonia presenting to the emergency room with concerns for respiratory stress and altered mental status. Patient was seen earlier today I his primary care's office was noted to be requiring more oxygen than his 2L NC at baseline. Was called patient was brought to the emergency room. In route, EMS tells me the patient required 6L oxygen. History limited due to altered mental status. Onset: unknown Duration:ongoing Location:home Severity:moderate Associated symptoms: Reports dyspnea Review of Systems General: Reports: ROS unobtainable due to mental status Resp: Reports: dyspnea Neuro: Reports: other (+confusion) PFSH ED PFSH: Medical History Acute on chronic diastolic (congestive) heart failure Blind Carotid artery disease Carotid artery occlusion without infarction Chest pain COPD (chronic obstructive pulmonary disease) Depression Elevated troponin Hypertension Hyponatremia Pericardial effusion Pleural effusion Pneumonia Surgical History H/O hernia repair Family History Brother Cancer Mother Chronic kidney disease (CKD) Diabetes Father Dementia Denies family history of CAD (coronary artery disease) Clotting disorder Suicide Anesthesia complication Bleeding disorder Lung disease Stroke Social History Smoking and tobacco status: current every day smoker (switched to vaping) cigarettes Years cigarettes smoked: 40 [ Other cigarette details: Hx of 1 PPD x 40 Years] Smoking risk assessment/counseling performed?: Yes Alcohol intake: former Counseling given: Yes Counseling given: No Caregiver/support person: Yes Lives independently: Yes Household members: family Marital status: / Current occupational status: disabled History of recent travel: No Current gender identity: Male Physical Exam Const: COMMON NORMALS: alert HENMT: COMMON NORMALS: atraumatic HEAD & SCALP: atraumatic MOUTH: moist mucous membranes not abnormal Eye: COMMON NORMALS: EOMs intact bilaterally and conjunctivae normal CONJUNCTIVA: Yes conjunctivae normal Neck/C-Spine: COMMON NORMALS: full ROM and supple Resp: COMMON NORMALS: normal respiratory effort OTHER: +coarse breath sounds b/l Cardio: COMMON NORMALS: regular rate RATE: regular rate GI: COMMON NORMALS: Soft to palpation and non-tender PALPATION: Yes Soft to palpation Extremity: COMMON NORMALS: full ROM Neuro: SENSORIUM/ORIENTATION: Yes alert MOTOR EXAM: No Abnormal motor strength present and Other motor observations present (no focal motor deficits) Psych: COMMON NORMALS: speech normal SPEECH: Yes normal speech MOOD & AFFECT: Yes euthymic mood Course Vital Signs: Vital signs: Vital Signs Pulse Rate 89 10/04/21 11:12 Respiratory Rate 22 H 10/04/21 11:12 Blood Pressure 109/76 10/04/21 11:12 Pulse Oximetry 95 10/04/21 11:12 [facility] - General Adult Medical Decision Making 66-year-old male with history of COPD, CHF, CAD and prior pneumonia presents to the emergency room for evaluation of hypoxemia respiratory distress. Unclear how this been going on for. Patient is currently full code. Patient is noted to have white count 17.1. Potassium 2.4. X-ray chest showed chronic findings. However given ongoing hypoxemia, CTA was ordered. CTA showed acute right segmental PE. Patient also was found to right-sided infiltrates. Patient has bilateral pleural effusion and mild pericardial effusion. No signs of cardiac tamponade currently. Patient received Lovenox, azithromycin and ceftriaxone and potassium replacement. Disposition: admission Lab Data : 10/04/21 11:20 10/04/21 11:20 Radiology Impressions Chest X-Ray 10/04/21 10:56 IMPRESSION: Probably relatively stable abnormal chest with significant chronic abnormalities. No definite acute abnormality compared to the previous examination. Laboratory Results WBC 17.1 10^3/uL (4.0-10.0) H 10/04/21 11:20 RBC 3.23 10^6/uL (4.1-5.3) L 10/04/21 11:20 Hgb 9.6 g/dL (11.7-16.6) L 10/04/21 11:20 Hct 27.9 % (42.0-52.0) L 10/04/21 11:20 MCV 86.4 fl (80-94) 10/04/21 11:20 MCH 29.7 pg (28.0-34.0) 10/04/21 11:20 MCHC 34.4 g/dL (30.0-36.0) 10/04/21 11:20 RDW 13.9 % (12.1-15.1) 10/04/21 11:20 Plt Count 339 10^3/cmm (130-400) 10/04/21 11:20 MPV 9.6 fL (7.4-10.4) 10/04/21 11:20 Neut % (Auto) 89.6 % 10/04/21 11:20 Lymph % (Auto) 6.2 % 10/04/21 11:20 [place] % (Auto) 2.7 % 10/04/21 11:20 Eos % (Auto) 0.1 % 10/04/21 11:20 Baso % (Auto) 0.2 % 10/04/21 11:20 Neut # (Auto) 15.34 10^3/uL (1.8-7.7) H 10/04/21 11:20 Lymph # (Auto) 1.1 10^3/uL (0.8-4.8) 10/04/21 11:20 [place] # (Auto) 0.5 10^3/uL (0.2-0.9) 10/04/21 11:20 Eos # (Auto) 0.0 10^3/uL (0.0-0.8) 10/04/21 11:20 Baso # (Auto) 0.0 10^3/uL (0.0-0.1) 10/04/21 11:20 Nucleated RBC % (auto) 0 % 10/04/21 11:20 Nucleated RBCs # 0.0 /100WBC 10/04/21 11:20 Specimen Type Arterial 10/04/21 12:00 Sample Site Brachial, right 10/04/21 12:00 ABG pH 7.47 (7.35-7.45) H 10/04/21 12:00 ABG pCO2 36.0 mmHg (35-45) 10/04/21 12:00 ABG pO2 54.5 mmHg (80.0-100.0) L 10/04/21 12:00 ABG HCO3 26.0 mmol/L (22-26) 10/04/21 12:00 ABG O2 Saturation 88.9 10/04/21 12:00 ABG Base Excess 2.3 mmol/L (-2.0-2.0) H 10/04/21 12:00 Guy Test N/a 10/04/21 12:00 A-a O2 Gradient 16.6 mmHg (5-10) H 10/04/21 12:00 Hematocrit 29.3 % (42-52) L 10/04/21 12:00 Hgb O2 Saturation 87.3 % (95-100) L 10/04/21 12:00 Carboxyhemoglobin 0.9 %THgb (0.4-20.1) 10/04/21 12:00 Methemoglobin 0.9 % (0.4-1.5) 10/04/21 12:00 Total Hemoglobin 9.5 g/dL (14-18) L 10/04/21 12:00 Sodium 133.0 mmol/L (131-143) 10/04/21 12:00 Potassium 2.5 mmol/L (3.5-5.0) L 10/04/21 12:00 Glucose 102.0 mg/dL (70-115) 10/04/21 12:00 Ionized Calcium 1.2 mmol/L (1.1-1.4) 10/04/21 12:00 O2 Delivery Device Nc 10/04/21 12:00 O2 Liters/Min 3.0 % 10/04/21 12:00 FiO2 32.0 % 10/04/21 12:00 Public Safety Dispatcher ID Amh 10/04/21 12:00 Sodium 136 mmol/L (136-145) 10/04/21 11:20 Potassium 2.4 mmol/L (3.5-5.1) L* 10/04/21 11:20 Chloride 98 mmol/L (98-107) 10/04/21 11:20 Carbon Dioxide 25 mmol/L (22-29) 10/04/21 11:20 Anion Gap 15.4 (5-19) 10/04/21 11:20 BUN 19 mg/dL (8-23) 10/04/21 11:20 Creatinine 0.9 mg/dL (0.7-1.2) 10/04/21 11:20 GFR Calculation 84.7 mL/min (90-130) L 10/04/21 11:20 Glucose 96 mg/dL (65-115) 10/04/21 11:20 Calculated Osmolality 284 mOsm/kg (285-295) L 10/04/21 11:20 Calcium 7.7 mg/dL (8.5-10.5) L 10/04/21 11:20 Total Bilirubin 0.3 mg/dL (0.15-1.2) 10/04/21 11:20 AST 71 U/L (0-40) H 10/04/21 11:20 ALT 35 U/L (0-41) 10/04/21 11:20 Alkaline Phosphatase 282 IU/L (40-130) H 10/04/21 11:20 Ammonia 29 umol/L (16-60) 10/04/21 11:20 Troponin T Baseline 28 ng/L (0-15) H 10/04/21 11:20 C-Reactive Protein 188.7 mg/L (0.0-4.9) H 10/04/21 11:20 NT-Pro-B Natriuret Pep 897 pg/mL (0-125) H 10/04/21 11:20 Total Protein 4.6 g/dL (6.6-8.7) L 10/04/21 11:20 Albumin 1.8 g/dL (3.5-5.2) L 10/04/21 11:20 Globulin 2.8 g/dL (1.3-4.6) 10/04/21 11:20 Lipase 6 U/L (13-60) L 10/04/21 11:20 Procalcitonin 0.41 ng/mL (0-0.5) 10/04/21 11:20 TSH 7.59 uIU/mL (0.27-4.20) H 10/04/21 11:20 Free T4 0.82 ng/dL (0.82-1.77) 10/04/21 11:20 Salicylates < 0.3 mg/dL (3-10) L 10/04/21 11:20 Acetaminophen 7.9 ug/mL (10-30) L 10/04/21 11:20 Discharge Plan Discharge Patient Disposition: Admitted As Inpatient Clinical Impression: Pulmonary embolism, Effusion, pericardium, Pleural effusion, Pneumonia, Hypoxemia, Hypokalemia Condition: Stable Coding Level of Care Code ED Optics Technical Officer for Chg Fwd Exam Comprehensive
[2021-10-04 11:26] LABS: Basophils % 0.2 %; Eosinophils % 0.1 %; Hematocrit 27.9 % (42.0-52.0); Hemoglobin 9.6 g/dL (11.7-16.6); Lymphocytes # 1.1 10^3/uL (0.8-4.8); Lymphocytes % 6.2 %; Mean Corpuscular HGB Conc 34.4 g/dL (30.0-36.0); Mean Corpuscular Hemoglobin 29.7 pg (28.0-34.0); Mean Corpuscular Volume 86.4 fl (80-94); Mean Platelet Volume 9.6 fL (7.4-10.4); Monocytes # 0.5 10^3/uL (0.2-0.9); Monocytes % 2.7 %; Neutrophils # 15.34 10^3/uL (1.8-7.7); Neutrophils % 89.6 %; Nucleated Red Blood Cells % 0 %; Platelet Count 339 10^3/cmm (130-400); Red Blood Count 3.23 10^6/uL (4.1-5.3); Red Cell Distribution Width 13.9 % (12.1-15.1); White Blood Count 17.1 10^3/uL (4.0-10.0)
[2021-10-04 11:49] LABS: Ammonia 29 umol/L (16-60)
[2021-10-04 12:11] LABS: Troponin(5th) Baseline 28 ng/L (0-15)
[2021-10-04 12:12] LABS: ABG PH Result 7.47 (7.35-7.45); Alveolar-Arterial Oxygen Gradi 16.6 mmHg (5-10); Arterial Blood Gas Hematocrit 29.3 % (42-52); Base Excess ABG 2.3 mmol/L (-2.0-2.0); Blood Gas Operator Identificat AMH; Blood Gas Sample Site Brachial, right; Blood Gas Sample Type Arterial; Carboxyhemoglobin 0.9 %THgb (0.4-20.1); HGB O2 Sat 87.3 % (95-100); Ionized Calcium Level - ABG 1.2 mmol/L (1.1-1.4); Methemoglobin 0.9 % (0.4-1.5); Oxygen Device NC; Oxygen Saturation ABG 88.9; PO2 ABG 54.5 mmHg (80.0-100.0); Potassium Level - ABG 2.5 mmol/L (3.5-5.0); Total Hemoglobin 9.5 g/dL (14-18)
[2021-10-04 12:15] LABS: Free T4 Free Thyroxine 0.82 ng/dL (0.82-1.77); NT Pro B Type Natriuretic Pept 897 pg/mL (0-125); Procalcitonin 0.41 ng/mL (0-0.5); Thyroid Stimulating Hormone 7.59 uIU/mL (0.27-4.20)
[2021-10-04 12:26] LABS: Acetaminophen 7.9 ug/mL (10-30); Alanine Aminotransferase 35 U/L (0-41); Albumin Level 1.8 g/dL (3.5-5.2); Alkaline Phosphatase 282 IU/L (40-130); Anion Gap 15.4 (5-19); Aspartate Amino Transferase 71 U/L (0-40); Blood Urea Nitrogen 19 mg/dL (8-23); C Reactive Protein 188.7 mg/L (0.0-4.9); Calcium 7.7 mg/dL (8.5-10.5); Carbon Dioxide 25 mmol/L (22-29); Chloride 98 mmol/L (98-107); Globulin 2.8 g/dL (1.3-4.6); Glomerular Filtration Rate 84.7 mL/min (90-130); Glucose 96 mg/dL (65-115); Lipase 6 U/L (13-60); Osmolality Calculated 284 mOsm/kg (285-295); Sodium 136 mmol/L (136-145); Total Bilirubin 0.3 mg/dL (0.15-1.2); Total Protein 4.6 g/dL (6.6-8.7)
[2021-10-04 12:27] LABS: Salicylate < 0.3 mg/dL (3-10)
--- NOTE | 2021-10-04 12:27 | CT_ITS ---
WS: [id number] CTA OF THE CHEST WITH PULMONARY EMBOLISM PROTOCOL TECHNIQUE: High-resolution contrast enhanced CTA of the chest with coronal and sagittal reformatted i mages with pulmonary embolism protocol. MIP images are also reviewed. CLINICAL INFORMATION: new onset of hypxoemia and respiratory distress COMPARISON: None. DLP: 491.[address] scans at [facility] use at least one of these dose optimization techniques: automated e xposure control; mA and/or kV adjustment per patient size (includes targeted exams where dose is matc hed to clinical indication); or iterative reconstruction. FINDINGS:Proximal main pulmonary arteries are normal. Small filling defects in the RIGHT middle lobe and RIGHT lower lobe segmental and subsegmental pulmonary arteries compatible with pulmonary embolus. Small bilateral pleural effusions compressive atelectasis in the lung bases. Advanced chronic emphyse matous changes with bulla formation in the upper lobes. Cystic bronchiectasis in the lower lobes bila terally. Patchy infiltrates in the lung bases. Small amount perihepatic fluid. Small moderate pericardial effusion. Adrenal glands are normal. Mild thoracic curve. Mild thoracic kyphosis. Chronic anterior wedging in the lower thoracic and upper lumb ar spine. Normal caliber thoracic aorta. CT/CT angio chest PE protcl [id number] IMPRESSION: 1. Small acute pulmonary emboli in the RIGHT middle lobe and RIGHT lower lobe pulmonary arteries in the segmental and subsegmental divisions. 2. Small LEFT greater than RIGHT pleural effusions compressive atelectasis in the lung bases. Associated slight patchy infiltrates. Recommend correlation for pneumonia. 3. Advanced chronic emphysematous changes. 4. Small to moderate pericardial effusion. 5. No other acute findings. Notified Min Rossi MD at 10/04/2021 1:32 PM.
[2021-10-04 12:28] LABS: Potassium 2.4 mmol/L (3.5-5.1)
--- NOTE | 2021-10-04 12:56 | ECG_ITS ---
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 Measurements Intervals [place] Rate: 89 P: 69 DC: 170 QRS: -75 QRSD: 103 T: 87 QT: 294 QTc: 358 Interpretive Statements SINUS RHYTHM LOW QRS VOLTAGE IN EXTREMITY LEADS [QRS DEFLECTION < 0.5 mV IN LIMB LEADS] LEFT ANTERIOR FASCICULAR BLOCK [QRS AXIS <= -45, QR IN I, RS IN II] Compared to ECG 10/04/2021 11:11:24 No significant changes Electronically Signed On 10-04-2021 21:06:42 CDT by Narinder Sweeney M.D. [email or web address]
[2021-10-04] MEDS: iohexol 350 mg/mL 100 mL Btl IV (13:02)
[2021-10-04] MEDS: cefTRIAXone 1,000 MG in sodium chloride 0.9% (plus) 50 ML 100 MG IV (14:20)
[2021-10-04] MEDS: enoxaparin 80 mg/0.8 mL Syringe 70 MG SUBCUT (14:20)
[2021-10-04] MEDS: lidocaine 1% 5 ML in potassium chloride premix 100 ML 25 ML IV (14:20)
--- NOTE | 2021-10-04 14:44 | PM.HP ---
Providers/Chief Complaint Admitting Physician: Maritza Kilpatrick Primary Care Provider: Bri Fernandez MD Chief Complaint: SOB, AMS History of Present Illness Chris Madera Sr is a 66 year old male who presented to the emergency room with chief complaint of being more short of breath. Denys is blind and quite hard of hearing. History is obtained from his primary caregiver, his [id number]. About a week ago he started complaining of back pain. He has been staying in bed since then. Has not seemed quite himself. The last day or so they have noted that he was working harder to breathe. Primary care provider had prescribed some cefuroxime yesterday. He has known COPD and is chronically on 2 L of oxygen by nasal cannula. Today his work of breathing was even more labored. They called Dr. Bri Fernandez's office who recommended that he come in by EMS. Per EMS records oxygen saturations were in the 80s. He was requiring 6 L of oxygen via nasal cannula in route. On arrival here saturations were in the high 90s. He is down to about 4 L of oxygen by nasal cannula. No report of any specific new cough. He has not had any congestion per se. Does not complain of a sore throat. No headaches. No nausea or vomiting. Had some loose stools but they occurred after receiving a laxative for constipation. No report of chest pain or hemoptysis. Work-up in the ER included a CTA of the chest that demonstrated some small PEs located in the right middle lobe and right lower lobe segmental and subsegmental arteries. Again noted was small left greater than right pleural effusions with compressive atelectasis in the lung bases and slight patchy infiltrates. There was no comparison to prior studies the last images from May of this year also showed small to moderate bilateral effusions and patchy bilateral airspace infiltrates. Patient received Rocephin and azithromycin in the emergency room along with treatment dose Lovenox. Request was made for admission for further care. COVID testing came back before I saw Mr. Khalil and was positive. This came as a surprise to Mr. Madera's caregiver. On specific questioning however his niece, who lives at home with him, had a fever sometime in the last 2 days but otherwise felt okay. His [id number] has had a cough for about a week. Mr. Madera himself has a history of Guillain-Thomas? back in the 1980s and did not receive COVID vaccination because of this. Review of Systems Const: Reports: body aches, change in appetite (Poor appetite), fatigue and malaise; Denies: fever(s), chills or change in weight (No recent change in weight) Eyes: Reports: other (Blind in both eyes) ENMT: Reports: dry mouth; Denies: throat pain or nasal congestion Card: Reports: chest pain and dyspnea on exertion; Denies: palpitations or edema Resp: Reports: dyspnea, non-productive cough, wheezing and other ( Significant increased work of breathing today per caregiver); Denies: hemoptysis GI: Reports: nausea and diarrhea (Loose stools after laxatives); Denies: abdominal pain, vomiting, constipation or hematochezia : Reports: urinary incontinence; Denies: difficulty urinating Musc: Reports: back pain, extremity pain and muscle weakness; Denies: joint redness or joint warmth Skin/Breast: Reports: erythema (Caregiver reports a few red spots on his back) and dry skin; Denies: pruritus Neuro: Reports: headache(s), weakness in extremities (general rather than focal), difficulty walking (baseline), dizziness, seizure-like activity (Last seizure within the past couple of days petit mall in nature, brief) and other; Denies: numbness in extremities Psych: Reports: anxiety and depression Gt/Lymph: Denies: easy bruising or easy bleeding Medications/Allergies Home Medications Medication Instructions Recorded Confirmed Last Taken Type aspirin 81 mg tablet,delayed 81 mg PO [facility] 05/21/19 10/04/21 10/04/21 History release nitroglycerin 0.4 mg sublingual 0.4 mg SUBLINGUAL Q5M PRN 05/21/19 10/04/21 Unknown History tablet mirtazapine 15 mg tablet 30 mg PO BEDTIME 11/25/19 10/04/21 10/03/21 History multivitamin 1 tab PO QAM 11/25/19 10/04/21 10/04/21 History albuterol sulfate 90 mcg/actuation 1 - 2 puff INHALATION QID PRN 08/04/20 10/04/21 Unknown History aerosol inhaler cholecalciferol (vitamin D3) 50 50 mcg PO QAM 08/04/20 10/04/21 10/04/21 History mcg (2,000 unit) tablet (Vitamin D3) diphenhydramine HCl 25 mg capsule 25 mg PO DAILY PRN 08/04/20 10/04/21 Unknown History (Benadryl) ibuprofen 200 mg tablet 600 - 800 mg PO Q6H PRN 08/04/20 10/04/21 Unknown History omeprazole 20 mg tablet,delayed 20 mg PO BID 08/04/20 10/04/21 10/04/21 History release epinephrine 0.3 mg/0.3 mL 0.3 mg IM Q10M PRN 11/17/20 10/04/21 Unknown History injection, auto-injector tamsulosin 0.4 mg capsule 0.4 mg PO QPM 06/20/21 10/04/21 10/03/21 History venlafaxine 37.5 mg 75 mg PO QAM 06/20/21 10/04/21 10/04/21 History capsule,extended release 24 hr vitamin B complex 1 tab PO QAM 06/20/21 10/04/21 10/04/21 History furosemide 20 mg tablet (Lasix) 20 mg PO DAILY #30 tab 06/27/21 10/04/21 Unknown Rx levetiracetam 1,000 mg tablet 1,000 mg PO BID #60 tab 08/08/21 10/04/21 10/04/21 Rx (Keppra) potassium chloride 8 mEq See Rx Instructions .ROUTE 08/11/21 10/04/21 10/04/21 06:30 History capsule,extended release .COMPLEX cap 2 CAPS cefuroxime axetil 500 mg tablet 500 mg PO BID 10/04/21 10/04/21 Unknown History ferrous sulfate 325 mg (65 mg 325 mg PO QAM 10/04/21 10/04/21 10/04/21 History iron) tablet (iron) fluticasone propionate 50 1 spray INTRANASAL DAILY 10/04/21 10/04/21 Unknown History mcg/actuation nasal spray,suspension hydrocodone 5 mg-acetaminophen 325 1 tab PO TID PRN 10/04/21 10/04/21 Unknown History mg tablet levothyroxine 25 mcg tablet 25 mcg PO DAILY 10/04/21 10/04/21 Unknown History umeclidinium 62.5 mcg-vilanterol 1 inh INHALATION QAM 10/04/21 10/04/21 Unknown History 25 mcg/actuation powdr for inhalation (Anoro Ellipta) Allergies Allergy/AdvReac Type Severity Reaction Status Date / Time insect venom Allergy Severe ALGY-Anaphy Verified 08/11/21 07:16 laxis Additional Medication Information Levothyroxine was just prescribed yesterday and was due to take the first dose today but has not yet PFSH Acute PFSH: Medical History (Updated 10/04/21 @ 22:17 by Maritza Kilpatrick MD) Blind Bilateral retinal detachment, complication from surgery Carotid artery disease On CTA head and neck 06/2021: Right ICA occluded Left ICA mild stenosis proximally, <50% Carotid artery occlusion without infarction Right internal carotid artery total occlusion identified in 05/2019 COPD (chronic obstructive pulmonary disease) Depression Former consumption of alcohol Generalized epilepsy Recurrent seizure like episodes in 2019, EEG with diffuse slowing, neurology suspected episodes from orthostatic hypotension, frequency decreased after Keppra initiated, have been petit mal and other types Hard of hearing Heart failure with preserved ejection fraction Echo 06/2021 EF 55% History of Guillain-Dickson syndrome (~1986) History of nicotine dependence History of PFTs 05/2019: moderate airflow obstruction, moderate reduction in gas exchange, no post bronchodilator response History of TIA (transient ischemic attack) Hypertension Pericardial effusion Echo 06/2021: moderate loculated, possibly exudative pericardial effusion anteriorly, with minimal echo free space posteriorly. On CT imaging at time measured up to 16mm in diameter. Personal history of MRSA (methicillin resistant Staphylococcus aureus) Pleural effusion Thoracentesis 06/2021: 950ml clear yellow fluid removed, transudative by studies Records indicate pleural effusion as far back as 2012 Surgical History (Updated 10/04/21 @ 21:24 by Maritza Kilpatrick MD) H/O hernia repair History of cataract surgery History of colonoscopy 2019 History of esophagogastroduodenoscopy (EGD) 2019 History of surgery on lower extremity left femur Family History Brother Cancer Mother Chronic kidney disease (CKD) Diabetes Father Dementia Denies family history of CAD (coronary artery disease) Clotting disorder Suicide Anesthesia complication Bleeding disorder Lung disease Stroke Social History (Updated 10/04/21 @ 21:12 by Maritza Kilpatrick MD) Smoking and tobacco status: former smoker (switched to vaping) Quit status (tobacco): has quit using tobacco Former quit date comment: quite after admission in 06/2021 Alcohol intake: former Substance/Drug Use: never Caregiver/support person: Yes Lives independently: No Household members: family and other Details: Lives with his brother's family; Sister in Law is primary caregiver Marital status: / Current occupational status: disabled Current gender identity: Male Vitals/I&O/Wt Last Vital Signs Pulse 89 10/04/21 11:12 Resp 22 H 10/04/21 11:12 BP 109/76 10/04/21 11:12 Pulse Ox 95 10/04/21 11:12 Weight last 48 hrs Weight 52.617 kg Physical Exam Narrative: Constitutional: alert, but obviously blind, thin build, acutely and chronically ill appearing, hard of hearing HEENT: bitemporal wasting, sunken eyes and cheeks, both eyes with irregularities from prior surgeries, no light tracking I could discern, no significant rhinorrhea, oropharynx with very dry membranes Neck: supple, visible outline of muscles and vessels Respiratory: mild intercostal retractions at times, decreased breath sound at both bases, scattered crackles Cardiovascular: regular, no murmurs, no acrocyanosis, 2+ pulses radial, 1+ dorsalis pedis Abdomen: soft, non tender, slightly scaphoid, positive bowel sounds Extremities: no edema, muscle wasting noted Skin: dry skin, ecchymosis and some scabbed sores primarily to hands and forearms Neuro: face symmetric, speech soft, at times hard to understand but also endentulous, slow to get his words out, moves all extremities, no involuntary or abnormal movements noted Psych: calm Data : 10/04/21 11:20 10/04/21 11:20 Other Labs: Radiology Impressions Chest X-Ray 10/04/21 10:56 IMPRESSION: Probably relatively stable abnormal chest with significant chronic abnormalities. No definite acute abnormality compared to the previous examination. Chest CTA 10/04/21 12:27 IMPRESSION: 1. Small acute pulmonary emboli in the RIGHT middle lobe and RIGHT lower lobe pulmonary arteries in the segmental and subsegmental divisions. 2. Small LEFT greater than RIGHT pleural effusions compressive atelectasis in the lung bases. Associated slight patchy infiltrates. Recommend correlation for pneumonia. 3. Advanced chronic emphysematous changes. 4. Small to moderate pericardial effusion. 5. No other acute findings. Notified Min Rossi MD at 10/04/2021 1:32 PM. Laboratory Results WBC 17.1 10^3/uL (4.0-10.0) H 10/04/21 11:20 RBC 3.23 10^6/uL (4.1-5.3) L 10/04/21 11:20 Hgb 9.6 g/dL (11.7-16.6) L 10/04/21 11:20 Hct 27.9 % (42.0-52.0) L 10/04/21 11:20 MCV 86.4 fl (80-94) 10/04/21 11:20 MCH 29.7 pg (28.0-34.0) 10/04/21 11:20 MCHC 34.4 g/dL (30.0-36.0) 10/04/21 11:20 RDW 13.9 % (12.1-15.1) 10/04/21 11:20 Plt Count 339 10^3/cmm (130-400) 10/04/21 11:20 MPV 9.6 fL (7.4-10.4) 10/04/21 11:20 Neut % (Auto) 89.6 % 10/04/21 11:20 Lymph % (Auto) 6.2 % 10/04/21 11:20 [facility] % (Auto) 2.7 % 10/04/21 11:20 Eos % (Auto) 0.1 % 10/04/21 11:20 Baso % (Auto) 0.2 % 10/04/21 11:20 Neut # (Auto) 15.34 10^3/uL (1.8-7.7) H 10/04/21 11:20 Lymph # (Auto) 1.1 10^3/uL (0.8-4.8) 10/04/21 11:20 [facility] # (Auto) 0.5 10^3/uL (0.2-0.9) 10/04/21 11:20 Eos # (Auto) 0.0 10^3/uL (0.0-0.8) 10/04/21 11:20 Baso # (Auto) 0.0 10^3/uL (0.0-0.1) 10/04/21 11:20 Nucleated RBC % (auto) 0 % 10/04/21 11:20 Nucleated RBCs # 0.0 /100WBC 10/04/21 11:20 Specimen Type Arterial 10/04/21 12:00 Sample Site Brachial, right 10/04/21 12:00 ABG pH 7.47 (7.35-7.45) H 10/04/21 12:00 ABG pCO2 36.0 mmHg (35-45) 10/04/21 12:00 ABG pO2 54.5 mmHg (80.0-100.0) L 10/04/21 12:00 ABG HCO3 26.0 mmol/L (22-26) 10/04/21 12:00 ABG O2 Saturation 88.9 10/04/21 12:00 ABG Base Excess 2.3 mmol/L (-2.0-2.0) H 10/04/21 12:00 Guy Test N/a 10/04/21 12:00 A-a O2 Gradient 16.6 mmHg (5-10) H 10/04/21 12:00 Hematocrit 29.3 % (42-52) L 10/04/21 12:00 Hgb O2 Saturation 87.3 % (95-100) L 10/04/21 12:00 Carboxyhemoglobin 0.9 %THgb (0.4-20.1) 10/04/21 12:00 Methemoglobin 0.9 % (0.4-1.5) 10/04/21 12:00 Total Hemoglobin 9.5 g/dL (14-18) L 10/04/21 12:00 Sodium 133.0 mmol/L (131-143) 10/04/21 12:00 Potassium 2.5 mmol/L (3.5-5.0) L 10/04/21 12:00 Glucose 102.0 mg/dL (70-115) 10/04/21 12:00 Ionized Calcium 1.2 mmol/L (1.1-1.4) 10/04/21 12:00 O2 Delivery Device Nc 10/04/21 12:00 O2 Liters/Min 3.0 % 10/04/21 12:00 FiO2 32.0 % 10/04/21 12:00 Interactive Multimedia Designer ID Amh 10/04/21 12:00 Sodium 136 mmol/L (136-145) 10/04/21 11:20 Potassium 2.4 mmol/L (3.5-5.1) L* 10/04/21 11:20 Chloride 98 mmol/L (98-107) 10/04/21 11:20 Carbon Dioxide 25 mmol/L (22-29) 10/04/21 11:20 Anion Gap 15.4 (5-19) 10/04/21 11:20 BUN 19 mg/dL (8-23) 10/04/21 11:20 Creatinine 0.9 mg/dL (0.7-1.2) 10/04/21 11:20 GFR Calculation 84.7 mL/min (90-130) L 10/04/21 11:20 Glucose 96 mg/dL (65-115) 10/04/21 11:20 Calculated Osmolality 284 mOsm/kg (285-295) L 10/04/21 11:20 Calcium 7.7 mg/dL (8.5-10.5) L 10/04/21 11:20 Total Bilirubin 0.3 mg/dL (0.15-1.2) 10/04/21 11:20 AST 71 U/L (0-40) H 10/04/21 11:20 ALT 35 U/L (0-41) 10/04/21 11:20 Alkaline Phosphatase 282 IU/L (40-130) H 10/04/21 11:20 Ammonia 29 umol/L (16-60) 10/04/21 11:20 Troponin T Baseline 28 ng/L (0-15) H 10/04/21 11:20 Troponin T 120 Minute 24.72 ng/L (0-15) H 10/04/21 14:09 Delta Troponin T -3.28 ABS# (0-10) L 10/04/21 14:09 C-Reactive Protein 188.7 mg/L (0.0-4.9) H 10/04/21 11:20 NT-Pro-B Natriuret Pep 897 pg/mL (0-125) H 10/04/21 11:20 Total Protein 4.6 g/dL (6.6-8.7) L 10/04/21 11:20 Albumin 1.8 g/dL (3.5-5.2) L 10/04/21 11:20 Globulin 2.8 g/dL (1.3-4.6) 10/04/21 11:20 Lipase 6 U/L (13-60) L 10/04/21 11:20 Procalcitonin 0.41 ng/mL (0-0.5) 10/04/21 11:20 TSH 7.59 uIU/mL (0.27-4.20) H 10/04/21 11:20 Free T4 0.82 ng/dL (0.82-1.77) 10/04/21 11:20 Salicylates < 0.3 mg/dL (3-10) L 10/04/21 11:20 Acetaminophen 7.9 ug/mL (10-30) L 10/04/21 11:20 SARS-CoV-2 Ag (Rapid) Positive (Negative) H 10/04/21 14:48 A&P Assessment and plan (1) Hypoxemia: Multifactorial with chronic oxygen requirement from COPD at 2L BNC. Also has known chronic pleural and pericardial effusions. Acutely he requiring as much as 6L BNC for adequate saturation today. Currently on 4L. Both PE and COVID, along with chronic issues of COPD and effusions contributing. Oxygen therapy as needed Status: Acute (2) COVID-19: Based on testing via rapid COVID antigen. Several household occupants have symptoms strongly suggestive of COVID including fever and cough. 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 Abnormalities on CT imaging of infiltrates and effusions are not new and difficult to discern the full extent of COVID-19 for Mr. Madera versus the positive test being an incidental finding. Working diagnosis however is that COVID-19 is probably predominantly responsible for other abnormalities identified. Remdesivir, dexamethasone, breathing treatments Check additional inflammatory markers for baseline Respiratory support as needed Antibiotics empirically given comorbid conditions; has a known history of MRSA infection in the past so will cover with vancomycin and zosyn, azithromycin Check MRSA screen Blood cultures Reviewed with caregiver/DPOA for medical care who agreed with plan including medications Status: Acute (3) Pulmonary embolism: Given COVID positivity, suspect PEs related to this. That said he has been at bedrest for the last week or so. He also has other risk factors for possibility of PE including former smoker, known chronically occluded carotid artery among others. Cannot rule out an occult malignancy either in this situation. Treatment dose Lovenox with plan to transition to oral anticoagulation upon discharge, as per discussion with DPOA for medical care Check venous Duplex Status: Acute Qualifiers: Pulmonary embolism type: multiple subsegmental (without acute cor pulmonale) Qualified Code(s): I26.94 - Multiple subsegmental pulmonary emboli without acute cor pulmonale (4) Hypokalemia: Significant decrease in a patient on Lasix and potassium supplementation chronically Replace as needed Check magnesium and phosphorus levels Status: Acute (5) Normocytic anemia: Similar hemoglobin levels to last hospital stay in June, no report of any bleeding, iron levels at time were not low, 73% iron saturation which is high noted Monitor given full anticoagulation need presently Recheck TIBC and ferrtin levels Hemocult stool Status: Chronic (6) Pericardial effusion (noninflammatory): Identified in June of this year with last echocardiogram showing a moderate loculated anterior effusion, has followed with Dr. Sweeney outpatient with most recent clinic visit in July. Effusion again identified on imaging of the chest. Repeat echocardiogram to evaluate further in setting of acute illness Status: Acute (7) Heart failure with preserved ejection fraction: Clinically not acute but at risk to develop acute CHF in the hospital Continue home Lasix dosing but will need to adjust long-term potassium dosage Monitor respiratory status and I/Os, adjusting dose as needed Status: Chronic Qualifiers: Heart failure chronicity: chronic Qualified Code(s): I50.32 - Chronic diastolic (congestive) heart failure (8) COPD (chronic obstructive pulmonary disease): Difficult to ascertain if COPD itself is acutely exacerbated though it certainly is impacted by both COVID diagnosis and PE Breathing treatments Add budesonide Flutter if he can do Status: Chronic Qualifiers: COPD type: emphysema Emphysema type: centrilobular Qualified Code(s): J43.2 - Centrilobular emphysema (9) 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, has both petit mal and other types of seizures, last seizures this week which I explained to the family was probably due to lowered threshold from acute illness Continue home Keppra Status: Chronic (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 Assistance and patience as needed Status: Chronic Qualifiers: Right eye visual impairment category: right - unspecified blindness Left eye visual impairment category: left - unspecified blindness Qualified Code(s): H54.3 - Unqualified visual loss, both eyes (11) Hard of hearing: Has hearing aids which have asked family to leave here Assistance and patience as needed Status: Chronic Qualifiers: Hearing loss type: sensorineural Laterality: bilateral Qualified Code(s): H90.3 - Sensorineural hearing loss, bilateral (12) Current nicotine vaping on some days: Former cigarette smoker, now vaping with nicotine Nicotine patch if needed Status: Chronic Plan Hypothyroidism, new outpatient diagnosis for which she has been started on levothyroxine but not initiated yet Depression, chronically on venlafaxine and mirtazapine BPH chronically on Flomax Quit drinking alcohol after June admission this year Inpatient admission Isolation room COVID management as described above Lovenox currently for PE Follow up pending labs Empiric antibiotics Echo Venous Duplex Blood cultures MRSA screen Replace electrolytes Home medications as described for chronic conditions Supportive care otherwise DPOA for medical care on file Currently anticipate home with caregiver, possibly with additional services and more oxygen needed Full code, short term resuscitation is acceptable, but not penitentiary. If acute event DPOA to discuss further. Attestations Medical Necessity Statement*: Anticipate stay greater than 2 midnights in patient with covid and multiple subsegmental PE, requiring more oxygen than usual. Has significant comorbidities and is not vaccinated due to history of Guillain-Dickson. At high risk of rapid clinical given acute issues and chronic conditions. Coding Level of Care Code Acute Vault Worker for g Fwd Diagnoses Hypoxemia R09.02 COVID-19 U07.1 Hypokalemia E87.6 Pulmonary embolism I26.94 Pulmonary embolism type: multiple subsegmental (without acute cor pulmonale) Pericardial effusion (noninflammatory) I31.3 Heart failure with preserved ejection fraction I50.32 Heart failure chronicity: chronic COPD (chronic obstructive pulmonary disease) J43.2 COPD type: emphysema Emphysema type: centrilobular Generalized epilepsy G40.309 Blind H54.3 Right eye visual impairment category: right - unspecified blindness Left eye visual impairment category: left - unspecified blindness Hard of hearing H90.3 Hearing loss type: sensorineural Laterality: bilateral Current nicotine vaping on some days Z72.0 Normocytic anemia D64.9
[2021-10-04 14:49] LABS: Troponin 5 2HR 24.72 ng/L (0-15)
[2021-10-04 14:51] LABS: Troponin 5 2HR Delta -3.28 ABS# (0-10)
[2021-10-04 15:14] LABS: SARS Covid-2 Antigen Positive (Negative)
--- NOTE | 2021-10-04 16:56 | ECG_ITS ---
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 Measurements Intervals [place] Rate: 112 P: 83 SD: 168 QRS: -89 QRSD: 88 T: 89 QT: 261 QTc: 357 Interpretive Statements SINUS TACHYCARDIA LOW QRS VOLTAGE IN EXTREMITY LEADS [QRS DEFLECTION < 0.5 mV IN LIMB LEADS] PATTERN CONSISTENT WITH PULMONARY DISEASE LEFT ANTERIOR FASCICULAR BLOCK [QRS AXIS <= -45, QR IN I, RS IN II] Compared to ECG 10/04/2021 13:06:59 Sinus rhythm no longer present Electronically Signed On 10-04-2021 21:07:07 CDT by Narinder Sweeney M.D. [id number]
[2021-10-04] MEDS: tamsulosin 0.4 mg Capsule PO (19:36)
[2021-10-04] MEDS: dexamethasone 4 mg/mL INJ 6 MG IVP (19:36)
[2021-10-04] MEDS: docusate sodium 100 mg Capsule PO (19:36)
[2021-10-04] MEDS: remdesivir 200 MG in sodium chloride 0.9% (100 ml) 60 ML 100 MG IV (20:49)
[2021-10-04] MEDS: diphenhydrAMINE 25 mg Capsule PO (20:55)
[2021-10-04] MEDS: mirtazapine 15 mg Tablet PO (20:55)
--- NOTE | 2021-10-04 21:49 | USCV_ITS ---
Chris Madera Age: 66 Gender: M : 1955 Exam Date: 10/04/2021 22:22 Ordering Phys: Technologist: LANDY Exam Location: [facility] [place] Site Location: Account Number: Indication: COVID, pulmonary emboli. HISTORY: COVID, pulmonary emboli. PROCEDURES: Venous duplex imaging was performed in bilateral lower extremities. The venous duplex Doppler examination of both lower extremities was performed in the standard fashion. The following venous structures were evaluated: common femoral vein, profunda vein, proximal portion of the greater saphenous vein, superficial femoral vein, and the popliteal vein. In addition, the posterior tibial veins were evaluated. Bilaterally, the common femoral, superficial femoral, profunda femoral, popliteal, posterior tibial, and greater saphenous veins were identified and interrogated in the standard fashion. These veins were found to be easily compressible with spontaneous blood flow. Serial compression, augmentation maneuvers, and spectral Doppler flow evaluation were performed and were normal. No evidence of thrombus noted. CONCLUSIONS No evidence of right lower extremity DVT. No evidence of left lower extremity DVT. Trino Smith MD (Electronically Signed) Final Date: 05 October 2021 16:50 S
--- NOTE | 2021-10-04 21:51 | USCV_ITS ---
Transthoracic Echo Chris Madera Age: 66 Gender: M : 1955 Exam Date: 10/04/2021 22:48 Ordering Phys: Technologist: LANDY [place] [facility] [place]: Account Number: Indication: COVID, pulmonary emboli, follow-up known pericardial effusion. BP: 105 / 76 HR: 95 Rhythm: Sinus Technical Quality: Technically difficult study MEASUREMENTS (Male / Female) Normal Values 2D ECHO LV Diastolic Diameter PLAX 4.6 cm 4.2 - 5.9 / 3.9 - 5.3 cm LV Systolic Diameter PLAX 2.8 cm IVS Diastolic Thickness 0.8 cm 0.6 - 1.0 / 0.6 - 0.9 cm IVS Systolic Thickness 1.6 cm LVPW Diastolic Thickness 0.8 cm 0.6 - 1.0 / 0.6 - 0.9 cm LVPW Systolic Thickness 1.6 cm LVOT Diameter 2.1 cm LV Ejection Fraction 2D Teich 68.9 % LV Ejection Fraction MOD 2C 47.1 % LV Ejection Fraction 2C AL 49.8 % LA Diameter 3.2 cm LA Width 2.7 cm LA Height 5.2 cm RA Width 2.6 cm RA Height 3.5 cm IVC Diameter 1.2 cm M-MODE Aortic Annulus Diameter 2.9 cm LA Ao Ratio MM 1.1 MV E Point Septal Separation 0.8 cm DOPPLER AV Peak Velocity 82.0 cm/s LVOT Peak Velocity 68.0 cm/s AV Area Cont Eq vti 2.8 cm squared AV Area Cont Eq pk 2.8 cm squared MV Peak Velocity 67.0 cm/s MV Area PHT 5.2 cm squared Mitral E to A Ratio 0.9 MV E' Velocity 38.0 cm/s Mitral E to MV E' Ratio 8.8 Mitral E to LV E' Lateral Ratio 15.8 Mitral E to LV E' Septal Ratio 6.1 TR Peak Velocity 240.5 cm/s TR Peak Gradient 23.1 mmHg Right Atrial Pressure 5.0 mmHg Pulmonary Artery Systolic Pressu 28.1 mmHg PV Peak Velocity 59.0 cm/s RV Acceleration Time 0.1 s RV Ejection Time 0.3 s RV AcT/ET 0.3 FINDINGS Left Ventricle Normal left ventricular size. LV systolic function is borderline low with EF of 45-50%. Mild global hypokinesis. Right Ventricle The right ventricle is normal in size and function. Right Atrium The right atrium is normal in size. Normal RA pressure Left Atrium The left atrium is normal in size. Mitral Valve Grossly normal Aortic Valve Grossly normal Tricuspid Valve Structurally normal tricuspid valve without significant stenosis. Trace tricuspid regurgitation. Pulmonary artery systolic pressure is normal. Pulmonic Valve Not well-visualized. Pericardium Moderate to large sized anterior, loculated pericardial effusion. No echocardiographic features of pericardial tamponade. Pleural effusion is also seen. Aorta Normal ascending aorta dimension. IVC The inferior vena cava appears normal. CONCLUSIONS Technically limited quality echocardiogram because of poor ultrasonic windows. LV systolic function is borderline low with EF 45 to 50%. Valvular structures are not well visualized but are grossly normal. Trace tricuspid regurgitation seen Moderate to large sized anterior, loculated pericardial effusion. No echocardiographic features of pericardial tamponade. Pleural effusion is also seen. Normal RA pressure. IVC collapse seen. Compared to prior echocardiogram from 06/20/2021, no significant changes are seen. Juan Carlos Freitas MD (Electronically Signed) Final Date: 05 October 2021 12:29 S
--- NOTE | 2021-10-04 22:41 | PC.PHAR ---
Vancomycin is dosed at 1250mg IVPB every 24 hours to produce a predicted trough level of 12.62 (population based pharmacokinetic analysis). A trough level has been ordered from the lab to be obtained before the fourth dose to confirm and adjust if needed. The Zosyn is dosed at 3.375gm IVPB every 8 hours on the basis of the creatinine clearance of 61.3.
[2021-10-04] MEDS: sodium chloride 0.9% (100 ml) 100 ML 20 ML (23:23)
[2021-10-04] MEDS: azithromycin 500 MG in sodium chloride 0.9% 250 ML 250 MG IV (23:38)
[2021-10-04] MEDS: levETIRAcetam 500 mg Tablet 1000 MG PO (23:40)
[2021-10-04] MEDS: potassium chloride ER 20 mEq Tablet 40 MEQ PO (23:40)
[2021-10-05] VITALS (32 sets, daily range): BP systolic 125–138; BP diastolic 76–85; PULSE 86–109; RESP 11–29; TEMP 36.4–36.8; O2SAT 88–99; BMI 17.2
[2021-10-05] MEDS: vancomycin 1,250 MG/250 ML PIGGYBACK 250 MG IV (01:14)
[2021-10-05] MEDS: piperacillin-tazobactam 3.375 GM in sodium chloride 0.9% (plus) 50 ML IV ×3 (02:18→16:57)
[2021-10-05] MEDS: ipratropium-albuterol 3 mL Neb INHALATION ×4 (04:40→20:43)
[2021-10-05] MEDS: aspirin 81 mg EC Tablet PO (05:53)
[2021-10-05] MEDS: venlafaxine ER (24HR) 75 mg Capsule PO (05:53)
[2021-10-05] MEDS: enoxaparin 60 mg/0.6 mL Syringe 50 MG SUBCUT ×2 (05:54→19:41)
[2021-10-05] MEDS: fluticasone nasal spray 16gm Btl 1 SPRAY INTRANASAL (08:09)
[2021-10-05] MEDS: levothyroxine 25 mcg Tablet PO (09:18)
[2021-10-05] MEDS: zinc gluconate 50 mg Tablet PO (09:18)
[2021-10-05] MEDS: levETIRAcetam 500 mg Tablet 1000 MG PO ×2 (09:18→22:29)
[2021-10-05] MEDS: docusate sodium 100 mg Capsule PO ×2 (09:18→19:41)
[2021-10-05] MEDS: pantoprazole DR 40 mg Tablet PO (09:18)
[2021-10-05] MEDS: cholecalciferol (vitamin D3) 1,000 unit Tablet 1000 UNIT PO (09:18)
[2021-10-05] MEDS: potassium chloride ER 20 mEq Tablet 40 MEQ PO (09:18)
[2021-10-05] MEDS: budesonide 0.5 mg/2 mL Neb INHALATION ×2 (09:38→20:43)
[2021-10-05 10:36] LABS: Basophils % 0.1 %; Hematocrit 28.4 % (42.0-52.0); Hemoglobin 9.6 g/dL (11.7-16.6); Lymphocytes # 1.3 10^3/uL (0.8-4.8); Lymphocytes % 7.4 %; Mean Corpuscular HGB Conc 33.8 g/dL (30.0-36.0); Mean Corpuscular Hemoglobin 29.3 pg (28.0-34.0); Mean Corpuscular Volume 86.6 fl (80-94); Mean Platelet Volume 9.7 fL (7.4-10.4); Monocytes # 0.5 10^3/uL (0.2-0.9); Monocytes % 2.7 %; Neutrophils % 87.5 %; Nucleated Red Blood Cells % 0 %; Platelet Count 365 10^3/cmm (130-400); Red Blood Count 3.28 10^6/uL (4.1-5.3); Red Cell Distribution Width 14.1 % (12.1-15.1); White Blood Count 17.3 10^3/uL (4.0-10.0)
[2021-10-05] MEDS: neomycin-poly-bacitracin oint 28 gm 1 APPLIC TOPICAL (10:52)
[2021-10-05 11:06] LABS: Lactic Sepsis W/Reflex 1.8 mmol/L (0.5-2.2)
[2021-10-05 11:06] LABS: Creatine Phosphokinase 64 U/L (39-308); Iron 43 ug/dL (59-158); Troponin 5 6HR 27.71 ng/L (0-15)
[2021-10-05 11:07] LABS: INR 1.12 (0.8-1.2)
[2021-10-05 11:07] LABS: Alanine Aminotransferase 36 U/L (0-41); Albumin Level 1.9 g/dL (3.5-5.2); Alkaline Phosphatase 330 IU/L (40-130); Anion Gap 13.9 (5-19); Aspartate Amino Transferase 71 U/L (0-40); Blood Urea Nitrogen 19 mg/dL (8-23); Calcium 7.9 mg/dL (8.5-10.5); Carbon Dioxide 25 mmol/L (22-29); Chloride 97 mmol/L (98-107); Globulin 2.9 g/dL (1.3-4.6); Glomerular Filtration Rate 84.7 mL/min (90-130); Glucose 142 mg/dL (65-115); Osmolality Calculated 281 mOsm/kg (285-295); Sodium 133 mmol/L (136-145); Total Bilirubin 0.2 mg/dL (0.15-1.2); Total Protein 4.8 g/dL (6.6-8.7)
[2021-10-05 11:14] LABS: D Dimer 0.99 ug/mIFEU (0-0.59)
[2021-10-05 11:16] LABS: Fibrinogen 272 mg/dL (174-498)
[2021-10-05 11:27] LABS: Total Iron Binding Capacity 59.99999 mcg/dl; Unsaturated Iron Binding < 17 ug/dL (112-347)
[2021-10-05 11:28] LABS: Troponin 5 6HR Delta -0.29 ng/L (0-12)
[2021-10-05 11:31] LABS: Potassium 2.9 mmol/L (3.5-5.1)
[2021-10-05] MEDS: azithromycin 500 MG in sodium chloride 0.9% 250 ML 250 MG IV (15:28)
--- NOTE | 2021-10-05 18:46 | P.PN_ITS ---
Subjective Subjective: Patient was seen and examined this morning, currently saturating well on, 3 to 4 L supplemental oxygen, has remained afebrile His other vitals and labs have been reviewed. Medications: Medication Review Details: Generic Name Dose Route Start Last Admin Trade Name Yovannyq PRN Reason Stop Dose Admin Albuterol/Ipratrop ium 3 ml 10/04/21 20:00 10/05/21 15:21 Ipratropium-Albu terol 3 Ml Neb INHALATION 3 ml Q6H.RESP JANNIE Administration Aspirin 81 mg 10/05/21 06:00 10/05/21 05:53 Aspirin 81 Mg Ec Tablet PO 81 mg QAM JANNIE Administration Budesonide 0.5 mg 10/05/21 08:00 10/05/21 09:38 Budesonide 0.5 M g/2 Ml Neb INHALATION 0.5 mg BID.RESPIRATORY S CH Administration Dexamethasone 6 mg 10/04/21 18:17 10/04/21 19:36 Dexamethasone 4 Mg/Ml Inj IVP 6 mg Q24H JANNIE Administration Diphenhydramine HC l 25 mg 10/04/21 18:17 10/04/21 20:55 Diphenhydramine 25 Mg Capsule PO 25 mg BID PRN Administration allergy symptoms/ itching Docusate Sodium 100 mg 10/04/21 18:17 10/05/21 09:18 Docusate Sodium 100 Mg Capsule PO 100 mg BID JANNIE Administration Enoxaparin Sodium 50 mg 10/05/21 06:00 10/05/21 05:54 Enoxaparin 60 Mg /0.6 Ml Syringe SUBCUT 50 mg Q12H JANNIE Administration Fluticasone Propio yg 1 spray 10/05/21 09:00 10/05/21 08:09 Fluticasone Nasa l Thatcher 16gm Btl INTRANASAL 1 spray DAILY JANNIE Administration Piperacillin Sod/T azobactam 50 mls @ 12.5 mls /hr 10/05/21 00:00 10/05/21 16:57 Sod 3.375 gm/ So dium Chloride IV 12.5 mls/hr Q8H JANNIE Administration Protocol As Directed Vancomycin/PEG/NAD A/Lysine/Water 1,250 mg in 250 m ls @ 250 mls/hr 10/04/21 23:00 10/05/21 02:22 Vancocin IV Infused Q24H JANNIE Infusion Azithromycin 500 m g/ Sodium 250 mls @ 250 mls /hr 10/05/21 15:30 10/05/21 17:03 Chloride IV Infused Q24H JANNIE Infusion Levetiracetam 1,000 mg 10/04/21 21:00 10/05/21 09:18 Levetiracetam 50 0 Mg Tablet PO 1,000 mg BID@, JANNIE Administration Levothyroxine Sodi um 25 mcg 10/05/21 09:00 10/05/21 09:18 Levothyroxine 25 Mcg Tablet PO 25 mcg DAILY JANNIE Administration Mirtazapine 15 mg 10/04/21 21:00 10/04/21 20:55 Mirtazapine 15 M g Tablet PO 15 mg BEDTIME JANNIE Administration Multivitamins/Mine rals 1 tab 10/05/21 09:00 10/05/21 09:18 Multivitamin W/M inerals Tablet PO 1 tab DAILY JANNIE Administration Neomycin/Polymyxin /Bacitracin 1 applic 10/05/21 10:17 10/05/21 10:52 Gzkbnasw-Juhk-Ea citracin Oint 28 G m TOPICAL 1 applic BID JANNIE Administration Pantoprazole Sodiu m 40 mg 10/05/21 09:00 10/05/21 09:[address] 40 Mg Tablet PO 40 mg DAILY JANNIE Administration Potassium Chloride 40 meq 10/05/21 09:00 10/05/21 09:18 Potassium Chlori de Er 20 Meq Table t PO 10/07/21 02:00 40 meq DAILY JANNIE Administration Tamsulosin HCl 0.4 mg 10/04/21 18:17 10/04/21 19:36 Tamsulosin 0.4 M g Capsule PO 0.4 mg QPM JANNIE Administration Venlafaxine HCl 75 mg 10/05/21 06:00 10/05/21 05:53 Venlafaxine Er ( 24hr) 75 Mg Capsul e PO 75 mg QAM JANNIE Administration Vitamin D 1,000 unit 10/05/21 09:00 10/05/21 09:18 Cholecalciferol (Vitamin D3) 1,000 Unit Tablet PO 1,000 unit DAILY JANNIE Administration Zinc Gluconate 50 mg 10/05/21 09:00 10/05/21 09:18 Zinc Gluconate 5 0 Mg Tablet PO 50 mg DAILY JANNIE Administration Vitals/I&O/Wt Last Vital Signs Temp 97.8 F 10/05/21 15:47 Pulse 92 10/05/21 15:47 Resp 18 10/05/21 15:47 BP 138/85 10/05/21 15:47 Pulse Ox 92 10/05/21 15:47 10/05/21 10/05/21 10/05/21 06:59 14:59 22:59 Intake Total 650 / 1265 650 / 650 490 / 1140 Output Total 0 / 0 10 / 10 Balance 650 / 1265 650 / 650 480 / 1130 Weight last 48 hrs Weight 54.431 kg Weight 52.617 kg Physical Exam HENMT: COMMON NORMALS: normocephalic and atraumatic HEAD & SCALP: normocephalic and atraumatic Chest: CHEST: Yes Symmetrical chest wall rise Resp: COMMON NORMALS: clear to auscultation bilaterally EFFORT & INSPECTION: Yes symmetric chest movement AUSCULTATION: clear to auscultation bilaterally OTHER: Diminished air entry bilaterally Cardio: COMMON NORMALS: regular rate, regular rhythm, S1 normal heart sound present, S2 normal heart sound present, No gallops present (Cardio), No murmurs present (Cardio), No rub (Cardio) and Peripheral pulses 2+ throughout RATE: regular rate RHYTHM: regular rhythm HEART SOUNDS: S1 normal heart sound present and S2 normal heart sound present PERIPHERAL PULSES: Peripheral pulses 2+ throughout GI: COMMON NORMALS: Normal to inspection, nondistended, normoactive bowel sounds present, Soft to palpation, non-tender, No hepatosplenomegaly present and no masses AUSCULTATION: Yes normoactive bowel sounds PALPATION: Yes Soft to palpation and Yes No hepatosplenomegaly present RECTAL EXAM: Yes deferred Extremity: COMMON NORMALS: no clubbing, cyanosis or edema and no pedal edema Data : 10/05/21 10:15 10/05/21 10:15 Micro: Microbiology 10/04/21 10:20 Blood Culture - Preliminary Blood SPECIMEN COLLECTED 10/04/21 10:15 Blood Culture - Preliminary Blood SPECIMEN COLLECTED A&P Assessment and plan (1) Hypoxemia: Multifactorial with chronic oxygen requirement from COPD at 2L BNC. Also has known chronic pleural and pericardial effusions. Acutely he requiring as much as 6L BNC for adequate saturation today. Currently on 4L. Both PE and COVID, along with chronic issues of COPD and effusions contributing. Oxygen therapy as needed Status: Acute (2) COVID-19: Based on testing via rapid COVID antigen. Several household occupants have symptoms strongly suggestive of COVID including fever and cough. 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 Abnormalities on CT imaging of infiltrates and effusions are not new and difficult to discern the full extent of COVID-19 for Mr. Madera versus the positive test being an incidental finding. Working diagnosis however is that COVID-19 is probably predominantly responsible for other abnormalities identified. Remdesivir, dexamethasone, breathing treatments Check additional inflammatory markers for baseline Respiratory support as needed Antibiotics empirically given comorbid conditions; has a known history of MRSA infection in the past so will cover with vancomycin and zosyn, azithromycin Check MRSA screen Blood cultures Reviewed with caregiver/DPOA for medical care who agreed with plan including medications Status: Acute (3) Pulmonary embolism: Given COVID positivity, suspect PEs related to this. That said he has been at bedrest for the last week or so. He also has other risk factors for possibility of PE including former smoker, known chronically occluded carotid artery among others. Cannot rule out an occult malignancy either in this situation. Treatment dose Lovenox with plan to transition to oral anticoagulation upon discharge, as per discussion with DPOA for medical care Check venous Duplex Status: Acute Qualifiers: Pulmonary embolism type: multiple subsegmental (without acute cor pulmonale) Qualified Code(s): I26.94 - Multiple subsegmental pulmonary emboli without acute cor pulmonale (4) Hypokalemia: Significant decrease in a patient on Lasix and potassium supplementation chronically Replace as needed Check magnesium and phosphorus levels Status: Acute (5) Normocytic anemia: Similar hemoglobin levels to last hospital stay in June, no report of any bleeding, iron levels at time were not low, 73% iron saturation which is high noted Monitor given full anticoagulation need presently Recheck TIBC and ferrtin levels Hemocult stool Status: Chronic (6) Pericardial effusion (noninflammatory): Identified in June of this year with last echocardiogram showing a moderate loculated anterior effusion, has followed with Dr. Sweeney outpatient with most recent clinic visit in July. Effusion again identified on imaging of the chest. Repeat echocardiogram to evaluate further in setting of acute illness Status: Acute (7) Heart failure with preserved ejection fraction: Clinically not acute but at risk to develop acute CHF in the hospital Continue home Lasix dosing but will need to adjust long-term potassium dosage Monitor respiratory status and I/Os, adjusting dose as needed Status: Chronic Qualifiers: Heart failure chronicity: chronic Qualified Code(s): I50.32 - Chronic diastolic (congestive) heart failure (8) COPD (chronic obstructive pulmonary disease): Difficult to ascertain if COPD itself is acutely exacerbated though it certainly is impacted by both COVID diagnosis and PE Breathing treatments Add budesonide Flutter if he can do Status: Chronic Qualifiers: COPD type: emphysema Emphysema type: centrilobular Qualified Code(s): J43.2 - Centrilobular emphysema (9) 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, has both petit mal and other types of seizures, last seizures this week which I explained to the family was probably due to lowered threshold from acute illness Continue home Keppra Status: Chronic (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 Assistance and patience as needed Status: Chronic Qualifiers: Right eye visual impairment category: right - unspecified blindness Left eye visual impairment category: left - unspecified blindness Qualified Code(s): H54.3 - Unqualified visual loss, both eyes (11) Hard of hearing: Has hearing aids which have asked family to leave here Assistance and patience as needed Status: Chronic Qualifiers: Hearing loss type: sensorineural Laterality: bilateral Qualified Code (s): H90.3 - Sensorineural hearing loss, bilateral (12) Current nicotine vaping on some days: Former cigarette smoker, now vaping with nicotine Nicotine patch if needed Status: Chronic Plan Hypothyroidism, new outpatient diagnosis for which she has been started on levothyroxine but not initiated yet Depression, chronically on venlafaxine and mirtazapine BPH chronically on Flomax Quit drinking alcohol after June admission this year Inpatient admission Isolation room COVID management as described above Lovenox currently for PE Follow up pending labs Empiric antibiotics Echo Venous Duplex Blood cultures MRSA screen Replace electrolytes Home medications as described for chronic conditions Supportive care otherwise DPOA for medical care on file Currently anticipate home with caregiver, possibly with additional services and more oxygen needed Full code, short term resuscitation is acceptable, but not [facility]. If acute event DPOA to discuss further. Attestations Medical Necessity Statement*: Patient is to the hospital for management of COVID-19 pneumonia. Coding Level of Care Code Acute [employer] for Aylin Bañuelos Diagnoses Hypoxemia R09.02 COVID-19 U07.1 Pulmonary embolism I26.94 Pulmonary embolism type: multiple subsegmental (without acute cor pulmonale) Hypokalemia E87.6 Normocytic anemia D64.9 Pericardial effusion (noninflammatory) I31.3 Heart failure with preserved ejection fraction I50.32 Heart failure chronicity: chronic COPD (chronic obstructive pulmonary disease) J43.2 COPD type: emphysema Emphysema type: centrilobular Generalized epilepsy G40.309 Blind H54.3 Right eye visual impairment category: right - unspecified blindness Left eye visual impairment category: left - unspecified blindness Hard of hearing H90.3 Hearing loss type: sensorineural Laterality: bilateral Current nicotine vaping on some days Z72.0
[2021-10-05] MEDS: tamsulosin 0.4 mg Capsule PO (19:41)
[2021-10-05 20:37] LABS: Lactate Dehydrogenase 300 U/L (135-225); Magnesium 1.8 mg/dL (1.7-2.3); Phosphorus 3.3 mg/dL (2.5-4.5)
[2021-10-05 20:50] LABS: Ferritin 3815 ng/mL (30-400)
[2021-10-05] MEDS: mirtazapine 15 mg Tablet PO (22:29)
[2021-10-05] MEDS: dexamethasone 4 mg/mL INJ 6 MG IVP (23:26)
[2021-10-05] MEDS: remdesivir 100 MG in sodium chloride 0.9% (100 ml) 80 ML IV (23:27)
[2021-10-06] VITALS (53 sets, daily range): BP systolic 119–170; BP diastolic 64–117; PULSE 0–150; RESP 11–48; TEMP 36.6–37; O2SAT 87–100
[2021-10-06] MEDS: piperacillin-tazobactam 3.375 GM in sodium chloride 0.9% (plus) 50 ML IV ×4 (00:12→23:04)
[2021-10-06] MEDS: vancomycin 1,250 MG/250 ML PIGGYBACK 250 MG IV (00:12)
[2021-10-06] MEDS: ipratropium-albuterol 3 mL Neb INHALATION ×3 (04:32→20:19)
[2021-10-06] MEDS: venlafaxine ER (24HR) 75 mg Capsule PO (05:33)
[2021-10-06] MEDS: aspirin 81 mg EC Tablet PO (05:33)
[2021-10-06] MEDS: enoxaparin 60 mg/0.6 mL Syringe 50 MG SUBCUT ×2 (05:34→18:08)
[2021-10-06] MEDS: cholecalciferol (vitamin D3) 1,000 unit Tablet 1000 UNIT PO (08:53)
[2021-10-06] MEDS: docusate sodium 100 mg Capsule PO (08:55)
[2021-10-06] MEDS: pantoprazole DR 40 mg Tablet PO (08:56)
[2021-10-06] MEDS: zinc gluconate 50 mg Tablet PO (08:56)
[2021-10-06] MEDS: FUROsemide 20 mg Tablet PO (08:56)
[2021-10-06] MEDS: levothyroxine 25 mcg Tablet PO (08:56)
[2021-10-06] MEDS: levETIRAcetam 500 mg Tablet 1000 MG PO ×2 (09:04→21:22)
[2021-10-06 11:49] LABS: ABG PCO2 33.4 mmHg (35-45); ABG PH Result 7.49 (7.35-7.45); Alveolar-Arterial Oxygen Gradi 8.6 mmHg (5-10); Arterial Blood Gas Hematocrit 29.2 % (42-52); Base Excess ABG 2.3 mmol/L (-2.0-2.0); Blood Gas Allen Test Pos; Blood Gas Operator Identificat GD; Blood Gas Sample Site Radial, left; Blood Gas Sample Type Arterial; Carboxyhemoglobin 0.7 %THgb (0.4-20.1); HCO3 ABG 25.5 mmol/L (22-26); HGB O2 Sat 76.7 % (95-100); Ionized Calcium Level - ABG 1.2 mmol/L (1.1-1.4); Methemoglobin 0.7 % (0.4-1.5); Oxygen Device NC; Oxygen Saturation ABG 77.9; PO2 ABG 41.7 mmHg (80.0-100.0); Potassium Level - ABG 3.2 mmol/L (3.5-5.0); Total Hemoglobin 9.5 g/dL (14-18)
--- NOTE | 2021-10-06 13:45 | P.PN_ITS ---
Subjective Subjective: Patient was seen and examined this morning, his supplemental oxygen requirement has gone up, CRP is also high, currently he is requiring heated high flow oxygen through nasal cannula, he is also extremely unsettled today, there has been significant deterioration in his overall condition since yesterday, patient was given 1 dose of Actemra today, he has been transferred to ICU, has been placed on Precedex drip, as he has been removing oxygen. ABG was also done. Medications: Medication Review Details: Generic Name Dose Route Start Last Admin Trade Name Freq PRN Reason Stop Dose Admin Albuterol/Ipratrop ium 3 ml 10/04/21 20:00 10/05/21 15:21 Ipratropium-Albu terol 3 Ml Neb INHALATION 3 ml Q6H.RESP JANNIE Administration Aspirin 81 mg 10/05/21 06:00 10/05/21 05:53 Aspirin 81 Mg Ec Tablet PO 81 mg QAM JANNIE Administration Budesonide 0.5 mg 10/05/21 08:00 10/05/21 09:38 Budesonide 0.5 M g/2 Ml Neb INHALATION 0.5 mg BID.RESPIRATORY S CH Administration Dexamethasone 6 mg 10/04/21 18:17 10/04/21 19:36 Dexamethasone 4 Mg/Ml Inj IVP 6 mg Q24H JANNIE Administration Diphenhydramine HC l 25 mg 10/04/21 18:17 10/04/21 20:55 Diphenhydramine 25 Mg Capsule PO 25 mg BID PRN Administration allergy symptoms/ itching Docusate Sodium 100 mg 10/04/21 18:17 10/05/21 09:18 Docusate Sodium 100 Mg Capsule PO 100 mg BID JANNIE Administration Enoxaparin Sodium 50 mg 10/05/21 06:00 10/05/21 05:54 Enoxaparin 60 Mg /0.6 Ml Syringe SUBCUT 50 mg Q12H JANNIE Administration Fluticasone Propio yg 1 spray 10/05/21 09:00 10/05/21 08:09 Fluticasone Nasa l Prue 16gm Btl INTRANASAL 1 spray DAILY JANNIE Administration Piperacillin Sod/T azobactam 50 mls @ 12.5 mls /hr 10/05/21 00:00 10/05/21 16:57 Sod 3.375 gm/ So dium Chloride IV 12.5 mls/hr Q8H JANNIE Administration Protocol As Directed Vancomycin/PEG/NAD A/Lysine/Water 1,250 mg in 250 m ls @ 250 mls/hr 10/04/21 23:00 10/05/21 02:22 Vancocin IV Infused Q24H JANNIE Infusion Azithromycin 500 m g/ Sodium 250 mls @ 250 mls /hr 10/05/21 15:30 10/05/21 17:03 Chloride IV Infused Q24H JANNIE Infusion Levetiracetam 1,000 mg 10/04/21 21:00 10/05/21 09:18 Levetiracetam 50 0 Mg Tablet PO 1,000 mg BID@ JANNIE Administration Levothyroxine Sodi um 25 mcg 10/05/21 09:00 10/05/21 09:18 Levothyroxine 25 Mcg Tablet PO 25 mcg DAILY JANNIE Administration Mirtazapine 15 mg 10/04/21 21:00 10/04/21 20:55 Mirtazapine 15 M g Tablet PO 15 mg BEDTIME JANNIE Administration Multivitamins/Mine rals 1 tab 10/05/21 09:00 10/05/21 09:18 Multivitamin W/M inerals Tablet PO 1 tab DAILY JANNIE Administration Neomycin/Polymyxin /Bacitracin 1 applic 10/05/21 10:17 10/05/21 10:52 Ymwyymjw-Xfpb-Rm citracin Oint 28 G m TOPICAL 1 applic BID JANNIE Administration Pantoprazole Sodiu m 40 mg 10/05/21 09:00 10/05/21 09:[address] 40 Mg Tablet PO 40 mg DAILY JANNIE Administration Potassium Chloride 40 meq 10/05/21 09:00 10/05/21 09:18 Potassium Chlori de Er 20 Meq Table t PO 10/07/21 02:00 40 meq DAILY JANNIE Administration Tamsulosin HCl 0.4 mg 10/04/21 18:17 10/04/21 19:36 Tamsulosin 0.4 M g Capsule PO 0.4 mg QPM JANNIE Administration Venlafaxine HCl 75 mg 10/05/21 06:00 10/05/21 05:53 Venlafaxine Er ( 24hr) 75 Mg Capsul e PO 75 mg QAM JANNIE Administration Vitamin D 1,000 unit 10/05/21 09:00 10/05/21 09:18 Cholecalciferol (Vitamin D3) 1,000 Unit Tablet PO 1,000 unit DAILY JANNIE Administration Zinc Gluconate 50 mg 10/05/21 09:00 10/05/21 09:18 Zinc Gluconate 5 0 Mg Tablet PO 50 mg DAILY JANNIE Administration Vitals/I&O/Wt Last Vital Signs Temp 98.6 F 10/06/21 12:00 Pulse 108 H 10/06/21 12:00 Resp 12 10/06/21 12:00 BP 119/74 10/06/21 12:00 Pulse Ox 90 10/06/21 12:00 10/05/21 10/06/21 10/06/21 22:59 06:59 14:59 Intake Total 720 / 1370 50 / 1420 760 / 760 Output Total Balance 710 / 1360 50 / 1410 759 / 759 Weight last 48 hrs Weight 54.063 kg Weight 54.431 kg Physical Exam HENMT: COMMON NORMALS: normocephalic and atraumatic HEAD & SCALP: normocephalic and atraumatic Chest: CHEST: Yes Symmetrical chest wall rise Resp: COMMON NORMALS: clear to auscultation bilaterally EFFORT & INSPECTION: Yes symmetric chest movement AUSCULTATION: clear to auscultation bilaterally OTHER: Diminished air entry bilaterally Cardio: COMMON NORMALS: regular rate, regular rhythm, S1 normal heart sound present, S2 normal heart sound present, No gallops present (Cardio), No murmurs present (Cardio), No rub (Cardio) and Peripheral pulses 2+ throughout RATE: regular rate RHYTHM: regular rhythm HEART SOUNDS: S1 normal heart sound present and S2 normal heart sound present PERIPHERAL PULSES: Peripheral pulses 2+ throughout GI: COMMON NORMALS: Normal to inspection, nondistended, normoactive bowel sounds present, Soft to palpation, non-tender, No hepatosplenomegaly present and no masses AUSCULTATION: Yes normoactive bowel sounds PALPATION: Yes Soft to palpation and Yes No hepatosplenomegaly present RECTAL EXAM: Yes deferred Extremity: COMMON NORMALS: no clubbing, cyanosis or edema and no pedal edema Data : 10/05/21 10:15 10/05/21 10:15 Micro: Microbiology 10/04/21 10:20 Blood Culture - Preliminary Blood NEGATIVE TO DATE 10/04/21 10:15 Blood Culture - Preliminary Blood NEGATIVE TO DATE A&P Assessment and plan (1) Hypoxemia: Multifactorial with chronic oxygen requirement from COPD at 2L BNC. Also has known chronic pleural and pericardial effusions. Acutely he requiring as much as 6L BNC for adequate saturation today. Currently on 4L. Both PE and COVID, along with chronic issues of COPD and effusions contributing. Oxygen therapy as needed Status: Acute (2) COVID-19: Based on testing via rapid COVID antigen. Several household occupants have symptoms strongly suggestive of COVID including fever and cough. 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 Abnormalities on CT imaging of infiltrates and effusions are not new and difficult to discern the full extent of COVID-19 for Mr. Madera versus the positive test being an incidental finding. Working diagnosis however is that COVID-19 is probably predominantly responsible for other abnormalities identified. Remdesivir, dexamethasone, breathing treatments Check additional inflammatory markers for baseline Respiratory support as needed Antibiotics empirically given comorbid conditions; has a known history of MRSA infection in the past so will cover with vancomycin and zosyn, azithromycin Check MRSA screen Blood cultures Reviewed with caregiver/DPOA for medical care who agreed with plan including medications Status: Acute (3) Pulmonary embolism: Given COVID positivity, suspect PEs related to this. That said he has been at bedrest for the last week or so. He also has other risk factors for possibility of PE including former smoker, known chronically occluded carotid artery among others. Cannot rule out an occult malignancy either in this situation. Treatment dose Lovenox with plan to transition to oral anticoagulation upon discharge, as per discussion with DPOA for medical care Check venous Duplex Status: Acute Qualifiers: Pulmonary embolism type: multiple subsegmental (without acute cor pulmonale) Qualified Code(s): I26.94 - Multiple subsegmental pulmonary emboli without acute cor pulmonale (4) Hypokalemia: Significant decrease in a patient on Lasix and potassium supplementation chronically Replace as needed Check magnesium and phosphorus levels Status: Acute (5) Normocytic anemia: Similar hemoglobin levels to last hospital stay in June, no report of any bleeding, iron levels at time were not low, 73% iron saturation which is high noted Monitor given full anticoagulation need presently Recheck TIBC and ferrtin levels Hemocult stool Status: Chronic (6) Pericardial effusion (noninflammatory): Identified in June of this year with last echocardiogram showing a moderate loculated anterior effusion, has followed with Dr. Sweeney outpatient with most recent clinic visit in July. Effusion again identified on imaging of the chest. Repeat echocardiogram to evaluate further in setting of acute illness Status: Acute (7) Heart failure with preserved ejection fraction: Clinically not acute but at risk to develop acute CHF in the hospital Continue home Lasix dosing but will need to adjust long-term potassium dosage Monitor respiratory status and I/Os, adjusting dose as needed Status: Chronic Qualifiers: Heart failure chronicity: chronic Qualified Code(s): I50.32 - Chronic diastolic (congestive) heart failure (8) COPD (chronic obstructive pulmonary disease): Difficult to ascertain if COPD itself is acutely exacerbated though it certainly is impacted by both COVID diagnosis and PE Breathing treatments Add budesonide Flutter if he can do Status: Chronic Qualifiers: COPD type: emphysema Emphysema type: centrilobular Qualified Code(s): J43.2 - Centrilobular emphysema (9) 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, has both petit mal and other types of seizures, last seizures this week which I explained to the family was probably due to lowered threshold from acute illness Continue home Keppra Status: Chronic (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 Assistance and patience as needed Status: Chronic Qualifiers: Left eye visual impairment category: left - unspecified blindness Right eye visual impairment category: right - unspecified blindness Qualified Code(s): H54.3 - Unqualified visual loss, both eyes (11) Hard of hearing: Has hearing aids which have asked family to leave here Assistance and patience as needed Status: Chronic Qualifiers: Hearing loss type: sensorineural Laterality: bilateral Qualified Code(s): H90.3 - Sensorineural hearing loss, bilateral (12) Current nicotine vaping on some days: Former cigarette smoker, now vaping with nicotine Nicotine patch if needed Status: Chronic Plan Hypothyroidism, new outpatient diagnosis for which she has been started on levothyroxine but not initiated yet Depression, chronically on venlafaxine and mirtazapine BPH chronically on Flomax Quit drinking alcohol after June admission this year Inpatient admission Isolation room COVID management as described above Lovenox currently for PE Follow up pending labs Empiric antibiotics Echo Venous Duplex Blood cultures MRSA screen Replace electrolytes Home medications as described for chronic conditions Supportive care otherwise DPOA for medical care on file Currently anticipate home with caregiver, possibly with additional services and more oxygen needed Full code, short term resuscitation is acceptable, but not vermin exterminator. If acute event DPOA to discuss further. Attestations Medical Necessity Statement*: Patient is to be hospital for management of acute hypoxic respiratory failure secondary to COVID-pneumonia. Time Spent in Patient Care: Greater than 35 minutes (>than 50% of time spent in counselling and/or direct pt care on unit) . Critical Care Time: The high probability of a clinically significant, sudden or life threatening deterioration of the patient's [] system(s) required my full and direct attention, intervention and personal management. The critical care time is as shown. 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 Fwd Exam Detailed Diagnoses Hypoxemia R09.02 COVID-19 U07.1 Pulmonary embolism I26.94 Pulmonary embolism type: multiple subsegmental (without acute cor pulmonale) Hypokalemia E87.6 Normocytic anemia D64.9 Pericardial effusion (noninflammatory) I31.3 Heart failure with preserved ejection fraction I50.32 Heart failure chronicity: chronic COPD (chronic obstructive pulmonary disease) J43.2 COPD type: emphysema Emphysema type: centrilobular Generalized epilepsy G40.309 Blind H54.3 Left eye visual impairment category: left - unspecified blindness Right eye visual impairment category: right - unspecified blindness Hard of hearing H90.3 Hearing loss type: sensorineural Laterality: bilateral Current nicotine vaping on some days Z72.0
[2021-10-06] MEDS: tocilizumab 400 MG in sodium chloride 0.9% (100 ml) 100 ML 100 MG IV (14:17)
[2021-10-06] MEDS: dexmedeTOMIDine 0.9 % NaCL 400 MCG/100 ML PREMIX IV ×2 (15:55→21:17)
[2021-10-06] MEDS: azithromycin 500 MG in sodium chloride 0.9% 250 ML 250 MG IV (16:26)
--- NOTE | 2021-10-06 17:40 | PC.NURSE ---
Pt arrived at 1550 from [facility]. Connected to ICU monitor. NRB 15L in place. Pt had BM, pericare performed and bm cleaned up. Precedex started to PIV per protocol. 16fr julian cath placed using sterile technique. Tolerated well. 20g PIV inserted to R hand. ABT started. Placed PIV to R upper arm but catheyer migrated and kinked prior to infusion, attempted to place new IV without success. Caregiver at bedside. States that DNR discussion will be made with family tonight. Will monitor
[2021-10-06] MEDS: remdesivir 100 MG in sodium chloride 0.9% (100 ml) 80 ML IV (18:08)
[2021-10-06] MEDS: budesonide 0.5 mg/2 mL Neb INHALATION (20:19)
[2021-10-06] MEDS: mirtazapine 15 mg Tablet PO (21:16)
[2021-10-06] MEDS: dexamethasone 4 mg/mL INJ 6 MG IVP (22:56)
[2021-10-07] VITALS (48 sets, daily range): BP systolic 82–155; BP diastolic 52–99; PULSE 59–169; RESP 0–33; TEMP 35.2–36.6; O2SAT 85–100
[2021-10-07] MEDS: vancomycin 1,250 MG/250 ML PIGGYBACK 250 MG IV (01:10)
[2021-10-07] MEDS: ipratropium-albuterol 3 mL Neb INHALATION ×4 (03:10→19:52)
--- NOTE | 2021-10-07 07:04 | PC.NURSE ---
Trouble Swallowing Attempted to administer pt's morning aspirin and effexor. Pt attempted to swallow but was unable to get pills down. Pt was awake and oriented to self.
[2021-10-07] MEDS: budesonide 0.5 mg/2 mL Neb INHALATION ×2 (08:18→19:52)
[2021-10-07] MEDS: piperacillin-tazobactam 3.375 GM in sodium chloride 0.9% (plus) 50 ML IV ×3 (08:45→23:51)
[2021-10-07] MEDS: fluticasone nasal spray 16gm Btl 1 SPRAY INTRANASAL (10:12)
[2021-10-07] MEDS: enoxaparin 60 mg/0.6 mL Syringe 50 MG SUBCUT ×2 (10:13→21:23)
--- NOTE | 2021-10-07 10:36 | PC.SOCIAL ---
IMM update IMM updated with patient's DIL. Verbalized an understanding. Initialled, dated, timed, and placed in chart.
--- NOTE | 2021-10-07 12:41 | PC.CHAP ---
Pastoral Care Encounter/Spiritual Assessment Type of Contact [] Declined extrusion engineer visit [] Patient/Family/Request visit [] Outpatient visit [] Follow-up visit [] Physician referral [] Code/Alert [x] Routine visit [] Staff referral [] Actively dying [x] Patient sleeping [] Family support [] [] Out of room [] Palliative care [] [] Receiving care in room [] Pre-surgical visit [] Trauma [] Long length of stay [x] ICU visit [] Other: Relational/Emotional Strength [] Patient feels connected with others/family/visitors/staff [] Distress [] Loneliness/isolation [] Abandonment Spirituality of Patient [] Person of Keke [] Attends Protestant of their Keke [] Believes in Prayer [] Reads Bible or Yazdanism materials [] There are Spiritual issues to be addressed Die Stamper Interventions [x] Prayer [] Active listening [] Non-anxious presence [] Spiritual/emotional support [] Crisis/trauma care [] Spiritual counseling [] Bereavement support [] Provided bereavement packet [] Provided Bible/devotional materials [] Provided toy/stuffed animal, coloring book to patient or family member [] Provided Communion [] Anointing/Holder [] Salvation [x] Completed spiritual assessment [] Other: Impact on Illness or Injury [] Angry [] Fearful [] Anxious [] Often cries [] Exhaustion [] Unable to work [] Unable to attend advent [] Unable to walk/stand [] Unable to read [] Unable to drive [] Unable to eat/drink [] Unable to sleep [] Unable to be with family [] Patient intubated [] Other: Summary Time spent with patient
[2021-10-07 13:34] LABS: Basophils % 0.1 %; Hematocrit 26.3 % (42.0-52.0); Hemoglobin 8.8 g/dL (11.7-16.6); Lymphocytes # 1.9 10^3/uL (0.8-4.8); Lymphocytes % 16.9 %; Mean Corpuscular HGB Conc 33.5 g/dL (30.0-36.0); Mean Corpuscular Hemoglobin 28.8 pg (28.0-34.0); Mean Corpuscular Volume 85.9 fl (80-94); Mean Platelet Volume 10.2 fL (7.4-10.4); Monocytes # 0.5 10^3/uL (0.2-0.9); Monocytes % 4.8 %; Neutrophils # 8.36 10^3/uL (1.8-7.7); Neutrophils % 74.1 %; Nucleated Red Blood Cells % 0 %; Platelet Count 314 10^3/cmm (130-400); Red Blood Count 3.06 10^6/uL (4.1-5.3); Red Cell Distribution Width 14.3 % (12.1-15.1); White Blood Count 11.3 10^3/uL (4.0-10.0)
[2021-10-07 13:36] LABS: Erythrocyte Sedimentation Rate 3 mm/hr (0-10)
[2021-10-07 13:37] LABS: Add Urine Microscopic? NO; Charge for UA Resulting for Rev
[2021-10-07 13:43] LABS: Specific Gravity, Urine 1.015 (1.005-1.030); Urine Appearance Clear (CLEAR); Urine Color Yellow (Yellow); pH Urine 5 (5-7)
[2021-10-07 13:44] LABS: Bilirubin Urine Neg (Negative); Blood Urine Neg (Negative); Glucose Urine UA Norm (Normal); Ketones Urine 1+ (Negative); Leukocyte Esterase Urine Negative (Negative); Nitrate Urine Negative (Negative); Protein Urine Neg (Negative); Urobilinogen Urine Norm (Negative)
[2021-10-07 14:01] LABS: Alanine Aminotransferase 32 U/L (0-41); Albumin Level 1.9 g/dL (3.5-5.2); Alkaline Phosphatase 319 IU/L (40-130); Anion Gap 14.8 (5-19); Aspartate Amino Transferase 66 U/L (0-40); Blood Urea Nitrogen 14 mg/dL (8-23); C Reactive Protein 94.1 mg/L (0.0-4.9); Calcium 7.6 mg/dL (8.5-10.5); Carbon Dioxide 26 mmol/L (22-29); Chloride 109 mmol/L (98-107); Globulin 2.7 g/dL (1.3-4.6); Glomerular Filtration Rate 113.2 mL/min (90-130); Glucose 120 mg/dL (65-115); Osmolality Calculated 306 mOsm/kg (285-295); Sodium 147 mmol/L (136-145); Total Bilirubin 0.3 mg/dL (0.15-1.2); Total Protein 4.6 g/dL (6.6-8.7)
--- NOTE | 2021-10-07 14:27 | PC.NURSE ---
Addendum entered by Kaya Ricketts RN 10/07/21 14:32: Skin tears on LEFT hand. Original Note: Pt's arm flailing, he ripped on HHF and pulse ox. Blood on bed lines. Replaced HHF and pulse ox. Skin tears to right knuckles noted. Area cleansed. Gauze paced ith Surgi-tube over hand like glove to hole in place.
[2021-10-07 14:38] LABS: Potassium 2.8 mmol/L (3.5-5.1)
[2021-10-07 15:00] LABS: INR 1.14 (0.8-1.2)
[2021-10-07 15:03] LABS: D Dimer 1.54 ug/mIFEU (0-0.59)
[2021-10-07] MEDS: lidocaine 1% 5 ML in potassium chloride premix 100 ML 50 ML IV (15:17)
[2021-10-07] MEDS: azithromycin 500 MG in sodium chloride 0.9% 250 ML 250 MG IV (16:28)
--- NOTE | 2021-10-07 17:57 | P.PN_ITS ---
Subjective Subjective: Patient was seen and examined this morning, continues to remain critically ill, currently requiring 60% FiO2 On 40 L/min flow, continues on Precedex drip, a.m. ABG noted. Medications: Medication Review Details: Generic Name Dose Route Start Last Admin Trade Name Freq PRN Reason Stop Dose Admin Albuterol/Ipratrop ium 3 ml 10/04/21 20:00 10/05/21 15:21 Ipratropium-Albu terol 3 Ml Neb INHALATION 3 ml Q6H.RESP JANNIE Administration Aspirin 81 mg 10/05/21 06:00 10/05/21 05:53 Aspirin 81 Mg Ec Tablet PO 81 mg QAM JANNIE Administration Budesonide 0.5 mg 10/05/21 08:00 10/05/21 09:38 Budesonide 0.5 M g/2 Ml Neb INHALATION 0.5 mg BID.RESPIRATORY S CH Administration Dexamethasone 6 mg 10/04/21 18:17 10/04/21 19:36 Dexamethasone 4 Mg/Ml Inj IVP 6 mg Q24H JANNIE Administration Diphenhydramine HC l 25 mg 10/04/21 18:17 10/04/21 20:55 Diphenhydramine 25 Mg Capsule PO 25 mg BID PRN Administration allergy symptoms/ itching Docusate Sodium 100 mg 10/04/21 18:17 10/05/21 09:18 Docusate Sodium 100 Mg Capsule PO 100 mg BID JANNIE Administration Enoxaparin Sodium 50 mg 10/05/21 06:00 10/05/21 05:54 Enoxaparin 60 Mg /0.6 Ml Syringe SUBCUT 50 mg Q12H JANNIE Administration Fluticasone Propio yg 1 spray 10/05/21 09:00 10/05/21 08:09 Fluticasone [place] 16gm Btl INTRANASAL 1 spray DAILY JANNIE Administration Piperacillin Sod/T azobactam 50 mls @ 12.5 mls /hr 10/05/21 00:00 10/05/21 16:57 Sod 3.375 gm/ So dium Chloride IV 12.5 mls/hr Q8H JANNIE Administration Protocol As Directed Vancomycin/PEG/NAD A/Lysine/Water 1,250 mg in 250 m ls @ 250 mls/hr 10/04/21 23:00 10/05/21 02:22 Vancocin IV Infused Q24H JANNIE Infusion Azithromycin 500 m g/ Sodium 250 mls @ 250 mls /hr 10/05/21 15:30 10/05/21 17:03 Chloride IV Infused Q24H JANNIE Infusion Levetiracetam 1,000 mg 10/04/21 21:00 10/05/21 09:18 Levetiracetam 50 0 Mg Tablet PO 1,000 mg BID@ JANNIE Administration Levothyroxine Sodi um 25 mcg 10/05/21 09:00 10/05/21 09:18 Levothyroxine 25 Mcg Tablet PO 25 mcg DAILY JANNIE Administration Mirtazapine 15 mg 10/04/21 21:00 10/04/21 20:55 Mirtazapine 15 M g Tablet PO 15 mg BEDTIME JANNIE Administration Multivitamins/Mine rals 1 tab 10/05/21 09:00 10/05/21 09:18 Multivitamin W/M inerals Tablet PO 1 tab DAILY JANNIE Administration Neomycin/Polymyxin /Bacitracin 1 applic 10/05/21 10:17 10/05/21 10:52 Gmgitizz-Arzy-Gi citracin Oint 28 G m TOPICAL 1 applic BID JANNIE Administration Pantoprazole Sodiu m 40 mg 10/05/21 09:00 10/05/21 09:[address] 40 Mg Tablet PO 40 mg DAILY JANNIE Administration Potassium Chloride 40 meq 10/05/21 09:00 10/05/21 09:18 Potassium Chlori de Er 20 Meq Table t PO 10/07/21 02:00 40 meq DAILY JANNIE Administration Tamsulosin HCl 0.4 mg 10/04/21 18:17 10/04/21 19:36 Tamsulosin 0.4 M g Capsule PO 0.4 mg QPM JANNIE Administration Venlafaxine HCl 75 mg 10/05/21 06:00 10/05/21 05:53 Venlafaxine Er ( 24hr) 75 Mg Capsul e PO 75 mg QAM JANNIE Administration Vitamin D 1,000 unit 10/05/21 09:00 10/05/21 09:18 Cholecalciferol (Vitamin D3) 1,000 Unit Tablet PO 1,000 unit DAILY JANNIE Administration Zinc Gluconate 50 mg 10/05/21 09:00 10/05/21 09:18 Zinc Gluconate 5 0 Mg Tablet PO 50 mg DAILY JANNIE Administration Vitals/I&O/Wt Last Vital Signs Temp 97.8 F 10/07/21 09:00 Pulse 109 H 10/07/21 16:00 Resp 18 10/07/21 16:00 BP 95/68 10/07/21 16:00 Pulse Ox 100 10/07/21 16:00 10/07/21 10/07/21 10/07/21 06:59 14:59 22:59 Intake Total 69.8 / 1583.770 510 / 510 Output Total 1450 / 1451 Balance -1380.2 / 132.770 510 / 510 Weight last 48 hrs Weight 53.932 kg Weight 54.063 kg Physical Exam HENMT: COMMON NORMALS: normocephalic and atraumatic HEAD & SCALP: normocephalic and atraumatic Chest: CHEST: Yes Symmetrical chest wall rise Resp: COMMON NORMALS: clear to auscultation bilaterally EFFORT & INSPECTION: Yes symmetric chest movement AUSCULTATION: clear to auscultation bilaterally OTHER: Diminished air entry bilaterally Cardio: COMMON NORMALS: regular rate, regular rhythm, S1 normal heart sound present, S2 normal heart sound present, No gallops present (Cardio), No murmurs present (Cardio), No rub (Cardio) and Peripheral pulses 2+ throughout RATE: regular rate RHYTHM: regular rhythm HEART SOUNDS: S1 normal heart sound present and S2 normal heart sound present PERIPHERAL PULSES: Peripheral pulses 2+ throughout GI: COMMON NORMALS: Normal to inspection, nondistended, normoactive bowel sounds present, Soft to palpation, non-tender, No hepatosplenomegaly present and no masses AUSCULTATION: Yes normoactive bowel sounds PALPATION: Yes Soft to palpation and Yes No hepatosplenomegaly present RECTAL EXAM: Yes deferred Extremity: COMMON NORMALS: no clubbing, cyanosis or edema and no pedal edema Urinary Catheter Management: Jackson: Cath Placed During This Visit: yes Reason for Continuing Indwelling Catheter: Accurate Measurement of Urinary Output in Critically Ill Patients Urinary Catheter Date of Insertion: 10/06/21 Urinary Catheter Time of Insertion: 16:00 Data : 10/07/21 13:01 10/07/21 13:01 A&P Assessment and plan (1) Hypoxemia: Multifactorial with chronic oxygen requirement from COPD at 2L BNC. Also has known chronic pleural and pericardial effusions. Acutely he requiring as much as 6L BNC for adequate saturation today. Currently on 4L. Both PE and COVID, along with chronic issues of COPD and effusions contributing. Oxygen therapy as needed Status: Acute (2) COVID-19: Based on testing via rapid COVID antigen. Several household occupants have symptoms strongly suggestive of COVID including fever and cough. 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 Abnormalities on CT imaging of infiltrates and effusions are not new and difficult to discern the full extent of COVID-19 for Mr. Madera versus the positive test being an incidental finding. Working diagnosis however is that COVID-19 is probably predominantly responsible for other abnormalities identified. Remdesivir, dexamethasone, breathing treatments Check additional inflammatory markers for baseline Respiratory support as needed Antibiotics empirically given comorbid conditions; has a known history of MRSA infection in the past so will cover with vancomycin and zosyn, azithromycin Check MRSA screen Blood cultures Reviewed with caregiver/DPOA for medical care who agreed with plan including medications Status: Acute (3) Pulmonary embolism: Given COVID positivity, suspect PEs related to this. That said he has been at bedrest for the last week or so. He also has other risk factors for possibility of PE including former smoker, known chronically occluded carotid artery among others. Cannot rule out an occult malignancy either in this situation. Treatment dose Lovenox with plan to transition to oral anticoagulation upon discharge, as per discussion with DPOA for medical care Check venous Duplex Status: Acute Qualifiers: Pulmonary embolism type: multiple subsegmental (without acute cor pulmonale) Qualified Code(s): I26.94 - Multiple subsegmental pulmonary emboli without acute cor pulmonale (4) Hypokalemia: Significant decrease in a patient on Lasix and potassium supplementation chronically Replace as needed Check magnesium and phosphorus levels Status: Acute (5) Normocytic anemia: Similar hemoglobin levels to last hospital stay in June, no report of any bleeding, iron levels at time were not low, 73% iron saturation which is high noted Monitor given full anticoagulation need presently Recheck TIBC and ferrtin levels Hemocult stool Status: Chronic (6) Pericardial effusion (noninflammatory): Identified in June of this year with last echocardiogram showing a moderate loculated anterior effusion, has followed with Dr. Sweeney outpatient with most recent clinic visit in July. Effusion again identified on imaging of the chest. Repeat echocardiogram to evaluate further in setting of acute illness Status: Acute (7) Heart failure with preserved ejection fraction: Clinically not acute but at risk to develop acute CHF in the hospital Continue home Lasix dosing but will need to adjust long-term potassium dosage Monitor respiratory status and I/Os, adjusting dose as needed Status: Chronic Qualifiers: Heart failure chronicity: chronic Qualified Code(s): I50.32 - Chronic diastolic (congestive) heart failure (8) COPD (chronic obstructive pulmonary disease): Difficult to ascertain if COPD itself is acutely exacerbated though it certainly is impacted by both COVID diagnosis and PE Breathing treatments Add budesonide Flutter if he can do Status: Chronic Qualifiers: COPD type: emphysema Emphysema type: centrilobular Qualified Code(s): J43.2 - Centrilobular emphysema (9) 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, has both petit mal and other types of seizures, last seizures this week which I explained to the family was probably due to lowered threshold from acute illness Continue home Keppra Status: Chronic (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 Assistance and patience as needed Status: Chronic Qualifiers: Right eye visual impairment category: right - unspecified blindness Left eye visual impairment category: left - unspecified blindness Qualified Code(s): H54.3 - Unqualified visual loss, both eyes (11) Hard of hearing: Has hearing aids which have asked family to leave here Assistance and patience as needed Status: Chronic Qualifiers: Hearing loss type: sensorineural Laterality: bilateral Qualified Code(s): H90.3 - Sensorineural hearing loss, bilateral (12) Current nicotine vaping on some days: Former cigarette smoker, now vaping with nicotine Nicotine patch if needed Status: Chronic Plan Hypothyroidism, new outpatient diagnosis for which she has been started on levothyroxine but not initiated yet Depression, chronically on venlafaxine and mirtazapine BPH chronically on Flomax Quit drinking alcohol after June admission this year Inpatient admission Isolation room COVID management as described above Lovenox currently for PE Follow up pending labs Empiric antibiotics Echo Venous Duplex Blood cultures MRSA screen Replace electrolytes Home medications as described for chronic conditions Supportive care otherwise DPOA for medical care on file Currently anticipate home with caregiver, possibly with additional services and more oxygen needed Full code, short term resuscitation is acceptable, but 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 If acute event DPOA to discuss further. Attestations Medical Necessity Statement*: Patient is still in hospital for management of acute hypoxic respiratory failure secondary to COVID-pneumonia Time Spent in Patient Care: Greater than 35 minutes (>than 50% of time sp ent in counselling and/or direct pt care on unit) . Critical Care Time: The high probability of a clinically significant, sudden or life threatening deterioration of the patient's [] system(s) required my full and direct attention, intervention and personal management. The critical care time is as shown. 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 Fwd Diagnoses Hypoxemia R09.02 COVID-19 U07.1 Pulmonary embolism I26.94 Pulmonary embolism type: multiple subsegmental (without acute cor pulmonale) Hypokalemia E87.6 Normocytic anemia D64.9 Pericardial effusion (noninflammatory) I31.3 Heart failure with preserved ejection fraction I50.32 Heart failure chronicity: chronic COPD (chronic obstructive pulmonary disease) J43.2 COPD type: emphysema Emphysema type: centrilobular Generalized epilepsy G40.309 Blind H54.3 Right eye visual impairment category: right - unspecified blindness Left eye visual impairment category: left - unspecified blindness Hard of hearing H90.3 Hearing loss type: sensorineural Laterality: bilateral Current nicotine vaping on some days Z72.0
[2021-10-07] MEDS: tamsulosin 0.4 mg Capsule PO (18:06)
[2021-10-07] MEDS: lidocaine 1% 5 ML in potassium chloride premix 100 ML 25 ML IV (18:06)
[2021-10-07] MEDS: docusate sodium 100 mg Capsule PO (18:06)
[2021-10-07] MEDS: dextrose 5% 1,000 ML 50 ML IV (18:07)
[2021-10-07 19:16] LABS: INR 1.16 (0.8-1.2)
[2021-10-07 19:17] LABS: Partial Thromboplastin Time 45.5 SECONDS (23.9-36.7)
[2021-10-07] MEDS: remdesivir 100 MG in sodium chloride 0.9% (100 ml) 80 ML IV (20:01)
[2021-10-07] MEDS: dexmedeTOMIDine 0.9 % NaCL 400 MCG/100 ML PREMIX 8.11 MCG IV (21:00)
[2021-10-07] MEDS: dexamethasone 4 mg/mL INJ 6 MG IVP (21:23)
[2021-10-08] VITALS (52 sets, daily range): BP systolic 95–170; BP diastolic 59–109; PULSE 63–151; RESP 12–31; TEMP 36.3–36.4; O2SAT 87–100
[2021-10-08] MEDS: ipratropium-albuterol 3 mL Neb INHALATION ×4 (02:30→20:32)
[2021-10-08 06:31] LABS: Basophils % 0.2 %; Hematocrit 28.2 % (42.0-52.0); Hemoglobin 8.9 g/dL (11.7-16.6); Lymphocytes # 1.5 10^3/uL (0.8-4.8); Lymphocytes % 12.1 %; Mean Corpuscular HGB Conc 31.6 g/dL (30.0-36.0); Mean Corpuscular Hemoglobin 29.2 pg (28.0-34.0); Mean Corpuscular Volume 92.5 fl (80-94); Mean Platelet Volume 10.4 fL (7.4-10.4); Monocytes # 0.5 10^3/uL (0.2-0.9); Monocytes % 3.7 %; Neutrophils # 9.64 10^3/uL (1.8-7.7); Neutrophils % 80.1 %; Nucleated Red Blood Cells % 0 %; Platelet Count 270 10^3/cmm (130-400); Red Blood Count 3.05 10^6/uL (4.1-5.3); Red Cell Distribution Width 14.8 % (12.1-15.1)
[2021-10-08 07:01] LABS: Alanine Aminotransferase 35 U/L (0-41); Albumin Level 1.8 g/dL (3.5-5.2); Alkaline Phosphatase 297 IU/L (40-130); Anion Gap 13.2 (5-19); Aspartate Amino Transferase 73 U/L (0-40); Blood Urea Nitrogen 13 mg/dL (8-23); Calcium 7.7 mg/dL (8.5-10.5); Carbon Dioxide 26 mmol/L (22-29); Chloride 113 mmol/L (98-107); Globulin 2.8 g/dL (1.3-4.6); Glomerular Filtration Rate 113.2 mL/min (90-130); Glucose 156 mg/dL (65-115); Osmolality Calculated 311 mOsm/kg (285-295); Potassium 3.2 mmol/L (3.5-5.1); Sodium 149 mmol/L (136-145); Total Bilirubin 0.2 mg/dL (0.15-1.2); Total Protein 4.6 g/dL (6.6-8.7)
[2021-10-08] MEDS: piperacillin-tazobactam 3.375 GM in sodium chloride 0.9% (plus) 50 ML IV ×3 (07:13→23:56)
[2021-10-08] MEDS: budesonide 0.5 mg/2 mL Neb INHALATION ×2 (07:59→20:32)
[2021-10-08] MEDS: lidocaine 1% 5 ML in potassium chloride premix 100 ML 25 ML IV ×2 (09:25→10:13)
[2021-10-08] MEDS: fluticasone nasal spray 16gm Btl 1 SPRAY INTRANASAL (09:26)
[2021-10-08] MEDS: enoxaparin 60 mg/0.6 mL Syringe 50 MG SUBCUT ×2 (09:26→21:53)
[2021-10-08] MEDS: dexmedeTOMIDine 0.9 % NaCL 400 MCG/100 ML PREMIX 6.76 MCG IV (10:09)
[2021-10-08] MEDS: morphine 4 mg/mL SDV 1 mL 2 MG IVP (10:22)
[2021-10-08] MEDS: neomycin-poly-bacitracin oint 28 gm 1 APPLIC TOPICAL ×2 (11:08→19:06)
[2021-10-08] MEDS: dextrose 5% 1,000 ML 75 ML IV ×2 (12:04→21:54)
--- NOTE | 2021-10-08 12:06 | P.PN_ITS ---
Subjective Subjective: Patient was seen and examined this morning, continues to remain critically ill, though supplemental oxygen requirement did slightly come down, patient also extremely confused, not safe enough to take p.o., at risk for aspiration. Medications: Medication Review Details: Generic Name Dose Route Start Last Admin Trade Name Freq PRN Reason Stop Dose Admin Albuterol/Ipratrop ium 3 ml 10/04/21 20:00 10/05/21 15:21 Ipratropium-Albu terol 3 Ml Neb INHALATION 3 ml Q6H.RESP JANNIE Administration Aspirin 81 mg 10/05/21 06:00 10/05/21 05:53 Aspirin 81 Mg Ec Tablet PO 81 mg QAM JANNIE Administration Budesonide 0.5 mg 10/05/21 08:00 10/05/21 09:38 Budesonide 0.5 M g/2 Ml Neb INHALATION 0.5 mg BID.RESPIRATORY S CH Administration Dexamethasone 6 mg 10/04/21 18:17 10/04/21 19:36 Dexamethasone 4 Mg/Ml Inj IVP 6 mg Q24H JANNIE Administration Diphenhydramine HC l 25 mg 10/04/21 18:17 10/04/21 20:55 Diphenhydramine 25 Mg Capsule PO 25 mg BID PRN Administration allergy symptoms/ itching Docusate Sodium 100 mg 10/04/21 18:17 10/05/21 09:18 Docusate Sodium 100 Mg Capsule PO 100 mg BID JANNIE Administration Enoxaparin Sodium 50 mg 10/05/21 06:00 10/05/21 05:54 Enoxaparin 60 Mg /0.6 Ml Syringe SUBCUT 50 mg Q12H JANNIE Administration Fluticasone Propio yg 1 spray 10/05/21 09:00 10/05/21 08:09 Fluticasone [place] 16gm Btl INTRANASAL 1 spray DAILY JANNIE Administration Piperacillin Sod/T azobactam 50 mls @ 12.5 mls /hr 10/05/21 00:00 10/05/21 16:57 Sod 3.375 gm/ So dium Chloride IV 12.5 mls/hr Q8H JANNIE Administration Protocol As Directed Vancomycin/PEG/NAD A/Lysine/Water 1,250 mg in 250 m ls @ 250 mls/hr 10/04/21 23:00 10/05/21 02:22 Vancocin IV Infused Q24H JANNIE Infusion Azithromycin 500 m g/ Sodium 250 mls @ 250 mls /hr 10/05/21 15:30 10/05/21 17:03 Chloride IV Infused Q24H JANNIE Infusion Levetiracetam 1,000 mg 10/04/21 21:00 10/05/21 09:18 Levetiracetam 50 0 Mg Tablet PO 1,000 mg BID@ JANNIE Administration Levothyroxine Sodi um 25 mcg 10/05/21 09:00 10/05/21 09:18 Levothyroxine 25 Mcg Tablet PO 25 mcg DAILY JANNIE Administration Mirtazapine 15 mg 10/04/21 21:00 10/04/21 20:55 Mirtazapine 15 M g Tablet PO 15 mg BEDTIME JANNIE Administration Multivitamins/Mine rals 1 tab 10/05/21 09:00 10/05/21 09:18 Multivitamin W/M inerals Tablet PO 1 tab DAILY JANNIE Administration Neomycin/Polymyxin /Bacitracin 1 applic 10/05/21 10:17 10/05/21 10:52 Sbgrfqyl-Xbkh-Qx citracin Oint 28 G m TOPICAL 1 applic BID JANNIE Administration Pantoprazole Sodiu m 40 mg 10/05/21 09:00 10/05/21 09:[address] 40 Mg Tablet PO 40 mg DAILY JANNIE Administration Potassium Chloride 40 meq 10/05/21 09:00 10/05/21 09:18 Potassium Chlori de Er 20 Meq Table t PO 10/07/21 02:00 40 meq DAILY JANNIE Administration Tamsulosin HCl 0.4 mg 10/04/21 18:17 10/04/21 19:36 Tamsulosin 0.4 M g Capsule PO 0.4 mg QPM JANNIE Administration Venlafaxine HCl 75 mg 10/05/21 06:00 10/05/21 05:53 Venlafaxine Er ( 24hr) 75 Mg Capsul e PO 75 mg QAM JANNIE Administration Vitamin D 1,000 unit 10/05/21 09:00 10/05/21 09:18 Cholecalciferol (Vitamin D3) 1,000 Unit Tablet PO 1,000 unit DAILY JANNIE Administration Zinc Gluconate 50 mg 10/05/21 09:00 10/05/21 09:18 Zinc Gluconate 5 0 Mg Tablet PO 50 mg DAILY JANNIE Administration Vitals/I&O/Wt Last Vital Signs Temp 97.5 F L 10/08/21 07:00 Pulse 83 10/08/21 09:00 Resp 28 H 10/08/21 10:22 BP 100/59 10/08/21 09:00 Pulse Ox 94 10/08/21 10:22 10/07/21 10/08/21 10/08/21 22:59 06:59 14:59 Intake Total 1069.187 / 1579.187 122.479 / 9092.784 9452.597 / 1205.597 Output Total 1000 / 1000 250 / 1250 Balance 69.187 / 579.187 -127.521 / 013.182 1178.597 / 1205.597 Weight last 48 hrs Weight 54.476 kg Weight 53.932 kg Physical Exam Narrative: Cachectic malnourished, with severe bitemporal wasting HENMT: COMMON NORMALS: normocephalic and atraumatic HEAD & SCALP: nor mocephalic and atraumatic Resp: COMMON NORMALS: clear to auscultation bilaterally AUSCULTATION: clear to auscultation bilaterally OTHER: Diminished air entry bilaterally Cardio: COMMON NORMALS: regular rate, regular rhythm, S1 normal heart sound present, S2 normal heart sound present, No gallops present (Cardio), No murmurs present (Cardio), No rub (Cardio) and Peripheral pulses 2+ throughout RATE: regular rate RHYTHM: regular rhythm HEART SOUNDS: S1 normal heart sound present and S2 normal heart sound present PERIPHERAL PULSES: Peripheral pulses 2+ throughout GI: COMMON NORMALS: Normal to inspection, nondistended, normoactive bowel sounds present, Soft to palpation, non-tender, No hepatosplenomegaly present and no masses AUSCULTATION: Yes normoactive bowel sounds PALPATION: Yes Soft to palpation and Yes No hepatosplenomegaly present RECTAL EXAM: Yes deferred Extremity: COMMON NORMALS: no clubbing, cyanosis or edema and no pedal edema Urinary Catheter Management: Jackson: Cath Placed During This Visit: yes Reason for Continuing Indwelling Catheter: Accurate Measurement of Urinary Output in Critically Ill Patients Urinary Catheter Date of Insertion: 10/06/21 Urinary Catheter Time of Insertion: 16:00 Data : 10/08/21 05:15 10/08/21 05:15 A&P Assessment and plan (1) Hypoxemia: Oxygen therapy as needed Status: Acute (2) COVID-19: Status: Acute (3) Pulmonary embolism: Status: Acute Qualifiers: Pulmonary embolism type: multiple subsegmental (without acute cor pulmonale) Qualified Code(s): I26.94 - Multiple subsegmental pulmonary emboli without acute cor pulmonale (4) Hypokalemia: Status: Acute (5) Normocytic anemia: Similar hemoglobin levels to last hospital stay in June, no report of any bleeding, iron levels at time were not low, 73% iron saturation which is high noted Monitor given full anticoagulation need presently Recheck TIBC and ferrtin levels Hemocult stool Status: Chronic (6) Pericardial effusion (noninflammatory): Identified in June of this year with last echocardiogram showing a moderate loculated anterior effusion, has followed with Dr. Sweeney outpatient with most recent clinic visit in July. Effusion again identified on imaging of the chest. Repeat echocardiogram to evaluate further in setting of acute illness Status: Acute (7) Heart failure with preserved ejection fraction: Clinically not acute but at risk to develop acute CHF in the hospital Continue home Lasix dosing but will need to adjust long-term potassium dosage Monitor respiratory status and I/Os, adjusting dose as needed Status: Chronic Qualifiers: Heart failure chronicity: chronic Qualified Code(s): I50.32 - Chronic diastolic (congestive) heart failure (8) COPD (chronic obstructive pulmonary disease): Difficult to ascertain if COPD itself is acutely exacerbated though it certainly is impacted by both COVID diagnosis and PE Breathing treatments Add budesonide Flutter if he can do Status: Chronic Qualifiers: COPD type: emphysema Emphysema type: centrilobular Qualified Code(s): J43.2 - Centrilobular emphysema (9) 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, has both petit mal and other types of seizures, last seizures this week which I explained to the family was probably due to lowered threshold from acute illness Continue home Keppra Status: Chronic (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 Assistance and patience as needed Status: Chronic Qualifiers: Left eye visual impairment category: left - unspecified blindness Right eye visual impairment category: right - unspecified blindness Qualified Code(s): H54.3 - Unqualified visual loss, both eyes (11) Hard of hearing: Has hearing aids which have asked family to leave here Assistance and patience as needed Status: Chronic Qualifiers: Hearing loss type: sensorineural Laterality: bilateral Qualified Code(s): H90.3 - Sensorineural hearing loss, bilateral (12) Current nicotine vaping on some days: Former cigarette smoker, now vaping with nicotine Nicotine patch if needed Status: Chronic Plan 66-year-old male with past medical history of COPD , hypertension , depression, seizure disorder, TIA, legally blind was admitted with chief complaint of wor sening shortness of breath. Assessment: Acute on chronic hypoxic respiratory failure: Multifactorial: Likely secondary to COVID-19, PE, COPD Acute PE Acute metabolic encephalopathy secondary to COVID-pneumonia COPD Hypertension Depression Seizure disorder History of TIA Small to moderate pericardial effusion (No tamponade physiology, may repeat echo if needed) Hypernatremia Legally blind Hypothyroidism CTA chest: Small acute pulmonary emboli in the RIGHT middle lobe and RIGHT lower lobe pulmonary arteries in the segmental and subsegmental divisions. Small LEFT great er than RIGHT pleural effusions compressive atelectasis in the lung bases. Associated slight patchy infiltrates. Recommend correlation for pneumonia. Advanced chronic emphysematous changes. Small to moderate pericardial effusion. Lower extremity Doppler vein: Negative for DVT CT head without contrast: No acute intracranial pathology. 2D echo: LV systolic function is borderline low with EF 45 to 50%. Valvular structures are not well visualized but are grossly normal.?Trace tricuspid regurgitation seen ?Moderate to large sized anterior, loculated pericardial ?effusion.? No echocardiographic features of pericardial ?tamponade.? Blood culture: NTD Procalcitonin: 0.41 Trend inflammatory markers: ESR CRP D-dimer, ferritin LDH Monitor ABG Continue remdesivir dexamethasone, DuoNebs supplemental oxygen as needed Empirically on antibiotics (vancomycin Zosyn azithromycin) S/p 1 dose of tocilizumab Currently on Precedex drip On therapeutic Lovenox Continue chronic home medications (Keppra levothyroxine ) CODE STATUS: AND DVT prophylaxis: Not needed on therapeutic Lovenox Attestations Medical Necessity Statement*: Patient is in hospital for management of COVID- pneumonia. Time Spent in Patient Care: Greater than 35 minutes (>than 50% of time spent in counselling and/or direct pt care on unit) . Critical Care Time: The high probability of a clinically significant, sudden or life threatening deterioration of the patient's [] system(s) required my full and direct attention, intervention and personal management. The critical care time is as shown. 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 Detailed Diagnoses Hypoxemia R09.02 COVID-19 U07.1 Pulmonary embolism I26.94 Pulmonary embolism type: multiple subsegmental (without acute cor pulmonale) Hypokalemia E87.6 Normocytic anemia D64.9 Pericardial effusion (noninflammatory) I31.3 Heart failure with preserved ejection fraction I50.32 Heart failure chronicity: chronic COPD (chronic obstructive pulmonary disease) J43.2 COPD type: emphysema Emphysema type: centrilobular Generalized epilepsy G40.309 Blind H54.3 Left eye visual impairment category: left - unspecified blindness Right eye visual impairment category: right - unspecified blindness Hard of hearing H90.3 Hearing loss type: sensorineural Laterality: bilateral Current nicotine vaping on some days Z72.0
[2021-10-08] MEDS: remdesivir 100 MG in sodium chloride 0.9% (100 ml) 80 ML IV (19:06)
[2021-10-08] MEDS: dexmedeTOMIDine 0.9 % NaCL 400 MCG/100 ML PREMIX 8.11 MCG IV (19:53)
--- NOTE | 2021-10-08 20:15 | XRR_ITS ---
PROCEDURE INFORMATION: Exam: XR Chest Exam date and time: 10/08/2021 8:50 PM Age: 66 years old Clinical indication: Shortness of breath; Patient HX: Covid+ w/o L sided breath sounds; Additional info: Inaudible lung sounds L side TECHNIQUE: Imaging protocol: Radiologic exam of the chest. Views: 1 view. COMPARISON: CR XR chest 1V portable [id number] 10/04/2021 11:05 AM FINDINGS: Lungs: Marked coarsening of the lung parenchyma consistent with severe emphysematous changes. No consolidation. Pleural spaces: No pleural effusion. No pneumothorax. Heart/Mediastinum: No cardiomegaly. Bones/joints: Visualized osseous structures are intact. XR/XR chest 1V portable [id number] IMPRESSION: Severe emphysematous changes of the lungs. No acute findings.
--- NOTE | 2021-10-08 21:27 | PC.NURSE ---
Following extensive repositioning of patient following BM, breath sounds were once again audible in GRETCHEN, LLL. Fine crackles throughout both left and right lobes. Patient currently on 7L HFNC, sleeping in bed with pillows between knees.
[2021-10-08] MEDS: dexamethasone 4 mg/mL INJ 6 MG IVP (21:53)
--- NOTE | 2021-10-08 23:08 | PC.NURSE ---
2239 Patient restless and agitated, pulling at catheter, scratching self, repeatedly taking forehead pulse oximeter off. Responsive to name at this time, disoriented to time, place, situation. Currently unable to reorient. Patient repeatedly mentions to tell her I'm sorry , I have to get dressed , I'm sorry, I didn't do it , and similar phrases and variations. Dexmetodamine titrations performed due to increased agitation. 2304 Patient no longer exhibiting anxiety, restlessness, agitation. Sleeping comfortably.
[2021-10-09] VITALS (54 sets, daily range): BP systolic 82–159; BP diastolic 41–104; PULSE 56–168; RESP 9–29; TEMP 35.7–36.2; O2SAT 72–100
[2021-10-09] MEDS: ipratropium-albuterol 3 mL Neb INHALATION ×4 (02:36→20:25)
[2021-10-09] MEDS: dexmedeTOMIDine 0.9 % NaCL 400 MCG/100 ML PREMIX 9.46 MCG IV ×2 (05:15→16:07)
[2021-10-09 05:16] LABS: Basophils % 0.1 %; Eosinophils % 0.1 %; Hematocrit 27.4 % (42.0-52.0); Hemoglobin 8.6 g/dL (11.7-16.6); Lymphocytes # 0.9 10^3/uL (0.8-4.8); Lymphocytes % 10.6 %; Mean Corpuscular HGB Conc 31.4 g/dL (30.0-36.0); Mean Corpuscular Hemoglobin 29.1 pg (28.0-34.0); Mean Corpuscular Volume 92.6 fl (80-94); Mean Platelet Volume 10.5 fL (7.4-10.4); Monocytes # 0.2 10^3/uL (0.2-0.9); Monocytes % 2.5 %; Neutrophils # 7.36 10^3/uL (1.8-7.7); Neutrophils % 85.1 %; Nucleated Red Blood Cells % 0 %; Platelet Count 196 10^3/cmm (130-400); Red Blood Count 2.96 10^6/uL (4.1-5.3); White Blood Count 8.7 10^3/uL (4.0-10.0)
[2021-10-09 05:41] LABS: Alanine Aminotransferase 38 U/L (0-41); Albumin Level 1.9 g/dL (3.5-5.2); Alkaline Phosphatase 270 IU/L (40-130); Anion Gap 11.4 (5-19); Aspartate Amino Transferase 76 U/L (0-40); Blood Urea Nitrogen 8 mg/dL (8-23); Calcium 7.7 mg/dL (8.5-10.5); Carbon Dioxide 24 mmol/L (22-29); Chloride 113 mmol/L (98-107); Globulin 2.6 g/dL (1.3-4.6); Glomerular Filtration Rate 135.2 mL/min (90-130); Glucose 135 mg/dL (65-115); Osmolality Calculated 300 mOsm/kg (285-295); Potassium 3.4 mmol/L (3.5-5.1); Sodium 145 mmol/L (136-145); Total Bilirubin 0.3 mg/dL (0.15-1.2); Total Protein 4.5 g/dL (6.6-8.7)
[2021-10-09] MEDS: morphine 4 mg/mL SDV 1 mL 2 MG IVP (06:41)
--- NOTE | 2021-10-09 07:00 | PC.NURSE ---
Bedside report completed with AARON Lopez
[2021-10-09] MEDS: budesonide 0.5 mg/2 mL Neb INHALATION ×2 (07:36→20:25)
--- NOTE | 2021-10-09 08:49 | PC.SOCIAL ---
IMM update IMM not updated as patient isn't expected to dc in the next 24-48 hours.
[2021-10-09] MEDS: levothyroxine 25 mcg Tablet PO (09:02)
[2021-10-09] MEDS: lidocaine 1% 5 ML in potassium chloride premix 100 ML 25 ML IV (09:03)
[2021-10-09] MEDS: neomycin-poly-bacitracin oint 28 gm 1 APPLIC TOPICAL ×2 (09:05→17:44)
[2021-10-09] MEDS: fluticasone nasal spray 16gm Btl 1 SPRAY INTRANASAL (11:09)
[2021-10-09] MEDS: enoxaparin 60 mg/0.6 mL Syringe 50 MG SUBCUT ×2 (11:10→22:52)
[2021-10-09] MEDS: pantoprazole 40 mg SDV IVP (11:11)
--- NOTE | 2021-10-09 13:13 | PM.PN ---
Subjective Subjective: Patient was seen and examined this morning, supplemental oxygen requirement is going down: Patient has remained afebrile. Medications: Medication Review Details: Generic Name Dose Route Start Last Admin Trade Name Bethany PRN Reason Stop Dose Admin Albuterol/Ipratrop ium 3 ml 10/04/21 20:00 10/05/21 15:21 Ipratropium-Albu terol 3 Ml Neb INHALATION 3 ml Q6H.RESP JANNIE Administration Aspirin 81 mg 10/05/21 06:00 10/05/21 05:53 Aspirin 81 Mg Ec Tablet PO 81 mg QAM JANNIE Administration Budesonide 0.5 mg 10/05/21 08:00 10/05/21 09:38 Budesonide 0.5 M g/2 Ml Neb INHALATION 0.5 mg BID.RESPIRATORY S CH Administration Dexamethasone 6 mg 10/04/21 18:17 10/04/21 19:36 Dexamethasone 4 Mg/Ml Inj IVP 6 mg Q24H JANNIE Administration Diphenhydramine HC l 25 mg 10/04/21 18:17 10/04/21 20:55 Diphenhydramine 25 Mg Capsule PO 25 mg BID PRN Administration allergy symptoms/ itching Docusate Sodium 100 mg 10/04/21 18:17 10/05/21 09:18 Docusate Sodium 100 Mg Capsule PO 100 mg BID JANNIE Administration Enoxaparin Sodium 50 mg 10/05/21 06:00 10/05/21 05:54 Enoxaparin 60 Mg /0.6 Ml Syringe SUBCUT 50 mg Q12H JANNIE Administration Fluticasone Propio yg 1 spray 10/05/21 09:00 10/05/21 08:09 Fluticasone Nasa l [place] 16gm Btl INTRANASAL 1 spray DAILY JANNIE Administration Piperacillin Sod/T azobactam 50 mls @ 12.5 mls /hr 10/05/21 00:00 10/05/21 16:57 Sod 3.375 gm/ So dium Chloride IV 12.5 mls/hr Q8H JANNIE Administration Protocol As Directed Vancomycin/PEG/NAD A/Lysine/Water 1,250 mg in 250 m ls @ 250 mls/hr 10/04/21 23:00 10/05/21 02:22 Vancocin IV Infused Q24H JANNIE Infusion Azithromycin 500 m g/ Sodium 250 mls @ 250 mls /hr 10/05/21 15:30 10/05/21 17:03 Chloride IV Infused Q24H JANNIE Infusion Levetiracetam 1,000 mg 10/04/21 21:00 10/05/21 09:18 Levetiracetam 50 0 Mg Tablet PO 1,000 mg BID@ JANNIE Administration Levothyroxine Sodi um 25 mcg 10/05/21 09:00 10/05/21 09:18 Levothyroxine 25 Mcg Tablet PO 25 mcg DAILY JANNIE Administration Mirtazapine 15 mg 10/04/21 21:00 10/04/21 20:55 Mirtazapine 15 M g Tablet PO 15 mg BEDTIME JANNIE Administration Multivitamins/Mine rals 1 tab 10/05/21 09:00 10/05/21 09:18 Multivitamin W/M inerals Tablet PO 1 tab DAILY JANNIE Administration Neomycin/Polymyxin /Bacitracin 1 applic 10/05/21 10:17 10/05/21 10:52 Cdbccczd-Geqf-Le citracin Oint 28 G m TOPICAL 1 applic BID JANNIE Administration Pantoprazole Sodiu m 40 mg 10/05/21 09:00 10/05/21 09:[address] 40 Mg Tablet PO 40 mg DAILY JANNIE Administration Potassium Chloride 40 meq 10/05/21 09:00 10/05/21 09:18 Potassium Chlori de Er 20 Meq Table t PO 10/07/21 02:00 40 meq DAILY JANNIE Administration Tamsulosin HCl 0.4 mg 10/04/21 18:17 10/04/21 19:36 Tamsulosin 0.4 M g Capsule PO 0.4 mg QPM JANNIE Administration Venlafaxine HCl 75 mg 10/05/21 06:00 10/05/21 05:53 Venlafaxine Er ( 24hr) 75 Mg Capsul e PO 75 mg QAM JANNIE Administration Vitamin D 1,000 unit 10/05/21 09:00 10/05/21 09:18 Cholecalciferol (Vitamin D3) 1,000 Unit Tablet PO 1,000 unit DAILY JANNIE Administration Zinc Gluconate 50 mg 10/05/21 09:00 10/05/21 09:18 Zinc Gluconate 5 0 Mg Tablet PO 50 mg DAILY JANNIE Administration Vitals/I&O/Wt Last Vital Signs Temp 97.2 F L 10/09/21 08:00 Pulse 56 L 10/09/21 13:00 Resp 12 10/09/21 13:00 BP 126/70 10/09/21 13:00 Pulse Ox 91 10/09/21 13:00 10/08/21 10/09/21 10/09/21 22:59 06:59 14:59 Intake Total 1097.196 / 2517.793 119.118 / 2636.911 868.75 / 868.75 Output Total 450 / 450 350 / 800 Balance 647.196 / 2067.793 -230.882 / 1836.911 868.75 / 868.75 Weight last 48 hrs Weight 52 kg Weight 54.476 kg Physical Exam Narrative: Cachectic malnourished, with severe bitemporal wasting HENMT: COMMON NORMALS: normocephalic and atraumatic HEAD & SCALP: normocephalic and atraumatic Chest: CHEST: Yes Symmetrical chest wall rise Resp: COMMON NORMALS: clear to auscultation bilaterally EFFORT & INSPECTION: Yes symmetric chest movement AUSCULTATION: clear to auscultation bilaterally OTHER: Diminished air entry bilaterally Cardio: COMMON NORMALS: regular rate, regular rhythm, S1 normal heart sound present, S2 normal heart sound present, No gallops present (Cardio), No murmurs present (Cardio), No rub (Cardio) and Peripheral pulses 2+ throughout RATE: regular rate RHYTHM: regular rhythm HEART SOUNDS: S1 normal heart sound present and S2 normal heart sound present PERIPHERAL PULSES: Peripheral pulses 2+ throughout GI: COMMON NORMALS: Normal to inspection, nondistended, normoactive bowel sounds present, Soft to palpation, non-tender, No hepatosplenomegaly present and no masses AUSCULTATION: Yes normoactive bowel sounds PALPATION: Yes Soft to palpation and Yes No hepatosplenomegaly present RECTAL EXAM: Yes deferred Extremity: COMMON NORMALS: no clubbing, cyanosis or edema and no pedal edema Urinary Catheter Management: Jackson: Cath Placed During This Visit: yes Reason for Continuing Indwelling Catheter: Accurate Measurement of Urinary Output in Critically Ill Patients Urinary Catheter Date of Insertion: 10/06/21 Urinary Catheter Time of Insertion: 16:00 Data : 10/09/21 05:00 10/09/21 05:00 A&P Assessment and plan (1) Hypoxemia: Oxygen therapy as needed Status: Acute (2) COVID-19: Status: Acute (3) Pulmonary embolism: Status: Acute Qualifiers: Pulmonary embolism type: multiple subsegmental (without acute cor pulmonale) Qualified Code(s): I26.94 - Multiple subsegmental pulmonary emboli without acute cor pulmonale (4) Hypokalemia: Status: Acute (5) Normocytic anemia: Similar hemoglobin levels to last hospital stay in June, no report of any bleeding, iron levels at time were not low, 73% iron saturation which is high noted Monitor given full anticoagulation need presently Recheck TIBC and ferrtin levels Hemocult stool Status: Chronic (6) Pericardial effusion (noninflammatory): Identified in June of this year with last echocardiogram showing a moderate loculated anterior effusion, has followed with Dr. Sweeney outpatient with most recent clinic visit in July. Effusion again identified on imaging of the chest. Repeat echocardiogram to evaluate further in setting of acute illness Status: Acute (7) Heart failure with preserved ejection fraction: Clinically not acute but at risk to develop acute CHF in the hospital Continue home Lasix dosing but will need to adjust long-term potassium dosage Monitor respiratory status and I/Os, adjusting dose as needed Status: Chronic Qualifiers: Heart failure chronicity: chronic Qualified Code(s): I50.32 - Chronic diastolic (congestive) heart failure (8) COPD (chronic obstructive pulmonary disease): Difficult to ascertain if COPD itself is acutely exacerbated though it certainly is impacted by both COVID diagnosis and PE Breathing treatments Add budesonide Flutter if he can do Status: Chronic Qualifiers: COPD type: emphysema Emphysema type: centrilobular Qualified Code(s): J43.2 - Centrilobular emphysema (9) 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, has both petit mal and other types of seizures, last seizures this week which I explained to the family was probably due to lowered threshold from acute illness Continue home Keppra Status: Chronic (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 Assistance and patience as needed Status: Chronic Qualifiers: Left eye visual impairment category: left - unspecified blindness Right eye visual impairment category: right - unspecified blindness Qualified Code(s): H54.3 - Unqualified visual loss, both eyes (11) Hard of hearing: Has hearing aids which have asked family to leave here Assistance and patience as needed Status: Chronic Qualifiers: Hearing loss type: sensorineural Laterality: bilateral Qualified Code(s): H90.3 - Sensorineural hearing loss, bilateral (12) Current nicotine vaping on some days: Former cigarette smoker, now vaping with nicotine Nicotine patch if needed Status: Chronic Plan 66-year-old male with past medical history of COPD , hypertension , depression, seizure disorder, TIA, legally blind was admitted with chief complaint of worsening shortness of breath. Assessment: Acute on chronic hypoxic respiratory failure: Multifactorial: Likely secondary to COVID-19, PE, COPD Acute PE Acute metabolic encephalopathy secondary to COVID-pneumonia COPD Hypertension Depression Seizure disorder History of TIA Small to moderate pericardial effusion (No tamponade physiology, may repeat echo if needed) Hypernatremia Legally blind Hypothyroidism CTA chest: Small acute pulmonary emboli in the RIGHT middle lobe and RIGHT lower lobe pulmonary arteries in the segmental and subsegmental divisions. Small LEFT greater than RIGHT pleural effusions compressive atelectasis in the lung bases. Associated slight patchy infiltrates. Recommend correlation for pneumonia. Advanced chronic emphysematous changes. Small to moderate pericardial effusion. Lower extremity Doppler vein: Negative for DVT CT head without contrast: No acute intracranial pathology. 2D echo: LV systolic function is borderline low with EF 45 to 50%. Valvular structures are not well visualized but are grossly normal.?Trace tricuspid regurgitation seen ?Moderate to large sized anterior, loculated pericardial ?effusion.? No echocardiographic features of pericardial ?tamponade.? Blood culture: NTD Procalcitonin: 0.41 Trend inflammatory markers: ESR CRP D-dimer, ferritin LDH Monitor ABG Continue remdesivir dexamethasone, DuoNebs supplemental oxygen as needed Empirically was on antibiotics (vancomycin Zosyn azithromycin) has been discontinued S/p 1 dose of tocilizumab Currently on Precedex drip On therapeutic Lovenox Continue chronic home medications (Keppra levothyroxine ) CODE STATUS: AND DVT prophylaxis: Not needed on therapeutic Lovenox Attestations Medical Necessity Statement*: Patient needs to be in hospital for management of COVID-pneumonia. Time Spent in Patient Care: Greater than 35 minutes (>than 50% of time spent in counselling and/or direct pt care on unit). Coding Level of Care Code Acute Human Resource Consultant for g Fwd Exam Detailed Diagnoses Hypoxemia R09.02 COVID-19 U07.1 Pulmonary embolism I26.94 Pulmonary embolism type: multiple subsegmental (without acute cor pulmonale) Hypokalemia E87.6 Normocytic anemia D64.9 Pericardial effusion (noninflammatory) I31.3 Heart failure with preserved ejection fraction I50.32 Heart failure chronicity: chronic COPD (chronic obstructive pulmonary disease) J43.2 COPD type: emphysema Emphysema type: centrilobular Generalized epilepsy G40.309 Blind H54.3 Left eye visual impairment category: left - unspecified blindness Right eye visual impairment category: right - unspecified blindness Hard of hearing H90.3 Hearing loss type: sensorineural Laterality: bilateral Current nicotine vaping on some days Z72.0
--- NOTE | 2021-10-09 16:10 | PC.NURSE ---
Pt wiggling around in the bed. Right hand IV dislodged.
[2021-10-09] MEDS: dextrose 5% 1,000 ML 50 ML IV (17:44)
[2021-10-09] MEDS: tamsulosin 0.4 mg Capsule PO (17:45)
--- NOTE | 2021-10-09 18:27 | PC.NURSE ---
Shift Note Pt rested in bed throughout shift. He is more responsive today, answering question occasionally. His hearing aids , bilat, are in at this time. His O2 needs have decreased, O2 decreased to 4lpm/NC. He multiple skin tears, from flailing around. No new skin tears noted. Right hand IV found lying on bed. He has had 2 linen changes today. Urine ouput of 700ml today Frequent safety and comfort rounds continue. Orders and/or nursing care completed as indicated. Patient monitored for response to intervention and treatment(s). Education provided includes Paln of care, potassium and Keppra.. 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 Pt verbalized understanding, difficult to ascertain, as he has significant hearing loss. Will continue to monitor.
--- NOTE | 2021-10-09 19:11 | PC.NURSE ---
Bedside report completed with AARON Womack
[2021-10-09] MEDS: dexamethasone 4 mg/mL INJ 6 MG IVP (22:52)
[2021-10-09 23:11] LABS: Hemoglobin 8.6 g/dL (11.7-16.6)
--- NOTE | 2021-10-09 23:45 | PC.NURSE ---
Patient BP dropped and was unable to get a oxygen saturation on him. Attempted to use the Cheetah, but was unable due to patient unable to keep still and straighten his legs. Started levophed, and was able to get BP mean above 65. Also increase oxygen from 4L NC to 100% FiO2 with 50L High Flow Heated oxygen. Called family, Herminia, in and updated her about change in status. Confirmed that she wants everything done other than coding him. She is okay with using the Levophed.
[2021-10-10] VITALS (70 sets, daily range): BP systolic 92–161; BP diastolic 40–93; PULSE 67–117; RESP 7–35; TEMP 36.6–37; O2SAT 64–100
[2021-10-10] MEDS: morphine 4 mg/mL SDV 1 mL 2 MG IVP ×4 (00:53→20:02)
[2021-10-10] MEDS: ipratropium-albuterol 3 mL Neb INHALATION ×4 (02:31→20:44)
--- NOTE | 2021-10-10 03:10 | XRR_ITS ---
PROCEDURE INFORMATION: Exam: XR Chest Exam date and time: 10/10/2021 3:18 AM Age: 66 years old Clinical indication: Shortness of breath; Patient HX: Increased SOB PT unable to give history; Additional info: Increase in o2 requirements TECHNIQUE: Imaging protocol: Radiologic exam of the chest. Views: 1 view. COMPARISON: CR (CHEST, ) 10/08/2021 8:50 PM FINDINGS: Lungs: There is a background of emphysema and pulmonary fibrosis. There are hazy opacities present in the lower hemithoraces bilaterally possibly representing a superimposed interstitial pneumonia versus pulmonary edema. Pleural spaces: Unremarkable. No pleural effusion. No pneumothorax. Heart/Mediastinum: Unremarkable. No cardiomegaly. Bones/joints: Unremarkable. XR/XR chest 1V portable [id number] IMPRESSION: 1. There is a background severe emphysema and pulmonary fibrosis. 2. Increased haziness seen in the lower hemithoraces may represent superimposed basilar interstitial pneumonitis although pulmonary edema could have this appearance.
[2021-10-10] MEDS: haloperidol inj 5 mg/mL INJ 1 mL 1 MG IM (03:11)
[2021-10-10] MEDS: dexmedeTOMIDine 0.9 % NaCL 400 MCG/100 ML PREMIX 16.22 MCG IV ×2 (03:30→05:33)
[2021-10-10] MEDS: haloperidol inj 5 mg/mL INJ 1 mL 1 MG IVP (03:47)
[2021-10-10 03:48] LABS: ABG PCO2 30.2 mmHg (35-45); ABG PH Result 7.49 (7.35-7.45); Alveolar-Arterial Oxygen Gradi 78.9 mmHg (5-10); Base Excess ABG 0.2 mmol/L (-2.0-2.0); Blood Gas Allen Test Pos; Blood Gas Sample Site Radial, left; Blood Gas Sample Type Arterial; Carboxyhemoglobin < 0.0 %THgb (0.4-20.1); HCO3 ABG 23.2 mmol/L (22-26); HGB O2 Sat 91.5 % (95-100); Ionized Calcium Level - ABG 1.2 mmol/L (1.1-1.4); Methemoglobin 1.4 % (0.4-1.5); Oxygen Device NC; Oxygen Saturation ABG 92.7; PO2 ABG 64.9 mmHg (80.0-100.0); Potassium Level - ABG 3.7 mmol/L (3.5-5.0); Total Hemoglobin 8.5 g/dL (14-18)
--- NOTE | 2021-10-10 04:29 | PC.NURSE ---
2120-Called Dr. Shah to explain patient O2 requirements had gone from 4L to 8L. Unable to get saturation level and BP low. Orders for patient to be placed on heat high flow. Get a reading on Cheetah to decide whether to use volume versus use of levophed. 6-Called Dr. Shah to report cheetah did not work. That levophed was started. Report no urine out put, bladder scan only shows 15-20ml in bladder. SERGIO Hope, at bedside. Patient seems slightly less agitated with her at bedside. 0200-Patient will not sit still. Continuously attempting to pull O2 out of nose. Won't sit still. Pulling at catheter. Respiratory rate in the 30's. Attempting to get of the bed. Asking for help. RN at bedside continuously. Patient very aggitated. 0249-Called for something to calm patient down. Precedex maxed and it has not helped. Order for Haldol IM. Also reported no urine output. No orders given. 0337-Patient still agitated. Order for IV Haldol. ABG requested and ordered by Dr. Zavala.
[2021-10-10 05:51] LABS: Blood Urea Nitrogen 6 mg/dL (8-23); Calcium 7.6 mg/dL (8.5-10.5); Carbon Dioxide 20 mmol/L (22-29); Chloride 113 mmol/L (98-107); Glomerular Filtration Rate 166.9 mL/min (90-130); Glucose 76 mg/dL (65-115); Osmolality Calculated 292 mOsm/kg (285-295); Sodium 143 mmol/L (136-145)
[2021-10-10 06:01] LABS: Anion Gap 14.1 (5-19); Potassium 4.1 mmol/L (3.5-5.1)
[2021-10-10 06:30] LABS: Basophils % 0.1 %; Eosinophils % 0.1 %; Hematocrit 22.1 % (42.0-52.0); Hemoglobin 7.6 g/dL (11.7-16.6); Lymphocytes # 1.4 10^3/uL (0.8-4.8); Lymphocytes % 13.5 %; Mean Corpuscular HGB Conc 34.4 g/dL (30.0-36.0); Mean Corpuscular Hemoglobin 29.3 pg (28.0-34.0); Mean Corpuscular Volume 85.3 fl (80-94); Mean Platelet Volume 10.4 fL (7.4-10.4); Monocytes # 0.3 10^3/uL (0.2-0.9); Monocytes % 3.4 %; Neutrophils # 8.27 10^3/uL (1.8-7.7); Neutrophils % 82.1 %; Nucleated Red Blood Cells % 0 %; Platelet Count 199 10^3/cmm (130-400); Red Blood Count 2.59 10^6/uL (4.1-5.3); Red Cell Distribution Width 14.5 % (12.1-15.1); White Blood Count 10.1 10^3/uL (4.0-10.0)
--- NOTE | 2021-10-10 07:20 | USCV_ITS ---
Chris Madera Age: 66 Gender: M : 1955 Exam Date: 10/10/2021 07:49 Ordering Phys: Ascencion Matta MD Technologist: Raciel Silvestre [place] [facility] [place]: Pericardial effusion BP: / HR: Rhythm: Sinus Technical Quality: MEASUREMENTS (Male / Female) Normal Values FINDINGS Left Ventricle Right Ventricle Right Atrium Left Atrium Mitral Valve Aortic Valve Tricuspid Valve Pulmonic Valve Pericardium Aorta IVC CONCLUSIONS 1. This is a technically very difficult and limited study. 2. There seems to be moderate to large pericardial effusion anteriorly along right ventricle. No evidence of hemodynamic compromise. 3. There does not seem to be any significant change in size of pericardial effusion on this TDS study when compared to prior study dated 10/04/2021. Radha Farooq MD (Electronically Signed) Final Date: 10 October 2021 14:23 S
--- NOTE | 2021-10-10 08:00 | PC.NURSE ---
Report received. Care assumed
[2021-10-10] MEDS: budesonide 0.5 mg/2 mL Neb INHALATION ×2 (09:03→20:44)
--- NOTE | 2021-10-10 09:18 | ECG_ITS ---
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 Measurements Intervals [place] Rate: P: AR: QRS: QRSD: T: QT: QTc: Interpretive Statements Atrial fibrillation with a controlled ventricular response rate Diffuse nonspecific T wave changes ATYPICAL ECG WARNING: DATA QUALITY MAY AFFECT INTERPRETATION Compared to ECG 10/04/2021 16:56:59 Sinus tachycardia no longer present Left anterior fascicular block no longer present Electronically Signed On 10-10-2021 20:52:19 CDT by Narinder Sweeney M.D. [id number]
[2021-10-10] MEDS: FUROsemide 10 mg/mL SDV 10mL 60 MG IVP (09:26)
[2021-10-10] MEDS: pantoprazole 40 mg SDV IVP (09:26)
[2021-10-10] MEDS: neomycin-poly-bacitracin oint 28 gm 1 APPLIC TOPICAL ×2 (09:26→18:43)
[2021-10-10] MEDS: fluticasone nasal spray 16gm Btl 1 SPRAY INTRANASAL (09:27)
[2021-10-10] MEDS: levothyroxine 25 mcg Tablet PO (09:28)
[2021-10-10 10:50] LABS: D Dimer 1.09 ug/mIFEU (0-0.59)
[2021-10-10 11:07] LABS: Troponin(5th) Baseline 32 ng/L (0-15)
[2021-10-10 11:18] LABS: Free T4 Free Thyroxine 0.63 ng/dL (0.82-1.77); NT Pro B Type Natriuretic Pept 4610 pg/mL (0-125); Procalcitonin 0.14 ng/mL (0-0.5); T3 Free 0.9 PG/ML (2.0-4.4)
--- NOTE | 2021-10-10 11:18 | ECG_ITS ---
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 Measurements Intervals [place] Rate: 81 P: 69 ID: 140 QRS: -77 QRSD: 105 T: 38 QT: 383 QTc: 445 Interpretive Statements SINUS RHYTHM LOW QRS VOLTAGE [QRS DEFLECTION < 0.5/1.0 mV IN LIMB/CHEST LEADS] LEFT ANTERIOR FASCICULAR BLOCK [QRS AXIS <= -45, QR IN I, RS IN II] Compared to ECG 10/10/2021 12:18:19 Low QRS voltage now present Left anterior fascicular block now present Supraventricular rhythm no longer present Myocardial infarct finding no longer present Electronically Signed On 10-10-2021 21:07:05 CDT by Narinder Sweeney M.D. [id number]
[2021-10-10 11:23] LABS: Folate Level 18.6 ng/mL (4.5-32.2)
[2021-10-10 12:23] LABS: C Reactive Protein 30.3 mg/L (0.0-4.9)
--- NOTE | 2021-10-10 12:45 | PC.NURSE ---
TAR vital signs see critical care vital sing flowsheet
[2021-10-10] MEDS: heparin drip 25,000 UNIT/500 ML PREMIX 14.64 UNIT IV (12:50)
[2021-10-10] MEDS: heparin 5,000 unit/mL INJ 1 mL IV ×2 (12:51→18:42)
[2021-10-10] MEDS: sodium chloride 0.9% (100 ml) 100 ML (12:52)
[2021-10-10 13:16] LABS: Vitamin B12 > 2000 pg/mL (232-1245)
--- NOTE | 2021-10-10 13:25 | PC.NURSE ---
Pt pulled off oxygen HHF. He has pulled on monitoring wires. Sats 54%. PUt HHF back together and replaced/administered, increased O2 to 100% . Pt recovered quickly. Sat back up to 92% by the time he was repositioned and lines and wires untangled. Pt did not know where he was at when asked. Re-oriented him to being in the hospital he settled down and cooperated.
[2021-10-10 13:40] LABS: Add Urine Microscopic? YES; Bilirubin Urine 1+ (Negative); Blood Urine 3+ (Negative); Glucose Urine UA Norm (Normal); Ketones Urine 1+ (Negative); Leukocyte Esterase Urine Trace (Negative); Nitrate Urine Negative (Negative); Protein Urine 1+ (Negative); RBC Urine TOO NUMEROUS TO CNT /hpf (0-2); Urine Appearance Hazy (CLEAR); Urine Color Dark Yellow (Yellow); Urobilinogen Urine Norm (Negative); pH Urine 6 (5-7)
[2021-10-10 13:41] LABS: Add Urine Culture? Yes; Bacteria Urine 1+ /hpf; Mucus Urine TRACE /hpf
[2021-10-10] MEDS: dexmedeTOMIDine 0.9 % NaCL 400 MCG/100 ML PREMIX 10.81 MCG IV (14:19)
--- NOTE | 2021-10-10 15:18 | ECG_ITS ---
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 Measurements Intervals [place] Rate: 97 P: ME: QRS: 5 QRSD: 82 T: 30 QT: 328 QTc: 417 Interpretive Statements SUPRAVENTRICULAR RHYTHM Heavy baseline artifact Further interpretation is not possible Electronically Signed On 10-10-2021 21:05:22 CDT by Narinder Sweeney M.D. [id number]
--- NOTE | 2021-10-10 17:52 | PM.PN ---
Subjective Subjective: Hospital course, labs appreciated. Overnight it was reported that patient had agitation. Prior to that his oxygen supplementation to have been going up from 2 L. Currently he is on 40 L 100% saturating 90 to 93%. He is on Precedex at 0.8. He required 1 dose of Haldol overnight. Precedex being weaned down from 1.2-0.8. Urine output of around 400 cc in last 24 hours. Otherwise has remained hemodynamically stable and afebrile. Mean arterial pressures have remained over 65. T-max within last 24 hours afebrile. Oral intake has been on and off poor. Vitals/I&O/Wt Last Vital Signs Temp 98.2 F 10/10/21 12:02 Pulse 96 10/10/21 16:04 Resp 22 H 10/10/21 16:04 BP 106/68 10/10/21 12:02 Pulse Ox 92 10/10/21 16:04 10/10/21 10/10/21 10/10/21 06:59 14:59 22:59 Intake Total 257.475 / 1789.997 240.000 / 240.000 Output Total 40 / 70 Balance 217.475 / 1719.997 240.000 / 240.000 Weight last 48 hrs Weight 52.3 kg Weight 52 kg Physical Exam Narrative: Cachectic malnourished, with severe bitemporal wasting, extremely hard of hearing, legally blind HENMT: COMMON NORMALS: normocephalic and atraumatic HEAD & SCALP: normocephalic and atraumatic Chest: CHEST: Yes Symmetrical chest wall rise Resp: COMMON NORMALS: clear to auscultation bilaterally EFFORT & INSPECTION: Yes symmetric chest movement AUSCULTATION: clear to auscultation bilaterally OTHER: Diminished air entry bilaterally Cardio: COMMON NORMALS: regular rate, regular rhythm, S1 normal heart sound present, S2 normal heart sound present, No gallops present (Cardio), No murmurs present (Cardio), No rub (Cardio) and Peripheral pulses 2+ throughout RATE: regular rate RHYTHM: regular rhythm HEART SOUNDS: S1 normal heart sound present and S2 normal heart sound present PERIPHERAL PULSES: Peripheral pulses 2+ throughout GI: COMMON NORMALS: Normal to inspection, nondistended, normoactive bowel sounds present, Soft to palpation, non-tender, No hepatosplenomegaly present and no masses AUSCULTATION: Yes normoactive bowel sounds PALPATION: Yes Soft to palpation and Yes No hepatosplenomegaly present RECTAL EXAM: Yes deferred Extremity: COMMON NORMALS: no clubbing, cyanosis or edema and no pedal edema Urinary Catheter Management: Jackson: Cath Placed During This Visit: yes Reason for Continuing Indwelling Catheter: Accurate Measurement of Urinary Output in Critically Ill Patients Urinary Catheter Date of Insertion: 10/06/21 Urinary Catheter Time of Insertion: 16:00 Data : 10/11/21 01:12 10/11/21 01:12 Micro: Microbiology 10/10/21 11:05 MRSA Culture - Final Nose 10/10/21 11:10 Legionella Urinary Antigen - Final Urine Catheterized 10/04/21 10:20 Blood Culture - Final Blood NO GROWTH AFTER 5 DAYS 10/04/21 10:15 Blood Culture - Final Blood NO GROWTH AFTER 5 DAYS A&P Assessment and plan (1) Altered mental status: Status: Acute (2) Hypoxemia: Oxygen therapy as needed to keep saturation over 88% Status: Acute (3) COVID-19: Status: Acute (4) Heart failure with preserved ejection fraction: Status: Chronic Qualifiers: Heart failure chronicity: chronic Qualified Code(s): I50.32 - Chronic diastolic (congestive) heart failure (5) Pulmonary embolism: Status: Acute Qualifiers: Pulmonary embolism type: multiple subsegmental (without acute cor pulmonale) Qualified Code(s): I26.94 - Multiple subsegmental pulmonary emboli without acute cor pulmonale (6) Pericardial effusion (noninflammatory): Status: Acute (7) COPD (chronic obstructive pulmonary disease): Status: Chronic Qualifiers: COPD type: emphysema Emphysema type: centrilobular Qualified Code(s): J43.2 - Centrilobular emphysema (8) 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, has both petit mal and other types of seizures, last seizures this week which I explained to the family was probably due to lowered threshold from acute illness Continue home [facility] [place] Status: Chronic (9) Carotid artery disease: Status: Chronic (10) Hypokalemia: Status: Acute (11) Normocytic anemia: Status: Chronic (12) Blind: Both eyes Assistance and patience as needed Status: Chronic Qualifiers: Left eye visual impairment category: left - unspecified blindness Right eye visual impairment category: right - unspecified blindness Qualified Code(s): H54.3 - Unqualified visual loss, both eyes (13) Current nicotine vaping on some days: Former cigarette smoker, now vaping with nicotine Nicotine patch if needed Status: Chronic (14) Hard of hearing: Has hearing aids which have asked family to leave here Assistance and patience as needed Status: Chronic Qualifiers: Hearing loss type: sensorineural Laterality: bilateral Qualified Code(s): H90.3 - Sensorineural hearing loss, bilateral Plan 66 old gentleman with past medical history of being legally blind, carotid arterial disease, COPD, anterior pericardial effusion who was admitted to the hospital due to hypoxia found to be COVID-19 positive. Hypoxia secondary to COVID-19 pneumonia: Moderate disease Oxygen supplementation keeping saturation over 88%. Continue with dexamethasone 6 mg daily. Has finished a course of remdesivir. Received tocilizumab as well. Vitamin C, zinc when able to take orally. DuoNeb every 6 hour, budesonide twice daily Pulmonary toilet with incentive spirometry flutter valve. We will monitor inflammatory markers including CRP, D-dimer every 48 hours. Pulmonary embolism as seen on CTA. Because of worsening oxygen requirement overnight for now we will switch from full dose Lovenox to heparin drip. Check sputum culture, procalcitonin, urine Legionella, bacterial antigen, MRSA swab. Currently on Zosyn. For now start on vancomycin as well till MRSA swab comes back negative. Check urinalysis, urine culture, proBNP, repeat D-dimer, troponin cycle. Given hypoxia will try to keep patient as negative as possible. Echocardiogram done earlier during hospitalization showed EF of 45 to 50%, diastolic dysfunction, trace TR, moderate to large sized anterior, loculated pericardial effusion without signs of tamponade. Given agitation, hemodynamic instability and requiring more oxygen supplementation overnight we will ask for stat limited echocardiogram to rule out tamponade. IV Lasix 60 mg once. Will repeat depending on echocardiogram, hemodynamics and urine output within next 12 hours. Strict input output charting, daily weights. Altered mental status: Most likely multifactorial given patient has been in the ICU, at baseline blind which causes him to have decreased awareness of his surroundings being in isolation because of COVID-19, on high-dose steroids, on IV Keppra for history of generalized epilepsy along with a history of carotid artery disease. Check ammonia levels, TSH, free T3, free T4, vitamin B12, folate level, repeat CMP to rule out ANNE or hypernatremia. Wean down Precedex as able. Haldol 1 mg IM every 6 hour as needed. Frequent reorientation. Soft restraints. Anemia: History of normocytic anemia. Check iron panel. Transfuse 1 unit of blood transfusion to have hemoglobin over 8. Analgesia: Tylenol as needed, morphine 1 mg every 6 hours as needed, Marvin 5 mg every 6 hours as needed Glycemic control: Not needed. Hypoglycemia protocol. Nutrition: N.p.o. except ice chips because patient is at a high risk of aspiration. CODE STATUS: DNR/DNI. Confirmed with patient's DPOA [id number]. PUD prophylaxis: Protonix DVT prophylaxis: Heparin drip will suffice as DVT prophylaxis. Discharge planning: Once patient is more stable will do PT evaluation for further discharge planning. Continue with care at ICU level Attestations Medical Necessity Statement*: Requires further hospitalization for management of acute respiratory failure in setting of COVID-19, congestive heart failure, pericardial effusion in a patient who is legally blind and hard of hearing Critical Care Time: The high probability of a clinically significant, sudden or life threatening deterioration of the patient's [cardiac, pulmonary, system(s) required my full and direct attention, intervention and personal management. The critical care time is as shown. 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 Detailed Diagnoses Hypoxemia R09.02 COVID-19 U07.1 Pulmonary embolism I26.94 Pulmonary embolism type: multiple subsegmental (without acute cor pulmonale) Hypokalemia E87.6 Normocytic anemia D64.9 Pericardial effusion (noninflammatory) I31.3 Heart failure with preserved ejection fraction I50.32 Heart failure chronicity: chronic COPD (chronic obstructive pulmonary disease) J43.2 COPD type: emphysema Emphysema type: centrilobular Generalized epilepsy G40.309 Blind H54.3 Left eye visual impairment category: left - unspecified blindness Right eye visual impairment category: right - unspecified blindness Hard of hearing H90.3 Hearing loss type: sensorineural Laterality: bilateral Current nicotine vaping on some days Z72.0 Altered mental status R41.82 Carotid artery disease I73.9
[2021-10-10 18:05] LABS: Platelet Count 205 10^3/cmm (130-400)
[2021-10-10 18:17] LABS: Partial Thromboplastin Time 45.6 SECONDS (23.9-36.7)
[2021-10-10 18:39] LABS: Troponin 5 2HR 45.91 ng/L (0-15)
[2021-10-10] MEDS: FUROsemide 10 mg/mL SDV 4mL 40 MG IVP (18:42)
[2021-10-10 19:03] LABS: Troponin 5 2HR Delta 13.91 ABS# (0-10)
--- NOTE | 2021-10-10 19:05 | PC.NURSE ---
Bedside report completed with AARON Anderson.
--- NOTE | 2021-10-10 19:36 | PC.NURSE ---
Shift Note Prt remained in bed throughout shift. Occasionally he would move around in bed so much he would end up nearly crosswise in the bed. Pt would cooperate, when reminded he was in a bed in the hospital. He did squirm enough to go through two HHF sets and needing 2 IV starts. The IVs migrated parting out with the flailing and wiggling. He tolerated restarts very well. He was started on heparin gtt. Precedex remained at 0.8mcg/kg/hr. He received Lasix twice this shift. He received Morphine once this shift. See MAY. Urine out was only 275ml. Frequent safety and comfort rounds continue. Orders and/or nursing care completed as indicated. Patient monitored for response to intervention and treatment(s). Education provided includes heparin gtt, blood transfusion and plan of care. Patient and/or disability representative verbalized understanding of plan of care and education. Will continue to monitor.
[2021-10-10 21:45] LABS: Cortisol Random 18.05 ug/dL (2.47-19.5)
[2021-10-10] MEDS: dexamethasone 4 mg/mL INJ 6 MG IVP (21:55)
[2021-10-11] VITALS (43 sets, daily range): BP systolic 78–155; BP diastolic 40–111; PULSE 66–112; RESP 11–27; TEMP 36.6–36.8; O2SAT 63–99
[2021-10-11] MEDS: dexmedeTOMIDine 0.9 % NaCL 400 MCG/100 ML PREMIX 10.81 MCG IV ×2 (00:19→15:51)
[2021-10-11 01:32] LABS: Basophils % 0.2 %; Eosinophils % 0.3 %; Hematocrit 29.4 % (42.0-52.0); Hemoglobin 9.3 g/dL (11.7-16.6); Lymphocytes # 0.7 10^3/uL (0.8-4.8); Lymphocytes % 4.6 %; Mean Corpuscular HGB Conc 31.6 g/dL (30.0-36.0); Mean Corpuscular Hemoglobin 28.5 pg (28.0-34.0); Mean Corpuscular Volume 90.2 fl (80-94); Mean Platelet Volume 10.9 fL (7.4-10.4); Monocytes # 0.1 10^3/uL (0.2-0.9); Monocytes % 0.9 %; Neutrophils # 14.11 10^3/uL (1.8-7.7); Neutrophils % 93.2 %; Nucleated Red Blood Cells % 0 %; Platelet Count 186 10^3/cmm (130-400); Red Blood Count 3.26 10^6/uL (4.1-5.3); Red Cell Distribution Width 15.3 % (12.1-15.1); White Blood Count 15.1 10^3/uL (4.0-10.0)
[2021-10-11 01:43] LABS: Partial Thromboplastin Time 110.1 SECONDS (23.9-36.7); Troponin T (5th) Once 39 ng/L (0-15)
[2021-10-11 01:49] LABS: Estmated Average Glucose 94; Hemoglobin A1C 4.9 % (4.0-6.0)
[2021-10-11 01:58] LABS: Ammonia 55 umol/L (16-60)
[2021-10-11 01:59] LABS: Alanine Aminotransferase 41 U/L (0-41); Albumin Level 2.1 g/dL (3.5-5.2); Alkaline Phosphatase 221 IU/L (40-130); Anion Gap 13.2 (5-19); Aspartate Amino Transferase 73 U/L (0-40); Blood Urea Nitrogen 6 mg/dL (8-23); Calcium 7.7 mg/dL (8.5-10.5); Carbon Dioxide 24 mmol/L (22-29); Chloride 112 mmol/L (98-107); Cholesterol 128 mg/dL (0-200); Globulin 2.3 g/dL (1.3-4.6); Glomerular Filtration Rate 135.2 mL/min (90-130); Glucose 76 mg/dL (65-115); HDL Cholesterol 21 mg/dL (60-100); LDL Cholesterol Calculated 69 mg/dL (50-129); Osmolality Calculated 298 mOsm/kg (285-295); Potassium 3.2 mmol/L (3.5-5.1); Sodium 146 mmol/L (136-145); Total Bilirubin 0.3 mg/dL (0.15-1.2); Total Protein 4.4 g/dL (6.6-8.7); Triglycerides 188 mg/dL (0-150); VLDL Cholestrol Calculation 38 mg/dL (0-30)
[2021-10-11] MEDS: ipratropium-albuterol 3 mL Neb INHALATION ×4 (02:52→20:07)
[2021-10-11] MEDS: morphine 4 mg/mL SDV 1 mL 2 MG IVP ×3 (03:30→23:50)
[2021-10-11] MEDS: dexmedeTOMIDine 0.9 % NaCL 400 MCG/100 ML PREMIX 16.22 MCG IV (07:41)
[2021-10-11 07:52] LABS: Partial Thromboplastin Time 206.3 SECONDS (23.9-36.7)
[2021-10-11] MEDS: budesonide 0.5 mg/2 mL Neb INHALATION ×2 (08:00→20:07)
[2021-10-11] MEDS: levothyroxine 100 mcg SDV 25 MCG IVP (08:59)
[2021-10-11] MEDS: fluticasone nasal spray 16gm Btl 1 SPRAY INTRANASAL (08:59)
[2021-10-11] MEDS: nicotine 7 mg Patch 1 PATCH TRANSDERMA (09:00)
[2021-10-11] MEDS: pantoprazole 40 mg SDV IVP (09:00)
--- NOTE | 2021-10-11 09:12 | US_ITS ---
WS: [id number] RIGHT UPPER QUADRANT ULTRASOUND HISTORY: possible acalculous matt COMPARISON: 08/04/2020. Technically very limited and difficult evaluation of the abdominal structures. Liver: 16.0 cm in length. Normal size with coarse echotexture. No bile duct dilatation. Portal Vein: Normal hepatopetal flow with monophasic waveform. Gallbladder: Normally distended gallbladder with no stones or wall thickening. CBD: 0.2 cm Pancreas: Not visualized. Right kidney: 9.0 cm in length. Normal size and echogenicity. No hydronephrosis or mass. Aorta and IVC: Atherosclerotic changes throughout the aorta. No aneurysm. Small amount of ascites and small RIGHT pleural effusion. US/US liver [id number] IMPRESSION: 1. Technically very difficult and limited evaluation of the RIGHT upper quadra nt. 2. Very small amount of free fluid adjacent to the liver and a very small RIGH T pleural effusion. 3. No gallbladder abnormality identified. 4. Hepatic steatosis. 5. Atherosclerosis aorta with no aneurysm.
[2021-10-11] MEDS: FUROsemide 10 mg/mL SDV 4mL 40 MG IVP (10:09)
[2021-10-11] MEDS: lidocaine 1% 5 ML in potassium chloride premix 100 ML 25 ML IV ×2 (10:10→13:34)
--- NOTE | 2021-10-11 10:10 | PC.SOCIAL ---
IMM update IMM updated with patient's DIL. Verbalized an understanding. Initialled, dated, timed, and placed in chart.
[2021-10-11 10:27] LABS: Partial Thromboplastin Time 66.2 SECONDS (23.9-36.7)
[2021-10-11] MEDS: neomycin-poly-bacitracin oint 28 gm 1 APPLIC TOPICAL ×2 (10:42→17:08)
[2021-10-11] MEDS: dextrose 5%-sod chloride 0.45% 1,000 ML 50 ML IV (10:43)
[2021-10-11 11:12] LABS: Alanine Aminotransferase 44 U/L (0-41); Alkaline Phosphatase 229 IU/L (40-130); Anion Gap 13.3 (5-19); Aspartate Amino Transferase 80 U/L (0-40); Blood Urea Nitrogen 6 mg/dL (8-23); Calcium 7.8 mg/dL (8.5-10.5); Carbon Dioxide 25 mmol/L (22-29); Chloride 111 mmol/L (98-107); Globulin 2.3 g/dL (1.3-4.6); Glomerular Filtration Rate 166.9 mL/min (90-130); Glucose 43 mg/dL (65-115); Osmolality Calculated 297 mOsm/kg (285-295); Potassium 3.3 mmol/L (3.5-5.1); Sodium 146 mmol/L (136-145); Total Bilirubin 0.2 mg/dL (0.15-1.2); Total Protein 4.3 g/dL (6.6-8.7)
[2021-10-11] MEDS: haloperidol inj 5 mg/mL INJ 1 mL 1 MG IVP ×2 (14:38→22:11)
--- NOTE | 2021-10-11 15:49 | PM.PN ---
Subjective Subjective: Overnight patient had less agitation. He is currently on Precedex of 1.2. Did not require any further doses of Haldol. Patient continues to remain confused. Oxygen supplementation were able to wean turned down to 40 L 45%. Patient is saturating more than 90%. Has remained hemodynamically stable and afebrile otherwise. Urine output more than 2 L in last 24 hours. Vitals/I&O/Wt Last Vital Signs Temp 97.8 F 10/11/21 04:00 Pulse 67 10/11/21 14:00 Resp 18 10/11/21 14:00 BP 118/75 10/11/21 12:00 Pulse Ox 96 10/11/21 14:00 10/11/21 10/11/21 10/11/21 06:59 14:59 22:59 Intake Total 426.5 / 1269.460 85 / 85 Output Total 1500 / 0 Balance -1073.5 / -820.540 85 / 85 Weight last 48 hrs Weight 52.163 kg Weight 52.3 kg Physical Exam Narrative: Cachectic malnourished, with severe bitemporal wasting, extremely hard of hearing, legally blind HENMT: COMMON NORMALS: normocephalic and atraumatic HEAD & SCALP: normocephalic and atraumatic Chest: CHEST: Yes Symmetrical chest wall rise Resp: COMMON NORMALS: clear to auscultation bilaterally EFFORT & INSPECTION: Yes symmetric chest movement AUSCULTATION: clear to auscultation bilaterally OTHER: Diminished air entry bilaterally Cardio: COMMON NORMALS: regular rate, regular rhythm, S1 normal heart sound present, S2 normal heart sound present, No gallops present (Cardio), No murmurs present (Cardio), No rub (Cardio) and Peripheral pulses 2+ throughout RATE: regular rate RHYTHM: regular rhythm HEART SOUNDS: S1 normal heart sound present and S2 normal heart sound present PERIPHERAL PULSES: Peripheral pulses 2+ throughout GI: COMMON NORMALS: Normal to inspection, nondistended, normoactive bowel sounds present, Soft to palpation, non-tender, No hepatosplenomegaly present and no masses AUSCULTATION: Yes normoactive bowel sounds PALPATION: Yes Soft to palpation and Yes No hepatosplenomegaly present RECTAL EXAM: Yes deferred Extremity: COMMON NORMALS: no clubbing, cyanosis or edema and no pedal edema Urinary Catheter Management: Jackson: Cath Placed During This Visit: yes Reason for Continuing Indwelling Catheter: Accurate Measurement of Urinary Output in Critically Ill Patients Urinary Catheter Date of Insertion: 10/06/21 Urinary Catheter Time of Insertion: 16:00 Data : 10/11/21 01:12 10/11/21 01:12 Micro: Microbiology 10/10/21 11:10 Urine Culture - Preliminary Urine,Clean Catch 10/10/21 11:10 Bacterial Antigens - Final Urine Kidney 10/10/21 11:05 MRSA Culture - Final Nose 10/10/21 11:10 Legionella Urinary Antigen - Final Urine Catheterized A&P Assessment and plan (1) Altered mental status: Status: Acute (2) Hypoxemia: Oxygen therapy as needed to keep saturation over 88% Status: Acute (3) COVID-19: Status: Acute (4) Heart failure with preserved ejection fraction: Status: Chronic Qualifiers: Heart failure chronicity: chronic Qualified Code(s): I50.32 - Chronic diastolic (congestive) heart failure (5) Pulmonary embolism: Status: Acute Qualifiers: Pulmonary embolism type: multiple subsegmental (without acute cor pulmonale) Qualified Code(s): I26.94 - Multiple subsegmental pulmonary emboli without acute cor pulmonale (6) Pericardial effusion (noninflammatory): Ruled out tamponade on repeat echocardiogram on 10/10 Status: Acute (7) Hypernatremia: Status: Acute (8) Hypothyroidism: Status: Acute (9) COPD (chronic obstructive pulmonary disease): Status: Chronic Qualifiers: COPD type: emphysema Emphysema type: centrilobular Qualified Code(s): J43.2 - Centrilobular emphysema (10) 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, has both petit mal and other types of seizures, last seizures this week which I explained to the family was probably due to lowered threshold from acute illness Check Keppra levels. Decrease dose to 750 mg IV twice daily. Status: Chronic (11) Carotid artery disease: Status: Chronic (12) Blind: Both eyes Assistance and patience as needed Status: Chronic Qualifiers: Right eye visual impairment category: right - unspecified blindness Left eye visual impairment category: left - unspecified blindness Qualified Code(s): H54.3 - Unqualified visual loss, both eyes Plan 66 old gentleman with past medical history of being legally blind, carotid arterial disease, COPD, anterior pericardial effusion who was admitted to the hospital due to hypoxia found to be COVID-19 positive. Hypoxia secondary to COVID-19 pneumonia: Moderate disease Oxygen supplementation keeping saturation over 88%. Wean down oxygen supplementation accordingly. Currently on high flow nasal cannula 8 L. Given confusion could be because of steroid psychosis so we will decrease dexamethasone to 3 mg daily. Patient has received over 7 days of 6 mg dose of dexamethasone. Has finished a course of remdesivir. Received tocilizumab as well. Vitamin C, zinc when able to take orally. DuoNeb every 6 hour, budesonide twice daily Pulmonary toilet with incentive spirometry flutter valve. We will monitor inflammatory markers including CRP, D-dimer every 48 hours. Pulmonary embolism as seen on CTA. D-dimer not more elevated than before. Switch back from heparin drip to full dose Lovenox 1 mg/kg body weight every 12 hourly as per creatinine clearance. Procalcitonin negative, urine Legionella bacterial antigen, MRSA swab negative. Sputum culture pending. Blood cultures so far negative. Stop vancomycin. Continue Zosyn to finish a 5-day course. Urinalysis negative for UTI. proBNP elevated, troponin cycle benign. Repeat troponin level to morning samples. Given hypoxia will try to keep patient as negative as possible. Echocardiogram done earlier during hospitalization showed EF of 45 to 50%, diastolic dysfunction, trace TR, moderate to large sized anterior, loculated pericardial effusion without signs of tamponade. Limited echocardiogram ruled out tamponade. Repeat IV Lasix 40 mg once along with albumin every 8 hourly. Strict input output charting, daily weights. Altered mental status: Most likely multifactorial given patient has been in the ICU, at baseline blind which causes him to have decreased awareness of his surroundings being in isolation because of COVID-19, on high-dose steroids, on IV Keppra for history of generalized epilepsy along with a history of carotid artery disease. Ammonia levels within normal limits. TSH elevated, low free T3, free T4. Switch from oral to IV levothyroxine 25 mcg daily. Random cortisol level within normal limits. Found to have hypernatremia. Sodium 146. Start on D5 half NS at 50 cc/h along with albumin and Lasix while monitoring for fluid overload and oxygen requirements. Repeat BMP in evening. Check Keppra levels. Decrease Keppra to 750 mg twice daily. Check CT head as patient has a high chance Of stroke given significant carotid disease in the past. Continue with Precedex drip while trying to wean off. Will try for NG tube placement so that he can start on free water flushes and possible diet. Frequent reorientation. Soft restraints. Anemia: Post monitor blood transfusion. Hemoglobin 9.3. Will continue to monitor. Protonix IV. Analgesia: Tylenol as needed, morphine 1 mg every 6 hours as needed, [place] 5 mg every 6 hours as needed Glycemic control: Not needed. Hypoglycemia protocol. Nutrition: N.p.o. except ice chips because patient is at a high risk of aspiration. If patient continues to remain n.p.o. and if not able to get NG tube will start on PPN otherwise we will start on tube feeds through NG tube placement. CODE STATUS: DNR/DNI. Confirmed with patient's DPOA [id number]. PUD prophylaxis: Protonix DVT prophylaxis: Full dose Lovenox will suffice for DVT prophylaxis. Discharge planning: Once patient is more stable will do PT evaluation for further discharge planning. Continue with care at ICU level. Patient's care discussed in detail with his [id number] Ms. Hope over the phone. All the questions were answered. Attestations Medical Necessity Statement*: Requires further hospitalization for management of altered mental status in a patient who was admitted for COVID-19 pneumonia, history of being legally blind, generalized epilepsy Critical Care Time: The high probability of a clinically significant, sudden or life threatening deterioration of the patient's [pulmonary, renal, GI, neurological system(s) required my full and direct attention, intervention and personal management. The critical care time is as shown. 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 Fwd Diagnoses Altered mental status R41.82 Hypoxemia R09.02 COVID-19 U07.1 Heart failure with preserved ejection fraction I50.32 Heart failure chronicity: chronic Pulmonary embolism I26.94 Pulmonary embolism type: multiple subsegmental (without acute cor pulmonale) Pericardial effusion (noninflammatory) I31.3 COPD (chronic obstructive pulmonary disease) J43.2 COPD type: emphysema Emphysema type: centrilobular Generalized epilepsy G40.309 Carotid artery disease I73.9 Blind H54.3 Right eye visual impairment category: right - unspecified blindness Left eye visual impairment category: left - unspecified blindness Hypothyroidism E03.9 Hypernatremia E87.0
[2021-10-11] MEDS: dexamethasone 4 mg/mL INJ 3 MG IVP (16:49)
[2021-10-11] MEDS: enoxaparin 60 mg/0.6 mL Syringe 50 MG SUBCUT (17:07)
[2021-10-11] MEDS: levETIRAcetam 750 MG in sodium chloride 0.9% (100 ml) 100 ML 440 MG IV (21:28)
--- NOTE | 2021-10-11 21:43 | PC.NURSE ---
P O meds held due patient restless and agitated and not following commands
[2021-10-11 22:33] LABS: Anion Gap 18.1 (5-19); Blood Urea Nitrogen 6 mg/dL (8-23); Calcium 7.9 mg/dL (8.5-10.5); Carbon Dioxide 23 mmol/L (22-29); Chloride 114 mmol/L (98-107); Glomerular Filtration Rate 135.2 mL/min (90-130); Glucose 96 mg/dL (65-115); Osmolality Calculated 309 mOsm/kg (285-295); Potassium 4.1 mmol/L (3.5-5.1); Sodium 151 mmol/L (136-145)
[2021-10-12] VITALS (59 sets, daily range): BP systolic 94–162; BP diastolic 48–87; PULSE 73–145; RESP 9–31; TEMP 35.8–37.1; O2SAT 78–100
[2021-10-12] MEDS: dexmedeTOMIDine 0.9 % NaCL 400 MCG/100 ML PREMIX 10.81 MCG IV (00:42)
[2021-10-12] MEDS: ipratropium-albuterol 3 mL Neb INHALATION ×4 (02:05→20:06)
[2021-10-12 04:28] LABS: Glucose Point of Care 114 mg/dL (70-110)
[2021-10-12] MEDS: enoxaparin 60 mg/0.6 mL Syringe 50 MG SUBCUT ×2 (06:20→17:31)
--- NOTE | 2021-10-12 07:00 | PC.NURSE ---
Bedside report completed with Patricia Tovar
--- NOTE | 2021-10-12 08:00 | CT_ITS ---
WS: [id number] CT HEAD NONCONTRAST HISTORY: ams, h/o carotid artery disease TECHNIQUE: Contiguous axial imaging performed through the brain in 2.5 mm imaging. Bone and soft tiss ue windows. Sagittal and coronal reformats reviewed. All CT scans at [facility] use at least one of these dose optimization techniques: automated exposure control; mA and/or kV adjustment per pa tient size (includes targeted exams where dose is matched to clinical indication); or iterative recon struction. DLP: 1816.68 mGy.cm COMPARISON: 10/04/2021 No acute intracranial hemorrhage, midline shift or mass effect. Mild atrophy and small vessel ischemic disease. Remote infarct with encephalomalacia in the RIGHT fro ntoparietal region. No new infarct. Ventricles: Normal size with no hydrocephalus. No inferior displacement of the cerebellar tonsils. Paranasal sinuses: As visualized are clear. Mastoid air cells: Well pneumatized. Calvarium and scalp: Skull is intact with no soft tissue edema or swelling. Increased density layering in the LEFT globe. This has been previously described without increase. In itially noted on 08/04/2020. CT/CT head wo con* [id number] IMPRESSION: 1. No acute intracranial hemorrhage or edema. 2. Remote RIGHT frontoparietal infarct.
[2021-10-12] MEDS: levothyroxine 100 mcg SDV 25 MCG IVP (09:01)
[2021-10-12] MEDS: budesonide 0.5 mg/2 mL Neb INHALATION ×2 (09:05→20:06)
[2021-10-12] MEDS: pantoprazole 40 mg SDV IVP ×2 (09:06→17:31)
[2021-10-12] MEDS: nicotine 7 mg Patch 1 PATCH TRANSDERMA (09:08)
[2021-10-12 10:24] LABS: Levetiracetam Immunoassy 56.5 mcg/mL (6.0-46.0)
--- NOTE | 2021-10-12 10:24 | PC.CHAP ---
Pastoral Care Encounter/Spiritual Assessment Type of Contact [] Declined chilling hood operator visit [] Patient/Family/Request visit [] Outpatient visit [] Follow-up visit [] Physician referral [] Code/Alert [x] Routine visit [] Staff referral [] Actively dying [] Patient sleeping [] Family support [] [] Out of room [] Palliative care [] [] Receiving care in room [] Pre-surgical visit [] Trauma [] Long length of stay [x] ICU visit [x] Other: prayed for God's will in PTs live.. Relational/Emotional Strength [] Patient feels connected with others/family/visitors/staff [] Distress [] Loneliness/isolation [] Abandonment Spirituality of Patient [] Person of Keke [] Attends Sabianist of their Keke [] Believes in Prayer [] Reads Bible or Jewish materials [] There are Spiritual issues to be addressed Supervisor Counseling And Guidance Interventions [x] Prayer [] Active listening [] Non-anxious presence [] Spiritual/emotional support [] Crisis/trauma care [] Spiritual counseling [] Bereavement support [] Provided bereavement packet [] Provided Bible/devotional materials [] Provided toy/stuffed animal, coloring book to patient or family member [] Provided Communion [] Anointing/Rienzi [] Salvation [x] Completed spiritual assessment [] Other: Impact on Illness or Injury [] Angry [] Fearful [] Anxious [] Often cries [] Exhaustion [] Unable to work [] Unable to attend episcopalian [] Unable to walk/stand [] Unable to read [] Unable to drive [] Unable to eat/drink [] Unable to sleep [] Unable to be with family [] Patient intubated [] Other: Summary Time spent with patient
[2021-10-12] MEDS: dexmedeTOMIDine 0.9 % NaCL 400 MCG/100 ML PREMIX 12.16 MCG IV ×2 (11:21→19:14)
[2021-10-12 11:24] LABS: Basophils % 0.1 %; Eosinophils # 0.1 10^3/uL (0.0-0.8); Lymphocytes # 1.6 10^3/uL (0.8-4.8); Lymphocytes % 13.7 %; Mean Corpuscular HGB Conc 29.9 g/dL (30.0-36.0); Mean Corpuscular Hemoglobin 28.3 pg (28.0-34.0); Mean Corpuscular Volume 94.8 fl (80-94); Mean Platelet Volume 11.2 fL (7.4-10.4); Monocytes # 0.4 10^3/uL (0.2-0.9); Monocytes % 3.2 %; Neutrophils # 9.51 10^3/uL (1.8-7.7); Neutrophils % 81.2 %; Nucleated Red Blood Cells % 0.2 %; Platelet Count 193 10^3/cmm (130-400); Red Blood Count 2.12 10^6/uL (4.1-5.3); Red Cell Distribution Width 17.2 % (12.1-15.1); White Blood Count 11.7 10^3/uL (4.0-10.0)
[2021-10-12] MEDS: neomycin-poly-bacitracin oint 28 gm 1 APPLIC TOPICAL ×2 (11:24→18:35)
[2021-10-12] MEDS: fluticasone nasal spray 16gm Btl 1 SPRAY INTRANASAL (11:25)
[2021-10-12 11:49] LABS: Alanine Aminotransferase 30 U/L (0-41); Albumin Level 2.7 g/dL (3.5-5.2); Alkaline Phosphatase 145 IU/L (40-130); Anion Gap 18.7 (5-19); Aspartate Amino Transferase 51 U/L (0-40); Blood Urea Nitrogen 6 mg/dL (8-23); Calcium 7.9 mg/dL (8.5-10.5); Carbon Dioxide 21 mmol/L (22-29); Chloride 117 mmol/L (98-107); Globulin 1.6 g/dL (1.3-4.6); Glomerular Filtration Rate 113.2 mL/min (90-130); Glucose 101 mg/dL (65-115); Osmolality Calculated 314 mOsm/kg (285-295); Potassium 3.7 mmol/L (3.5-5.1); Sodium 153 mmol/L (136-145); Total Bilirubin 0.5 mg/dL (0.15-1.2); Total Protein 4.3 g/dL (6.6-8.7)
[2021-10-12 12:01] LABS: Glucose Point of Care 98 mg/dL (70-110)
[2021-10-12 12:08] LABS: Hematocrit 20.1 % (42.0-52.0)
[2021-10-12 12:53] LABS: Hematocrit 21.2 % (42.0-52.0)
[2021-10-12 13:00] LABS: Hemoglobin 6.4 g/dL (11.7-16.6)
[2021-10-12] MEDS: haloperidol inj 5 mg/mL INJ 1 mL 1 MG IVP ×2 (13:14→23:54)
--- NOTE | 2021-10-12 14:58 | XR_ITS ---
WS: [id number] Exam: XR chest 1V portable [id number] Date/Time of Exam: 10/12/2021 3:02 PM Reason For Exam: NG placement Comparison 10/10/2021. An enteric tube has been placed and ends in the fundus of the stomach. There is consolidating infiltr ate in the left retrocardiac region unchanged. Also infiltrate along the medial right lung base. Ther e are additional areas of fibrosis and infiltrate in both lungs unchanged in appearance. Heart size i s normal. The mediastinum is not widened. Bony structures are intact. XR/XR chest 1V portable [id number] IMPRESSION: 1. Enteric tube ending in the fundus of the stomach. 2. Consolidation in the left retrocardiac region. There is also probable infilt rate in the medial right lung base. Suspect superimposed chronic changes throug hout the remainder of both lungs.
--- NOTE | 2021-10-12 15:52 | PM.PN ---
Subjective Subjective: Today morning on examination patient continues to remain fidgety, confused. Overnight he was placed back on heated high flow. Currently being weaned off and is on 45 L 50% saturating 95%. Has remained hemodynamically stable and afebrile. Precedex has been weaned down to 0.9. Documented urine output of 1800 cc in last 24 hours Vitals/I&O/Wt Last Vital Signs Temp 97.6 F 10/12/21 15:39 Pulse 88 10/12/21 15:39 Resp 19 H 10/12/21 15:39 BP 105/56 10/12/21 15:39 Pulse Ox 98 10/12/21 15:39 O2 Del Method 10/12/21 15:00 O2 Flow Rate 35 10/12/21 15:38 FiO2 50 10/12/21 15:38 10/12/21 10/12/21 10/12/21 06:59 14:59 22:59 Intake Total 95.849 / 118.802 2236.82 / 1099.82 0 / 1099.82 Output Total 925 / 1825 Balance -829.151 / -2276.521 6396.82 / 1099.82 0 / 1099.82 Weight last 48 hrs Weight 53.887 kg Weight 52.163 kg Physical Exam Narrative: Cachectic malnourished, with severe bitemporal wasting, extremely hard of hearing, legally blind HENMT: COMMON NORMALS: normocephalic and atraumatic HEAD & SCALP: normocephalic and atraumatic Chest: CHEST: Yes Symmetrical chest wall rise Resp: COMMON NORMALS: clear to auscultation bilaterally EFFORT & INSPECTION: Yes symmetric chest movement AUSCULTATION: clear to auscultation bilaterally OTHER: Diminished air entry bilaterally Cardio: COMMON NORMALS: regular rate, regular rhythm, S1 normal heart sound present, S2 normal heart sound present, No gallops present (Cardio), No murmurs present (Cardio), No rub (Cardio) and Peripheral pulses 2+ throughout RATE: regular rate RHYTHM: regular rhythm HEART SOUNDS: S1 normal heart sound present and S2 normal heart sound present PERIPHERAL PULSES: Peripheral pulses 2+ throughout GI: COMMON NORMALS: Normal to inspection, nondistended, normoactive bowel sounds present, Soft to palpation, non-tender, No hepatosplenomegaly present and no masses AUSCULTATION: Yes normoactive bowel sounds PALPATION: Yes Soft to palpation and Yes No hepatosplenomegaly present RECTAL EXAM: Yes deferred Extremity: COMMON NORMALS: no clubbing, cyanosis or edema and no pedal edema Urinary Catheter Management: Jackson: Cath Placed During This Visit: yes Reason for Continuing Indwelling Catheter: Accurate Measurement of Urinary Output in Critically Ill Patients Urinary Catheter Date of Insertion: 10/06/21 Urinary Catheter Time of Insertion: 16:00 Data : 10/12/21 12:24 10/12/21 10:45 Micro: Microbiology 10/10/21 11:10 Urine Culture - Final Urine,Clean Catch A&P Assessment and plan (1) Altered mental status: Status: Acute (2) Hypoxemia: Oxygen therapy as needed to keep saturation over 88% Status: Acute (3) COVID-19: Status: Acute (4) Heart failure with preserved ejection fraction: Status: Chronic Qualifiers: Heart failure chronicity: chronic Qualified Code(s): I50.32 - Chronic diastolic (congestive) heart failure (5) Pulmonary embolism: Status: Acute Qualifiers: Pulmonary embolism type: multiple subsegmental (without acute cor pulmonale) Qualified Code(s): I26.94 - Multiple subsegmental pulmonary emboli without acute cor pulmonale (6) Pericardial effusion (noninflammatory): Ruled out tamponade on repeat echocardiogram on 10/10 Status: Acute (7) Hypernatremia: Status: Acute (8) Hypothyroidism: Status: Acute (9) COPD (chronic obstructive pulmonary disease): Status: Chronic Qualifiers: COPD type: emphysema Emphysema type: centrilobular Qualified Code(s): J43.2 - Centrilobular emphysema (10) 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, has both petit mal and other types of seizures, last seizures this week which I explained to the family was probably due to lowered threshold from acute illness Keppra levels elevated. Decreased to 500 mg IV twice daily. Skip morning dose. Status: Chronic (11) Carotid artery disease: Status: Chronic (12) Blind: Both eyes Assistance and patience as needed Status: Chronic Qualifiers: Right eye visual impairment category: right - unspecified blindness Left eye visual impairment category: left - unspecified blindness Qualified Code(s): H54.3 - Unqualified visual loss, both eyes Plan 66 old gentleman with past medical history of being legally blind, carotid arterial disease, COPD, anterior pericardial effusion who was admitted to the hospital due to hypoxia found to be COVID-19 positive. Hypoxia secondary to COVID-19 pneumonia: Moderate disease Oxygen supplementation keeping saturation over 88%. Wean down oxygen supplementation accordingly. Currently on high flow nasal cannula 8 L. Given confusion could be because of steroid psychosis so we will decrease dexamethasone to 3 mg daily. Patient has received over 7 days of 6 mg dose of dexamethasone. Has finished a course of remdesivir. Received tocilizumab as well. Vitamin C, zinc when able to take orally. DuoNeb every 6 hour, budesonide twice daily Pulmonary toilet with incentive spirometry flutter valve. We will monitor inflammatory markers including CRP, D-dimer every 48 hours. Pulmonary embolism as seen on CTA. D-dimer not more elevated than before. Continue with Lovenox 1 mg/kg body weight every 12 hourly as per creatinine clearance. Procalcitonin negative, urine Legionella bacterial antigen, MRSA swab negative. Sputum culture pending. Blood cultures so far negative. Continue Zosyn to finish a 5-day course. Urinalysis negative for UTI. Given hypoxia will try to keep patient as negative as possible. Will monitor fluid status grossly. Echocardiogram done earlier during hospitalization showed EF of 45 to 50%, diastolic dysfunction, trace TR, moderate to large sized anterior, loculated pericardial effusion without signs of tamponade. Limited echocardiogram ruled out tamponade. Repeat IV Lasix 40 mg once between 2 units of blood transfusion. Strict input output charting, daily weights. Altered mental status: Most likely multifactorial given patient has been in the ICU, at baseline blind which causes him to have decreased awareness of his surroundings being in isolation because of COVID-19, on high-dose steroids, on IV Keppra for history of generalized epilepsy along with a history of carotid artery disease. Ammonia levels within normal limits. TSH elevated, low free T3, free T4. Switch from oral to IV levothyroxine 25 mcg daily. Random cortisol level within normal limits. Repeat thyroid profile in a.m. Hypernatremia: Worsening. Continue with D5W at 50 cc/h. NG tube placement followed by free water flush to 50 cc every 4 hours. Repeat BMP in AM. Keppra level elevated. Withhold morning dose. Restart from evening at reduced dose of 500 mg every [address] head results appreciated. Continue with Precedex drip while trying to wean off. Frequent reorientation. Soft restraints. Anemia: Hemoglobin 6.4 today. No active site of bleeding. Most likely drop secondary to hydration received yesterday. 2 unit of blood transfusion. Lasix 40 mg between first and second unit. Will continue to monitor. Protonix IV twice daily. Once NG tube in place will restart home Venlafaxine and Remeron. Analgesia: Tylenol as needed, morphine 1 mg every 6 hours as needed, [place] 5 mg every 6 hours as needed Glycemic control: Not needed. Hypoglycemia protocol. Nutrition: N.p.o. except ice chips because patient is at a high risk of aspiration. On review of patient's advanced directive he does not want any kind of artificial feeds. NG tube only for medication free water flushes. Have confirmed with patient's DPOA. She is okay with NG tube placement. CODE STATUS: DNR/DNI. Confirmed with patient's DPOA [id number]. PUD prophylaxis: Protonix DVT prophylaxis: Full dose Lovenox will suffice for DVT prophylaxis. Discharge planning: Patient most likely required prolonged rehab. Given the oxygen requirement, mentation we will try to confirm with patient's family regarding possible transfer to [facility] once he is medically stable. For now we will ask case management to get in touch with [facility]. Continue with care at ICU level. Patient's care discussed in detail with his DPOA/[id number]-yec Ms. Hope over the phone. All the questions were answered. Attestations Medical Necessity Statement*: Requires further hospitalization for management of altered mental status secondary to hypernatremia, elevated Keppra levels, hypothyroidism in a patient who is being treated for hypoxia secondary to COVID-19, anemia requiring blood transfusion Critical Care Time: The high probability of a clinically significant, sudden or life threatening deterioration of the patient's [cardiac, pulmonary, neurological, renal] system(s) required my full and direct attention, intervention and personal management. The critical care time is as shown. This time is in addition to time spent performing any reported procedures but includes the following: [x] Data and vital sign review and interpretation [x] Patient assessment, examination and intervention [x] Documentation [x] Medication orders and management Critical Care Time (min): 90 Coding Level of Care Code Acute Rayon Tester for Avtar Fwd Diagnoses Altered mental status R41.82 Hypoxemia R09.02 COVID-19 U07.1 Heart failure with preserved ejection fraction I50.32 Heart failure chronicity: chronic Pulmonary embolism I26.94 Pulmonary embolism type: multiple subsegmental (without acute cor pulmonale) Pericardial effusion (noninflammatory) I31.3 Hypernatremia E87.0 Hypothyroidism E03.9 COPD (chronic obstructive pulmonary disease) J43.2 COPD type: emphysema Emphysema type: centrilobular Generalized epilepsy G40.309 Carotid artery disease I73.9 Blind H54.3 Right eye visual impairment category: right - unspecified blindness Left eye visual impairment category: left - unspecified blindness
[2021-10-12] MEDS: dexamethasone 4 mg/mL INJ 3 MG IVP (16:59)
[2021-10-12] MEDS: docusate sodium 100 mg Capsule PO (17:16)
[2021-10-12] MEDS: dextrose 5% 1,000 ML 50 ML IV (17:17)
[2021-10-12] MEDS: diphenhydrAMINE 25 mg Capsule PO (17:18)
[2021-10-12] MEDS: sodium chloride 0.9% (100 ml) 100 ML ×2 (17:18→19:06)
[2021-10-12] MEDS: tamsulosin 0.4 mg Capsule PO (17:18)
[2021-10-12 18:52] LABS: Glucose Point of Care 129 mg/dL (70-110)
[2021-10-12] MEDS: FUROsemide 10 mg/mL SDV 4mL 40 MG IVP (19:05)
--- NOTE | 2021-10-12 19:25 | PC.NURSE ---
Bedside report completed with AARON Tovar.
--- NOTE | 2021-10-12 19:47 | PC.NURSE ---
Shift Note Pt rested in bed throughout shift. He remains restrained so he will not pull at lines, he tries to get the julian every chance he gets. He does answer yes/no question. He does better at this when his hearing aides are in. His multiple skin tears are healing. His skin remains fragile and bruised. His oxygen needs have decreased: HHF 35L and 65% at beginning of shift. High flow nasal cannula at 8liters. D5 IV fluids started today. His Hgb/Hct critically low, 2 units of PRBCs ordered. The second unit infusing at this time. NG inserted today, pt tolerated well. He had a head CT completed. Urine output minimally at 200ml. Frequent safety and comfort rounds continue. Orders and/or nursing care completed as indicated. Patient monitored for response to intervention and treatment(s). Education provided includes blood transfusion, D5 and CT. Patient would answer yes or nod head occassionally to education and plan of care information. Needs re-enforcement. Will continue to monitor.
[2021-10-12] MEDS: mirtazapine 15 mg Tablet PO (21:59)
[2021-10-13] VITALS (30 sets, daily range): BP systolic 120–187; BP diastolic 68–105; PULSE 0–128; RESP 7–27; TEMP 36.2–36.7; O2SAT 80–96
[2021-10-13] MEDS: morphine 4 mg/mL SDV 1 mL 2 MG IVP ×4 (00:54→19:46)
[2021-10-13 01:06] LABS: Glucose Point of Care 142 mg/dL (70-110)
[2021-10-13] MEDS: dexmedeTOMIDine 0.9 % NaCL 400 MCG/100 ML PREMIX 12.16 MCG IV (02:00)
[2021-10-13 03:10] LABS: Basophils % 0.1 %; Eosinophils % 0.2 %; Hematocrit 31.8 % (42.0-52.0); Hemoglobin 10.3 g/dL (11.7-16.6); Lymphocytes # 1.3 10^3/uL (0.8-4.8); Lymphocytes % 11.1 %; Mean Corpuscular HGB Conc 32.4 g/dL (30.0-36.0); Mean Corpuscular Hemoglobin 31.3 pg (28.0-34.0); Mean Corpuscular Volume 96.7 fl (80-94); Mean Platelet Volume 11.6 fL (7.4-10.4); Monocytes # 0.4 10^3/uL (0.2-0.9); Monocytes % 3.7 %; Neutrophils # 9.77 10^3/uL (1.8-7.7); Neutrophils % 84.1 %; Nucleated Red Blood Cells % 0 %; Platelet Count 186 10^3/cmm (130-400); Red Blood Count 3.29 10^6/uL (4.1-5.3); Red Cell Distribution Width 16.9 % (12.1-15.1); White Blood Count 11.6 10^3/uL (4.0-10.0)
[2021-10-13] MEDS: ipratropium-albuterol 3 mL Neb INHALATION ×4 (03:17→21:01)
[2021-10-13 03:32] LABS: D Dimer 1.27 ug/mIFEU (0-0.59)
[2021-10-13 03:42] LABS: Alanine Aminotransferase 32 U/L (0-41); Albumin Level 2.8 g/dL (3.5-5.2); Alkaline Phosphatase 199 IU/L (40-130); Anion Gap 17.5 (5-19); Aspartate Amino Transferase 60 U/L (0-40); Blood Urea Nitrogen 6 mg/dL (8-23); C Reactive Protein 13.6 mg/L (0.0-4.9); Calcium 7.9 mg/dL (8.5-10.5); Carbon Dioxide 25 mmol/L (22-29); Chloride 108 mmol/L (98-107); Globulin 1.9 g/dL (1.3-4.6); Glomerular Filtration Rate 135.2 mL/min (90-130); Glucose 130 mg/dL (65-115); Osmolality Calculated 303 mOsm/kg (285-295); Potassium 3.5 mmol/L (3.5-5.1); Sodium 147 mmol/L (136-145); Total Bilirubin 0.6 mg/dL (0.15-1.2); Total Protein 4.7 g/dL (6.6-8.7)
[2021-10-13 03:50] LABS: Thyroid Stimulating Hormone 7.09 uIU/mL (0.27-4.20)
[2021-10-13 04:48] LABS: Free T4 Free Thyroxine 0.75 ng/dL (0.82-1.77)
[2021-10-13] MEDS: enoxaparin 60 mg/0.6 mL Syringe 50 MG SUBCUT ×2 (05:29→17:00)
[2021-10-13] MEDS: venlafaxine ER (24HR) 75 mg Capsule PO (05:29)
[2021-10-13] MEDS: haloperidol inj 5 mg/mL INJ 1 mL 1 MG IVP (05:55)
[2021-10-13 06:35] LABS: ABG PCO2 38.1 mmHg (35-45); ABG PH Result 7.45 (7.35-7.45); Alveolar-Arterial Oxygen Gradi 7.2 mmHg (5-10); Arterial Blood Gas Hematocrit 31.7 % (42-52); Base Excess ABG 2.7 mmol/L (-2.0-2.0); Blood Gas Allen Test Pos; Blood Gas Operator Identificat JB; Blood Gas Sample Site Brachial, right; Blood Gas Sample Type Arterial; Carboxyhemoglobin 1.1 %THgb (0.4-20.1); HCO3 ABG 26.7 mmol/L (22-26); HGB O2 Sat 82.7 % (95-100); Ionized Calcium Level - ABG 1.2 mmol/L (1.1-1.4); Methemoglobin 1.1 % (0.4-1.5); Oxygen Device NC; Oxygen Saturation ABG 84.5; PO2 ABG 47.4 mmHg (80.0-100.0); Total Hemoglobin 10.4 g/dL (14-18)
--- NOTE | 2021-10-13 06:40 | PC.RESP ---
patient became agitiated heart rate increased to 140's with artifact on monitor and spo2 79-85% RN called hospitalist ABG obtained. increased high flow nasal cannula from 10lm to 13lm RN gave morphine and haldol patient spo2 improved to 92%
[2021-10-13 07:37] LABS: Glucose Point of Care 124 mg/dL (70-110)
[2021-10-13] MEDS: levothyroxine 100 mcg SDV 25 MCG IVP ×2 (08:00→11:50)
[2021-10-13] MEDS: pantoprazole 40 mg SDV IVP ×2 (08:00→17:01)
[2021-10-13] MEDS: zinc gluconate 50 mg Tablet PO (08:00)
[2021-10-13] MEDS: nicotine 7 mg Patch 1 PATCH TRANSDERMA (08:00)
[2021-10-13] MEDS: fluticasone nasal spray 16gm Btl 1 SPRAY INTRANASAL (08:04)
[2021-10-13] MEDS: neomycin-poly-bacitracin oint 28 gm 1 APPLIC TOPICAL ×2 (08:04→17:01)
[2021-10-13] MEDS: budesonide 0.5 mg/2 mL Neb INHALATION ×2 (08:08→21:02)
--- NOTE | 2021-10-13 12:03 | PC.SOCIAL ---
IMM Updated Updated pt's DIL on IMM. No questions voiced. Provided pt a copy. Initialed, dated, & timed copy in chart.
[2021-10-13] MEDS: HYDROcodone-acetaminophen 5-325 mg Tablet 1 TAB PO (12:38)
[2021-10-13] MEDS: dextrose 5% 1,000 ML 50 ML IV (12:39)
[2021-10-13 14:21] LABS: Glucose Point of Care 107 mg/dL (70-110)
[2021-10-13] MEDS: dexmedeTOMIDine 0.9 % NaCL 400 MCG/100 ML PREMIX 8.11 MCG IV (16:01)
[2021-10-13] MEDS: dexamethasone 4 mg/mL INJ 3 MG IVP (16:01)
--- NOTE | 2021-10-13 16:21 | PM.PN ---
Subjective Subjective: Patient seen multiple times surgically. Overnight oxygen supplementation had gone up to 13 L high flow nasal cannula. Currently on 10 L. Has remained hemodynamically stable. Patient is a little more awake today. He is able to tell when he is in pain. Requiring morphine. Tolerating NG tube free water flushes. Vitals/I&O/Wt Last Vital Signs Temp 97.8 F 10/13/21 04:00 Pulse 87 10/13/21 14:00 Resp 20 H 10/13/21 14:00 BP 150/93 10/13/21 14:00 Pulse Ox 96 10/13/21 14:00 O2 Del Method 10/13/21 14:00 O2 Flow Rate 10 10/13/21 14:00 FiO2 50 10/12/21 15:38 10/13/21 10/13/21 10/13/21 06:59 14:59 22:59 Intake Total 535.347 / 3131.028 1368.333 / 1368.333 160.182 / 1528.515 Balance 535.347 / 7162.916 4878.333 / 1368.333 160.182 / 1528.515 Weight last 48 hrs Weight 50.485 kg Weight 53.887 kg Physical Exam Narrative: Cachectic malnourished, with severe bitemporal wasting, extremely hard of hearing, legally blind HENMT: COMMON NORMALS: normocephalic and atraumatic HEAD & SCALP: normocephalic and atraumatic Chest: CHEST: Yes Symmetrical chest wall rise Resp: COMMON NORMALS: clear to auscultation bilaterally EFFORT & INSPECTION: Yes symmetric chest movement AUSCULTATION: clear to auscultation bilaterally OTHER: Diminished air entry bilaterally Cardio: COMMON NORMALS: regular rate, regular rhythm, S1 normal heart sound present, S2 normal heart sound present, No gallops present (Cardio), No murmurs present (Cardio), No rub (Cardio) and Peripheral pulses 2+ throughout RATE: regular rate RHYTHM: regular rhythm HEART SOUNDS: S1 normal heart sound present and S2 normal heart sound present PERIPHERAL PULSES: Peripheral pulses 2+ throughout GI: COMMON NORMALS: Normal to inspection, nondistended, normoactive bowel sounds present, Soft to palpation, non-tender, No hepatosplenomegaly present and no masses AUSCULTATION: Yes normoactive bowel sounds PALPATION: Yes Soft to palpation and Yes No hepatosplenomegaly present RECTAL EXAM: Yes deferred Extremity: COMMON NORMALS: no clubbing, cyanosis or edema and no pedal edema Urinary Catheter Management: Jackson: Cath Placed During This Visit: yes Reason for Continuing Indwelling Catheter: Accurate Measurement of Urinary Output in Critically Ill Patients Urinary Catheter Date of Insertion: 10/06/21 Urinary Catheter Time of Insertion: 16:00 Data : 10/13/21 02:34 10/13/21 02:34 A&P Assessment and plan (1) Altered mental status: Status: Acute (2) Hypoxemia: Oxygen therapy as needed to keep saturation over 88% Status: Acute (3) COVID-19: Status: Acute (4) Heart failure with preserved ejection fraction: Status: Chronic Qualifiers: Heart failure chronicity: chronic Qualified Code(s): I50.32 - Chronic diastolic (congestive) heart failure (5) Pulmonary embolism: Status: Acute Qualifiers: Pulmonary embolism type: multiple subsegmental (without acute cor pulmonale) Qualified Code(s): I26.94 - Multiple subsegmental pulmonary emboli without acute cor pulmonale (6) Pericardial effusion (noninflammatory): Ruled out tamponade on repeat echocardiogram on 10/10 Status: Acute (7) Hypernatremia: Status: Acute (8) Hypothyroidism: Status: Acute (9) COPD (chronic obstructive pulmonary disease): Status: Chronic Qualifiers: COPD type: emphysema Emphysema type: centrilobular Qualified Code(s): J43.2 - Centrilobular emphysema (10) 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, has both petit mal and other types of seizures, last seizures this week which I explained to the family was probably due to lowered threshold from acute illness Keppra levels elevated. Decreased to 500 mg IV twice daily. Status: Chronic (11) Carotid artery disease: Status: Chronic (12) Blind: Both eyes Assistance and patience as needed Status: Chronic Qualifiers: Right eye visual impairment category: right - unspecified blindness Left eye visual impairment category: left - unspecified blindness Qualified Code(s): H54.3 - Unqualified visual loss, both eyes Plan 66 old gentleman with past medical history of being legally blind, carotid arterial disease, COPD, anterior pericardial effusion who was admitted to the hospital due to hypoxia found to be COVID-19 positive. Hypoxia secondary to COVID-19 pneumonia: Moderate disease Oxygen supplementation keeping saturation over 88%. Wean down oxygen supplementation accordingly. Currently on high flow nasal cannula 8 L. Given confusion could be because of steroid psychosis. Continue to decrease dose of dexamethasone 3 mg daily. Overall will do 10-day course. Has finished a course of remdesivir. Received tocilizumab as well. Vitamin C, zinc when able to take orally. DuoNeb every 6 hour, budesonide twice daily Pulmonary toilet with incentive spirometry flutter valve. We will monitor inflammatory markers including CRP, D-dimer every 48 hours. Pulmonary embolism as seen on CTA. D-dimer not more elevated than before. Continue with Lovenox 1 mg/kg body weight every 12 hourly as per creatinine clearance. Procalcitonin negative, urine Legionella bacterial antigen, MRSA swab negative. Sputum culture pending. Blood cultures so far negative. Finished course of Zosyn. Last dose on 10/10. Urinalysis negative for UTI. Given hypoxia will try to keep patient as negative as possible. Will monitor fluid status grossly. Echocardiogram done earlier during hospitalization showed EF of 45 to 50%, diastolic dysfunction, trace TR, moderate to large sized anterior, loculated pericardial effusion without signs of tamponade. Limited echocardiogram ruled out tamponade. Hold off on any further Lasix today. Strict input output charting, daily weights. Altered mental status: Most likely multifactorial given patient has been in the ICU, at baseline blind which causes him to have decreased awareness of his surroundings being in isolation because of COVID-19, on high-dose steroids, on IV Keppra for history of generalized epilepsy along with a history of carotid artery disease. Ammonia levels within normal limits. Repeat thyroid levels better but still TSH elevated, low free T3, free T4. Increase levothyroxine to 50 mcg daily. Repeat thyroid profile in 48 hours. Hypernatremia: Improving. Will repeat in afternoon. If continues to improve can stop on IV fluids at that time. For now continue with D5W at 50 cc/h. NG tube placement followed by free water flush 250 cc every 4 hours. Keppra level elevated. Continue with 500 mg every 12 hourly. We will repeat Keppra levels in [address] head results appreciated. Continue with Precedex drip while trying to wean off. Frequent reorientation. Soft restraints. Anemia: Hemoglobin more than 10 today. Overall has required 3 unit of blood transfusion with last transfusion on 10/12. Will continue to monitor. Protonix IV twice daily. IV iron supplementation. Continue with chronic home medications through NG tube including home dose of venlafaxine and Remeron. Analgesia: Tylenol as needed, morphine 1 mg every 6 hours as needed, [place] 5 mg every 6 hours as needed Glycemic control: Not needed. Hypoglycemia protocol. Nutrition: N.p.o. except ice chips because patient is at a high risk of aspiration. On review of patient's advanced directive he does not want any kind of artificial feeds. NG tube only for medication free water flushes. Have confirmed with patient's DPOA. She is okay with NG tube placement. CODE STATUS: DNR/DNI. Confirmed with patient's DPOA [id number]. PUD prophylaxis: Protonix DVT prophylaxis: Full dose Lovenox will suffice for DVT prophylaxis. Discharge planning: Patient most likely required prolonged rehab. Given the oxygen requirement, mentation we will try to confirm with patient's family regarding possible transfer to [facility] once he is medically stable. For now we will ask case management to get in touch with [facility]. Continue with care at ICU level. Tried calling patient's DPOA/[id number] Ms. Hope over the phone couple of times today but could not get through. Could not leave a voice message. Plan for the day: Continue free water flushes. Continue with IV fluids for now. Repeat BMP in evening. A. fib sodium improving can stop IV fluids. Increase levothyroxine to 50 mcg daily. Continue with Keppra at 500 mg twice daily. Repeat thyroid profile and Keppra levels in 48 hours. Frequent orientation. Of supplementation keeping saturation over 88%. Wean off Keppra as possible. Start on iron IV supplementation. Start on PPN once IV fluids are stopped. Attestations Medical Necessity Statement*: Requires further hospitalization for management of altered mental status secondary to hypernatremia, elevated Keppra levels in a patient who is legally blind and admitted because of COVID-19 pneumonia while patient is still requiring high flow nasal cannula oxygen supplementation. Critical Care Time: The high probability of a clinically significant, sudden or life threatening deterioration of the patient's [pulmonary, renal, neurological, nutritional] system(s) required my full and direct attention, intervention and personal management. The critical care time is as shown. This time is in addition to time spent performing any reported procedures but includes the following: [x] Data and vital sign review and interpretation [x] Patient assessment, examination and intervention [x] Documentation [x] Medication orders and management Critical Care Time (min): 60 Coding Level of Care Code Acute Hydrometer Finisher for Chg Fwd Diagnoses Altered mental status R41.82 Hypoxemia R09.02 COVID-19 U07.1 Heart failure with preserved ejection fraction I50.32 Heart failure chronicity: chronic Pulmonary embolism I26.94 Pulmonary embolism type: multiple subsegmental (without acute cor pulmonale) Pericardial effusion (noninflammatory) I31.3 Hypernatremia E87.0 Hypothyroidism E03.9 COPD (chronic obstructive pulmonary disease) J43.2 COPD type: emphysema Emphysema type: centrilobular Generalized epilepsy G40.309 Carotid artery disease I73.9 Blind H54.3 Right eye visual impairment category: right - unspecified blindness Left eye visual impairment category: left - unspecified blindness
[2021-10-13] MEDS: tamsulosin 0.4 mg Capsule PO (17:01)
[2021-10-13] MEDS: iron sucrose 200 MG in sodium chloride 0.9% (100 ml) 100 ML 220 MG IV (17:01)
[2021-10-13 18:03] LABS: Blood Urea Nitrogen 4 mg/dL (8-23); Calcium 7.7 mg/dL (8.5-10.5); Carbon Dioxide 22 mmol/L (22-29); Chloride 105 mmol/L (98-107); Glomerular Filtration Rate 166.9 mL/min (90-130); Glucose 162 mg/dL (65-115); Osmolality Calculated 286 mOsm/kg (285-295); Sodium 138 mmol/L (136-145)
[2021-10-13 18:19] LABS: Anion Gap 14.6 (5-19); Potassium 3.6 mmol/L (3.5-5.1)
[2021-10-13 20:13] LABS: Glucose Point of Care 109 mg/dL (70-110)
[2021-10-13] MEDS: mirtazapine 15 mg Tablet PO (20:15)
--- NOTE | 2021-10-13 22:15 | PC.NURSE ---
New Orders Received Patient noted to desat on 12L high flow nasal cannula and sustained in the 70's, called Dr. Torres to inform her about change in patient condition. She gave verbal orders to draw an ABG and pending results switch over to HHF. After running ABG respiratory switched patient to HHF, raising O2 sats to high 80's to low 90's.
[2021-10-13 22:27] LABS: ABG PCO2 43.6 mmHg (35-45); ABG PH Result 7.41 (7.35-7.45); Alveolar-Arterial Oxygen Gradi 5.5 mmHg (5-10); Base Excess ABG 2.6 mmol/L (-2.0-2.0); Blood Gas Operator Identificat JB; Blood Gas Sample Site Brachial, right; Blood Gas Sample Type Arterial; Carboxyhemoglobin 1.2 %THgb (0.4-20.1); HCO3 ABG 27.6 mmol/L (22-26); HGB O2 Sat 85.5 % (95-100); Ionized Calcium Level - ABG 1.2 mmol/L (1.1-1.4); Methemoglobin 1.3 % (0.4-1.5); Oxygen Device NC; Oxygen Saturation ABG 87.7; PO2 ABG 53.9 mmHg (80.0-100.0); Potassium Level - ABG 2.9 mmol/L (3.5-5.0); Total Hemoglobin 10.4 g/dL (14-18)
[2021-10-14] VITALS (34 sets, daily range): BP systolic 106–179; BP diastolic 59–112; PULSE 51–92; RESP 8–30; TEMP 36.2–36.4; O2SAT 76–99
[2021-10-14] MEDS: morphine 4 mg/mL SDV 1 mL 2 MG IVP ×4 (00:18→19:48)
--- NOTE | 2021-10-14 00:30 | PC.NURSE ---
Patient Removed NG Tube Upon rounding, nurse noticed patient pulled NG tube out. Informed Dr. Torres, who gave orders to leave NG tube out.
[2021-10-14 00:48] LABS: Glucose Point of Care 105 mg/dL (70-110)
[2021-10-14] MEDS: dexmedeTOMIDine 0.9 % NaCL 400 MCG/100 ML PREMIX 12.16 MCG IV ×2 (01:22→18:31)
[2021-10-14] MEDS: ipratropium-albuterol 3 mL Neb INHALATION ×4 (02:13→20:22)
[2021-10-14 03:01] LABS: Basophils % 0.3 %; Eosinophils % 0.3 %; Hematocrit 29.4 % (42.0-52.0); Hemoglobin 10.4 g/dL (11.7-16.6); Lymphocytes # 0.7 10^3/uL (0.8-4.8); Lymphocytes % 10.8 %; Mean Corpuscular HGB Conc 35.4 g/dL (30.0-36.0); Mean Corpuscular Hemoglobin 30.8 pg (28.0-34.0); Mean Platelet Volume 11.2 fL (7.4-10.4); Monocytes # 0.3 10^3/uL (0.2-0.9); Monocytes % 4.1 %; Neutrophils # 5.75 10^3/uL (1.8-7.7); Neutrophils % 83.6 %; Nucleated Red Blood Cells % 0 %; Platelet Count 141 10^3/cmm (130-400); Red Blood Count 3.38 10^6/uL (4.1-5.3); Red Cell Distribution Width 16.2 % (12.1-15.1); White Blood Count 6.9 10^3/uL (4.0-10.0)
[2021-10-14 03:36] LABS: Alanine Aminotransferase 35 U/L (0-41); Albumin Level 2.4 g/dL (3.5-5.2); Alkaline Phosphatase 159 IU/L (40-130); Aspartate Amino Transferase 50 U/L (0-40); Blood Urea Nitrogen 4 mg/dL (8-23); Carbon Dioxide 27 mmol/L (22-29); Chloride 108 mmol/L (98-107); Free T4 Free Thyroxine 0.87 ng/dL (0.82-1.77); Globulin 2.1 g/dL (1.3-4.6); Glomerular Filtration Rate 166.9 mL/min (90-130); Glucose 124 mg/dL (65-115); Osmolality Calculated 294 mOsm/kg (285-295); Sodium 143 mmol/L (136-145); Thyroid Stimulating Hormone 8.37 uIU/mL (0.27-4.20); Total Bilirubin 0.5 mg/dL (0.15-1.2); Total Protein 4.5 g/dL (6.6-8.7)
[2021-10-14 03:40] LABS: Anion Gap 10.9 (5-19); Potassium 2.9 mmol/L (3.5-5.1)
--- NOTE | 2021-10-14 04:07 | PC.NURSE ---
Critical Lab Results Patient potassium 2.9, notified Dr. Torres and received over the phone orders for K-Adi 40 meq with 5ml Lidocaine IV @ 25mls/hr.
[2021-10-14] MEDS: lidocaine 1% 5 ML in potassium chloride premix 100 ML 25 ML IV ×3 (04:48→18:26)
[2021-10-14] MEDS: enoxaparin 60 mg/0.6 mL Syringe 50 MG SUBCUT ×2 (05:01→17:11)
--- NOTE | 2021-10-14 06:24 | PC.NURSE ---
Shift Summary Patient had an eventful shift, please see previous notes for details. Patient currently resting comfortably in bed, on HHF 40L & 55% FiO2. Jackson catheter drained 100 mls of urine overnight. K-rider & Precedex infusing per orders, please see MAR for detail. Skin tears noted to bilateral arms, covered with Optifoams. Frequently turned/repositioned patient with help from staff overnight and performed oral care.
[2021-10-14] MEDS: budesonide 0.5 mg/2 mL Neb INHALATION ×2 (07:54→20:22)
[2021-10-14] MEDS: nicotine 7 mg Patch 1 PATCH TRANSDERMA (08:25)
[2021-10-14] MEDS: pantoprazole 40 mg SDV IVP ×2 (08:25→17:11)
[2021-10-14] MEDS: levothyroxine 100 mcg SDV 50 MCG IVP (08:25)
[2021-10-14] MEDS: aspirin 300 mg Supp 75 MG PR (08:26)
[2021-10-14] MEDS: fluticasone nasal spray 16gm Btl 1 SPRAY INTRANASAL (08:57)
[2021-10-14] MEDS: neomycin-poly-bacitracin oint 28 gm 1 APPLIC TOPICAL ×2 (08:57→17:12)
[2021-10-14] MEDS: dexmedeTOMIDine 0.9 % NaCL 400 MCG/100 ML PREMIX 10.81 MCG IV (09:56)
[2021-10-14] MEDS: dextrose 5% 1,000 ML 50 ML IV (09:57)
[2021-10-14 13:01] LABS: Glucose Point of Care 150 mg/dL (70-110)
--- NOTE | 2021-10-14 13:53 | P.PN_ITS ---
Subjective Subjective: Overnight patient had pulled out NG tube and had episodes of agitation for which his Precedex drip was increased. Currently he is on heated high flow 45 L 50% which is weaned down to 45 L 45%. Heated high flow transitioned over to oxime mask as patient is a mouth breather. Patient has remained hemodynamically stable and afebrile. Documented urine output of around 1700 in last 24 hours. Vitals/I&O/Wt Last Vital Signs Temp 97.5 F L 10/14/21 08:00 Pulse 53 L 10/14/21 13:14 Resp 12 10/14/21 13:14 BP 136/86 10/14/21 13:00 Pulse Ox 93 10/14/21 13:14 O2 Del Method 10/14/21 13:14 O2 Flow Rate 8 10/14/21 13:14 FiO2 40 10/14/21 08:00 10/13/21 10/14/21 10/14/21 22:59 06:59 14:59 Intake Total 816.607 / 2184.940 214.445 / 2399.385 357.020 / 357.020 Output Total 225 / 225 100 / 325 Balance 591.607 / 1959.940 114.445 / 2074.385 357.020 / 357.020 Weight last 48 hrs Weight 53.07 kg Weight 50.485 kg Physical Exam Narrative: Cachectic malnourished, with severe bitemporal wasting, extremely hard of hearing, legally blind HENMT: COMMON NORMALS: normocephalic and atraumatic HEAD & SCALP: normocephalic and atraumatic Chest: CHEST: Yes Symmetrical chest wall rise Resp: COMMON NORMALS: clear to auscultation bilaterally EFFORT & INSPECTION: Yes symmetric chest movement AUSCULTATION: clear to auscultation bilaterally OTHER: Diminished air entry bilaterally Cardio: COMMON NORMALS: regular rate, regular rhythm, S1 normal heart sound present, S2 normal heart sound present, No gallops present (Cardio), No murmurs present (Cardio), No rub (Cardio) and Peripheral pulses 2+ throughout RATE: regular rate RHYTHM: regular rhythm HEART SOUNDS: S1 normal heart sound present and S2 normal heart sound present PERIPHERAL PULSES: Peripheral pulses 2+ throughout GI: COMMON NORMALS: Normal to inspection, nondistended, normoactive bowel sounds present, Soft to palpation, non-tender, No hepatosplenomegaly present and no masses AUSCULTATION: Yes normoactive bowel sounds PALPATION: Yes Soft to palpation and Yes No hepatosplenomegaly present RECTAL EXAM: Yes deferred Extremity: COMMON NORMALS: no clubbing, cyanosis or edema and no pedal edema Urinary Catheter Management: Jackson: Cath Placed During This Visit: yes Reason for Continuing Indwelling Catheter: Accurate Measurement of Urinary Output in Critically Ill Patients Urinary Catheter Date of Insertion: 10/06/21 Urinary Catheter Time of Insertion: 16:00 Data : 10/14/21 02:27 10/14/21 02:27 A&P Assessment and plan (1) Altered mental status: Status: Acute (2) Hypoxemia: Oxygen therapy as needed to keep saturation over 88% Status: Acute (3) COVID-19: Status: Acute (4) Heart failure with preserved ejection fraction: Status: Chronic Qualifiers: Heart failure chronicity: chronic Qualified Code(s): I50.32 - Chronic diastolic (congestive) heart failure (5) Pulmonary embolism: Status: Acute Qualifiers: Pulmonary embolism type: multiple subsegmental (without acute cor pulmonale) Qualified Code(s): I26.94 - Multiple subsegmental pulmonary emboli without acute cor pulmonale (6) Pericardial effusion (noninflammatory): Ruled out tamponade on repeat echocardiogram on 10/10 Status: Acute (7) Hypernatremia: Status: Acute (8) Hypothyroidism: Status: Acute (9) COPD (chronic obstructive pulmonary disease): Status: Chronic Qualifiers: COPD type: emphysema Emphysema type: centrilobular Qualified Code(s): J43.2 - Centrilobular emphysema (10) 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, has both petit mal and other types of seizures, last seizures this week which I explained to the family was probably due to lowered threshold from acute illness Keppra levels elevated. Decreased to 500 mg IV twice daily. Status: Chronic (11) Carotid artery disease: Status: Chronic (12) Blind: Both eyes Assistance and patience as needed Status: Chronic Qualifiers: Right eye visual impairment category: right - unspecified blindness Left eye visual impairment category: left - unspecified blindness Qualified Code(s): H54.3 - Unqualified visual loss, both eyes (13) Severe protein-energy malnutrition: Status: Acute (14) Goals of care, counseling/discussion: Status: Acute Plan 66 old gentleman with past medical history of being legally blind, carotid arterial disease, COPD, anterior pericardial effusion who was admitted to the hospital due to hypoxia found to be COVID-19 positive. Hypoxia secondary to COVID-19 pneumonia: Moderate disease Oxygen supplementation keeping saturation over 88%. Switch from heated high flow to oxymask as patient is a mouth breather. Wean down keeping saturation over 88. Remove isolation precautions. Patient tested positive on 10/04. Given confusion could be because of steroid psychosis. Continue to decrease dose of dexamethasone 3 mg daily. Overall will do 10-day course. Last day on 10/15 Has finished a course of remdesivir. Received tocilizumab as well. Vitamin C, zinc when able to take orally. DuoNeb every 6 hour, budesonide twice daily Pulmonary toilet with incentive spirometry flutter valve. We will monitor inflammatory markers including CRP, D-dimer every 48 hours. Pulmonary embolism as seen on CTA. D-dimer not more elevated than before. Continue with Lovenox 1 mg/kg body weight every 12 hourly as per creatinine clearance. Procalcitonin negative, urine Legionella bacterial antigen, MRSA swab negative. Sputum culture pending. Blood cultures so far negative. Finished course of Zosyn. Last dose on 10/10. Urinalysis negative for UTI. Given hypoxia will try to keep patient as negative as possible. Will monitor fluid status grossly. Echocardiogram done earlier during hospitalization showed EF of 45 to 50%, diastolic dysfunction, trace TR, moderate to large sized anterior, loculated pericardial effusion without signs of tamponade. Limited echocardiogram ruled out tamponade. Hold off on any further Lasix today. Continue with D5W at 50 cc/h. Strict input output charting, daily weights. Altered mental status: Most likely multifactorial given patient has been in the ICU, at baseline blind which causes him to have decreased awareness of his surroundings being in isolation because of COVID-19, on high-dose steroids, on IV Keppra for history of generalized epilepsy along with a history of carotid artery disease. Ammonia levels within normal limits. Continue with levothyroxine 50 mcg/day IV. Free T4 within normal limits now. Will check every 48 hourly. Hypernatremia: Resolved for now. Patient pulled NG tube last night. Unable to replace. Restart on D5W at 50 cc/h. Monitor BMP daily. Keppra level elevated. Continue with 500 mg every 12 hourly. We will repeat Keppra levels in [address] head results appreciated. Continue with Precedex drip while trying to wean off. Frequent reorientation. Soft restraints. Anemia: Hemoglobin more than 10 today. Overall has required 3 unit of blood transfusion with last transfusion on 10/12. Will continue to monitor. Protonix IV twice daily. IV iron supplementation. Continue with chronic home medications through NG tube including home dose of venlafaxine and Remeron. Analgesia: Tylenol as needed, morphine 1 mg every 6 hours as needed, [place] 5 mg every 6 hours as needed Glycemic control: Not needed. Hypoglycemia protocol. Nutrition: N.p.o. except ice chips because patient is at a high risk of aspiration. On review of patient's advanced directive he does not want any kind of artificial feeds. NG tube only for medication free water flushes. Have confirmed with patient's DPOA. She is okay with NG tube placement. CODE STATUS: DNR/DNI. Confirmed with patient's DPOA [id number]. PUD prophylaxis: Protonix DVT prophylaxis: Full dose Lovenox will suffice for DVT prophylaxis. Discharge planning: Patient most likely required prolonged rehab. Given the oxygen requirement, mentation we will try to confirm with patient's family regarding possible [facility] once he is medically stable. For now we will ask case management to get in touch with [facility]. Continue with care at ICU level. Tried calling patient's DPOA/uevisc-eh-wli Ms. Hope over the phone couple of times today but could not get through. Could not leave a voice message. Had goals of care discussion with patient's DPOA/kjqeco-sg-hac Ms. Hope over the phone. We discussed that unfortunately given the poor baseline health of Mr. Madera including severe protein energy malnutrition with BMI of 16, being legally blind, being bedbound and now getting worse mentation méndez and from poor energy malnutrition standpoint even though all metabolic abnormalities have been corrected including hypernatremia, hypothyroidism, elevated Keppra levels it is highly unlikely that he would go back to his baseline lifestyle which to start with unfortunately was very poor. And given his goals of care of DNR/DNI, declining any artificial feed it would be appropriate for patient to go hospice /comfort care. Ms. Hope states she is in agreements and understand but would want his son's to be made aware and in agreement as well. She is going to reach out to the son's and would want a conference call. Physician stated he would be more than happy to have his call so that everybody's questions could be answered. Ms. Hope states she is the one who will be making the final decision but would want the sons to be in agreement. As per Ms. Hope she is the one was been taking care of the patient he now. Son are not really aware of his poor baseline health. Attestations Medical Necessity Statement*: Requires further hospitalization for management of altered mental status in setting of COVID-19 pneumonia, high oxygen requirements, legally blind, resolving hypernatremia, hypothyroidism, anemia while multiple goals of care discussions are done Critical Care Time: The high probability of a clinically significant, sudden or life threatening deterioration of the patient's [neurological, respiratory, goals of care] system(s) required my full and direct attention, intervention and personal management. The critical care time is as shown. This time is in addition to time spent performing any reported procedures but includes the following: [x] Data and vital sign review and interpretation [x] Patient assessment, examination and intervention [x] Documentation [x] Medication orders and management Critical Care Time (min): 60 Coding Level of Care Code Acute [employer] for [facility] Fwd Diagnoses Altered mental status R41.82 Hypoxemia R09.02 COVID-19 U07.1 Heart failure with preserved ejection fraction I50.32 Heart failure chronicity: chronic Pulmonary embolism I26.94 Pulmonary embolism type: multiple subsegmental (without acute cor pulmonale) Pericardial effusion (noninflammatory) I31.3 Hypernatremia E87.0 Hypothyroidism E03.9 COPD (chronic obstructive pulmonary disease) J43.2 COPD type: emphysema Emphysema type: centrilobular Generalized epilepsy G40.309 Carotid artery disease I73.9 Blind H54.3 Right eye visual impairment category: right - unspecified blindness Left eye visual impairment category: left - unspecified blindness Severe protein-energy malnutrition E43 Goals of care, counseling/discussion Z71.89
[2021-10-14] MEDS: haloperidol inj 5 mg/mL INJ 1 mL 1 MG IVP (15:03)
[2021-10-14] MEDS: dexamethasone 4 mg/mL INJ 3 MG IVP (15:24)
[2021-10-14 17:11] LABS: Glucose Point of Care 151 mg/dL (70-110)
[2021-10-14] MEDS: iron sucrose 200 MG in sodium chloride 0.9% (100 ml) 100 ML 220 MG IV (17:23)
[2021-10-15] VITALS (24 sets, daily range): BP systolic 107–182; BP diastolic 62–99; PULSE 58–103; RESP 9–26; TEMP 36.1–36.5; O2SAT 87–97; BMI 15.8
[2021-10-15] MEDS: haloperidol inj 5 mg/mL INJ 1 mL 1 MG IVP ×2 (01:11→13:35)
[2021-10-15 01:21] LABS: Glucose Point of Care 110 mg/dL (70-110)
[2021-10-15] MEDS: dexmedeTOMIDine 0.9 % NaCL 400 MCG/100 ML PREMIX 10.81 MCG IV ×2 (02:45→11:13)
[2021-10-15] MEDS: ipratropium-albuterol 3 mL Neb INHALATION ×3 (03:18→14:29)
[2021-10-15 05:00] LABS: Alanine Aminotransferase 36 U/L (0-41); Albumin Level 2.3 g/dL (3.5-5.2); Alkaline Phosphatase 177 IU/L (40-130); Anion Gap 10.7 (5-19); Aspartate Amino Transferase 42 U/L (0-40); Blood Urea Nitrogen 3 mg/dL (8-23); Calcium 8.1 mg/dL (8.5-10.5); Carbon Dioxide 28 mmol/L (22-29); Chloride 109 mmol/L (98-107); Glomerular Filtration Rate 215.9 mL/min (90-130); Glucose 111 mg/dL (65-115); Osmolality Calculated 293 mOsm/kg (285-295); Potassium 4.7 mmol/L (3.5-5.1); Sodium 143 mmol/L (136-145); Total Bilirubin 0.4 mg/dL (0.15-1.2); Total Protein 4.3 g/dL (6.6-8.7)
[2021-10-15] MEDS: enoxaparin 60 mg/0.6 mL Syringe 50 MG SUBCUT (05:46)
[2021-10-15] MEDS: dextrose 5% 1,000 ML 50 ML IV (05:49)
[2021-10-15 06:18] LABS: Glucose Point of Care 104 mg/dL (70-110)
--- NOTE | 2021-10-15 06:47 | PC.NURSE ---
Shift Summary Patient had an uneventful shift, remains alert to self only at this time but can answer yes/no when asked questions. Skin tears noted to bilateral arms, covered with Optifoam dressings. No other skins issues or wounds noted at this time. Jackson catheter drained 250 mls of urine overnight. Patient remains on 9L oxygen via oxymask. Turned and repositioned patient with help from staff overnight. Precedex and D5W infusing per protocol please see MAR for infusion rates.
[2021-10-15] MEDS: pantoprazole 40 mg SDV IVP (08:23)
[2021-10-15] MEDS: levothyroxine 100 mcg SDV 50 MCG IVP (08:23)
[2021-10-15] MEDS: nicotine 7 mg Patch 1 PATCH TRANSDERMA (08:23)
[2021-10-15] MEDS: aspirin 300 mg Supp 75 MG PR (08:23)
[2021-10-15] MEDS: neomycin-poly-bacitracin oint 28 gm 1 APPLIC TOPICAL ×2 (08:24→17:03)
[2021-10-15] MEDS: fluticasone nasal spray 16gm Btl 1 SPRAY INTRANASAL (08:24)
[2021-10-15] MEDS: budesonide 0.5 mg/2 mL Neb INHALATION (08:45)
[2021-10-15] MEDS: morphine 4 mg/mL SDV 1 mL 2 MG IVP ×2 (09:16→13:02)
[2021-10-15 11:14] LABS: Glucose Point of Care 118 mg/dL (70-110)
[2021-10-15] MEDS: HYDROmorphone 1 mg/mL INJ 1 mL 0.5 MG IVP (14:51)
--- NOTE | 2021-10-15 16:00 | P.PN_ITS ---
Subjective Subjective: Patient has been requiring up to 8 to 10 L of oxygen mask oxygen supplementation to maintain saturation over 90%. Has remained hemodynamically stable and afebrile. No changes in mentation. Vitals/I&O/Wt Last Vital Signs Temp 97.7 F 10/15/21 08:00 Pulse 84 10/15/21 14:38 Resp 16 10/15/21 14:51 BP 124/79 10/15/21 12:00 Pulse Ox 93 10/15/21 14:38 O2 Del Method 10/15/21 14:38 O2 Flow Rate 10 10/15/21 14:38 FiO2 40 10/14/21 13:32 10/15/21 10/15/21 10/15/21 06:59 14:59 22:59 Intake Total 1198.333 / 1941.662 222.289 / 222.289 Output Total 250 / 500 Balance 948.333 / 1441.662 222.289 / 222.289 Weight last 48 hrs Weight 50.065 kg Weight 53.07 kg Physical Exam Narrative: Cachectic malnourished, with severe bitemporal wasting, extremely hard of hearing, legally blind HENMT: COMMON NORMALS: normocephalic and atraumatic HEAD & SCALP: normocephalic and atraumatic Chest: CHEST: Yes Symmetrical chest wall rise Resp: COMMON NORMALS: clear to auscultation bilaterally EFFORT & INSPECTION: Yes symmetric chest movement AUSCULTATION: clear to auscultation bilaterally OTHER: Diminished air entry bilaterally Cardio: COMMON NORMALS: regular rate, regular rhythm, S1 normal heart sound present, S2 normal heart sound present, No gallops present (Cardio), No murmurs present (Cardio), No rub (Cardio) and Peripheral pulses 2+ throughout RATE: regular rate RHYTHM: regular rhythm HEART SOUNDS: S1 normal heart sound present and S2 normal heart sound present PERIPHERAL PULSES: Peripheral pulses 2+ throughout GI: COMMON NORMALS: Normal to inspection, nondistended, normoactive bowel sounds present, Soft to palpation, non-tender, No hepatosplenomegaly present and no masses AUSCULTATION: Yes normoactive bowel sounds PALPATION: Yes Soft to palpation and Yes No hepatosplenomegaly present RECTAL EXAM: Yes deferred Extremity: COMMON NORMALS: no clubbing, cyanosis or edema and no pedal edema Urinary Catheter Management: Jackson: Cath Placed During This Visit: yes Reason for Continuing Indwelling Catheter: Accurate Measurement of Urinary Output in Critically Ill Patients Urinary Catheter Date of Insertion: 10/06/21 Urinary Catheter Time of Insertion: 16:00 Data : 10/14/21 02:27 10/15/21 02:45 A&P Assessment and plan (1) Altered mental status: Status: Acute (2) Hypoxemia: Oxygen therapy as needed to keep saturation over 88% Status: Acute (3) COVID-19: Status: Acute (4) Heart failure with preserved ejection fraction: Status: Chronic Qualifiers: Heart failure chronicity: chronic Qualified Code(s): I50.32 - Chronic diastolic (congestive) heart failure (5) Pulmonary embolism: Status: Acute Qualifiers: Pulmonary embolism type: multiple subsegmental (without acute cor pulmonale) Qualified Code(s): I26.94 - Multiple subsegmental pulmonary emboli without acute cor pulmonale (6) Pericardial effusion (noninflammatory): Ruled out tamponade on repeat echocardiogram on 10/10 Status: Acute (7) Hypernatremia: Status: Acute (8) Hypothyroidism: Status: Acute (9) COPD (chronic obstructive pulmonary disease): Status: Chronic Qualifiers: COPD type: emphysema Emphysema type: centrilobular Qualified Code(s): J43.2 - Centrilobular emphysema (10) 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, has both petit mal and other types of seizures, last seizures this week which I explained to the family was probably due to lowered threshold from acute illness Keppra levels elevated. Decreased to 500 mg IV twice daily. Status: Chronic (11) Carotid artery disease: Status: Chronic (12) Blind: Both eyes Assistance and patience as needed Status: Chronic Qualifiers: Right eye visual impairment category: right - unspecified blindness Left eye visual impairment category: left - unspecified blindness Qualified Code(s): H54.3 - Unqualified visual loss, both eyes (13) Severe protein-energy malnutrition: Status: Acute (14) Goals of care, counseling/discussion: Status: Acute Plan 66 old gentleman with past medical history of being legally blind, carotid arterial disease, COPD, anterior pericardial effusion who was admitted to the hospital due to hypoxia found to be COVID-19 positive. Hypoxia secondary to COVID-19 pneumonia: Pulmonary embolism Altered mental status with episodes of agitation Hypernatremia Anemia requiring 3 unit of blood transfusion Severe protein energy malnutrition Legally blind Hard of hearing COPD Carotid artery disease Hypothyroidism Had goals of care discussion with patient's DPOA/[id number]-xlm Ms. Hope over the phone. We discussed that unfortunately given the poor baseline health of Mr. [place]era including severe protein energy malnutrition with BMI of 16, being legally blind, being bedbound and now getting worse mentation méndez and from poor energy malnutrition standpoint even though all metabolic abnormalities have been corrected including hypernatremia, hypothyroidism, elevated Keppra levels it is highly unlikely that he would go back to his baseline lifestyle which to start with unfortunately was very poor. And given his goals of care of DNR/DNI, declining any artificial feed it would be appropriate for patient to go hospice/comfort care. Ms. Hope states she is in agreements and understand but would want his son's to be made aware and in agreement as well. She is going to reach out to the son's and would want a conference call. Physician stated he would be more than happy to have his call so that everybody's questions could be answered. Ms. Hope states she is the one who will be making the final decision but would want the sons to be in agreement. As per Ms. Hope she is the one was been taking care of the patient he now. Son are not really aware of his poor baseline health. 10/15: Had further goals of care with patient's DPOA Ms. Hope at bedside. She has spoken to the family. She would want to go ahead with hospice care/comfort measures. She wants to make sure patient does not feel as if he is suffocating. Orders changed. No more blood work. Morphine and Ativan as needed. Attestations Medical Necessity Statement*: Requires further hospitalization for hospice care/comfort measures in a patient was admitted with COVID-19 pneumonia, pulmonary embolism who is legally blind having altered mental status with episodes of agitation, hyponatremia, severe protein energy malnutrition Critical Care Time: The high probability of a clinically significant, sudden or life threatening deterioration of the patient's [neurological, renal, goals of care, pulmonary] system(s) required my full and direct attention, intervention and personal management. The critical care time is as shown. This time is in addition to time spent performing any reported procedures but includes the following: [x] Data and vital sign review and interpretation [x] Patient assessment, examination and intervention [x] Documentation [x] Medication orders and management Critical Care Time (min): 50 Coding Level of Care Code Acute [facility] Fwd Diagnoses Altered mental status R41.82 Hypoxemia R09.02 COVID-19 U07.1 Heart failure with preserved ejection fraction I50.32 Heart failure chronicity: chronic Pulmonary embolism I26.94 Pulmonary embolism type: multiple subsegmental (without acute cor pulmonale) Pericardial effusion (noninflammatory) I31.3 Hypernatremia E87.0 Hypothyroidism E03.9 COPD (chronic obstructive pulmonary disease) J43.2 COPD type: emphysema Emphysema type: centrilobular Generalized epilepsy G40.309 Carotid artery disease I73.9 Blind H54.3 Right eye visual impairment category: right - unspecified blindness Left eye visual impairment category: left - unspecified blindness Severe protein-energy malnutrition E43 Goals of care, counseling/discussion Z71.89
[2021-10-15] MEDS: morphine 4 mg/mL SDV 1 mL IVP ×3 (17:02→23:18)
--- NOTE | 2021-10-15 17:48 | PC.NURSE ---
Pt resting in bed. Repositioned q2h and PRN. Pain meds given as needed. Jackson cath in place draining freely to BSD. Bulb inflation checked earlier d/t leakage, 3cc NS added. No further leaking noted. Will continue to monitor.
[2021-10-16 00:53] VITALS: RESP 16
[2021-10-16] MEDS: morphine 4 mg/mL SDV 1 mL IVP ×7 (00:53→20:32)
[2021-10-16] MEDS: dextrose 5% 1,000 ML 50 ML IV (01:19)
[2021-10-16 03:17] VITALS: RESP 18
[2021-10-16 04:39] VITALS: RESP 15
--- NOTE | 2021-10-16 05:41 | PC.NURSE ---
Shift Summary Patient had an uneventful shift, remains on 8L oxygen via oxymask. IVF infusing per orders and PRN Morphine administered for pain overnight please see MAR for details. Repositioned patient for comfort throughout shift with help from staff. Skin tears noted to bilateral arms covered with Optifoam dressing. No other wounds skin issues noted at this time. Jackson catheter drained 105 mls of urine overnight.
[2021-10-16 07:50] VITALS: RESP 15
[2021-10-16] MEDS: fluticasone nasal spray 16gm Btl 1 SPRAY INTRANASAL (07:50)
[2021-10-16] MEDS: neomycin-poly-bacitracin oint 28 gm 1 APPLIC TOPICAL ×2 (07:50→17:06)
[2021-10-16] MEDS: nicotine 7 mg Patch 1 PATCH TRANSDERMA (07:51)
[2021-10-16 08:00] VITALS: PULSE 106; RESP 12; RESP 15; O2SAT 86
--- NOTE | 2021-10-16 08:40 | PC.SOCIAL ---
IMM UPDATED IMM dated and initialed copy given to patient and placed in chart.
[2021-10-16] MEDS: morphine 10 mg/0.5 mL oral liq UD SUBLINGUAL (12:06)
--- NOTE | 2021-10-16 16:55 | PM.PN ---
Subjective Subjective: Patient made comfort measures after goals of care discussion with family yesterday. Overnight has been comfortably. Vitals/I&O/Wt Last Vital Signs Temp 97.7 F 10/15/21 08:00 Pulse 106 H 10/16/21 08:00 Resp 12 10/16/21 08:00 BP 107/62 10/15/21 16:00 Pulse Ox 86 L 10/16/21 08:00 O2 Del Method 10/16/21 08:00 O2 Flow Rate 8 10/16/21 08:00 FiO2 40 10/14/21 13:32 10/16/21 10/16/21 10/16/21 06:59 14:59 22:59 Intake Total 1080 / 1338.117 514.167 / 514.167 Output Total 105 / 355 Balance 975 / 983.117 514.167 / 514.167 Weight last 48 hrs Weight 50.065 kg Physical Exam Narrative: Not examined given compromised status only. HENMT: COMMON NORMALS: normocephalic and atraumatic HEAD & SCALP: normocephalic and atraumatic Chest: CHEST: Yes Symmetrical chest wall rise Resp: COMMON NORMALS: clear to auscultation bilaterally EFFORT & INSPECTION: Yes symmetric chest movement AUSCULTATION: clear to auscultation bilaterally OTHER: Diminished air entry bilaterally Cardio: COMMON NORMALS: regular rate, regular rhythm, S1 normal heart sound present, S2 normal heart sound present, No gallops present (Cardio), No murmurs present (Cardio), No rub (Cardio) and Peripheral pulses 2+ throughout RATE: regular rate RHYTHM: regular rhythm HEART SOUNDS: S1 normal heart sound present and S2 normal heart sound present PERIPHERAL PULSES: Peripheral pulses 2+ throughout GI: COMMON NORMALS: Normal to inspection, nondistended, normoactive bowel sounds present, Soft to palpation, non-tender, No hepatosplenomegaly present and no masses AUSCULTATION: Yes normoactive bowel sounds PALPATION: Yes Soft to palpation and Yes No hepatosplenomegaly present RECTAL EXAM: Yes deferred Extremity: COMMON NORMALS: no clubbing, cyanosis or edema and no pedal edema Urinary Catheter Management: Jackson: Cath Placed During This Visit: yes Reason for Continuing Indwelling Catheter: Accurate Measurement of Urinary Output in Critically Ill Patients Urinary Catheter Date of Insertion: 10/06/21 Urinary Catheter Time of Insertion: 16:00 Data : 10/14/21 02:27 10/15/21 02:45 A&P Assessment and plan (1) Altered mental status: Status: Acute (2) Hypoxemia: Oxygen therapy as needed to keep saturation over 88% Status: Acute (3) COVID-19: Status: Acute (4) Heart failure with preserved ejection fraction: Status: Chronic Qualifiers: Heart failure chronicity: chronic Qualified Code(s): I50.32 - Chronic diastolic (congestive) heart failure (5) Pulmonary embolism: Status: Acute Qualifiers: Pulmonary embolism type: multiple subsegmental (without acute cor pulmonale) Qualified Code(s): I26.94 - Multiple subsegmental pulmonary emboli without acute cor pulmonale (6) Pericardial effusion (noninflammatory): Ruled out tamponade on repeat echocardiogram on 10/10 Status: Acute (7) Hypernatremia: Status: Acute (8) Hypothyroidism: Status: Acute (9) COPD (chronic obstructive pulmonary disease): Status: Chronic Qualifiers: COPD type: emphysema Emphysema type: centrilobular Qualified Code(s): J43.2 - Centrilobular emphysema (10) 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, has both petit mal and other types of seizures, last seizures this week which I explained to the family was probably due to lowered threshold from acute illness Keppra levels elevated. Decreased to 500 mg IV twice daily. Status: Chronic (11) Carotid artery disease: Status: Chronic (12) Blind: Both eyes Assistance and patience as needed Status: Chronic Qualifiers: Right eye visual impairment category: right - unspecified blindness Left eye visual impairment category: left - unspecified blindness Qualified Code(s): H54.3 - Unqualified visual loss, both eyes (13) Severe protein-energy malnutrition: Status: Acute (14) Goals of care, counseling/discussion: Status: Acute Plan 66 old gentleman with past medical history of being legally blind, carotid arterial disease, COPD, anterior pericardial effusion who was admitted to the hospital due to hypoxia found to be COVID-19 positive. Hypoxia secondary to COVID-19 pneumonia: Pulmonary embolism Altered mental status with episodes of agitation Hypernatremia Anemia requiring 3 unit of blood transfusion Severe protein energy malnutrition Legally blind Hard of hearing COPD Carotid artery disease Hypothyroidism Had goals of care discussion with patient's DPOA/[id number] Ms. Herminia over the phone. We discussed that unfortunately given the poor baseline health of Mr. Madera including severe protein energy malnutrition with BMI of 16, being legally blind, being bedbound and now getting worse mentation méndez and from poor energy malnutrition standpoint even though all metabolic abnormalities have been corrected including hypernatremia, hypothyroidism, elevated Keppra levels it is highly unlikely that he would go back to his baseline lifestyle which to start with unfortunately was very poor. And given his goals of care of DNR/DNI, declining any artificial feed it would be appropriate for patient to go hospice/comfort care. Ms. Hope states she is in agreements and understand but would want his son's to be made aware and in agreement as well. She is going to reach out to the son's and would want a conference call. Physician stated he would be more than happy to have his call so that everybody's questions could be answered. Ms. Hope states she is the one who will be making the final decision but would want the sons to be in agreement. As per Ms. Hope she is the one was been taking care of the patient he now. Son are not really aware of his poor baseline health. 10/15: Had further goals of care with patient's DPOA Ms. Hope at bedside. She has spoken to the family. She would want to go ahead with hospice care/comfort measures. She wants to make sure patient does not feel as if he is suffocating. Orders changed. No more blood work. Morphine and Ativan as needed. Attestations Medical Necessity Statement*: Patient requires further hospitalization for comfort measures status only. Time Spent in Patient Care: less than 15 minutes Coding Level of Care Code Acute Hatchery Attendant for g Fwd Diagnoses Altered mental status R41.82 Hypoxemia R09.02 COVID-19 U07.1 Heart failure with preserved ejection fraction I50.32 Heart failure chronicity: chronic Pulmonary embolism I26.94 Pulmonary embolism type: multiple subsegmental (without acute cor pulmonale) Pericardial effusion (noninflammatory) I31.3 Hypernatremia E87.0 Hypothyroidism E03.9 COPD (chronic obstructive pulmonary disease) J43.2 COPD type: emphysema Emphysema type: centrilobular Generalized epilepsy G40.309 Carotid artery disease I73.9 Blind H54.3 Right eye visual impairment category: right - unspecified blindness Left eye visual impairment category: left - unspecified blindness Severe protein-energy malnutrition E43 Goals of care, counseling/discussion Z71.89
--- NOTE | 2021-10-16 17:38 | PC.NURSE ---
Pt resting in bed. Repositioned q2h and PRN. CLWR, sr up x3. Morphine given as ordered prn for air hunger and s/s of pain. Pt on 2LNC. Remains comfortable. All dressings changed. Will monitor.
--- NOTE | 2021-10-16 23:10 | PC.NURSE ---
Transfer Note Patient transferred to [facility] from ICU via bed. Handoff report given to AARON Toribio. Patient oriented to environment and equipment. Covering service notified. Orders reviewed and will continue to monitor. All belongings transferred with patient at time of transfer including clothing and hearing aids with supercharger repair supervisor. Wounds noted to bilateral arms, covered with dressings.
[2021-10-17] VITALS: BP 95/61; PULSE 127; RESP 12; TEMP 36.4; O2SAT 84
[2021-10-17] MEDS: morphine 10 mg/0.5 mL oral liq UD SUBLINGUAL ×7 (00:46→18:31)
--- NOTE | 2021-10-17 02:15 | PC.NURSE ---
pt iv and meds iv infiltrated in left upper arm. one attempt made to start an iv on right upper arm. dhruv notified about infiltrated iv and iv attempt. physician advised to cancel iv meds and attempt no more iv's at this time.
--- NOTE | 2021-10-17 02:22 | PC.NURSE ---
repositioning zane valle repositioned pt at [id number]
[2021-10-17 07:28] VITALS: BP 78/49; PULSE 62; RESP 17; TEMP 36.9; O2SAT 95
--- NOTE | 2021-10-17 09:44 | PC.SOCIAL ---
IMM Updated Pt is now comfort care. IMM provided to bedside for family to review. Initialed, dated, & timed copy in chart.
--- NOTE | 2021-10-17 15:23 | P.PN_ITS ---
Subjective Subjective: Patient is currently on comfort care measures. Medications: Medication Review Details: Generic Name Dose Route Start Last Admin Trade Name Freq PRN Reason Stop Dose Admin Atropine Sulfate 3 drop 10/15/21 16:00 10/17/21 13:36 Atropine 1% Op S oln 5 Ml Btl SUBLINGUAL 3 drop Q4H PRN Administration Excessive Secreti ons, Rattling Morphine Sulfate 2 mg 10/04/21 18:17 10/15/21 13:02 Morphine 4 Mg/Ml Sdv 1 Ml IVP 2 mg Q4H PRN Administration Severe Pain after oral/NPO Morphine Sulfate 2 - 10 mg 10/15/21 16:00 10/16/21 20:32 Morphine 4 Mg/Ml Sdv 1 Ml IVP 4 mg Q15M PRN Administration Moderate To Sever e Pain or SOB Morphine Sulfate 2 - 10 mg 10/15/21 16:00 10/17/21 13:19 Morphine 10 Mg/0 .5 Ml Oral Liq Ud SUBLINGUAL 4 mg Q2H PRN Administration Moderate To Sever e Pain or SOB Vitals/I&O/Wt Last Vital Signs Temp 98.4 F 10/17/21 07:28 Pulse 62 10/17/21 07:28 Resp 17 10/17/21 07:28 BP 78/49 10/17/21 07:28 Pulse Ox 95 10/17/21 07:28 O2 Del Method 10/17/21 08:00 O2 Flow Rate 8 10/17/21 08:00 FiO2 40 10/14/21 13:32 10/17/21 10/17/21 10/17/21 06:59 14:59 22:59 Intake Total 307.5 / 821.667 Output Total 75 / 150 Balance 232.5 / 671.667 Physical Exam Narrative: Cachectic malnourished, with severe bitemporal wasting HENMT: COMMON NORMALS: normocephalic and atraumatic HEAD & SCALP: normocephalic and atraumatic Chest: CHEST: Yes Symmetrical chest wall rise Resp: COMMON NORMALS: clear to auscultation bilaterally EFFORT & INSPECTION: Yes symmetric chest movement AUSCULTATION: clear to auscultation bilaterally OTHER: Diminished air entry bilaterally Cardio: COMMON NORMALS: regular rate, regular rhythm, S1 normal heart sound present, S2 normal heart sound present, No gallops present (Cardio), No murmurs present (Cardio), No rub (Cardio) and Peripheral pulses 2+ throughout RATE: regular rate RHYTHM: regular rhythm HEART SOUNDS: S1 normal heart sound present and S2 normal heart sound present PERIPHERAL PULSES: Peripheral pulses 2+ throughout GI: COMMON NORMALS: Normal to inspection, nondistended, normoactive bowel sounds present, Soft to palpation, non-tender, No hepatosplenomegaly present and no masses AUSCULTATION: Yes normoactive bowel sounds PALPATION: Yes Soft to palpation and Yes No hepatosplenomegaly present RECTAL EXAM: Yes deferred Extremity: COMMON NORMALS: no clubbing, cyanosis or edema and no pedal edema Urinary Catheter Management: Jackson: Cath Placed During This Visit: yes Reason for Continuing Indwelling Catheter: Hospice/Comfort/Palliative Care Urinary Catheter Date of Insertion: 10/06/21 Urinary Catheter Time of Insertion: 16:00 Data : 10/14/21 02:27 10/15/21 02:45 A&P Assessment and plan (1) Altered mental status: Status: Acute (2) Hypoxemia: Oxygen therapy as needed to keep saturation over 88% Status: Acute (3) COVID-19: Status: Acute (4) Heart failure with preserved ejection fraction: Status: Chronic Qualifiers: Heart failure chronicity: chronic Qualified Code(s): I50.32 - Chronic diastolic (congestive) heart failure (5) Pulmonary embolism: Status: Acute Qualifiers: Pulmonary embolism type: multiple subsegmental (without acute cor pulmonale) Qualified Code(s): I26.94 - Multiple subsegmental pulmonary emboli without acute cor pulmonale (6) Pericardial effusion (noninflammatory): Ruled out tamponade on repeat echocardiogram on 10/10 Status: Acute (7) Hypernatremia: Status: Acute (8) Hypothyroidism: Status: Acute (9) COPD (chronic obstructive pulmonary disease): Status: Chronic Qualifiers: COPD type: emphysema Emphysema type: centrilobular Qualified Code(s): J43.2 - Centrilobular emphysema (10) 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, has both petit mal and other types of seizures, last seizures this week which I explained to the family was probably due to lowered threshold from acute illness Keppra levels elevated. Decreased to 500 mg IV twice daily. Status: Chronic (11) Carotid artery disease: Status: Chronic (12) Blind: Both eyes Assistance and patience as needed Status: Chronic Qualifiers: Right eye visual impairment category: right - unspecified blindness Left eye visual impairment category: left - unspecified blindness Qualified Code(s): H54.3 - Unqualified visual loss, both eyes (13) Severe protein-energy malnutrition: Status: Acute (14) Goals of care, counseling/discussion: Status: Acute Plan 66 old gentleman with past medical history of being legally blind, carotid arterial disease, COPD, anterior pericardial effusion who was admitted to the hospital due to hypoxia found to be COVID-19 positive. Hypoxia secondary to COVID-19 pneumonia: Pulmonary embolism Altered mental status with episodes of agitation Hypernatremia Anemia requiring 3 unit of blood transfusion Severe protein energy malnutrition Legally blind Hard of hearing COPD Carotid artery disease Hypothyroidism Had goals of care discussion with patient's DPOA/[id number] Ms. Hope over the phone. We discussed that unfortunately given the poor baseline health of Mr. Madera including severe protein energy malnutrition with BMI of 16, being legally blind, being bedbound and now getting worse mentation méndez and from poor energy malnutrition standpoint even though all metabolic abnormalities have been c orrected including hypernatremia, hypothyroidism, elevated Keppra levels it is highly unlikely that he would go back to his baseline lifestyle which to start with unfortunately was very poor. And given his goals of care of DNR/DNI, declining any artificial feed it would be appropriate for patient to go hospice/comfort care. Ms. Hope states she is in agreements and understand but would want his son's to be made aware and in agreement as well. She is going to reach out to the son's and would want a conference call. Physician stated he would be more than happy to have his call so that everybody's questions could be answered. Ms. Hope states she is the one who will be making the final decision but would want the sons to be in agreement. As per Ms. Hope she is the one was been taking care of the patient he now. Son are not really aware of his poor baseline health. 10/15: Had further goals of care with patient's DPOA Ms. Hope at bedside. She has spoken to the family. She would want to go ahead with hospice care/comfort measures. She wants to make sure patient does not feel as if he is suffocating. Orders changed. No more blood work. Morphine and Ativan as needed. Attestations Medical Necessity Statement*: Patient has been made comfort care. Coding Level of Care Code Acute Anesthesiology Tech for Chg Fwd Diagnoses Altered mental status R41.82 Hypoxemia R09.02 COVID-19 U07.1 Heart failure with preserved ejection fraction I50.32 Heart failure chronicity: chronic Pulmonary embolism I26.94 Pulmonary embolism type: multiple subsegmental (without acute cor pulmonale) Pericardial effusion (noninflammatory) I31.3 Hypernatremia E87.0 Hypothyroidism E03.9 COPD (chronic obstructive pulmonary disease) J43.2 COPD type: emphysema Emphysema type: centrilobular Generalized epilepsy G40.309 Carotid artery disease I73.9 Blind H54.3 Right eye visual impairment category: right - unspecified blindness Left eye visual impairment category: left - unspecified blindness Severe protein-energy malnutrition E43 Goals of care, counseling/discussion Z71.89
[2021-10-17 22:53] VITALS: BP 73/44; PULSE 107; RESP 16; TEMP 37; O2SAT 67
--- NOTE | 2021-10-17 23:34 | PC.NURSE ---
patient condition declining further, call placed to listed contact Herminia Madera, no answer and unable to leave message due to mail box full, call placed to home number which belongs to patient, message left for Herminia to call hospital.
--- NOTE | 2021-10-17 23:51 | PC.NURSE ---
pt asystole at 2334, no breath or heart beat, confirmed by RN, call placed to family and friend on contact list, no response, voice mail left to call facility, Dr. Escamilla notified of , Charge nurse notified house sup. no home listed on pt chart.post mortem care given to patient.
--- NOTE | 2021-10-18 00:54 | PC.NURSE ---
pt body taken to the morgue due to no home on file and staff unable to make contact with family.
--- NOTE | 2021-10-18 14:19 | P.DES_ITS ---
Discharge Providers DDS Date of Admission: 10/04/21 13:46 Date Summary Completed: 10/18/21 Attending Provider at Admission: Maritza Kilpatrick MD Attending Provider at Discharge: Rashad Pretty MD Primary Care Provider: Bri Fernandez MD DS Diagnoses Hospital Diagnoses (1) Altered mental status: (2) Hypoxemia: (3) COVID-19: (4) Heart failure with preserved ejection fraction: Qualifiers: Heart failure chronicity: chronic Qualified Code(s): I50.32 - Chronic diastolic (congestive) heart failure Permanent Problem Comments: Echo 06/2021 EF 55% (5) Pulmonary embolism: Qualifiers: Pulmonary embolism type: multiple subsegmental (without acute cor pulmonale) Qualified Code(s): I26.94 - Multiple subsegmental pulmonary emboli without acute cor pulmonale (6) Pericardial effusion (noninflammatory): (7) Hypernatremia: (8) Hypothyroidism: (9) COPD (chronic obstructive pulmonary disease): Qualifiers: COPD type: emphysema Emphysema type: centrilobular Qualified Code(s): J43.2 - Centrilobular emphysema (10) Generalized epilepsy: Permanent Problem Comments: Recurrent seizure like episodes in 2019, EEG with diffuse slowing, neurology suspected episodes from orthostatic hypotension, frequency decreased after Keppra initiated, have been petit mal and other types (11) Carotid artery disease: Permanent Problem Comments: On CTA head and neck 06/2021: Right ICA occluded Left ICA mild stenosis proximally, <50% (12) Blind: Qualifiers: Right eye visual impairment category: right - unspecified blindness Left eye visual impairment category: left - unspecified blindness Qualified Code(s): H54.3 - Unqualified visual loss, both eyes Permanent Problem Comments: Bilateral retinal detachment, complication from surgery (13) Severe protein-energy malnutrition: (14) Goals of care, counseling/discussion: Reason for Visit Reason for Visit SOB, AMS Summary Summary Summary: 66-year-old male with past medical history of COPD , hypertension , depression, seizure disorder, TIA, legally blind was admitted with chief complaint of worsening shortness of breath. Was admitted for the management of Acute on chronic hypoxic respiratory failure: Multifactorial: Likely secondary to COVID-19, PE, COPD Acute PE Acute metabolic encephalopathy secondary to COVID-pneumonia. During the hospital stay patient was kept on COVID protocol, he was kept on steroids, broad-spectrum antibiotics supplemental oxygen as needed, inflammatory markers were trended, ABG was monitored , he received 1 dose of tocilizumab, was on remdesivir, DuoNebs, CTA chest: Small acute pulmonary emboli in the RIGHT middle lobe and RIGHT lower lobe pulmonary arteries in the segmental and subsegmental divisions. Small LEFT greater than RIGHT pleural effusions compressive atelectasis in the lung bases. Associated slight patchy infiltrates. Recommend correlation for pneumonia. Advanced chronic emphysematous changes. Small to moderate pericardial effusion. Lower extremity Doppler vein: Negative for DVT CT head without contrast: No acute intracranial pathology. 2D echo: LV systolic function is borderline low with EF 45 to 50%. Valvular structures are not well visualized but are grossly normal.?Trace tricuspid regurgitation seen ?Moderate to large sized anterior, loculated pericardial ?effusion.? No echocardiographic features of pericardial tamponade.Blood culture: NTD. Hospital course was complicated by development of hyponatremia as well as anemia for which he needed blood transfusion, initially patient did show some signs of improvement, but later on he was not able to maintain the improvement trajectory, he continued to be, altered, though his supplemental oxygen requirement was slowly improving, but given his poor overall improvement, and underlying significant comorbid conditions, with expected poor quality of life, family decided to make him comfort care, which was appropriate Patient on 10/17/2021 at 22:34. Additional Data Advance directives?: No Discharge Plan Discharge Patient Disposition: Condition: Stable Probable Cause of Probable cause of : Cardiac arrest DS Attestations Time Spent in /Discharge Care*: less than 30 min Quality - AMI: AMI present?: No Quality - Stroke: CVA present?: No Quality - VTE: VTE present?: No Coding Level of Care Code Acute Hunter Skin Diver for Chg Fwd Diagnoses Altered mental status R41.82 Hypoxemia R09.02 COVID-19 U07.1 Heart failure with preserved ejection fraction I50.32 Heart failure chronicity: chronic Pulmonary embolism I26.94 Pulmonary embolism type: multiple subsegmental (without acute cor pulmonale) Pericardial effusion (noninflammatory) I31.3 Hypernatremia E87.0 Hypothyroidism E03.9 COPD (chronic obstructive pulmonary disease) J43.2 COPD type: emphysema Emphysema type: centrilobular Generalized epilepsy G40.309 Carotid artery disease I73.9 Blind H54.3 Right eye visual impairment category: right - unspecified blindness Left eye visual impairment category: left - unspecified blindness Severe protein-energy malnutrition E43 Goals of care, counseling/discussion Z71.89
== END 2021-10-18 01:01 | disposition expired | DRG 177 ==
LOC: ER 13:32 → MEDSURG 16:16 → ICU 10-06 16:18 → MEDSURG 10-16 23:32
PROVIDERS: Family Medicine; Internal Medicine; Student in an Organized Health Care Education/Training Program; Admitting Provider Hospitalist; Emergency Provider Emergency Medicine; PCP Family Medicine; Visit Provider Internal Medicine
DX: U07.1 COVID-19 (principal); E43 Unspecified severe protein-calorie malnutrition; G92.8 Other toxic encephalopathy; I26.94 Multiple subsegmental thrombotic pulmonary emboli without acute cor pulmonale; J12.82 Pneumonia due to coronavirus disease 2019; J96.21 Acute and chronic respiratory failure with hypoxia; I31.3 Pericardial effusion (noninflammatory); I50.32 Chronic diastolic (congestive) heart failure; Z68.1 Body mass index [BMI] 19.9 or less, adult; E87.1 Hypo-osmolality and hyponatremia; J43.2 Centrilobular emphysema; H54.8 Legal blindness, as defined in USA; Z99.81 Dependence on supplemental oxygen; Z28.310 Unvaccinated for COVID-19; I65.23 Occlusion and stenosis of bilateral carotid arteries; F32.A Depression, unspecified; F10.21 Alcohol dependence, in remission; G40.409 Other generalized epilepsy and epileptic syndromes, not intractable, without status epilepticus; I11.0 Hypertensive heart disease with heart failure; Z86.14 Personal history of Methicillin resistant Staphylococcus aureus infection; I46.9 Cardiac arrest, cause unspecified; T38.0X5A Adverse effect of glucocorticoids and synthetic analogues, initial encounter; Z51.5 Encounter for palliative care; Z74.01 Bed confinement status; Z66 Do not resuscitate; Z86.73 Personal history of transient ischemic attack (TIA), and cerebral infarction without residual deficits; N40.0 Benign prostatic hyperplasia without lower urinary tract symptoms; E03.9 Hypothyroidism, unspecified; H90.3 Sensorineural hearing loss, bilateral; Z97.4 Presence of external hearing-aid; D64.9 Anemia, unspecified; E87.6 Hypokalemia; F17.290 Nicotine dependence, other tobacco product, uncomplicated; Z86.69 Personal history of other diseases of the nervous system and sense organs
CPT/HCPCS: 36415; 36416; 36430; 36600; 51702; 70450; 71045; 71275; 76705; 80048; 80051; 80053; 80061; 80177; 80307; 81001; 81003; 82140; 82330; 82533; 82550; 82607; 82728; 82746; 82805; 82962; 83036; 83540; 83550; 83605; 83615; 83690; 83735; 83880; 84100; 84145; 84439; 84443; 84481; 84484; 85014; 85018; 85025; 85049; 85378; 85384; 85610; 85651; 85730; 86140; 86403; 86850; 86900; 86920; 87040; 87086; 87426; 87449; 87641; 92523; 92526; 92610; 93005; 93306; 93308; 93970; 94640; 94664; 94762; 96365; 96366; 96367; 96372; 99285; A4570; C9113; J0456; J0696; J1100; J1170; J1630; J1644; J1650; J1756; J1940; J1953; J2270; J2543; J3262; J3370; J3480; J3490; J7050; J7626; J7799; P9016; P9047; Q9967